=== PATIENT | male | born 1965 | race Caucasian/White ===

== ENCOUNTER 2020-05-20 14:46 | Emergency (ER) | payer OTHER, SELFPAY ==
[2020-05-20 20:44] VITALS: BP 155/70; PULSE 50; RESP 16; TEMP 35.5; O2SAT 96; BMI 29.8
--- NOTE | 2020-05-20 21:12 | ED.EXTPRO ---
HPI - Extremity Problem General Chief complaint: Extremity Injury, Upper Stated complaint: finger infection Time Seen by Provider: 05/20/20 20:59 Source: patient Mode of arrival: ambulatory Limitations: no limitations History of Present Illness HPI Narrative: pt comes to the ED c/o a R finger infection. Patient states it started this morning. Yesterday, the patient had a hangnail, pull it off, this morning, the patient noticed that his finger was erythematous and red. Patient states it hurts when he tries to flex his finger, however he is able to do so. Patient denies fever chills MD Complaint: extremity pain ( right middle finger pain) Related Data Previous Rx's Medication Instructions Recorded cephalexin [Keflex] 750 mg PO BID #19 cap 05/20/20 doxycycline hyclate 100 mg PO BID #19 cap 05/20/20 Allergies Allergy/AdvReac Type Severity Reaction Status Date / Time codeine [Codeine] Allergy Mild HIVES, Verified 05/20/20 22:50 VOMITING ibuprofen [From MOTRIN] Allergy Mild upset Verified 05/20/20 22:50 stomach acetaminophen [From TYLENOL] Allergy Unknown UPSET Verified 05/20/20 22:50 STOMACH morphine Allergy Unknown Headache Verified 05/20/20 22:50 Review of Systems Review of Systems: Constitutional : No Weight loss, No Fever, No Chills, No Night Sweats, No Fatigue, No Malaise ENT/Mouth : No Hearing loss, No Ear Pain, No Nasal Congestion, No Sinus Pain, No Hoarseness, No sore throat, No Rhinorrhea, No Swallowing Difficulty Eyes: No Eye Pain, No Swelling, No Redness, No Foreign Body, No Discharge, No Vision Changes Cardiovascular : No Chest Pain, No SOB, No Dyspnea on Exertion, No Orthopnea, No Edema, No Palpitations Respiratory : No Cough, No Sputum, No Wheezing, No Smoke Exposure, No Dyspnea Gastrointestinal : No Nausea, No Vomiting, No Diarrhea, No Constipation, No abdominal Pain, No Hematochezia, No Melena Genitourinary : no irregular bleeding, No Dysuria, No Urinary Frequency, No Hematuria, No Urinary Incontinence, No Urgency, No Flank Pain, No Urinary Flow Changes, No Hesitancy Musculoskeletal : No joint pain, No Myalgias, No Joint Swelling Skin : Erythema and swelling in right middle finger Neuro : No Weakness, No Numbness, No Paresthesias, No Loss of Consciousness, No Dizziness, No Headache Psych : No Anxiety/Panic, No Depression, No SI/HI/AH/VH, No Social Issues, Heme/Lymph: No Bruising, No Bleeding,No Lymphadenopathy Endocrine : No Polyuria, No Polydipsia, No Temperature Intolerance REPLACED BY [facility] Past Medical History Medical History (Updated 05/20/20 @ 23:51 by Carmen Shaikh MD) Anxiety Social History Social History Smoking Status: Current every day smoker Use of substances other than those prescribed or required for medical reasons: No Substance Use Type: Heroin and IV Drugs Substance Use Frequency: Daily Last Used Substance: Just Prior to Admission Any prior treatment program specific to substance use: Yes Advance Directives: No Advance Directives Information Provided: Yes Physical Exam Vital Signs: Vital Signs: Last Vital Signs Temp 98.8 F 05/20/20 23:27 Pulse 50 05/20/20 23:27 Resp 17 05/20/20 23:27 BP 144/82 H 05/20/20 23:27 Pulse Ox 99 05/20/20 23:27 Body Mass Index 29.8 Appearance: Alert. Oriented X3. No acute distress. Eyes: Pupils equal, round and reactive to light. ENT: Pharynx normal. Neck: Normal inspection. Neck supple. No lymph nodes noted. No crepitus CVS: Normal heart rate and rhythm. Pulses normal. Normal S1 and S2 Respiratory: No respiratory distress. Breath sounds normal. No Wheezing. No rales Abdomen: Soft and nontender. No rigidity. No distention. good BS x4 Skin: Skin warm and dry. See below Extremities: No lower extremity edema. Patient has erythema in the lateral aspect of the right middle finger, nail has dry bloody discharge, no pus drainage. Patient is able to flex and extend all fingers in his hand, patient has [id number] swelling in the right middle finger. Patient has multiple cuts on the left-hand that are old and healing, not infected. Neuro: Oriented X 3. No motor deficit. No sensory deficit. Moving all extermities. No slurred speech. Course Course Course Narrative: Patient received p.o. antibiotics. Patient's white blood cell count is not available. Patient had blood drawn, the labs states that the blood vitals were not labor properly. Denies 2nd set of blood work labs were drawn, the lab states they never got it although they were sent. Patient refused a 3rd blood drawn. However, we did get a lactic acid, it is 1.5. At this time, there is no suspicion of tenosynovitis. I discussed with the patient that if the redness passes the marked line, to return to the emergency room. Also if he spikes any fever or has any worsening symptoms, he needs to return to the emergency room. Patient is currently homeless, however he states that he is able to get his medications from [facility] MDM - Extremity (Nontraumatic) Lab Data Result diagrams: 05/20/20 21:28 Labs: Lab Results 05/20/20 05/20/20 Range/Units 21:28 22:35 Sodium 139 (135-145) mmol/L Potassium 3.9 (3.3-5.1) mmol/L Chloride 101 (96-108) mmol/L Carbon Dioxide 29 (22-29) mmol/L Anion Gap 13 (12-20) BUN 16 (9-16) mg/dL Creatinine 0.87 (0.5-1.4) mg/dL Estim Creat Clear Calc 98.6 Estimated GFR > 60 Random Glucose 93 (60-115) mg/dL Lactic Acid 1.5 (0.5-2.0) mmol/L Calcium 8.7 (8.4-10.2) mg/dL Discharge Plan Discharge Clinical Impression: Cellulitis Qualifiers: Site of cellulitis: extremity Site of cellulitis of extremity: finger Laterality: right Qualified Code(s): L03.011 - Cellulitis of right finger Patient Disposition: Home, Self-Care Instructions: Cellulitis (ED) Additional Instructions: If you have fever, the redness spreads beyond the marked line, if you have any worsening symptoms, please return to the emergency room. Please follow-up with your primary care physician tomorrow. If you have any worsening or new symptoms, please return to the emergency room or call 911 Prescriptions: New cephalexin [Keflex] 750 mg capsule 750 mg PO BID Qty: 19 RF: 0 doxycycline hyclate 100 mg capsule 100 mg PO BID Qty: 19 RF: 0
[2020-05-20 21:58] LABS: Anion Gap 13 (12-20); Blood Urea Nitrogen 16 mg/dL (9-16); Calcium 8.7 mg/dL (8.4-10.2); Carbon Dioxide 29 mmol/L (22-29); Chloride 101 mmol/L (96-108); Creatinine Clr Calc Pharmacy 98.6; Estimated Glomerular Filt Rate > 60; Glucose Random 93 mg/dL (60-115); Potassium 3.9 mmol/L (3.3-5.1); Sodium 139 mmol/L (135-145)
[2020-05-20] MEDS: cephALEXin 500 MG CAPSULE PO (22:51)
--- NOTE | 2020-05-20 22:51 | PC.NURSE ---
PT ASKING FOR CUSTARD. PT GIVEN SANDWICH, JUICE, J[place], 3 CUPS OF CUSTARD AND 6 PACKAGES OF CHAU CRACKERS.
[2020-05-20 23:09] LABS: Lactic Acid 1.5 mmol/L (0.5-2.0)
--- NOTE | 2020-05-20 23:20 | PC.NURSE ---
PT DECLINED REPEAT CBC. MD AWARE. ALL OTHER LABS REVIEWED.
--- NOTE | 2020-05-20 23:26 | PC.NURSE ---
PT REFUSED ADDITIONAL BLOOD WORK
[2020-05-20 23:27] VITALS: BP 144/82; PULSE 50; RESP 17; TEMP 37.1; O2SAT 99
== END 2020-05-21 00:16 | disposition home or self-care (01) ==
PROVIDERS: Emergency Provider Emergency Medicine
DX: L03.011 Cellulitis of right finger (principal); F17.200 Nicotine dependence, unspecified, uncomplicated
CPT/HCPCS: 36415; 80048; 83605; 87040; 99284

== ENCOUNTER 2020-06-13 15:58 | Emergency (ER) | payer OTHER, SELFPAY ==
[2020-06-13 16:00] VITALS: BP 130/75; PULSE 53; RESP 18; TEMP 36.8; O2SAT 97; BMI 62.6
--- NOTE | 2020-06-13 16:36 | ED.GENADULT ---
HPI - General Adult General Chief complaint: General Medical Stated complaint: abscess Time Seen by Provider: 06/13/20 16:36 History of Present Illness HPI narrative: Patient complains of red sores on both forearms that have been there for several days, he is an IV daily drug user, he denies fever or chills, the sores are mildly painful Related Data Previous Rx's Medication Instructions Recorded cephalexin [Keflex] 750 mg PO BID #19 cap 05/20/20 doxycycline hyclate 100 mg PO BID #19 cap 05/20/20 cephalexin 500 mg PO QID 7 Days #28 tab 06/13/20 sulfamethoxazole-trimethoprim 1 tab PO BID 7 Days #14 tab 06/13/20 [Bactrim DS] Allergies Allergy/AdvReac Type Severity Reaction Status Date / Time acetaminophen [From TYLENOL] Allergy Intermediate UPSET Verified 06/13/20 16:00 STOMACH morphine Allergy Intermediate Headache Verified 06/13/20 16:00 codeine [Codeine] Allergy Mild HIVES, Verified 06/13/20 16:00 VOMITING ibuprofen [From MOTRIN] Allergy Mild upset Verified 06/13/20 16:00 stomach Review of Systems Review of Systems: Positive for painful red areas on both forearms negatives are no fever no chills no dizziness no weakness no joint pain no chest pain or shortness of breath no numbness or weakness PMFSH Past Medical History PMFSH Narrative: Patient is daily IV drug user, has not had a tetanus shot many years Source: nursing notes reviewed Medical History (Updated 06/13/20 @ 17:03 by YAYA Babb) Anxiety Colitis Substance abuse Surgical History (Updated 06/13/20 @ 16:04 by Bisi Cool RN) H/O oral surgery Social History Social History Smoking Status: Current every day smoker Use of substances other than those prescribed or required for medical reasons: Yes Substance Use Type: Heroin Substance Use Frequency: Chronic Longstanding Any prior treatment program specific to substance use: Yes Advance Directives: No Advance Directives Information Provided: Yes Physical Exam Vital Signs: Vital Signs: Last Vital Signs Temp 99.2 F 06/13/20 17:23 Pulse 48 L 06/13/20 17:23 Resp 14 06/13/20 17:23 BP 129/72 06/13/20 17:23 Pulse Ox 98 06/13/20 17:23 Body Mass Index 62.6 General appearance is no acute distress comfortable and cooperative A&O x3 The head is normocephalic atraumatic Neck is supple Respiratory no distress Extremities full range of motion x4 in all joints The skin on the left forearm there is a 2 cm x 2 cm area of redness and induration with no fluctuance or discharge, no abscess and on the right forearm there is a very small area of redness and again mild induration no abscess, there are multiple small scabbed areas and track aden all over the arms Neuro no focal deficit Course Course Course Narrative: ER course there is no abscess or drainable fluid connection there is no lymphangitis and the patient has a small area of cellulitis on the left arm and props an early cellulitis on the right knee is treated with oral antibiotics Discharge Plan Discharge Clinical Impression: Cellulitis Qualifiers: Site of cellulitis: extremity Site of cellulitis of extremity: upper extremity Laterality: unspecified laterality Qualified Code(s): L03.119 - Cellulitis of unspecified part of limb Patient Disposition: Home, Self-Care Additional Instructions: There is no abscess now We are treating for skin infection cellulitis with antibiotics Return any time for worse pain and swelling, spreading redness, fever, any worse condition or any concerns You got a tetanus injection today Prescriptions: New sulfamethoxazole-trimethoprim [Bactrim DS] 800-160 mg tablet 1 tab PO BID 7 Days Qty: 14 RF: 0 cephalexin 500 mg tablet 500 mg PO QID 7 Days Qty: 28 RF: 0 No Action cephalexin [Keflex] 750 mg capsule 750 mg PO BID Qty: 19 RF: 0 doxycycline hyclate 100 mg capsule 100 mg PO BID Qty: 19 RF: 0 Interventions: ED Discharge Assessment Last Done: 06/13/20 17:27 Discharge Date/Time: 06/13/20 17:24
[2020-06-13] MEDS: cephALEXin 500 MG CAPSULE PO (17:16)
[2020-06-13 17:23] VITALS: BP 129/72; PULSE 48; RESP 14; TEMP 37.3; O2SAT 98
== END 2020-06-13 17:24 | disposition home or self-care (01) ==
PROVIDERS: Emergency Provider Emergency Medicine Emergency Medical Services
DX: L03.114 Cellulitis of left upper limb (principal); L03.113 Cellulitis of right upper limb; F11.10 Opioid abuse, uncomplicated; F17.200 Nicotine dependence, unspecified, uncomplicated
CPT/HCPCS: 90471; 90715; 99284

== ENCOUNTER 2020-08-29 22:16 | Emergency (ER) | payer OTHER, SELFPAY ==
[2020-08-29 22:23] VITALS: BP 145/82; PULSE 59; RESP 18; TEMP 36.6; O2SAT 97; BMI 25.8
--- NOTE | 2020-08-30 00:10 | ED.SKABFB ---
HPI - Skin/Abscess/Foreign Bdy General Chief complaint: Skin/Abscess/Foreign Body Stated complaint: hand pain Time Seen by Provider: 08/29/20 23:51 Source: patient Mode of arrival: ambulatory Limitations: no limitations History of Present Illness HPI narrative: Patient with history of IV drug use with frequent cellulitis and skin infection was seen here in May for the same comes here for multiple skin lesions clinically looks like staph infection no abscess no fever most of the lesions in the hands in the legs with surrounding cellulitis Related Data Previous Rx's Medication Instructions Recorded cephalexin [Keflex] 750 mg PO BID #19 cap 05/20/20 doxycycline hyclate 100 mg PO BID #19 cap 05/20/20 cephalexin 500 mg PO QID 7 Days #28 tab 06/13/20 sulfamethoxazole-trimethoprim 1 tab PO BID 7 Days #14 tab 06/13/20 [Bactrim DS] cephalexin 500 mg PO QID 10 Days #40 cap 08/30/20 doxycycline hyclate 100 mg PO BID #20 cap 08/30/20 Allergies Allergy/AdvReac Type Severity Reaction Status Date / Time acetaminophen [From TYLENOL] Allergy Intermediate UPSET Verified 08/29/20 22:23 STOMACH morphine Allergy Intermediate Headache Verified 08/29/20 22:23 codeine [Codeine] Allergy Mild HIVES, Verified 08/29/20 22:23 VOMITING ibuprofen [From MOTRIN] Allergy Mild upset Verified 08/29/20 22:23 stomach Review of Systems Review of Systems: Yes all other systems are reviewed and are negative PMFSH Past Medical History Medical History Anxiety Colitis Substance abuse Surgical History H/O oral surgery Social History Social History Alcohol intake: unknown Smoking Status: Unknown if ever smoked Use of substances other than those prescribed or required for medical reasons: Yes Substance Use Type: Crack/Cocaine Substance Use Frequency: Chronic Longstanding Advance Directives: No Advance Directives Information Provided: No Physical Exam Vital Signs: Vital Signs: Last Vital Signs Temp 98 F 08/29/20 22:23 Pulse 59 08/29/20 22:23 Resp 18 08/29/20 22:23 BP 145/82 H 08/29/20 22:23 Pulse Ox 97 08/29/20 22:23 Body Mass Index 25.8 Const: General: healthy appearing and comfortable HENMT: Head: Yes normocephalic and Yes atraumatic Resp: Effort & Inspection: normal respiratory effort Auscultation: clear to auscultation bilaterally Cardio: Palpation: normal PMI Rate: regular rate Rhythm: regular rhythm Heart sounds: S1 normal heart sound present and S2 normal heart sound present GI: Inspection: Yes normal to inspection Auscultation: normal bowel sounds Skin: Other: Multiple lesions on the lower extremity and upper extremity clinically staph infection with surrounding cellulitis no fluid collection or abscess MDM - Skin/Abscess/Foreign Bdy MDM Narrative Medical decision making narrative: Patient with multiple visits in the ER for similar infection in the past treated with doxy and Keflex will give save prescription discharge him patient does not want any help for detox Discharge Plan Discharge Clinical Impression: Staph skin infection Patient Disposition: Home, Self-Care Instructions: MRSA (Methicillin-Resistant Staphylococcus Aureus) (ED) Additional Instructions: Likely you have MRSA skin infection Take antibiotics as advised Prescriptions: New doxycycline hyclate 100 mg capsule 100 mg PO BID Qty: 20 RF: 0 cephalexin 500 mg capsule 500 mg PO QID 10 Days Qty: 40 RF: 0 No Action cephalexin [Keflex] 750 mg capsule 750 mg PO BID Qty: 19 RF: 0 doxycycline hyclate 100 mg capsule 100 mg PO BID Qty: 19 RF: 0 sulfamethoxazole-trimethoprim [Bactrim DS] 800-160 mg tablet 1 tab PO BID 7 Days Qty: 14 RF: 0 cephalexin 500 mg tablet 500 mg PO QID 7 Days Qty: 28 RF: 0
[2020-08-30] MEDS: cephALEXin 500 MG CAPSULE PO (00:45)
== END 2020-08-30 00:45 | disposition home or self-care (01) ==
PROVIDERS: Emergency Provider Internal Medicine
DX: L08.9 Local infection of the skin and subcutaneous tissue, unspecified (principal); F19.10 Other psychoactive substance abuse, uncomplicated
CPT/HCPCS: 99283

== ENCOUNTER 2021-06-18 12:32 | Emergency (ER) | payer OTHER, SELFPAY ==
--- NOTE | ~2021-06-18 | XR_ITS ---
EXAMINATION: RIGHT HAND AND WRIST X-RAY CLINICAL INFORMATION: Fall. Pain and swelling. COMPARISON: Previous x-ray 2018 TECHNIQUE: 4 views of the right hand and wrist FINDINGS: Bone alignment is normal. No fracture or dislocation is seen. There are small well-corticated soft tissue ossifications adjacent to the radiocarpal joint that are stable. 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 Joints spaces are otherwise normal. Soft tissues are normal. XR/XR hand wrist RT IMPRESSION: No acute fracture or dislocation. Degenerative changes at the radiocarpal joint and small adjacent soft tissue calcifications or ossifications similar to previous exam.
--- NOTE | 2021-06-18 12:58 | PC.NURSE ---
patient called to triage twice w/ no answer
[2021-06-18 13:09] VITALS: BP 189/101; PULSE 78; RESP 20; TEMP 36.6; O2SAT 97; BMI 25.0
[2021-06-18 14:52] LABS: IDNOW Serial# 55D5AD1C; Strep A Nucleic Acid Negative (Negative)
--- NOTE | 2021-06-18 16:35 | ED.GENADULT ---
HPI - General Adult General Chief complaint: Fall Stated complaint: Fall/wrist inj Time Seen by Provider: 06/18/21 14:34 History of Present Illness HPI narrative: This patient was never seen an eloped before he could be seen Related Data Previous Rx's Medication Instructions Recorded cephalexin 750 mg capsule (Keflex) 750 mg PO BID #19 cap 05/20/20 doxycycline hyclate 100 mg capsule 100 mg PO BID #19 cap 05/20/20 cephalexin 500 mg tablet 500 mg PO QID 7 Days #28 tab 06/13/20 sulfamethoxazole 800 1 tab PO BID 7 Days #14 tab 06/13/20 mg-trimethoprim 160 mg tablet (Bactrim DS) cephalexin 500 mg capsule 500 mg PO QID 10 Days #40 cap 08/30/20 doxycycline hyclate 100 mg capsule 100 mg PO BID #20 cap 08/30/20 Allergies Allergy/AdvReac Type Severity Reaction Status Date / Time acetaminophen [From TYLENOL] Allergy Intermediate UPSET Verified 06/18/21 13:09 STOMACH morphine Allergy Intermediate Headache Verified 06/18/21 13:09 codeine [Codeine] Allergy Mild HIVES, Verified 06/18/21 13:09 VOMITING ibuprofen [From MOTRIN] Allergy Mild upset Verified 06/18/21 13:09 stomach PMFSH Past Medical History Medical History Anxiety Colitis Substance abuse Surgical History H/O oral surgery Social History Social History Alcohol intake: unknown Substance Use Type: Crack/Cocaine Advance Directives: No Advance Directives Information Provided: No Physical Exam ED Vital Signs: Vital Signs - 24 hr 06/18/21 13:09 Temperature 97.8 F Pulse Rate 78 Respiratory Rate 20 Blood Pressure 189/101 H Pulse Oximetry 97 BMI result Body Mass Index 25.0 Medical Decision Making Lab Data Labs: Lab Results 06/18/21 Range/Units 14:37 S. pyogenes GrpA SANTIAGO Negative (Negative) Discharge Plan Discharge Clinical Impression: Eloped from emergency department Patient Disposition: Elopement Prescriptions: No Action cephalexin [Keflex] 750 mg capsule 750 mg PO BID Qty: 19 0RF doxycycline hyclate 100 mg capsule 100 mg PO BID Qty: 19 0RF doxycycline hyclate 100 mg capsule 100 mg PO BID Qty: 20 0RF cephalexin 500 mg capsule 500 mg PO QID 10 Days Qty: 40 0RF sulfamethoxazole-trimethoprim [Bactrim DS] 800-160 mg tablet 1 tab PO BID 7 Days Qty: 14 0RF cephalexin 500 mg tablet 500 mg PO QID 7 Days Qty: 28 0RF
== END 2021-06-18 16:41 | disposition left against medical advice (07) ==
PROVIDERS: Physician Assistant Medical; Emergency Provider Emergency Medicine; PCP Internal Medicine
DX: M25.531 Pain in right wrist (principal); R07.0 Pain in throat; Z20.822 Contact with and (suspected) exposure to COVID-19; Z79.899 Other long term (current) drug therapy
CPT/HCPCS: 73110; 73130; 87651; 99283

== ENCOUNTER 2022-02-06 06:36 | Inpatient (IN) | payer OTHER, SELFPAY ==
[2022-02-06] VITALS (12 sets, daily range): BP systolic 120–247; BP diastolic 60–152; PULSE 52–115; RESP 12–26; TEMP 36.6–39; O2SAT 95–100; BMI 27.7
--- NOTE | ~2022-02-06 | CT_ITS ---
EXAMINATION: CT cervical spine w IV con, CT thoracic spine w IV con CLINICAL INFORMATION: Reason for Exam back pain neck pain hx of IVDU COMPARISON: None. TECHNIQUE: Axial images were obtained through the cervical and thoracic spine following the intravenous administration of contrast. Coronal and sagittal reconstructed images generated. Intravenous Contrast: 100 mL of opaque [address] examination was performed using dose optimization techniques as appropriate, variously including the following: *Automated exposure control *Adjustment of mA and/or kV according to patient size (this includes techniques or standardized protocols for targeted exams where dose is matched to indication/reason for exam; i.e. extremities or head) *Use of iterative reconstruction technique DLP: 1004 mGy-cm FINDINGS: CT cervical spine: Image quality degradation due to mild motion artifact. Normal alignment. No subluxation. No acute fracture identified allowing for motion artifact. Moderate disc degenerative change at C5-C6 and C6-C7 with disc height loss, endplate sclerosis, and endplate proliferative change. At least moderate central canal narrowing at C5-C6 and moderate to severe central canal stenosis at C6-C7 suspected. No endplate erosive/destructive changes. Intervertebral disc heights otherwise maintained. No gross epidural collection or mass-limited assessment. No prevertebral soft tissue swelling. Lung apices grossly clear allowing for motion artifact. No retropharyngeal fluid collection. Visualized major salivary glands and thyroid gland are unremarkable. Internal jugular veins are patent as are common and internal carotid arteries. No cervical lymphadenopathy or soft tissue mass. CT thoracic spine: Normal alignment. No subluxation. Minimal chronic anterior wedge compression deformity of T7. Vertebral body heights otherwise maintained. Mild multilevel degenerative disc disease in the mid and lower thoracic spine with minimal disc height loss, endplate sclerosis, mild endplate proliferative change. No endplate erosive or destructive changes. Facet joints are intact. No paravertebral soft tissue swelling or fluid collection. No obvious/large collection in the spinal canal-limited assessment. Visualized thoracic and upper abdominal aorta normal caliber. No mediastinal adenopathy. Visualized lungs appear clear. Minimal biapical centrilobular emphysema. CT/CT cervical spine w IV con IMPRESSION: 1. No subluxation or fracture of the cervical or thoracic spine. No CT evidence of advanced discitis osteomyelitis complex. If there is continued high clinical concern for early discitis, consider MRI for more sensitive assessment. 2. Moderate disc degenerative change at C5-C6 and C6-C7 with suspected at least moderate central canal stenosis at C5-C6 and moderate to severe central canal stenosis at C6-C7. 3. Mild multilevel degenerative disc disease in the mid and lower thoracic spine. 4. Minimal chronic anterior wedge compression deformity of T7.
--- NOTE | ~2022-02-06 | XR_ITS ---
EXAMINATION: XR CHEST CLINICAL INFORMATION: Neck and back pain, fever COMPARISON: Chest x-ray on 04/09/2016 TECHNIQUE: Frontal view of the chest was obtained. FINDINGS: The cardiac silhouette is normal. There is mild diffuse bronchial wall thickening. There are no areas of consolidation. There are no pleural effusions or pneumothoraces. The bones and soft tissues are unremarkable for the patient's age. XR/XR chest 1V IMPRESSION: Ankle wall thickening may be infectious and/or inflammatory in etiology.
--- NOTE | ~2022-02-06 | MR_ITS ---
EXAMINATION: MRI LIMITED INCOMPLETE MRI OF THE CERVICAL SPINE WITHOUT CONTRAST CLINICAL INDICATION: Fever and neck pain. TECHNIQUE: Only motion degraded sagittal T2-weighted imaging acquired with a localizer sequence patient refused further imaging due to pain. COMPARISON: CT from 02/06/2022. FINDINGS: Retrosubluxation and moderate degenerative disc disease noted at the C5-C6 level with significant foraminal encroachment, more so on the right side. At the C6-C7 level, there is a shallow disc-osteophyte complex and posterior ligamentous thickening with facet arthropathy resulting in central canal stenosis, otherwise not well assessed on this limited sagittal sequence motion. Bilateral foraminal narrowing also evident. The remaining cervical disc spaces are relatively normal. It is difficult to discern as to whether there is T2 hyperintense signal abnormality within the imaged thoracic cord versus motion artifact. The craniovertebral junction appears normal. MR/MR cervical spine wo/w con IMPRESSION: Limited incomplete examination with moderate spondylosis at the C5-C6 and C6-C7 levels. Disc-osteophyte complexes with central canal stenosis and foraminal encroachment at both levels, though incompletely assessed. Questionable artifact versus signal abnormality in the imaged thoracic cord. If patient has myelopathic symptoms, recommend repeat follow-up imaging with medication for conscious sedation.
[2022-02-06] MEDS: ondansetron HCL 4 MG/2 ML VIAL IVPUSH (10:05)
[2022-02-06] MEDS: HYDROmorphone HCl 1 MG/ML SYRINGE IVPUSH ×2 (10:06→15:04)
[2022-02-06] MEDS: 0.9 % Sodium Chloride 1,000 ML 999 ML IVCONT (10:13)
[2022-02-06 10:18] LABS: MANUAL DIFF FLAG NO
[2022-02-06 10:20] LABS: Basophils Percent Auto 0.3 % (0-2); Eosinophils Absolute Auto 0.1 X10*3/uL (0.0-0.4); Eosinophils Percent Auto 0.9 % (0-4); Hematocrit 44.6 % (42.0-52.0); Hemoglobin 15.4 g/dl (14.0-18.0); Imm Gran Abs Auto 0.02 X10*3/uL (0.00-0.03); Imm Gran Pct Auto 0.3 % (0.0-0.4); Lymphocytes Absolute Auto 1.1 X10*3/uL (1.2-4.9); Lymphocytes Percent Auto 17.3 % (20-40); Mean Corpuscular HGB Conc 34.5 g/dl (31.0-36.0); Mean Corpuscular Hemoglobin 29.7 pg (27.0-33.0); Mean Corpuscular Volume 85.9 fL (80.0-98.0); Mean Platelet Volume 10.3 fL (9.4-12.4); Monocytes Absolute Auto 0.4 X10*3/uL (0.1-1.2); Monocytes Percent Auto 5.3 % (2-11); Neutrophils Percent Auto 75.9 % (45-73); Platelet Count 143 X10*3/uL (160-400); Red Blood Count 5.19 X10*6/uL (4.60-5.80); Red Cell Distribution Width 12.2 % (11.0-16.0); White Blood Count 6.6 X10*3/uL (4.8-10.8)
[2022-02-06 10:25] LABS: Prothrombin Time 11.7 SEC (10.0-13.1)
[2022-02-06 10:27] LABS: Partial Thromboplastin Time 33.4 SEC (26.0-36.4)
[2022-02-06 10:37] LABS: Lactic Acid 0.7 mmol/L (0.5-2.0)
[2022-02-06 10:40] LABS: Alanine Aminotransferase 59 U/L (0-40); Albumin Level 4.6 g/dL (3.5-5.0); Alkaline Phosphatase 106 U/L (39-117); Anion Gap 18 (12-20); Aspartate Amino Transferase 74 U/L (5-37); Bilirubin Total 1.2 mg/dL (0.0-1.0); Blood Urea Nitrogen 11 mg/dL (9-16); C Reactive Protein 0.09 mg/dL (< or = 0.50); Calcium 9.7 mg/dL (8.4-10.2); Carbon Dioxide 24 mmol/L (22-29); Chloride 98 mmol/L (96-108); Creatinine Clr Calc Pharmacy 88.1; Estimated Glomerular Filt Rate > 60; Glucose Random 124 mg/dL (60-115); Magnesium 1.9 mg/dL (1.6-2.6); Potassium 4.2 mmol/L (3.3-5.1); Sodium 136 mmol/L (135-145); Total Protein 8.8 g/dL (6.5-8.0)
--- NOTE | 2022-02-06 10:45 | ED.NECK ---
HPI - Neck Pain/Injury General Chief Complaint: General Medical <YAYA Garcia Last Filed: 02/06/22 19:30> Stated Complaint: WOKE UP WITH NECK PAIN <YAYA Garcia Last Filed: 02/06/22 19:30> Time Seen by Provider: 02/06/22 09:04 <YAYA Garcia Last Filed: 02/06/22 19:30> Source: patient <YAYA Garcia Last Filed: 02/06/22 19:30> Mode of arrival: ambulatory <YAYA Garcia Last Filed: 02/06/22 19:30> Limitations: no limitations <YAYA Garcia Last Filed: 02/06/22 19:30> History of Present Illness HPI Narrative: 56yoM c PMHx of HLD, Hepatitis C and IVDU of IV heroin last used Lastnight around midnight presenting to the ED c c/o neck pain that started this morning when he woke up. He reports he cannot lift up his head/neck and cannot really looked to the sides he would rather keep his head/neck in a flexion position for comfort. He denies any fevers, dizziness, headaches, rashes, recent falls or trauma a paresthesias, chest pain or shortness of breath, dyspnea on exertion, orthopnea, palpitations, paresthesias, nausea/vomiting/diarrhea constipation, black or bloody stools, lower extremity edema or calf tenderness, urinary/bowel incontinence or retention, saddle anesthesia, weakness or any other symptoms complaints or concerns at this time. <YAYA Garcia Last Filed: 02/06/22 19:30> MD complaint: neck pain <YAYA Garcia Last Filed: 02/06/22 19:30> Onset (ago): hour(s) (this morning ) <YAYA Garcia Last Filed: 02/06/22 19:30> Place: home <YAYA Garcia Last Filed: 02/06/22 19:30> Radiation: upper back <YAYA Garcia Last Filed: 02/06/22 19:30> Severity: severe and constant <YAYA Garcia Last Filed: 02/06/22 19:30> Severity scale (1-10): >10 <YAYA Garcia - Last Filed: 02/06/22 19:30> Quality: sharp and aching <YAYA Garcia - Last Filed: 02/06/22 19:30> Duration: constant <YAYA Garcia - Last Filed: 02/06/22 19:30> Relieving factors: none <YAYA Garcia - Last Filed: 02/06/22 19:30> Exacerbating factors: movement of neck <YAYA Garcia - Last Filed: 02/06/22 19:30> Context: other (History of IV drug use) <YAYA Garcia - Last Filed: 02/06/22 19:30> Associated symptoms: none <YAYA Garcia - Last Filed: 02/06/22 19:30> Treatments prior to arrival: none <YAYA Garcia Last Filed: 02/06/22 19:30> Related Data Home Medications: Previous Rx's Medication Instructions Recorded cephalexin 750 mg capsule (Keflex) 750 mg PO BID #19 caps 05/20/20 doxycycline hyclate 100 mg capsule 100 mg PO BID #19 caps 05/20/20 cephalexin 500 mg tablet 500 mg PO QID 7 days #28 tabs 06/13/20 sulfamethoxazole 800 1 tab PO BID 7 days #14 tabs 06/13/20 mg-trimethoprim 160 mg tablet (Bactrim DS) cephalexin 500 mg capsule 500 mg PO QID 10 days #40 caps 08/30/20 doxycycline hyclate 100 mg capsule 100 mg PO BID #20 caps 08/30/20 <YAYA Garcia - Last Filed: 02/06/22 19:30> Allergies/Adverse Reactions: Allergies Allergy/AdvReac Type Severity Reaction Status Date / Time acetaminophen [From TYLENOL] Allergy Intermediate UPSET Verified 06/18/21 13:09 STOMACH morphine Allergy Intermediate Headache Verified 06/18/21 13:09 codeine [Codeine] Allergy Mild HIVES, Verified 06/18/21 13:09 VOMITING ibuprofen [From MOTRIN] Allergy Mild upset Verified 06/18/21 13:09 stomach <YAYA Garcia Last Filed: 02/06/22 19:30> Review of Systems Review of Systems: Constitutional : No trauma, No Weight loss, No Fever, No Chills, ENT/Mouth : No Hearing loss, No Ear Pain, No Nasal Congestion, No Sinus Pain, No Hoarseness, No sore throat, No Rhinorrhea, No Swallowing Difficulty Cardiovascular : No Chest Pain, No SOB Respiratory : No Cough, No Dyspnea Gastrointestinal : No Nausea, No Vomiting, No Diarrhea, No abdominal Pain, No Hematochezia, No Melena Genitourinary : No Dysuria, No Urinary Frequency, No Hematuria, No Urinary or Bowel Incontinence/retention Musculoskeletal : + Neck pain, No Back pain, No joint stiffness, No joint swelling Skin : No Skin Lesions, No rash or signs of infection Neuro : + neck pain radiating to upper back, nO Tingling to b/l arms/legs, No Weakness, No Numbness, No headache, no loss of bowel or bladder incontinence, no saddle anesthesia Patient endorses a + history of IV drug usage last used IV heroin lastnight. <YAYA Garcia - Last Filed: 02/06/22 19:30> Yes all other systems are reviewed and are negative <YAYA Garcia - Last Filed: 02/06/22 19:30> PMF Past Medical History Attestation statement: The following information was validated with the patient. <YAYA Garcia - Last Filed: 02/06/22 19:30> Source: old records reviewed and nursing notes reviewed <YAYA Garcia - Last Filed: 02/06/22 19:30> Medical History: Medical History Anxiety Colitis Substance abuse <YAYA Garcia - Last Filed: 02/06/22 19:30> Surgical History: Surgical History H/O oral surgery <YAYA Garcia - Last Filed: 02/06/22 19:30> Social History Social History: Social History Alcohol intake: unknown Substance Use Type: Crack/Cocaine Advance Directives: No Advance Directives Information Provided: No <YAYA Garcia - Last Filed: 02/06/22 19:30> Physical Exam Vital Signs: Vital Signs: Last Vital Signs Temp 99.5 F 02/06/22 19:31 Pulse 54 02/06/22 19:31 Resp 12 02/06/22 19:31 BP 126/73 02/06/22 19:31 Pulse Ox 95 02/06/22 19:31 O2 Del Method 02/06/22 19:31 BMI result Body Mass Index 27.7 vital signs have been reviewed as normal and appeared to be correct. Blood pressure 218/105. Heart rate normal. Respiration rate normal. Temperature normal. Oxygen saturation normal. <YAYA Garcia - Last Filed: 02/06/22 19:30> Vital Signs: Last Vital Signs Temp 99.5 F 02/06/22 19:31 Pulse 54 02/06/22 19:31 Resp 12 02/06/22 19:31 BP 126/73 02/06/22 19:31 Pulse Ox 95 02/06/22 19:31 O2 Del Method 02/06/22 19:31 BMI result Body Mass Index 27.7 <Elliot Mg MD - Last Filed: 02/06/22 19:43> Vital Signs: Last Vital Signs Temp 99.5 F 02/06/22 19:31 Pulse 54 02/06/22 19:31 Resp 12 02/06/22 19:31 BP 126/73 02/06/22 19:31 Pulse Ox 95 02/06/22 19:31 O2 Del Method 02/06/22 19:31 BMI result Body Mass Index 27.7 <YAYA Garcia - Last Filed: 02/06/22 19:56> Appearance: Alert. Oriented X3. No acute distress. Head: Normal external exam. Normocephalic. Atraumatic. Eyes: PERRLA. EOMI. Conjunctiva and sclera normal. Eyelids normal. ENT: Pharynx normal. Uvula midline. Moist mucous membranes. No trismus noted. No drooling noted. No muffled voice noted. Neck: Normal inspection. Neck supple. Patient neck is in assess flexion position and reports comfort at this position. When he tries to extend or hyperextend or perform rotation or lateral flexion he reports significant pain. No obvious meningeal signs noted. No adenopathy noted. Thyroid normal. Trachea midline. No neck mass noted. Although patient noted to have lower mid cervical/upper thoracic mid bony tenderness. No step-offs or deformities are noted. No rashes/lesion/induration/fluctuance or signs of infection noted. Patient neuro intact bilaterally and distally on all 4 extremities. Reflexes intact bilaterally and distally in all 4 extremities. No edema noted. Normal strength in upper extremities. CVS: Normal heart rate and rhythm. Heart sound normal. No murmurs noted. Pulses normal throughout. Respiratory: No respiratory distress. Painless inspiration. Breath sounds normal. No wheezes/rales/rhonchi noted. Chest nontender. No accessory muscle usage noted or decreased air movement noted. Back: Full range of motion noted. No obvious deformities, or edema. Full ROM in back and lower extremities. No signs of trauma. Patient neuro intact bilaterally and distally on all 4 extremities. Reflexes intact bilaterally and distally in all 4 extremities. No rashes/lesion/induration/fluctuance or signs of infection noted. No CVA tenderness noted. Skin: Skin warm and dry. Normal skin color. Normal skin turgor. No rashes/lesions/lacerations noted. Extremities: Extremities exhibit normal range of motion. Extremities nontender. No lower extremity edema noted. No calf tenderness is noted. Neuro: Oriented X 3. No motor deficit. No sensory deficit. Reflexes normal. Normal steady gait without assitive devices. No focal neuro deficits noted. CN's II-XII intact bilaterally? Vascular: + radial pulses/+ 2 distal pedal pulses/+2 dorsalis pedis b/l. Normal cap refill. No cyanosis noted to upper extremity nails and lower extremity toes nails. <YAYA Garcia - Last Filed: 02/06/22 19:30> Course Course Course Narrative: 9:30am - Pt c likely muscular pain, but could be herniated disc. Neuro exam shows no deficits. Not c/w vascular etiology, airway infection, or spinal fx. Due to patient history of IV drug use unable to rule out soft tissue neck infection or epidural abscess. Therefore at this time will obtain labs, place an IV provide IV fluids, obtain a MRI with and without contrast of cervical and thoracic spine. Provide symptomatic treatment with IV Dilaudid. I did offer methadone although patient reports he does not have photo ID to follow-up in the clinic. He will not be able to start Suboxone as he used overnight. Otherwise will re-evaluate. <YAYA Garcia - Last Filed: 02/06/22 19:30> Reevaluation(s) Reevaluation #1: - labs reviewed patient platelet count 143. Random glucose 124. Total bilirubin 1.2. AST 74. ALT 59. Total protein 8.8. Otherwise all other labs are within normal limits. - patient is still endorsing pain therefore will provide 30 mg of IV Toradol and 2 mg of p.o. Valium and re-evaluate. - patient waiting MRI of cervical and thoracic spine with and without contrast. <YAYA Garcia - Last Filed: 02/06/22 19:30> Time: 11:02 <YAYA Garcia - Last Filed: 02/06/22 19:30> Reevaluation #2: - patient unable to sit still for MRI of cervical and thoracic spine with and without contrast after given multiple medications which include 30 mg of Toradol, 4 mg of Valium, 4mg of Versed, 50 mg of Benadryl, 2mg of Dilaudid and 5 mg of Haldol. - therefore at this time will have to cancel MRI and obtain CT scan of cervical and thoracic spine with IV contrast and re-evaluate. - patient's blood pressure continues to be elevated it is 223/102. Will give 10 mg of hydralazine re-evaluate <YAYA Garcia - Last Filed: 02/06/22 19:30> Time: 14:30 <YAYA Garcia - Last Filed: 02/06/22 19:30> Reevaluation #3: - they were unable to obtain the patient's CT scan due to patient would not sit still. - patient also just developed a fever of 102.2 rectally. - unable to find a source of infection as patient's labs are all within normal limits and he is negative for COVID and his urine is within normal limits. - therefore will attempt to find a source will obtain a chest x-ray. - Will provide IM ketamine to try to sedate the patient for the CT scan with IV contrast of cervical and thoracic spine. - will also provide 100 mg of Motrin, IV Zosyn and IV vanco for possible infection/bacteremia. <YAYA Garcia - Last Filed: 02/06/22 19:30> Time: 16:36 <YAYA Garcia - Last Filed: 02/06/22 19:30> Additional Reevaluation(s): 195 This MARICEL was asked to perform a lumbar puncture on this patient, I went over to patient patient is adamantly refusing lumbar puncture. Tells me know. Therefore at this time will hold on lumbar puncture if patient changes his mind I would be happy to perform a lumbar puncture on patient. <YAYA Garcia - Last Filed: 02/06/22 19:56> Consultations Consultation #1: - CT scan of cervical spine and thoracic spine revealed chronic changes no acute processes were noted. - patient is currently resting respirations even and unlabored in no acute distress. - therefore at this time will admit for neck pain, fever of unknown origin and pain control. I Discussed this Case with Dr. Sharp who will admit at this time <YAYA Garcia - Last Filed: 02/06/22 19:30> Time: 19:20 <YAYA Garcia - Last Filed: 02/06/22 19:30> MDM - Neck Pain/Injury MDM Narrative Medical decision making narrative: 19:40 patient seen and evaluated IV drug user with neck pain afebrile normal inflammatory markers CT scan showed diffuse arthritis <Elliot Mg MD - Last Filed: 02/06/22 19:43> Differential Diagnosis Differential diagnosis: Likely disc disorder of cervical region <Elliot Mg MD - Last Filed: 02/06/22 19:43> Medical Records Attestation: I reviewed the patient's medical records. <YAYA Garcia Last Filed: 02/06/22 19:30> Lab Data Attestation: I reviewed the patient's lab results. <YAYA Garcia Last Filed: 02/06/22 19:30> Result diagrams: : 02/06/22 10:12 02/06/22 10:12 <YAYA Garcia Last Filed: 02/06/22 19:30> Labs: Lab Results 02/06/22 02/06/22 02/06/22 Range/Units 10:12 10:12 10:12 WBC 6.6 (4.8-10.8) X10*3/uL RBC 5.19 (4.60-5.80) X10*6/uL Hgb 15.4 (14.0-18.0) g/dl Hct 44.6 (42.0-52.0) % MCV 85.9 (80.0-98.0) fL MCH 29.7 (27.0-33.0) pg MCHC 34.5 (31.0-36.0) g/dl RDW 12.2 (11.0-16.0) % Plt Count 143 L (160-400) X10*3/uL MPV 10.3 (9.4-12.4) fL Immature Gran % (Auto) 0.3 (0.0-0.4) % Neut % (Auto) 75.9 H (45-73) % Lymph % (Auto) 17.3 L (20-40) % [place] % (Auto) 5.3 (2-11) % Eos % (Auto) 0.9 (0-4) % Baso % (Auto) 0.3 (0-2) % Lymph # (Auto) 1.1 L (1.2-4.9) X10*3/uL [place] # (Auto) 0.4 (0.1-1.2) X10*3/uL Eos # (Auto) 0.1 (0.0-0.4) X10*3/uL Baso # (Auto) 0.0 (0.0-0.2) X10*3/uL Abs Immat Gran (auto) 0.02 (0.00-0.03) X10*3/uL Absolute Neuts (auto) 5.0 (2.0-8.3) x10*3/uL Absolute Nucleated RBC 0.000 (0.0-0.012) X10*3/uL Nucleated RBC % (auto) 0.0 (0.0-0.2) /100WBC ESR 8 (0-15) MM/HR PT 11.7 (10.0-13.1) SEC INR 1.0 (0.9-1.1) APTT (26.0-36.4) SEC Sodium (135-145) mmol/L Potassium (3.3-5.1) mmol/L Chloride (96-108) mmol/L Carbon Dioxide (22-29) mmol/L Anion Gap (12-20) BUN (9-16) mg/dL Creatinine (0.5-1.4) mg/dL Estim Creat Clear Calc Estimated GFR Random Glucose (60-115) mg/dL Lactic Acid (0.5-2.0) mmol/L Calcium (8.4-10.2) mg/dL Magnesium (1.6-2.6) mg/dL Total Bilirubin (0.0-1.0) mg/dL AST (5-37) U/L ALT (0-40) U/L Alkaline Phosphatase (39-117) U/L C-Reactive Protein (< or = 0.50) mg/dL Total Protein (6.5-8.0) g/dL Albumin (3.5-5.0) g/dL Urine Color Urine Appearance Urine pH (5.0-9.0) Ur Specific [place] (1.005-1.025) Urine Protein (Neg-Trace) mg/dL Urine Glucose (UA) (Negative) mg/dL Urine Ketones (Negative) mg/dL Urine Blood (Negative) Urine Nitrite (Negative) Ur Leukocyte Esterase (Negative) Urine Opiates Screen (Not Detect) Urine Fentanyl Screen (Not Detect) Ur Barbiturates Screen (Not Detect) Ur Phencyclidine Scrn (Not Detect) Ur Amphetamines Screen (Not Detect) U Benzodiazepines Scrn (Not Detect) Urine Cocaine Screen (Not Detect) U Marijuana (THC) Screen (Not Detect) COVID-19 ([facility]) (Negative) COVID-19 Clin Com 02/06/22 02/06/22 02/06/22 Range/Units 10:12 10:12 10:12 WBC (4.8-10.8) X10*3/uL RBC (4.60-5.80) X10*6/uL Hgb (14.0-18.0) g/dl Hct (42.0-52.0) % MCV (80.0-98.0) fL MCH (27.0-33.0) pg MCHC (31.0-36.0) g/dl RDW (11.0-16.0) % Plt Count (160-400) X10*3/uL MPV (9.4-12.4) fL Immature Gran % (Auto) (0.0-0.4) % Neut % (Auto) (45-73) % Lymph % (Auto) (20-40) % [place] % (Auto) (2-11) % Eos % (Auto) (0-4) % Baso % (Auto) (0-2) % Lymph # (Auto) (1.2-4.9) X10*3/uL [place] # (Auto) (0.1-1.2) X10*3/uL Eos # (Auto) (0.0-0.4) X10*3/uL Baso # (Auto) (0.0-0.2) X10*3/uL Abs Immat Gran (auto) (0.00-0.03) X10*3/uL Absolute Neuts (auto) (2.0-8.3) x10*3/uL Absolute Nucleated RBC (0.0-0.012) X10*3/uL Nucleated RBC % (auto) (0.0-0.2) /100WBC ESR (0-15) MM/HR PT (10.0-13.1) SEC INR (0.9-1.1) APTT 33.4 (26.0-36.4) SEC Sodium 136 (135-145) mmol/L Potassium 4.2 (3.3-5.1) mmol/L Chloride 98 (96-108) mmol/L Carbon Dioxide 24 (22-29) mmol/L Anion Gap 18 (12-20) BUN 11 (9-16) mg/dL Creatinine 0.92 (0.5-1.4) mg/dL Estim Creat Clear Calc 88.1 Estimated GFR > 60 Random Glucose 124 H (60-115) mg/dL Lactic Acid 0.7 (0.5-2.0) mmol/L Calcium 9.7 D (8.4-10.2) mg/dL Magnesium 1.9 (1.6-2.6) mg/dL Total Bilirubin 1.2 H (0.0-1.0) mg/dL AST 74 H (5-37) U/L ALT 59 H (0-40) U/L Alkaline Phosphatase 106 (39-117) U/L C-Reactive Protein 0.09 (< or = 0.50) mg/dL Total Protein 8.8 H (6.5-8.0) g/dL Albumin 4.6 (3.5-5.0) g/dL Urine Color Urine Appearance Urine pH (5.0-9.0) Ur Specific [place] (1.005-1.025) Urine Protein (Neg-Trace) mg/dL Urine Glucose (UA) (Negative) mg/dL Urine Ketones (Negative) mg/dL Urine Blood (Negative) Urine Nitrite (Negative) Ur Leukocyte Esterase (Negative) Urine Opiates Screen (Not Detect) Urine Fentanyl Screen (Not Detect) Ur Barbiturates Screen (Not Detect) Ur Phencyclidine Scrn (Not Detect) Ur Amphetamines Screen (Not Detect) U Benzodiazepines Scrn (Not Detect) Urine Cocaine Screen (Not Detect) U Marijuana (THC) Screen (Not Detect) COVID-19 ([facility]) (Negative) COVID-19 Clin Com 02/06/22 02/06/22 02/06/22 Range/Units 11:14 11:14 11:14 WBC (4.8-10.8) X10*3/uL RBC (4.60-5.80) X10*6/uL Hgb (14.0-18.0) g/dl Hct (42.0-52.0) % MCV (80.0-98.0) fL MCH (27.0-33.0) pg MCHC (31.0-36.0) g/dl RDW (11.0-16.0) % Plt Count (160-400) X10*3/uL MPV (9.4-12.4) fL Immature Gran % (Auto) (0.0-0.4) % Neut % (Auto) (45-73) % Lymph % (Auto) (20-40) % [place] % (Auto) (2-11) % Eos % (Auto) (0-4) % Baso % (Auto) (0-2) % Lymph # (Auto) (1.2-4.9) X10*3/uL [place] # (Auto) (0.1-1.2) X10*3/uL Eos # (Auto) (0.0-0.4) X10*3/uL Baso # (Auto) (0.0-0.2) X10*3/uL Abs Immat Gran (auto) (0.00-0.03) X10*3/uL Absolute Neuts (auto) (2.0-8.3) x10*3/uL Absolute Nucleated RBC (0.0-0.012) X10*3/uL Nucleated RBC % (auto) (0.0-0.2) /100WBC ESR (0-15) MM/HR PT (10.0-13.1) SEC INR (0.9-1.1) APTT (26.0-36.4) SEC Sodium (135-145) mmol/L Potassium (3.3-5.1) mmol/L Chloride (96-108) mmol/L Carbon Dioxide (22-29) mmol/L Anion Gap (12-20) BUN (9-16) mg/dL Creatinine (0.5-1.4) mg/dL Estim Creat Clear Calc Estimated GFR Random Glucose (60-115) mg/dL Lactic Acid (0.5-2.0) mmol/L Calcium (8.4-10.2) mg/dL Magnesium (1.6-2.6) mg/dL Total Bilirubin (0.0-1.0) mg/dL AST (5-37) U/L ALT (0-40) U/L Alkaline Phosphatase (39-117) U/L C-Reactive Protein (< or = 0.50) mg/dL Total Protein (6.5-8.0) g/dL Albumin (3.5-5.0) g/dL Urine Color Yellow Urine Appearance Clear Urine pH 7.5 (5.0-9.0) Ur Specific [place] 1.010 (1.005-1.025) Urine Protein Negative (Neg-Trace) mg/dL Urine Glucose (UA) Negative (Negative) mg/dL Urine Ketones Negative (Negative) mg/dL Urine Blood Negative (Negative) Urine Nitrite Negative (Negative) Ur Leukocyte Esterase Negative (Negative) Urine Opiates Screen POSITIVE H (Not Detect) Urine Fentanyl Screen POSITIVE H (Not Detect) Ur Barbiturates Screen Not Detected (Not Detect) Ur Phencyclidine Scrn Not Detected (Not Detect) Ur Amphetamines Screen Not Detected (Not Detect) U Benzodiazepines Scrn Not Detected (Not Detect) Urine Cocaine Screen POSITIVE H (Not Detect) U Marijuana (THC) Screen Not Detected (Not Detect) COVID-19 ([facility]) Negative (Negative) COVID-19 Clin Com See Note <YAYA Garcia - Last Filed: 02/06/22 19:30> Lab Results 02/06/22 02/06/22 02/06/22 Range/Units 10:12 10:12 10:12 WBC 6.6 (4.8-10.8) X10*3/uL RBC 5.19 (4.60-5.80) X10*6/uL Hgb 15.4 (14.0-18.0) g/dl Hct 44.6 (42.0-52.0) % MCV 85.9 (80.0-98.0) fL MCH 29.7 (27.0-33.0) pg MCHC 34.5 (31.0-36.0) g/dl RDW 12.2 (11.0-16.0) % Plt Count 143 L (160-400) X10*3/uL MPV 10.3 (9.4-12.4) fL Immature Gran % (Auto) 0.3 (0.0-0.4) % Neut % (Auto) 75.9 H (45-73) % Lymph % (Auto) 17.3 L (20-40) % [place] % (Auto) 5.3 (2-11) % Eos % (Auto) 0.9 (0-4) % Baso % (Auto) 0.3 (0-2) % Lymph # (Auto) 1.1 L (1.2-4.9) X10*3/uL [place] # (Auto) 0.4 (0.1-1.2) X10*3/uL Eos # (Auto) 0.1 (0.0-0.4) X10*3/uL Baso # (Auto) 0.0 (0.0-0.2) X10*3/uL Abs Immat Gran (auto) 0.02 (0.00-0.03) X10*3/uL Absolute Neuts (auto) 5.0 (2.0-8.3) x10*3/uL Absolute Nucleated RBC 0.000 (0.0-0.012) X10*3/uL Nucleated RBC % (auto) 0.0 (0.0-0.2) /100WBC ESR 8 (0-15) MM/HR PT 11.7 (10.0-13.1) SEC INR 1.0 (0.9-1.1) APTT (26.0-36.4) SEC Sodium (135-145) mmol/L Potassium (3.3-5.1) mmol/L Chloride (96-108) mmol/L Carbon Dioxide (22-29) mmol/L Anion Gap (12-20) BUN (9-16) mg/dL Creatinine (0.5-1.4) mg/dL Estim Creat Clear Calc Estimated GFR Random Glucose (60-115) mg/dL Lactic Acid (0.5-2.0) mmol/L Calcium (8.4-10.2) mg/dL Magnesium (1.6-2.6) mg/dL Total Bilirubin (0.0-1.0) mg/dL AST (5-37) U/L ALT (0-40) U/L Alkaline Phosphatase (39-117) U/L C-Reactive Protein (< or = 0.50) mg/dL Total Protein (6.5-8.0) g/dL Albumin (3.5-5.0) g/dL Urine Color Urine Appearance Urine pH (5.0-9.0) Ur Specific [place] (1.005-1.025) Urine Protein (Neg-Trace) mg/dL Urine Glucose (UA) (Negative) mg/dL Urine Ketones (Negative) mg/dL Urine Blood (Negative) Urine Nitrite (Negative) Ur Leukocyte Esterase (Negative) Urine Opiates Screen (Not Detect) Urine Fentanyl Screen (Not Detect) Ur Barbiturates Screen (Not Detect) Ur Phencyclidine Scrn (Not Detect) Ur Amphetamines Screen (Not Detect) U Benzodiazepines Scrn (Not Detect) Urine Cocaine Screen (Not Detect) U Marijuana (THC) Screen (Not Detect) COVID-19 ([facility]) (Negative) COVID-19 Clin Com 02/06/22 02/06/22 02/06/22 Range/Units 10:12 10:12 10:12 WBC (4.8-10.8) X10*3/uL RBC (4.60-5.80) X10*6/uL Hgb (14.0-18.0) g/dl Hct (42.0-52.0) % MCV (80.0-98.0) fL MCH (27.0-33.0) pg MCHC (31.0-36.0) g/dl RDW (11.0-16.0) % Plt Count (160-400) X10*3/uL MPV (9.4-12.4) fL Immature Gran % (Auto) (0.0-0.4) % Neut % (Auto) (45-73) % Lymph % (Auto) (20-40) % [place] % (Auto) (2-11) % Eos % (Auto) (0-4) % Baso % (Auto) (0-2) % Lymph # (Auto) (1.2-4.9) X10*3/uL [place] # (Auto) (0.1-1.2) X10*3/uL Eos # (Auto) (0.0-0.4) X10*3/uL Baso # (Auto) (0.0-0.2) X10*3/uL Abs Immat Gran (auto) (0.00-0.03) X10*3/uL Absolute Neuts (auto) (2.0-8.3) x10*3/uL Absolute Nucleated RBC (0.0-0.012) X10*3/uL Nucleated RBC % (auto) (0.0-0.2) /100WBC ESR (0-15) MM/HR PT (10.0-13.1) SEC INR (0.9-1.1) APTT 33.4 (26.0-36.4) SEC Sodium 136 (135-145) mmol/L Potassium 4.2 (3.3-5.1) mmol/L Chloride 98 (96-108) mmol/L Carbon Dioxide 24 (22-29) mmol/L Anion Gap 18 (12-20) BUN 11 (9-16) mg/dL Creatinine 0.92 (0.5-1.4) mg/dL Estim Creat Clear Calc 88.1 Estimated GFR > 60 Random Glucose 124 H (60-115) mg/dL Lactic Acid 0.7 (0.5-2.0) mmol/L Calcium 9.7 D (8.4-10.2) mg/dL Magnesium 1.9 (1.6-2.6) mg/dL Total Bilirubin 1.2 H (0.0-1.0) mg/dL AST 74 H (5-37) U/L ALT 59 H (0-40) U/L Alkaline Phosphatase 106 (39-117) U/L C-Reactive Protein 0.09 (< or = 0.50) mg/dL Total Protein 8.8 H (6.5-8.0) g/dL Albumin 4.6 (3.5-5.0) g/dL Urine Color Urine Appearance Urine pH (5.0-9.0) Ur Specific [place] (1.005-1.025) Urine Protein (Neg-Trace) mg/dL Urine Glucose (UA) (Negative) mg/dL Urine Ketones (Negative) mg/dL Urine Blood (Negative) Urine Nitrite (Negative) Ur Leukocyte Esterase (Negative) Urine Opiates Screen (Not Detect) Urine Fentanyl Screen (Not Detect) Ur Barbiturates Screen (Not Detect) Ur Phencyclidine Scrn (Not Detect) Ur Amphetamines Screen (Not Detect) U Benzodiazepines Scrn (Not Detect) Urine Cocaine Screen (Not Detect) U Marijuana (THC) Screen (Not Detect) COVID-19 (MARY) (Negative) COVID-19 Clin Com 02/06/22 02/06/22 02/06/22 Range/Units 11:14 11:14 11:14 WBC (4.8-10.8) X10*3/uL RBC (4.60-5.80) X10*6/uL Hgb (14.0-18.0) g/dl Hct (42.0-52.0) % MCV (80.0-98.0) fL MCH (27.0-33.0) pg MCHC (31.0-36.0) g/dl RDW (11.0-16.0) % Plt Count (160-400) X10*3/uL MPV (9.4-12.4) fL Immature Gran % (Auto) (0.0-0.4) % Neut % (Auto) (45-73) % Lymph % (Auto) (20-40) % [place] % (Auto) (2-11) % Eos % (Auto) (0-4) % Baso % (Auto) (0-2) % Lymph # (Auto) (1.2-4.9) X10*3/uL [place] # (Auto) (0.1-1.2) X10*3/uL Eos # (Auto) (0.0-0.4) X10*3/uL Baso # (Auto) (0.0-0.2) X10*3/uL Abs Immat Gran (auto) (0.00-0.03) X10*3/uL Absolute Neuts (auto) (2.0-8.3) x10*3/uL Absolute Nucleated RBC (0.0-0.012) X10*3/uL Nucleated RBC % (auto) (0.0-0.2) /100WBC ESR (0-15) MM/HR PT (10.0-13.1) SEC INR (0.9-1.1) APTT (26.0-36.4) SEC Sodium (135-145) mmol/L Potassium (3.3-5.1) mmol/L Chloride (96-108) mmol/L Carbon Dioxide (22-29) mmol/L Anion Gap (12-20) BUN (9-16) mg/dL Creatinine (0.5-1.4) mg/dL Estim Creat Clear Calc Estimated GFR Random Glucose (60-115) mg/dL Lactic Acid (0.5-2.0) mmol/L Calcium (8.4-10.2) mg/dL Magnesium (1.6-2.6) mg/dL Total Bilirubin (0.0-1.0) mg/dL AST (5-37) U/L ALT (0-40) U/L Alkaline Phosphatase (39-117) U/L C-Reactive Protein (< or = 0.50) mg/dL Total Protein (6.5-8.0) g/dL Albumin (3.5-5.0) g/dL Urine Color Yellow Urine Appearance Clear Urine pH 7.5 (5.0-9.0) Ur Specific [place] 1.010 (1.005-1.025) Urine Protein Negative (Neg-Trace) mg/dL Urine Glucose (UA) Negative (Negative) mg/dL Urine Ketones Negative (Negative) mg/dL Urine Blood Negative (Negative) Urine Nitrite Negative (Negative) Ur Leukocyte Esterase Negative (Negative) Urine Opiates Screen POSITIVE H (Not Detect) Urine Fentanyl Screen POSITIVE H (Not Detect) Ur Barbiturates Screen Not Detected (Not Detect) Ur Phencyclidine Scrn Not Detected (Not Detect) Ur Amphetamines Screen Not Detected (Not Detect) U Benzodiazepines Scrn Not Detected (Not Detect) Urine Cocaine Screen POSITIVE H (Not Detect) U Marijuana (THC) Screen Not Detected (Not Detect) COVID-19 ([facility]) Negative (Negative) COVID-19 Clin Com See Note <Elliot Mg MD - Last Filed: 02/06/22 19:43> Lab Results 02/06/22 02/06/22 02/06/22 Range/Units 10:12 10:12 10:12 WBC 6.6 (4.8-10.8) X10*3/uL RBC 5.19 (4.60-5.80) X10*6/uL Hgb 15.4 (14.0-18.0) g/dl Hct 44.6 (42.0-52.0) % MCV 85.9 (80.0-98.0) fL MCH 29.7 (27.0-33.0) pg MCHC 34.5 (31.0-36.0) g/dl RDW 12.2 (11.0-16.0) % Plt Count 143 L (160-400) X10*3/uL MPV 10.3 (9.4-12.4) fL Immature Gran % (Auto) 0.3 (0.0-0.4) % Neut % (Auto) 75.9 H (45-73) % Lymph % (Auto) 17.3 L (20-40) % [place] % (Auto) 5.3 (2-11) % Eos % (Auto) 0.9 (0-4) % Baso % (Auto) 0.3 (0-2) % Lymph # (Auto) 1.1 L (1.2-4.9) X10*3/uL [place] # (Auto) 0.4 (0.1-1.2) X10*3/uL Eos # (Auto) 0.1 (0.0-0.4) X10*3/uL Baso # (Auto) 0.0 (0.0-0.2) X10*3/uL Abs Immat Gran (auto) 0.02 (0.00-0.03) X10*3/uL Absolute Neuts (auto) 5.0 (2.0-8.3) x10*3/uL Absolute Nucleated RBC 0.000 (0.0-0.012) X10*3/uL Nucleated RBC % (auto) 0.0 (0.0-0.2) /100WBC ESR 8 (0-15) MM/HR PT 11.7 (10.0-13.1) SEC INR 1.0 (0.9-1.1) APTT (26.0-36.4) SEC Sodium (135-145) mmol/L Potassium (3.3-5.1) mmol/L Chloride (96-108) mmol/L Carbon Dioxide (22-29) mmol/L Anion Gap (12-20) BUN (9-16) mg/dL Creatinine (0.5-1.4) mg/dL Estim Creat Clear Calc Estimated GFR Random Glucose (60-115) mg/dL Lactic Acid (0.5-2.0) mmol/L Calcium (8.4-10.2) mg/dL Magnesium (1.6-2.6) mg/dL Total Bilirubin (0.0-1.0) mg/dL AST (5-37) U/L ALT (0-40) U/L Alkaline Phosphatase (39-117) U/L C-Reactive Protein (< or = 0.50) mg/dL Total Protein (6.5-8.0) g/dL Albumin (3.5-5.0) g/dL Urine Color Urine Appearance Urine pH (5.0-9.0) Ur Specific [place] (1.005-1.025) Urine Protein (Neg-Trace) mg/dL Urine Glucose (UA) (Negative) mg/dL Urine Ketones (Negative) mg/dL Urine Blood (Negative) Urine Nitrite (Negative) Ur Leukocyte Esterase (Negative) Urine Opiates Screen (Not Detect) Urine Fentanyl Screen (Not Detect) Ur Barbiturates Screen (Not Detect) Ur Phencyclidine Scrn (Not Detect) Ur Amphetamines Screen (Not Detect) U Benzodiazepines Scrn (Not Detect) Urine Cocaine Screen (Not Detect) U Marijuana (THC) Screen (Not Detect) COVID-19 ([facility]) (Negative) COVID-19 Clin Com 02/06/22 02/06/22 02/06/22 Range/Units 10:12 10:12 10:12 WBC (4.8-10.8) X10*3/uL RBC (4.60-5.80) X10*6/uL Hgb (14.0-18.0) g/dl Hct (42.0-52.0) % MCV (80.0-98.0) fL MCH (27.0-33.0) pg MCHC (31.0-36.0) g/dl RDW (11.0-16.0) % Plt Count (160-400) X10*3/uL MPV (9.4-12.4) fL Immature Gran % (Auto) (0.0-0.4) % Neut % (Auto) (45-73) % Lymph % (Auto) (20-40) % [place] % (Auto) (2-11) % Eos % (Auto) (0-4) % Baso % (Auto) (0-2) % Lymph # (Auto) (1.2-4.9) X10*3/uL [place] # (Auto) (0.1-1.2) X10*3/uL Eos # (Auto) (0.0-0.4) X10*3/uL Baso # (Auto) (0.0-0.2) X10*3/uL Abs Immat Gran (auto) (0.00-0.03) X10*3/uL Absolute Neuts (auto) (2.0-8.3) x10*3/uL Absolute Nucleated RBC (0.0-0.012) X10*3/uL Nucleated RBC % (auto) (0.0-0.2) /100WBC ESR (0-15) MM/HR PT (10.0-13.1) SEC INR (0.9-1.1) APTT 33.4 (26.0-36.4) SEC Sodium 136 (135-145) mmol/L Potassium 4.2 (3.3-5.1) mmol/L Chloride 98 (96-108) mmol/L Carbon Dioxide 24 (22-29) mmol/L Anion Gap 18 (12-20) BUN 11 (9-16) mg/dL Creatinine 0.92 (0.5-1.4) mg/dL Estim Creat Clear Calc 88.1 Estimated GFR > 60 Random Glucose 124 H (60-115) mg/dL Lactic Acid 0.7 (0.5-2.0) mmol/L Calcium 9.7 D (8.4-10.2) mg/dL Magnesium 1.9 (1.6-2.6) mg/dL Total Bilirubin 1.2 H (0.0-1.0) mg/dL AST 74 H (5-37) U/L ALT 59 H (0-40) U/L Alkaline Phosphatase 106 (39-117) U/L C-Reactive Protein 0.09 (< or = 0.50) mg/dL Total Protein 8.8 H (6.5-8.0) g/dL Albumin 4.6 (3.5-5.0) g/dL Urine Color Urine Appearance Urine pH (5.0-9.0) Ur Specific [place] (1.005-1.025) Urine Protein (Neg-Trace) mg/dL Urine Glucose (UA) (Negative) mg/dL Urine Ketones (Negative) mg/dL Urine Blood (Negative) Urine Nitrite (Negative) Ur Leukocyte Esterase (Negative) Urine Opiates Screen (Not Detect) Urine Fentanyl Screen (Not Detect) Ur Barbiturates Screen (Not Detect) Ur Phencyclidine Scrn (Not Detect) Ur Amphetamines Screen (Not Detect) U Benzodiazepines Scrn (Not Detect) Urine Cocaine Screen (Not Detect) U Marijuana (THC) Screen (Not Detect) COVID-19 ([facility]) (Negative) COVID-19 Clin Com 02/06/22 02/06/22 02/06/22 Range/Units 11:14 11:14 11:14 WBC (4.8-10.8) X10*3/uL RBC (4.60-5.80) X10*6/uL Hgb (14.0-18.0) g/dl Hct (42.0-52.0) % MCV (80.0-98.0) fL MCH (27.0-33.0) pg MCHC (31.0-36.0) g/dl RDW (11.0-16.0) % Plt Count (160-400) X10*3/uL MPV (9.4-12.4) fL Immature Gran % (Auto) (0.0-0.4) % Neut % (Auto) (45-73) % Lymph % (Auto) (20-40) % [place] % (Auto) (2-11) % Eos % (Auto) (0-4) % Baso % (Auto) (0-2) % Lymph # (Auto) (1.2-4.9) X10*3/uL [place] # (Auto) (0.1-1.2) X10*3/uL Eos # (Auto) (0.0-0.4) X10*3/uL Baso # (Auto) (0.0-0.2) X10*3/uL Abs Immat Gran (auto) (0.00-0.03) X10*3/uL Absolute Neuts (auto) (2.0-8.3) x10*3/uL Absolute Nucleated RBC (0.0-0.012) X10*3/uL Nucleated RBC % (auto) (0.0-0.2) /100WBC ESR (0-15) MM/HR PT (10.0-13.1) SEC INR (0.9-1.1) APTT (26.0-36.4) SEC Sodium (135-145) mmol/L Potassium (3.3-5.1) mmol/L Chloride (96-108) mmol/L Carbon Dioxide (22-29) mmol/L Anion Gap (12-20) BUN (9-16) mg/dL Creatinine (0.5-1.4) mg/dL Estim Creat Clear Calc Estimated GFR Random Glucose (60-115) mg/dL Lactic Acid (0.5-2.0) mmol/L Calcium (8.4-10.2) mg/dL Magnesium (1.6-2.6) mg/dL Total Bilirubin (0.0-1.0) mg/dL AST (5-37) U/L ALT (0-40) U/L Alkaline Phosphatase (39-117) U/L C-Reactive Protein (< or = 0.50) mg/dL Total Protein (6.5-8.0) g/dL Albumin (3.5-5.0) g/dL Urine Color Yellow Urine Appearance Clear Urine pH 7.5 (5.0-9.0) Ur Specific [place] 1.010 (1.005-1.025) Urine Protein Negative (Neg-Trace) mg/dL Urine Glucose (UA) Negative (Negative) mg/dL Urine Ketones Negative (Negative) mg/dL Urine Blood Negative (Negative) Urine Nitrite Negative (Negative) Ur Leukocyte Esterase Negative (Negative) Urine Opiates Screen POSITIVE H (Not Detect) Urine Fentanyl Screen POSITIVE H (Not Detect) Ur Barbiturates Screen Not Detected (Not Detect) Ur Phencyclidine Scrn Not Detected (Not Detect) Ur Amphetamines Screen Not Detected (Not Detect) U Benzodiazepines Scrn Not Detected (Not Detect) Urine Cocaine Screen POSITIVE H (Not Detect) U Marijuana (THC) Screen Not Detected (Not Detect) COVID-19 (MARY) Negative (Negative) COVID-19 Clin Com See Note <YAYA Garcia - Last Filed: 02/06/22 19:56> Imaging Data CT scan of cervical spine and thoracic spine with IV contrast: Attestation: I personally reviewed and interpreted this imaging study as follows: <YAYA Garcia - Last Filed: 02/06/22 19:30> Radiologist's impression: FINDINGS: CT cervical spine: Image quality degradation due to mild motion artifact. Normal alignment. No subluxation. No acute fracture identified allowing for motion artifact. Moderate disc degenerative change at C5-C6 and C6-C7 with disc height loss, endplate sclerosis, and endplate proliferative change. At least moderate central canal narrowing at C5-C6 and moderate to severe central canal stenosis at C6-C7 suspected. No endplate erosive/destructive changes. Intervertebral disc heights otherwise maintained. No gross epidural collection or mass-limited assessment. No prevertebral soft tissue swelling. Lung apices grossly clear allowing for motion artifact. No retropharyngeal fluid collection. Visualized major salivary glands and thyroid gland are unremarkable. Internal jugular veins are patent as are common and internal carotid arteries. No cervical lymphadenopathy or soft tissue mass. CT thoracic spine: Normal alignment. No subluxation. Minimal chronic anterior wedge compression deformity of T7. Vertebral body heights otherwise maintained. Mild multilevel degenerative disc disease in the mid and lower thoracic spine with minimal disc height loss, endplate sclerosis, mild endplate proliferative change. No endplate erosive or destructive changes. Facet joints are intact. No paravertebral soft tissue swelling or fluid collection. No obvious/large collection in the spinal canal-limited assessment. Visualized thoracic and upper abdominal aorta normal caliber. No mediastinal adenopathy. Visualized lungs appear clear. Minimal biapical centrilobular emphysema. CT/CT cervical spine w IV con IMPRESSION: 1.? No subluxation or fracture of the cervical or thoracic spine. No CT evidence of advanced discitis osteomyelitis complex. If there is continued high clinical concern for early discitis, consider MRI for more sensitive assessment. 2.? Moderate disc degenerative change at C5-C6 and C6-C7 with suspected at least moderate central canal stenosis at C5-C6 and moderate to severe central canal stenosis at C6-C7. 3.? Mild multilevel degenerative disc disease in the mid and lower thoracic spine. 4.? Minimal chronic anterior wedge compression deformity of T7. <YAYA Garcia - Last Filed: 02/06/22 19:30> Chest x-ray: Attestation: I personally reviewed and interpreted this imaging study as follows: <YAYA Garcia - Last Filed: 02/06/22 19:30> Radiologist's impression: FINDINGS: The cardiac silhouette is normal. There is mild diffuse bronchial wall thickening. There are no areas of consolidation. There are no pleural effusions or pneumothoraces. The bones and soft tissues are unremarkable for the patient's age. XR/XR chest 1V IMPRESSION: Ankle wall thickening may be infectious and/or inflammatory in etiology. <YAYA Garcia Last Filed: 02/06/22 19:30> Critical Care Time Critical Care Time Critical Care Time: Yes <YAYA Garcia Last Filed: 02/06/22 19:30> Total Critical Care Time: 60 <YAYA Garcia Last Filed: 02/06/22 19:30> Attestation: I personally attest to this time spent taking care of the patient <YAYA Garcia Last Filed: 02/06/22 19:30> Discharge Plan Discharge Clinical Impression: Neck pain, IVDU (intravenous drug user), Heroin addiction, Fever, High blood pressure <YAYA Garcia Last Filed: 02/06/22 19:30> Patient Disposition: Admitted As Inpatient <YAYA Garcia - Last Filed: 02/06/22 19:30>
[2022-02-06] MEDS: diazePAM 2 MG TABLET PO (11:01)
[2022-02-06] MEDS: Ketorolac Tromethamine 30 MG/ML VIAL IVPUSH (11:01)
[2022-02-06 11:23] LABS: Appearance Urine Clear; Color Urine Yellow; Glucose Urine UA Negative (Negative); Leukocyte Esterase Urine Negative (Negative); Nitrite Urine Negative (Negative); PH 7.5 (5.0-9.0); Urine Blood Negative (Negative); Urine Ketones Negative (Negative); Urine Protein Negative (Neg-Trace)
[2022-02-06 11:41] LABS: Amphetamine Screen Urine Not Detected (Not Detect); Barbiturates, Urine Not Detected (Not Detect); Benzodiazepines Screen Urine Not Detected (Not Detect); Cannabinoid Screen Urine Not Detected (Not Detect); Cocaine Screen Urine POSITIVE (Not Detect); Fentanyl, urine POSITIVE (Not Detect); Opiate Screen Urine POSITIVE (Not Detect); Phencyclidine Screen Urine Not Detected (Not Detect)
[2022-02-06 11:42] LABS: Erythrocyte Sedimentation Rate 8 MM/HR (0-15)
[2022-02-06 11:54] LABS: COVID-19 Test Negative (Negative); IDNOW Serial# 9DB6401D
[2022-02-06] MEDS: Midazolam HCl/PF 2 MG/2 ML VIAL 4 MG IVPUSH (15:02)
[2022-02-06] MEDS: diphenhydrAMINE HCL 50 MG/ML VIAL IVPUSH (15:02)
[2022-02-06] MEDS: Haloperidol Lactate 5 MG/ML VIAL IM (15:05)
[2022-02-06] MEDS: hydrALAZINE HCl 20 MG/ML VIAL 10 MG IVPUSH (15:14)
[2022-02-06] MEDS: Ibuprofen 800 MG TABLET PO (16:28)
[2022-02-06] MEDS: Ketamine HCl 500 MG/5 ML VIAL 200 MG IM (16:51)
[2022-02-06] MEDS: Piperacillin Sodium/Tazobactam 4.5 GM in 0.9 % Sodium Chloride 100 ML IV (16:59)
[2022-02-06] MEDS: iohexoL 350 MG/ML 100 ML INFUS..BTL IV (17:41)
[2022-02-06] MEDS: 0.9 % Sodium Chloride 1,000 ML 999 ML IV (17:45)
--- NOTE | 2022-02-06 20:14 | PM.IMHP ---
History of Present Illness Date of Service: 02/06/22 Attending physician on admission: Angel Sharp Chief Complaint: neck pain 56-year-old male with history of polysubstance abuse, IV drug abuse-last heroin use last night around midnight, hyperlipidemia, hepatitis-C (unknown if treated), and anxiety presented to the ED this morning with neck pain that began this morning. The patient is somnolent and altered upon exam so history is obtained from ER staff and note. He is reported to have presented with neck in flexion for comfort. He denied any fevers, chills, headaches, sore throat, rashes, injury, paresthesias, shortness of breath, chest pain. No nausea/vomiting. On arrival, patient was afebrile, hypertensive to 184/101. No hypoxia or tachycardia. Attempts were made to obtain MRI of the cervical and thoracic spine but patient was unable to lie still due to pain. He was given 1 mg Dilaudid, 5 mg Haldol, 800 mg ibuprofen, 4 mg Versed, 2 mg diazepam, 30 mg ketorolac, and finely 200 mg ketamine before patient was able to lie still for CT scan of the cervical and thoracic spine. CT scan of the cervical spine was without any evidence of advanced diskitis or osteomyelitis but did show moderate degenerative changes with at least moderate central canal stenosis and moderate to severe central canal stenosis. There is no paravertebral soft tissue swelling or fluid collection or obvious collection in the spinal canal though this is a limited assessment and follow-up MRI would be beneficial. Chest x-ray negative. Patient subsequently developed fever of with blood pressure of 247/152, tachycardic to 115. He was given 10 mg IV hydralazine and 800 mg ibuprofen. Blood pressure improved to 126/73, heart rate 54, temperature 99.5 degrees. Patient was not altered on arrival but is now somnolant and unable to answer many questions following medication administration. Attempts were made at LP, but patient was not cooperative in the ED. WBC 6.6. Renal function electrolytes normal. Total bilirubin 1.2, AST 74, ALT 59. CRP normal, ESR normal. UA unremarkable. U tox positive for fentanyl, opiates, and cocaine. Patient to be admitted for fever of unknown origin and neck pain in IV drug abuser. Review of Systems Review of Systems: ROS limited as patient somnolant on exam, obtained from ER staff General: No fevers, malaise, unintentional weight loss Cardiovascular: No chest pain, palpitations, or leg edema Respiratory: No shortness of breath, wheezing, cough GI: No abdominal pain, nausea, vomiting, diarrhea, constipation, melena, hematochezia MSK: +neck pain Neuro: No headaches, weakness, paresthesias Skin: No rashes or lesions Yes Unobtainable due to mental condition [facility] Medical History Anxiety Colitis Substance abuse Pertinent family history: Unable to obtain family history secondary to patient mental status Surgical History H/O oral surgery Social History Alcohol intake: unknown Substance Use Type: Crack/Cocaine Advance Directives: No Advance Directives Information Provided: No Meds Allergies Allergy/AdvReac Type Severity Reaction Status Date / Time acetaminophen [From TYLENOL] Allergy Intermediate UPSET Verified 06/18/21 13:09 STOMACH morphine Allergy Intermediate Headache Verified 06/18/21 13:09 codeine [Codeine] Allergy Mild HIVES, Verified 06/18/21 13:09 VOMITING ibuprofen [From MOTRIN] Allergy Mild upset Verified 06/18/21 13:09 stomach Physical Exam Vital Signs and Narrative: Vital Signs: Last Vital Signs Temp 99.5 F 02/06/22 19:31 Pulse 54 02/06/22 19:31 Resp 12 02/06/22 19:31 BP 126/73 02/06/22 19:31 Pulse Ox 95 02/06/22 19:31 O2 Del Method 02/06/22 19:31 BMI result Body Mass Index 27.7 Constitutional - Awake and Alert, No apparent distress Eyes - PERRLA, EOMI Cardiovascular - S1S2, RRR, No edema Neck: Neck supple, nontender appearing to palpation- pt without grimacing with full ROM Respiratory - Normal lung expansion, Normal respiratory effort, No respiratory distress, CTA bilaterally Gastrointestinal - NT / ND; +BS; No rebound or guarding Extremities - no calf tenderness bilaterally, no swelling Skin - Warm/Dry Neurological - Drowsy and disoriented. Unable to assess CN, but PERRLA. Strength and sensation in tact. Negative for kernig and Brudzinski signs Results Labs CBC and Chem 7: 02/06/22 10:12 02/06/22 10:12 Labs: Laboratory Results - last 24 hr 02/06/22 02/06/22 02/06/22 10:12 10:12 10:12 MCV 85.9 MCH 29.7 MCHC 34.5 RDW 12.2 Plt Count 143 L MPV 10.3 Immature Gran % (Auto) 0.3 Neut % (Auto) 75.9 H Lymph % (Auto) 17.3 L [place] % (Auto) 5.3 Eos % (Auto) 0.9 Baso % (Auto) 0.3 Lymph # (Auto) 1.1 L [place] # (Auto) 0.4 Eos # (Auto) 0.1 Baso # (Auto) 0.0 Abs Immat Gran (auto) 0.02 Absolute Neuts (auto) 5.0 Absolute Nucleated RBC 0.000 Nucleated RBC % (auto) 0.0 ESR 8 PT 11.7 INR 1.0 APTT Anion Gap Estim Creat Clear Calc Estimated GFR Random Glucose Lactic Acid Calcium Magnesium Total Bilirubin AST ALT Alkaline Phosphatase C-Reactive Protein Total Protein Albumin Urine Color Urine Appearance Urine pH Ur Specific [place] Urine Protein Urine Glucose (UA) Urine Ketones Urine Blood Urine Nitrite Ur Leukocyte Esterase Urine Opiates Screen Urine Fentanyl Screen Ur Barbiturates Screen Ur Phencyclidine Scrn Ur Amphetamines Screen U Benzodiazepines Scrn Urine Cocaine Screen U Marijuana (THC) Screen COVID-19 (MARY) COVID-19 Clin Com 02/06/22 02/06/22 02/06/22 10:12 10:12 10:12 MCV MCH MCHC RDW Plt Count MPV Immature Gran % (Auto) Neut % (Auto) Lymph % (Auto) [place] % (Auto) Eos % (Auto) Baso % (Auto) Lymph # (Auto) [place] # (Auto) Eos # (Auto) Baso # (Auto) Abs Immat Gran (auto) Absolute Neuts (auto) Absolute Nucleated RBC Nucleated RBC % (auto) ESR PT INR APTT 33.4 Anion Gap 18 Estim Creat Clear Calc 88.1 Estimated GFR > 60 Random Glucose 124 H Lactic Acid 0.7 Calcium 9.7 D Magnesium 1.9 Total Bilirubin 1.2 H AST 74 H ALT 59 H Alkaline Phosphatase 106 C-Reactive Protein 0.09 Total Protein 8.8 H Albumin 4.6 Urine Color Urine Appearance Urine pH Ur Specific [place] Urine Protein Urine Glucose (UA) Urine Ketones Urine Blood Urine Nitrite Ur Leukocyte Esterase Urine Opiates Screen Urine Fentanyl Screen Ur Barbiturates Screen Ur Phencyclidine Scrn Ur Amphetamines Screen U Benzodiazepines Scrn Urine Cocaine Screen U Marijuana (THC) Screen COVID-19 (MARY) COVID-19 Clin Com 02/06/22 02/06/22 02/06/22 11:14 11:14 11:14 MCV MCH MCHC RDW Plt Count MPV Immature Gran % (Auto) Neut % (Auto) Lymph % (Auto) [place] % (Auto) Eos % (Auto) Baso % (Auto) Lymph # (Auto) [place] # (Auto) Eos # (Auto) Baso # (Auto) Abs Immat Gran (auto) Absolute Neuts (auto) Absolute Nucleated RBC Nucleated RBC % (auto) ESR PT INR APTT Anion Gap Estim Creat Clear Calc Estimated GFR Random Glucose Lactic Acid Calcium Magnesium Total Bilirubin AST ALT Alkaline Phosphatase C-Reactive Protein Total Protein Albumin Urine Color Yellow Urine Appearance Clear Urine pH 7.5 Ur Specific [place] 1.010 Urine Protein Negative Urine Glucose (UA) Negative Urine Ketones Negative Urine Blood Negative Urine Nitrite Negative Ur Leukocyte Esterase Negative Urine Opiates Screen POSITIVE H Urine Fentanyl Screen POSITIVE H Ur Barbiturates Screen Not Detected Ur Phencyclidine Scrn Not Detected Ur Amphetamines Screen Not Detected U Benzodiazepines Scrn Not Detected Urine Cocaine Screen POSITIVE H U Marijuana (THC) Screen Not Detected COVID-19 (MARY) Negative COVID-19 Clin Com See Note Imaging Radiologist's Impressions: Impressions Chest X-Ray 02/06/22 16:47 IMPRESSION: Ankle wall thickening may be infectious and/or inflammatory in etiology. Cervical Spine CT 02/06/22 17:50 IMPRESSION: 1. No subluxation or fracture of the cervical or thoracic spine. No CT evidence of advanced discitis osteomyelitis complex. If there is continued high clinical concern for early discitis, consider MRI for more sensitive assessment. 2. Moderate disc degenerative change at C5-C6 and C6-C7 with suspected at least moderate central canal stenosis at C5-C6 and moderate to severe central canal stenosis at C6-C7. 3. Mild multilevel degenerative disc disease in the mid and lower thoracic spine. 4. Minimal chronic anterior wedge compression deformity of T7. Thoracic Spine CT 02/06/22 17:50 IMPRESSION: 1. No subluxation or fracture of the cervical or thoracic spine. No CT evidence of advanced discitis osteomyelitis complex. If there is continued high clinical concern for early discitis, consider MRI for more sensitive assessment. 2. Moderate disc degenerative change at C5-C6 and C6-C7 with suspected at least moderate central canal stenosis at C5-C6 and moderate to severe central canal stenosis at C6-C7. 3. Mild multilevel degenerative disc disease in the mid and lower thoracic spine. 4. Minimal chronic anterior wedge compression deformity of T7. Assessment and Plan (1) Fever: Status: Acute (2) Neck pain: Status: Acute (3) IVDU (intravenous drug user): Status: Acute Plan 56-year-old male with history of polysubstance abuse, IV drug abuse-last heroin use last night around midnight, hyperlipidemia, hepatitis-C (unknown if treated), and anxiety presented for neck pain subsequently developing fever of unknown origin in IVDA. #Fever of unknown origin -H/o IVDA -possibly drug related following multiple drug administration gluten Dilaudid, Haldol, ketorolac, Versed, diazepam, and ketamine too low for patient comfort and imaging -complaining of neck pain. CT thoracic and cervical spine negative for soft tissue swelling/abscess or evidence of osteomyelitis/diskitis -attempted LP but patient uncooperative in the ED -MRI cervical spine ordered -if cervical spine MRI unremarkable and fever persists, consider IR guided lumbar puncture -blood cultures pending. Lactic acid pending -ibuprofen p.r.n. for fever # neck pain -CT neck with moderate multilevel degenerative changes with moderate-severe spinal canal stenosis. Will require ortho consult on outpt basis -given fever and neck pain in IV drug abuser, MRI of the cervical spine ordered to better assess for abscess/diskitis/osteomyelitis -consider LP as above -Too altered at this time to order pain medication. Can reassess once more alert #Hypertensive urgency -devleoped htn with BP 247/152 r/t to multiple drug administration as above -Resolved with 10mg hydralazine -Monitor BP q2h for now #Polysubstance abuse -Addiction consult placed -Utox positive for fentanyl, opiates, and cocaine -hepatitis-B/C antibody and HIV antibody ordered given history of IV drug abuse #Transaminitits -has history of hepatitis-C, unclear if treated her not -AST 74/ALT 59 -hepatitis B/C antibody ordered DVT prophylaxis-Lovenox Full code Patient requires inpatient stay of at least 2 midnights due to fever of unknown origin in IV drug abuser with neck plain with further workup required to determine etiology and rule out potential life-threatening conditions including bacteremia, abscess, and diskitis. -follow CMP Quality Stroke Does the patient have a stroke diagnosis?: No VTE Prior VTE?: No VTE Risk Level:: Medical - moderate - high VTE Device Contraindication: Treatment Not Indicated VTE Drug Contraindication: N/A - Med Ordered
[2022-02-06 21:33] LABS: Lactic Acid 0.7 mmol/L (0.5-2.0)
[2022-02-06] MEDS: 0.9 % Sodium Chloride 1,000 ML 100 ML IVCONT ×2 (21:49→23:55)
--- NOTE | 2022-02-06 22:07 | PC.NURSE ---
Pt currently resting quietly, able to ambulate with assist of 1 to and from bathroom. pt also able to stand and use urinal without assistance. Pt was slow to respond to questions with Dr Mariee and YAYA Sanders at bedside. At this time, he is becoming more talkative, he wants to know what is wrong with my spine . requesting gingerale- vss, NS and Vanco 2gm infusing, call thompson within reach
--- NOTE | 2022-02-06 23:53 | PC.NURSE ---
Pt. moved to ED bed 2 and is on continuous director of cardiac rehabilitation at this time
[2022-02-07] VITALS (8 sets, daily range): BP systolic 145–199; BP diastolic 76–98; PULSE 48–64; RESP 12–26; TEMP 36.3–37.4; O2SAT 94–97; BMI 27.7
--- NOTE | 2022-02-07 | ECG_ITS ---
Test Reason : check QTC Blood Pressure : / mmHG Vent. Rate : 061 BPM Atrial Rate : 061 BPM P-R Int : 160 ms QRS Dur : 092 ms QT Int : 500 ms P-R-T Axes : 036 049 058 degrees QTc Int : 503 ms Normal sinus rhythm Prolonged QT Abnormal ECG When compared with ECG of 09-APR-2016 17:15, Nonspecific T wave abnormality no longer evident in Inferior leads QT has lengthened Referred By: Jennifer Long Electronically Signed By:YOSELIN OROURKE MD
--- NOTE | 2022-02-07 | PC.NURSE ---
Notified MD Edward that pt. is in 10 neck pain with only Ibuprofen ordered for pain, and pt. has a listed allergy to Ibuprofen. Requesting a different pain med. states that he is not giving pain meds.
--- NOTE | 2022-02-07 00:30 | PC.NURSE ---
Notified Jean Sharp MD re: pt.'s pain level
--- NOTE | 2022-02-07 00:53 | PC.NURSE ---
Per MD, hold off on giving pt. Dilaudid until he requests pain meds. again
[2022-02-07] MEDS: Piperacillin Sodium/Tazobactam 3.375 GM in 0.9 % Sodium Chloride 50 ML IV ×4 (01:36→20:21)
[2022-02-07] MEDS: HYDROmorphone HCl 0.5 MG/0.5 ML SYRINGE IVPUSH ×2 (01:38→06:42)
--- NOTE | 2022-02-07 02:35 | PC.NURSE ---
Jean Sharp MD notified that pt.'s BP remains elevated to 188/95. Awaiting new orders at this time.
[2022-02-07] MEDS: hydrALAZINE HCl 20 MG/ML VIAL 5 MG IVPUSH (03:21)
[2022-02-07 04:39] LABS: HBS Num1 8.41 mIU/mL (0-7.99); HBc Num1 1.91 S/CO (0.00-0.79); HBsAGNum1 0.23 S/CO (0.00-0.99); HIV AB/AG Nonreactive (Nonreactive); HIV Num 1 0.06 S/CO (0.00-0.99); Hepatitis B Surface Antigen Negative (Negative); ~HepC Num1 16.08 S/CO (0.00-0.79); ~Hepatitis C Antibody Reactive (Nonreactive)
--- NOTE | 2022-02-07 04:52 | PC.NURSE ---
Pt.'s BP still running elevated (199/93) s/p 5mg Hydralazine. Jean Sharp MD notified
[2022-02-07 05:17] LABS: HBS Num2 6.58 mIU/mL (0-7.99); HBc Num2 1.87 S/CO; HBc Num3 1.92 S/CO; Hepatitis B Core Antibody Reactive (Nonreactive); ~Hepatitis B Surface Antibody NONREACTIVE (Nonreactive)
[2022-02-07 07:07] LABS: MANUAL DIFF FLAG NO
[2022-02-07 07:26] LABS: Basophils Percent Auto 0.3 % (0-2); Hematocrit 41.1 % (42.0-52.0); Hemoglobin 14.1 g/dl (14.0-18.0); Imm Gran Abs Auto 0.04 X10*3/uL (0.00-0.03); Imm Gran Pct Auto 0.4 % (0.0-0.4); Lymphocytes Absolute Auto 1.8 X10*3/uL (1.2-4.9); Lymphocytes Percent Auto 18.7 % (20-40); Mean Corpuscular HGB Conc 34.3 g/dl (31.0-36.0); Mean Corpuscular Hemoglobin 29.4 pg (27.0-33.0); Mean Corpuscular Volume 85.8 fL (80.0-98.0); Mean Platelet Volume 11.3 fL (9.4-12.4); Monocytes Absolute Auto 0.8 X10*3/uL (0.1-1.2); Monocytes Percent Auto 8.4 % (2-11); Neutrophils Absolute Auto 6.9 x10*3/uL (2.0-8.3); Neutrophils Percent Auto 72.2 % (45-73); Platelet Count 154 X10*3/uL (160-400); Red Blood Count 4.79 X10*6/uL (4.60-5.80); Red Cell Distribution Width 12.5 % (11.0-16.0); White Blood Count 9.5 X10*3/uL (4.8-10.8)
[2022-02-07 07:27] LABS: Alanine Aminotransferase 40 U/L (0-40); Albumin Level 3.8 g/dL (3.5-5.0); Alkaline Phosphatase 79 U/L (39-117); Anion Gap 15 (12-20); Aspartate Amino Transferase 55 U/L (5-37); Bilirubin Total 1.6 mg/dL (0.0-1.0); Blood Urea Nitrogen 10 mg/dL (9-16); Carbon Dioxide 21 mmol/L (22-29); Chloride 104 mmol/L (96-108); Creatinine Clr Calc Pharmacy 101.3; Estimated Glomerular Filt Rate > 60; Glucose Random 101 mg/dL (60-115); Potassium 3.7 mmol/L (3.3-5.1); Sodium 136 mmol/L (135-145); Total Protein 7.2 g/dL (6.5-8.0)
[2022-02-07 07:46] LABS: Calcium 8.6 mg/dL (8.4-10.2)
[2022-02-07] MEDS: cloNIDine HCL 0.1 MG TABLET PO ×3 (08:15→22:32)
[2022-02-07] MEDS: Haloperidol Lactate 5 MG/ML VIAL 2 MG IM ×2 (08:17→22:32)
[2022-02-07] MEDS: HYDROmorphone HCl 0.5 MG/0.5 ML SYRINGE 1 MG IVPUSH ×3 (08:27→22:33)
[2022-02-07] MEDS: 0.9 % Sodium Chloride Flush 3 ML SYRINGE IVFLUSH (09:15)
--- NOTE | 2022-02-07 10:51 | PC.NURSE ---
pt could not tolerate MRI due to neck pain and could not lay flat. DRIVER LICENSE TECHNICIAN is aware and cancelled the MRI for now
--- NOTE | 2022-02-07 11:19 | PHA.MEDREC ---
Pharmacy Consult ? Medication Reconciliation Pharmacy has completed the medication reconciliation.
--- NOTE | 2022-02-07 11:37 | PHA.PROG ---
Admission Date/Time: February 06, 2022 20:15 Indication: Weight in k kg Serum Creatinine - Last 168 Hours 02/06/22 02/07/22 10:12 06:07 Creatinine 0.92 0.80 Estimated CrCl and GFR - Last 168 Hours 02/06/22 02/07/22 10:12 06:07 Estim Creat Clear Calc 88.1 101.3 Estimated GFR > 60 > 60 Vancomycin Loading Dose: 2000 Current Vancomycin Dosing Regimen: [id number] Vancomycin Monitoring using AUC goal of 400 - 600 range with trough as surrogate marker: 464 Date and Time for next Vancomycin Level to be Drawn: 03/11 1100 Pharmacist Comments on Vancomycin Plan: Vancomycin dosing will take advantage of [employer] as a clinical decision support tool that uses Bayesian modeling to calculate individual patient's pharmacokinetic parameters and forecast the patient's drug concentration time course with the target goal AUC 24 range of 400 - 600 mg/L/hr.
--- NOTE | 2022-02-07 11:37 | MHC.CM.PN ---
PT REPORTS HE IS HOMELESS AND STAYS ON THE STREETS. HE DENIES USING ANY DME OR BEING CONNECTED TO ANY COMMUNITY SERVICES HE SAYS HAS A PCP, DR WOLFF AT [facility] HE SAYS HE HAD THE [employer] VAX AND ONE BOOSTER HE DOES NOT HAVE A HCP AND DECLINES TO COMPLETE ONE IMM DELIVERED PT REPORTS HE IS INTERESTED IN MMTP OR SUBOXONE TREATMENT AND POSSIBLY CSS DCP TBD PENDING RECOVERY TEAM CONSULT PT WILL NEED TRANSPORTATION ARRANGED
[2022-02-07] MEDS: vancomycin HCL 1,000 MG in 0.9 % Sodium Chloride 250 ML 270 MG IV (12:37)
--- NOTE | 2022-02-07 13:07 | P.PNIM_ITS ---
Subjective Subjective Date of Service: 02/07/22 Review of Systems Follow up neck pain hx of IVDA continues to report severe pain unable to sit through MRI or LP Physical Exam Vital Signs: Vital Signs: Last Vital Signs Temp 98.7 F 02/07/22 11:43 Pulse 53 02/07/22 11:43 Resp 14 02/07/22 11:43 BP 178/98 H 02/07/22 11:43 Pulse Ox 97 02/07/22 11:43 O2 Del Method 02/07/22 11:43 BMI result Body Mass Index 27.7 Objective Data Active Medications Clonidine HCl (Clonidine Hcl 0.1 Mg Tablet) 0.1 mg PO TID [facility]; Protocol Last Admin: 02/07/22 08:15 Dose: 0.1 mg Documented By: EILEEN Docusate Sodium (Docusate Sodium 100 Mg Capsule) 100 mg PO DAILY PRN PRN Reason: Constipation Haloperidol Lactate (Haloperidol Lactate 5 Mg/Ml Vial) 2 mg IM Q4H PRN PRN Reason: Anxiety Last Admin: 02/07/22 08:17 Dose: 2 mg Documented By: EILEEN Hydromorphone HCl (Hydromorphone Hcl 0.5 Mg/0.5 Ml Syringe) 1 mg IVPUSH Q4H PRN; Protocol PRN Reason: Pain, Severe (Pain Scale 7-10) Last Admin: 02/07/22 08:27 Dose: 1 mg Documented By: EILEEN Sodium Chloride (Ns) 1,000 mls @ 100 mls/hr IVCONT .Q10H [facility] Last Infusion: 02/07/22 10:55 Dose: 100 mls/hr Documented By: RONALDO Piperacillin Sod/Tazobactam (Sod 3.375 gm/ Sodium Chloride) 50 mls @ 100 mls/hr IV Q6H [facility] Last Infusion: 02/07/22 09:27 Dose: 100 mls/hr Documented By: EILEEN Vancomycin HCl 1,000 mg/ (Sodium Chloride) 270 mls @ 270 mls/hr IV Q12H [facility] Last Admin: 02/07/22 12:37 Dose: 270 mls/hr Documented By: EILEEN Ondansetron HCl (Ondansetron Hcl 4 Mg/2 Ml Vial) 4 mg IVPUSH Q8H PRN PRN Reason: Nausea and Vomiting Pharmacy Consult (Consult Rx Vancomycin Dosing) 1 each MISCELLANE DAILY PRN PRN Reason: Consult order Sodium Chloride (0.9 % Sodium Chloride Flush 3 Ml Syringe) 3 ml IVFLUSH QSHIFT [facility] Last Admin: 02/07/22 09:15 Dose: 3 ml Documented By: EILEEN Labs CBC & Chem 7: 02/07/22 06:07 02/07/22 06:07 Labs: Laboratory Results - last 24 hr 02/06/22 02/06/22 02/07/22 20:56 20:56 06:07 MCV 85.8 MCH 29.4 MCHC 34.3 RDW 12.5 Plt Count 154 L MPV 11.3 Immature Gran % (Auto) 0.4 Neut % (Auto) 72.2 Lymph % (Auto) 18.7 L [place] % (Auto) 8.4 Eos % (Auto) 0.0 Baso % (Auto) 0.3 Lymph # (Auto) 1.8 [place] # (Auto) 0.8 Eos # (Auto) 0.0 Baso # (Auto) 0.0 Abs Immat Gran (auto) 0.04 H Absolute Neuts (auto) 6.9 Absolute Nucleated RBC 0.000 Nucleated RBC % (auto) 0.0 Anion Gap Estim Creat Clear Calc Estimated GFR Random Glucose Lactic Acid 0.7 Calcium Total Bilirubin AST ALT Alkaline Phosphatase Total Protein Albumin Hep Bs Antigen Negative Hep Bs Antibody NONREACTIVE Hep B Core Total Ab Reactive Hepatitis C Ab (EIA) Reactive H HIV 1&2 Ab/P24 Ag 4thGn Nonreactive 02/07/22 06:07 MCV MCH MCHC RDW Plt Count MPV Immature Gran % (Auto) Neut % (Auto) Lymph % (Auto) [place] % (Auto) Eos % (Auto) Baso % (Auto) Lymph # (Auto) [place] # (Auto) Eos # (Auto) Baso # (Auto) Abs Immat Gran (auto) Absolute Neuts (auto) Absolute Nucleated RBC Nucleated RBC % (auto) Anion Gap 15 Estim Creat Clear Calc 101.3 Estimated GFR > 60 Random Glucose 101 Lactic Acid Calcium 8.6 D Total Bilirubin 1.6 H AST 55 H ALT 40 Alkaline Phosphatase 79 D Total Protein 7.2 Albumin 3.8 Hep Bs Antigen Hep Bs Antibody Hep B Core Total Ab Hepatitis C Ab (EIA) HIV 1&2 Ab/P24 Ag 4thGn Microbiology Microbiology Results: Microbiology 02/06/22 10:12 Blood Culture - Preliminary Blood - Venous No growth after 24 hours. 02/06/22 10:12 Blood Culture - Preliminary Blood - Venous No growth after 24 hours. Assessment and Plan (1) IVDU (intravenous drug user): Status: Acute Plan 56-year-old male with history of polysubstance abuse, IV drug abuse-last heroin use last night around midnight, hyperlipidemia, hepatitis-C (unknown if treated), and anxiety presented for neck pain subsequently developing fever of unknown origin in IVDA. Fever of unknown origin H/o IVDA complaining of neck pain.? CT thoracic and cervical spine negative for soft tissue swelling/abscess or evidence of osteomyelitis/diskitis attempted LP but patient uncooperative in the ED MRI cervical spine ordered but unable despite Dilaudid, Haldol, ketorolac, Versed, diazepam, and ketamine neg blood cx after 24hrs Neck pain CT neck with moderate multilevel degenerative changes with moderate-severe spinal canal stenosis. Unable to lay through MRI/LP due to pain to neck in spite of numerous pain medication doses previously, needed to better assess for abscess/diskitis/osteomyelitis For now will start Prednisone 40mg daily for canal stenosis, this may be causing the pain, no nowel or bladder dysfunction will attempt MRI again if he is able to Hypertensive urgency, likely re pain BP 247/152 Resolved with 10mg hydralazine Polysubstance abuse Addiction consult placed Utox positive for fentanyl, opiates, and cocaine Transaminitits untreated hep c HIV neg DVT prophylaxis-Lovenox Full code Attending Dr. Krishnamurthy Continue hospitalization for treatment severe neck pain and needing further diagnostic imaging Quality Stroke Does the patient have a stroke diagnosis?: No VTE Prior VTE?: No VTE Risk Level:: Medical - moderate - high VTE Device Contraindication: Treatment Not Indicated VTE Drug Contraindication: N/A - Med Ordered
[2022-02-07] MEDS: predniSONE 20 MG TABLET 40 MG PO (14:11)
--- NOTE | 2022-02-07 16:05 | MHC.RECOVRN ---
This sports book writer met w/ pt, pt unable to maintain conversation, unable to perform Substance Use assessment at this time.
[2022-02-07] MEDS: 0.9 % Sodium Chloride 1,000 ML 100 ML IVCONT (20:21)
--- NOTE | 2022-02-07 21:32 | PC.NURSE ---
Pt. sleeping in bed, pt. sleeping, but easily arousable. Pt. aware that he was being admitted for further evaluation and workup of neck pain. Called and gave report to bonny Wong RN, med surge.
[2022-02-08] MEDS: vancomycin HCL 1,000 MG in 0.9 % Sodium Chloride 250 ML 270 MG IV (00:29)
[2022-02-08] MEDS: Piperacillin Sodium/Tazobactam 3.375 GM in 0.9 % Sodium Chloride 50 ML IV ×3 (01:30→12:41)
[2022-02-08 03:24] VITALS: BP 144/79; PULSE 52; RESP 16; TEMP 37; O2SAT 97
[2022-02-08] MEDS: HYDROmorphone HCl 0.5 MG/0.5 ML SYRINGE 1 MG IVPUSH ×2 (04:50→09:26)
[2022-02-08] MEDS: Haloperidol Lactate 5 MG/ML VIAL 2 MG IM ×2 (05:27→10:40)
[2022-02-08 05:31] LABS: MANUAL DIFF FLAG NO
[2022-02-08 05:39] LABS: Basophils Percent Auto 0.2 % (0-2); Hematocrit 42.7 % (42.0-52.0); Hemoglobin 14.6 g/dl (14.0-18.0); Imm Gran Abs Auto 0.04 X10*3/uL (0.00-0.03); Imm Gran Pct Auto 0.4 % (0.0-0.4); Lymphocytes Absolute Auto 2.1 X10*3/uL (1.2-4.9); Lymphocytes Percent Auto 21.8 % (20-40); Mean Corpuscular HGB Conc 34.2 g/dl (31.0-36.0); Mean Corpuscular Volume 87.7 fL (80.0-98.0); Mean Platelet Volume 11.5 fL (9.4-12.4); Monocytes Absolute Auto 0.7 X10*3/uL (0.1-1.2); Monocytes Percent Auto 7.5 % (2-11); Neutrophils Absolute Auto 6.9 x10*3/uL (2.0-8.3); Neutrophils Percent Auto 70.1 % (45-73); PLT CLUMP 1; Red Blood Count 4.87 X10*6/uL (4.60-5.80); Red Cell Distribution Width 12.5 % (11.0-16.0); SCAN SMEAR FLAG 1
[2022-02-08 05:49] LABS: Platelet Count 139 X10*3/uL (160-400); White Blood Count 9.8 X10*3/uL (4.8-10.8)
[2022-02-08 06:00] LABS: Alanine Aminotransferase 35 U/L (0-40); Albumin Level 3.5 g/dL (3.5-5.0); Alkaline Phosphatase 70 U/L (39-117); Anion Gap 14 (12-20); Aspartate Amino Transferase 45 U/L (5-37); Bilirubin Total 1.1 mg/dL (0.0-1.0); Blood Urea Nitrogen 16 mg/dL (9-16); Carbon Dioxide 24 mmol/L (22-29); Chloride 105 mmol/L (96-108); Creatinine Clr Calc Pharmacy 94.2; Estimated Glomerular Filt Rate > 60; Glucose Random 114 mg/dL (60-115); Potassium 4.4 mmol/L (3.3-5.1); Sodium 139 mmol/L (135-145); Total Protein 6.8 g/dL (6.5-8.0)
[2022-02-08] MEDS: 0.9 % Sodium Chloride 1,000 ML 100 ML IVCONT (06:33)
[2022-02-08 07:38] VITALS: BP 140/69; PULSE 52; TEMP 36.9; O2SAT 94
[2022-02-08] MEDS: predniSONE 20 MG TABLET 40 MG PO (08:55)
[2022-02-08] MEDS: cloNIDine HCL 0.1 MG TABLET PO ×2 (08:55→15:41)
[2022-02-08 11:16] VITALS: BP 155/70; PULSE 49; RESP 18; TEMP 36.4; O2SAT 98
--- NOTE | 2022-02-08 11:54 | HO.PM.IMPN ---
Subjective Subjective Date of Service: 02/08/22 Review of Systems Follow up neck pain hx of IVDA Pain is getting better Physical Exam Vital Signs: Vital Signs: Last Vital Signs Temp 97.6 F 02/08/22 11:16 Pulse 49 L 02/08/22 11:16 Resp 18 02/08/22 11:16 BP 155/70 H 02/08/22 11:16 Pulse Ox 98 02/08/22 11:16 O2 Del Method 02/08/22 11:16 BMI result Body Mass Index 27.7 Appearing in no acute distress lung sounds are clear to auscultation heart regular rate rhythm, clear S1, S2 positive bowel sounds, abdomen is soft, nontender neuro patient is alert x3, no focal deficits Objective Data Active Medications Clonidine HCl (Clonidine Hcl 0.1 Mg Tablet) 0.1 mg PO TID [facility]; Protocol Last Admin: 02/08/22 08:55 Dose: 0.1 mg Documented By: ISAURO Docusate Sodium (Docusate Sodium 100 Mg Capsule) 100 mg PO DAILY PRN PRN Reason: Constipation Haloperidol Lactate (Haloperidol Lactate 5 Mg/Ml Vial) 2 mg IM Q4H PRN PRN Reason: Anxiety Last Admin: 02/08/22 10:40 Dose: 2 mg Documented By: JOHNNA Hydromorphone HCl (Hydromorphone Hcl 0.5 Mg/0.5 Ml Syringe) 1 mg IVPUSH Q4H PRN; Protocol PRN Reason: Pain, Severe (Pain Scale 7-10) Last Admin: 02/08/22 09:26 Dose: 1 mg Documented By: ISAURO Sodium Chloride (Ns) 1,000 mls @ 100 mls/hr IVCONT .Q10H [facility] Last Admin: 02/08/22 06:33 Dose: 100 mls/hr Documented By: QUENTIN Piperacillin Sod/Tazobactam (Sod 3.375 gm/ Sodium Chloride) 50 mls @ 100 mls/hr IV Q6H [facility] Last Infusion: 02/08/22 08:57 Dose: 0 mls/hr Documented By: ISAURO Vancomycin HCl 1,000 mg/ (Sodium Chloride) 270 mls @ 270 mls/hr IV Q12H [facility] Last Infusion: 02/08/22 01:29 Dose: 0 mls/hr Documented By: QUENTIN Ondansetron HCl (Ondansetron Hcl 4 Mg/2 Ml Vial) 4 mg IVPUSH Q8H PRN PRN Reason: Nausea and Vomiting Pharmacy Consult (Consult Rx Vancomycin Dosing) 1 each MISCELLANE DAILY PRN PRN Reason: Consult order Prednisone (Prednisone 20 Mg Tablet) 40 mg PO DAILY [facility] Last Admin: 02/08/22 08:55 Dose: 40 mg Documented By: ISAURO Sodium Chloride (0.9 % Sodium Chloride Flush 3 Ml Syringe) 3 ml IVFLUSH QSHIFT [facility] Last Admin: 02/08/22 07:07 Dose: Not Given Documented By: ISAURO Non-Admin Reason: IV Running Labs CBC & Chem 7: 02/08/22 05:09 02/08/22 05:09 Labs: Laboratory Results - last 24 hr 02/08/22 02/08/22 05:09 05:09 MCV 87.7 MCH 30.0 MCHC 34.2 RDW 12.5 Plt Count 139 L MPV 11.5 Immature Gran % (Auto) 0.4 Neut % (Auto) 70.1 Lymph % (Auto) 21.8 [place] % (Auto) 7.5 Eos % (Auto) 0.0 Baso % (Auto) 0.2 Lymph # (Auto) 2.1 [place] # (Auto) 0.7 Eos # (Auto) 0.0 Baso # (Auto) 0.0 Abs Immat Gran (auto) 0.04 H Absolute Neuts (auto) 6.9 Absolute Nucleated RBC 0.000 Nucleated RBC % (auto) 0.0 Anion Gap 14 Estim Creat Clear Calc 94.2 Estimated GFR > 60 Random Glucose 114 Calcium 9.0 Total Bilirubin 1.1 H AST 45 H ALT 35 Alkaline Phosphatase 70 Total Protein 6.8 Albumin 3.5 Microbiology Microbiology Results: Microbiology 02/06/22 10:12 Blood Culture - Preliminary Blood - Venous No growth after 24 hours. 02/06/22 10:12 Blood Culture - Preliminary Blood - Venous No growth after 24 hours. Assessment and Plan (1) IVDU (intravenous drug user): Status: Acute Plan 56-year-old male with history of polysubstance abuse, IV drug abuse-last heroin use last night around midnight, hyperlipidemia, hepatitis-C (unknown if treated), and anxiety presented for neck pain subsequently developing fever of unknown origin in IVDA. Fever of unknown origin H/o IVDA complaining of neck pain.? CT thoracic and cervical spine negative for soft tissue swelling/abscess or evidence of osteomyelitis/diskitis attempted LP but patient uncooperative in the ED MRI cervical spine ordered but unable despite Dilaudid, Haldol, ketorolac, Versed, diazepam, and ketamine neg blood cx after 24hrs check echo, stop abx if no vegetation Neck pain CT neck with moderate multilevel degenerative changes with moderate-severe spinal canal stenosis. Unable to lay through MRI/LP due to pain to neck in spite of numerous pain medication doses previously, needed to better assess for abscess/diskitis/osteomyelitis continue Prednisone 40mg daily for canal stenosis,no bowel or bladder dysfunction pain management Limited cervical spine MRI showed> Limited incomplete examination with moderate spondylosis at the C5-C6 and C6-C7 levels. Disc-osteophyte complexes with central canal stenosis and foraminal encroachment at both levels, though incompletely assessed. Questionable artifact versus signal abnormality in the imaged thoracic cord. If patient has myelopathic symptoms, recommend repeat follow-up imaging with medication for conscious sedation. Hypertensive urgency, likely re pain. Improving BP 247/152 Resolved with 10mg hydralazine Polysubstance abuse Addiction consult placed Utox positive for fentanyl, opiates, and cocaine Transaminitits untreated hep c HIV neg DVT prophylaxis-Lovenox Full code Attending Dr. Krishnamurthy Continue hospitalization for treatment severe neck pain Quality Stroke Does the patient have a stroke diagnosis?: No VTE Prior VTE?: No VTE Risk Level:: Medical - moderate - high VTE Device Contraindication: Treatment Not Indicated VTE Drug Contraindication: N/A - Med Ordered
[2022-02-08 13:28] LABS: Vancomycin Random 7.5 mcg/mL (15-20)
--- NOTE | 2022-02-08 15:35 | HO.ADDICT_ITS ---
History of Present Illness Date of Service: 02/08/2022 Chief Complaint: Fever unknown origin, neck pain IVDA Reason for Consult: substance use HPI Narrative: Patient is a 56 year old male currently medically admitted with neck pain and fever. Reporting IVDU so consult requested to eval and recommend treatment. Patient seen in room 352. Awake, alert and engaged in interview. Irritable, somewhat avoiding answering questions, I use enough, okay Eventually providing information--states he uses btwn 1/2 pack to one pack daily Reports he has been on methadone and subxone several times over the years At this time states he wishes to start methadone when he leaves the hospital Making prevocative statements, if you don't find me a place to stay when I leave here I am just going to go shoot up At time of interview patient did not appear to be experiencing any withdrawal sx and was not reporting any. This bond writer went to see patient a second time with [facility], patient awake, alert bright affect and quite talkative Reporting that he wishes to start methadone, but not right now, I'll let you know when This bond writer questioned if patient had been using substances during admission (as he has not presented with any withdrawal sx or complaints of withdrawal) patient emphatically denies. Review of Systems Constitutional: Reports as per HPI and Reports no additional constitutional complaints Diagnostics Vital Signs (24Hr): Vital Signs - 24 hr 02/07/22 19:20 02/07/22 23:35 02/08/22 03:24 Temperature 99.4 F 97.4 F 98.6 F Pulse Rate 48 L 64 52 Respiratory Rate 16 19 16 Blood Pressure 145/79 H 154/76 H 144/79 H Pulse Oximetry 95 94 97 Oxygen Delivery Method Room Air Room Air Room Air 02/08/22 07:38 02/08/22 11:16 Temperature 98.4 F 97.6 F Pulse Rate 52 49 L Respiratory Rate 18 Blood Pressure 140/69 H 155/70 H Pulse Oximetry 94 98 Oxygen Delivery Method Room Air Room Air BMI result Body Mass Index 27.7 Labs Results: 02/08/22 05:09 02/08/22 05:09 Labs: Laboratory Results - last 48 hr 02/06/22 02/06/22 02/07/22 20:56 20:56 06:07 WBC 9.5 RBC 4.79 Hgb 14.1 Hct 41.1 L MCV 85.8 MCH 29.4 MCHC 34.3 RDW 12.5 Plt Count 154 L MPV 11.3 Immature Gran % (Auto) 0.4 Neut % (Auto) 72.2 Lymph % (Auto) 18.7 L [place] % (Auto) 8.4 Eos % (Auto) 0.0 Baso % (Auto) 0.3 Lymph # (Auto) 1.8 [place] # (Auto) 0.8 Eos # (Auto) 0.0 Baso # (Auto) 0.0 Abs Immat Gran (auto) 0.04 H Absolute Neuts (auto) 6.9 Absolute Nucleated RBC 0.000 Nucleated RBC % (auto) 0.0 Sodium Potassium Chloride Carbon Dioxide Anion Gap BUN Creatinine Estim Creat Clear Calc Estimated GFR Random Glucose Lactic Acid 0.7 Calcium Total Bilirubin AST ALT Alkaline Phosphatase Total Protein Albumin Random Vancomycin Hep Bs Antigen Negative Hep Bs Antibody NONREACTIVE Hep B Core Total Ab Reactive Hepatitis C Ab (EIA) Reactive H HIV 1&2 Ab/P24 Ag 4thGn Nonreactive 02/07/22 02/08/22 02/08/22 06:07 05:09 05:09 WBC 9.8 RBC 4.87 Hgb 14.6 Hct 42.7 MCV 87.7 MCH 30.0 MCHC 34.2 RDW 12.5 Plt Count 139 L MPV 11.5 Immature Gran % (Auto) 0.4 Neut % (Auto) 70.1 Lymph % (Auto) 21.8 [place] % (Auto) 7.5 Eos % (Auto) 0.0 Baso % (Auto) 0.2 Lymph # (Auto) 2.1 [place] # (Auto) 0.7 Eos # (Auto) 0.0 Baso # (Auto) 0.0 Abs Immat Gran (auto) 0.04 H Absolute Neuts (auto) 6.9 Absolute Nucleated RBC 0.000 Nucleated RBC % (auto) 0.0 Sodium 136 139 Potassium 3.7 4.4 Chloride 104 105 Carbon Dioxide 21 L 24 Anion Gap 15 14 BUN 10 16 D Creatinine 0.80 0.86 Estim Creat Clear Calc 101.3 94.2 Estimated GFR > 60 > 60 Random Glucose 101 114 Lactic Acid Calcium 8.6 D 9.0 Total Bilirubin 1.6 H 1.1 H AST 55 H 45 H ALT 40 35 Alkaline Phosphatase 79 D 70 Total Protein 7.2 6.8 Albumin 3.8 3.5 Random Vancomycin Hep Bs Antigen Hep Bs Antibody Hep B Core Total Ab Hepatitis C Ab (EIA) HIV 1&2 Ab/P24 Ag 4thGn 02/08/22 10:51 WBC RBC Hgb Hct MCV MCH MCHC RDW Plt Count MPV Immature Gran % (Auto) Neut % (Auto) Lymph % (Auto) [place] % (Auto) Eos % (Auto) Baso % (Auto) Lymph # (Auto) [place] # (Auto) Eos # (Auto) Baso # (Auto) Abs Immat Gran (auto) Absolute Neuts (auto) Absolute Nucleated RBC Nucleated RBC % (auto) Sodium Potassium Chloride Carbon Dioxide Anion Gap BUN Creatinine Estim Creat Clear Calc Estimated GFR Random Glucose Lactic Acid Calcium Total Bilirubin AST ALT Alkaline Phosphatase Total Protein Albumin Random Vancomycin 7.5 L Hep Bs Antigen Hep Bs Antibody Hep B Core Total Ab Hepatitis C Ab (EIA) HIV 1&2 Ab/P24 Ag 4thGn Imaging Radiology Impressions: ITS Impressions Chest X-Ray 02/06/22 16:47 IMPRESSION: Ankle wall thickening may be infectious and/or inflammatory in etiology. Cervical Spine CT 02/06/22 17:50 IMPRESSION: 1. No subluxation or fracture of the cervical or thoracic spine. No CT evidence of advanced discitis osteomyelitis complex. If there is continued high clinical concern for early discitis, consider MRI for more sensitive assessment. 2. Moderate disc degenerative change at C5-C6 and C6-C7 with suspected at least moderate central canal stenosis at C5-C6 and moderate to severe central canal stenosis at C6-C7. 3. Mild multilevel degenerative disc disease in the mid and lower thoracic spine. 4. Minimal chronic anterior wedge compression deformity of T7. Thoracic Spine CT 02/06/22 17:50 IMPRESSION: 1. No subluxation or fracture of the cervical or thoracic spine. No CT evidence of advanced discitis osteomyelitis complex. If there is continued high clinical concern for early discitis, consider MRI for more sensitive assessment. 2. Moderate disc degenerative change at C5-C6 and C6-C7 with suspected at least moderate central canal stenosis at C5-C6 and moderate to severe central canal stenosis at C6-C7. 3. Mild multilevel degenerative disc disease in the mid and lower thoracic spine. 4. Minimal chronic anterior wedge compression deformity of T7. Cervical Spine MRI 02/07/22 10:00 IMPRESSION: Limited incomplete examination with moderate spondylosis at the C5-C6 and C6-C7 levels. Disc-osteophyte complexes with central canal stenosis and foraminal encroachment at both levels, though incompletely assessed. Questionable artifact versus signal abnormality in the imaged thoracic cord. If patient has myelopathic symptoms, recommend repeat follow-up imaging with medication for conscious sedation. Mental Status Exam Mental Status Exam Narrative: pin point pupils, clear speech, circumstantial, no evidence of restlessness, no evidence of diaphoresis, limited insight and judgement Medications Medications Current Medications Clonidine HCl (Clonidine Hcl 0.1 Mg Tablet) 0.1 mg PO TID ALBERTO; Protocol Last Admin: 02/08/22 08:55 Dose: 0.1 mg Docusate Sodium (Docusate Sodium 100 Mg Capsule) 100 mg PO DAILY PRN PRN Reason: Constipation Haloperidol Lactate (Haloperidol Lactate 5 Mg/Ml Vial) 2 mg IM Q4H PRN PRN Reason: Anxiety Last Admin: 02/08/22 10:40 Dose: 2 mg Hydromorphone HCl (Hydromorphone Hcl 0.5 Mg/0.5 Ml Syringe) 1 mg IVPUSH Q4H PRN; Protocol PRN Reason: Pain, Severe (Pain Scale 7-10) Last Admin: 02/08/22 09:26 Dose: 1 mg Sodium Chloride (Ns) 1,000 mls @ 100 mls/hr IVCONT .Q10H [facility] Last Admin: 02/08/22 11:54 Dose: Not Given Piperacillin Sod/Tazobactam (Sod 3.375 gm/ Sodium Chloride) 50 mls @ 100 mls/hr IV Q6H [facility] Last Infusion: 02/08/22 13:41 Dose: Infused Vancomycin HCl 1,500 mg/ (Sodium Chloride) 500 mls @ 333.333 mls/hr IV Q12H [facility] Ondansetron HCl (Ondansetron Hcl 4 Mg/2 Ml Vial) 4 mg IVPUSH Q8H PRN PRN Reason: Nausea and Vomiting Pharmacy Consult (Consult Rx Vancomycin Dosing) 1 each MISCELLANE DAILY PRN PRN Reason: Consult order Prednisone (Prednisone 20 Mg Tablet) 40 mg PO DAILY [facility] Last Admin: 02/08/22 08:55 Dose: 40 mg Sodium Chloride (0.9 % Sodium Chloride Flush 3 Ml Syringe) 3 ml IVFLUSH QSHIFT [facility] Last Admin: 02/08/22 07:07 Dose: Not Given Allergies Allergies Allergy/AdvReac Type Severity Reaction Status Date / Time acetaminophen [From TYLENOL] Allergy Intermediate UPSET Verified 06/18/21 13:09 STOMACH morphine Allergy Intermediate Headache Verified 06/18/21 13:09 codeine [Codeine] Allergy Mild HIVES, Verified 06/18/21 13:09 VOMITING ibuprofen [From MOTRIN] Allergy Mild upset Verified 06/18/21 13:09 stomach Assessment & Plan Assessment & Plan (1) Opioid use disorder: Status: Acute Code(s): F11.90 - Opioid use, unspecified, uncomplicated Assessment and Plan: * concern for use of substances during admission * shortly after being seen by this bond writer patient self initiated discharge I spent ___60___ minutes with the patient and/or on the patient floor today, greater than?50% of which was spent counseling/coordinating care. PMFSH Past Medical History Medical History Anxiety Colitis Substance abuse Surgical History Surgical History H/O oral surgery Social History Social History Household Members: None Household Members Other:: homeless Alcohol intake: unknown Patient Tobacco Use Status: Current someday Tobacco user Tobacco use type: Cigarette e-Cigarette/Vaping Use: Never Used Second Hand Smoke Exposure: Yes Substance Use Type: Crack/Cocaine, Heroin and IV Drugs service: No Current occupational status: unemployed
[2022-02-08] MEDS: vancomycin HCL 1,500 MG in 0.9 % Sodium Chloride 500 ML 333.33 MG IV (15:41)
--- NOTE | 2022-02-08 16:14 | PC.NURSE ---
Security called to pts room due to strong smell of cigarette smoke while visitors in room with door closed. Nursing Provisioning Analyst and Thread Singer made aware. Security called back to pts room after increased smell of cigarette smoke in bathroom and clothing stuffed under door between bathroom and pt room after visitors were gone. Thread Singer made aware. Jennifer Long BAND DIRECTOR made aware. Security searched room. Pt admitted to security that he did smoke in the bathroom and security found 1 gabapentin pill in pts belongings. Pt became upset and is now stating that he would like to leave AMA. Jennifer Long made aware.
--- NOTE | 2022-02-08 16:33 | PM.DS ---
DS: Providers Provider Date of Service: 02/08/22 Date of admission: 02/06/22 20:15 Primary care physician: René Fields MD Consults: 02/06/22 20:42 Addiction Medicine Routine Consulting Provider: Addiction Covering Reason for consultation: polysubstance abuse Attending physician on discharge: Nishant Krishnamurthy Discharging clinician: Jennifer Long DS: Diagnosis Discharge Diagnosis (1) IVDU (intravenous drug user): Status: Acute DS: Summary Hospital Course Hospital Course: History physical as per admitting provider 56-year-old male with history of polysubstance abuse, IV drug abuse-last heroin use last night around midnight, hyperlipidemia, hepatitis-C (unknown if treated), and anxiety presented to the ED this morning with neck pain that began this morning.? The patient is somnolent and altered upon exam so history is obtained from ER staff and note.? He is reported to have presented with neck in flexion for comfort.? He denied any fevers, chills, headaches, sore throat, rashes, injury, paresthesias, shortness of breath, chest pain.? No nausea/vomiting.? On arrival, patient was afebrile, hypertensive to 184/101.? No hypoxia or tachycardia.? Attempts were made to obtain MRI of the cervical and thoracic spine but patient was unable to lie still due to pain.? He was given 1 mg Dilaudid, 5 mg Haldol, 800 mg ibuprofen, 4 mg Versed, 2 mg diazepam, 30 mg ketorolac, and finely 200 mg ketamine before patient was able to lie still for CT scan of the cervical and thoracic spine.? CT scan of the cervical spine was without any evidence of advanced diskitis or osteomyelitis but did show moderate degenerative changes with at least moderate central canal stenosis and moderate to severe central canal stenosis.? There is no paravertebral soft tissue swelling or fluid collection or obvious collection in the spinal canal though this is a limited assessment and follow-up MRI would be beneficial.? Chest x-ray negative.? Patient subsequently developed fever of with blood pressure of 247/152, tachycardic to 115.? He was given 10 mg IV hydralazine and 800 mg ibuprofen.? Blood pressure improved to 126/73, heart rate 54, temperature 99.5 degrees.? Patient was not altered on arrival but is now somnolant and unable to answer many questions following medication administration. Attempts were made at LP, but patient was not cooperative in the ED. WBC 6.6.? Renal function electrolytes normal.? Total bilirubin 1.2, AST 74, ALT 59.? CRP normal, ESR normal.? UA unremarkable.? U tox positive for fentanyl, opiates, and cocaine.? Patient to be admitted for fever of unknown origin and neck pain in IV drug abuser . Left against medical advice, workup incomplete. She was told that if he leaves his symptoms could worsen, he could get an infection and he could even . He stated awareness to this, he was alert and oriented x3. He decided he wanted to leave against medical advice. Fever of unknown origin H/o IVDA complaining of neck pain.? CT thoracic and cervical spine negative for soft tissue swelling/abscess or evidence of osteomyelitis/diskitis attempted LP but patient uncooperative in the ED MRI cervical spine ordered but unable despite Dilaudid, Haldol, ketorolac, Versed, diazepam, and ketamine neg blood cx after 24hrs check echo, stop abx if no vegetation Neck pain CT neck with moderate multilevel degenerative changes with moderate-severe spinal canal stenosis. Unable to lay through MRI/LP due to pain to neck in spite of numerous pain medication doses previously, needed to better assess for abscess/diskitis/osteomyelitis continue Prednisone 40mg daily for canal stenosis,no bowel or bladder dysfunction pain management Limited cervical spine MRI showed>?Limited incomplete examination with moderate spondylosis at the C5-C6 and C6-C7 levels. Disc-osteophyte complexes with central canal stenosis and foraminal encroachment at both levels, though incompletely assessed. Questionable artifact versus signal abnormality in the imaged thoracic cord. If patient has myelopathic symptoms, recommend repeat follow-up imaging with medication for conscious sedation. Hypertensive urgency, likely re pain. Improving? BP 247/152 Resolved with 10mg hydralazine Polysubstance abuse Addiction consult placed Utox positive for fentanyl, opiates, and cocaine Transaminitits untreated hep c HIV neg Time Spent with Patient Time attestation: Total time spent providing and/or coordinating discharge services: Discharge coordination time: Greater than 30 minutes Quality: Safe Use of Opioids Does Pt have an Active Cancer Diagnosis on the Problem List?: No Quality: Stroke Does the patient have a stroke diagnosis?: No Physical Exam Vital Signs: Vital Signs: Last Vital Signs Temp 97.6 F 02/08/22 11:16 Pulse 49 L 02/08/22 11:16 Resp 18 02/08/22 11:16 BP 155/70 H 02/08/22 11:16 Pulse Ox 98 02/08/22 11:16 O2 Del Method 02/08/22 11:16 BMI result Body Mass Index 27.7 Declined examination DS: Data Data Completed and Pending Labs on day of discharge: Laboratory Results - last 24 hr 02/08/22 02/08/22 02/08/22 05:09 05:09 10:51 WBC 9.8 RBC 4.87 Hgb 14.6 Hct 42.7 MCV 87.7 MCH 30.0 MCHC 34.2 RDW 12.5 Plt Count 139 L MPV 11.5 Immature Gran % (Auto) 0.4 Neut % (Auto) 70.1 Lymph % (Auto) 21.8 [place] % (Auto) 7.5 Eos % (Auto) 0.0 Baso % (Auto) 0.2 Lymph # (Auto) 2.1 [place] # (Auto) 0.7 Eos # (Auto) 0.0 Baso # (Auto) 0.0 Abs Immat Gran (auto) 0.04 H Absolute Neuts (auto) 6.9 Absolute Nucleated RBC 0.000 Nucleated RBC % (auto) 0.0 Sodium 139 Potassium 4.4 Chloride 105 Carbon Dioxide 24 Anion Gap 14 BUN 16 D Creatinine 0.86 Estim Creat Clear Calc 94.2 Estimated GFR > 60 Random Glucose 114 Calcium 9.0 Total Bilirubin 1.1 H AST 45 H ALT 35 Alkaline Phosphatase 70 Total Protein 6.8 Albumin 3.5 Random Vancomycin 7.5 L Preliminary micro results at discharge 02/06/22 10:12 Blood Culture - Preliminary Blood - Venous No growth after 48 hours. 02/06/22 10:12 Blood Culture - Preliminary Blood - Venous No growth after 48 hours. Discharge Plan Discharge Anticipated Discharge Date/Time: 02/08/22 16:30 Patient Disposition: Left Against Medical Advice Discharge Diagnosis: Neck pain likely secondary to canal stenosis Hypertensive urgency Polysubstance abuse Transaminitis Referrals: René Fields MD [Primary Care Provider] - 1 Week Discharge Medications: No Action No Known Home Meds Discharge Orders: Discharge Order (Routine); Ordered 02/08/22 Ordered By: Jennifer Long Diet: Advance to usual diet Activity on Discharge: As tolerated Care Plan Goals: Left against medical advice Health Concerns: Neck pain likely secondary to canal stenosis Hypertensive urgency Polysubstance abuse Transaminitis Plan of Treatment: Unfortunately patient decided to leave against medical advice prior to completing his treatment for canal stenosis. He was advised that his symptoms can worsen, he can develop an infection and even . He stated that that was okay and he understands and wanted to sign out against medical advice He should follow-up with a neurosurgeon and a primary care provider Assessment: See discharge summary
[2022-02-08 17:36] LABS: Hepatitis B Core Antibody IgM NON-REACTIVE (NON-REACTIVE)
== END 2022-02-08 16:38 | disposition left against medical advice (07) | DRG 305 ==
LOC: HO.ED 23:26 → HO.EDOVER 02-07 00:40 → HO.S3 02-07 19:18
PROVIDERS: Physician Assistant Medical; Admitting Provider Physician Assistant; Emergency Provider Internal Medicine; PCP Internal Medicine; Visit Provider Nurse Practitioner Acute Care
DX: I16.0 Hypertensive urgency (principal); F11.20 Opioid dependence, uncomplicated; F41.9 Anxiety disorder, unspecified; F17.210 Nicotine dependence, cigarettes, uncomplicated; E78.5 Hyperlipidemia, unspecified; B19.20 Unspecified viral hepatitis C without hepatic coma; M48.02 Spinal stenosis, cervical region; M51.34 Other intervertebral disc degeneration, thoracic region; M50.323 Other cervical disc degeneration at C6-C7 level; Z88.5 Allergy status to narcotic agent; Z88.6 Allergy status to analgesic agent
CPT/HCPCS: 36415; 71045; 72126; 72129; 72156; 80053; 80202; 80307; 81003; 83605; 83735; 85025; 85610; 85652; 85730; 86140; 86704; 86705; 86706; 86803; 87040; 87340; 87389; 87635; 93005; 99285; J1170; J1200; J1885; J2250; J2405; J2543; J3370; Q9967

== ENCOUNTER 2022-02-09 06:05 | Observation (INO) | payer OTHER, SELFPAY ==
[2022-02-09] VITALS (10 sets, daily range): BP systolic 132–206; BP diastolic 76–99; PULSE 47–66; RESP 12–20; TEMP 36.6–37.1; O2SAT 95–100; BMI 23.3
--- NOTE | ~2022-02-09 | CT_ITS ---
EXAMINATION: CT HEAD WITHOUT CONTRAST CLINICAL INFORMATION: Seizure. COMPARISON: None TECHNIQUE: Contiguous axial imaging was performed from the skull base to vertex without intravenous administration of contrast. Coronal and sagittal reformatted images were obtained. This CT examination was performed using dose optimization techniques as appropriate, variously including the following: *Automated exposure control *Adjustment of mA and/or kV according to patient size (this includes techniques or standardized protocols for targeted exams where dose is matched to indication/reason for exam; i.e. extremities or head) *Use of iterative reconstruction technique DLP: 715 mGy-cm FINDINGS: The cortical sulci are normal. The lateral ventricles are symmetrical. The third and fourth ventricles are in their normal midline position. The basilar and prepontine cisterns are unremarkable. There is no acute intra or extracerebral abnormality. There is no mass effect or midline shift. Sections through the bony calvarium are unremarkable. The paranasal sinuses are clear. The bony orbits and orbital contents are unremarkable. Mild sigmoid nasal septal deviation. Right dixie bullosa. CT/CT head/brain wo IV con IMPRESSION: No acute intracranial pathology.
--- NOTE | ~2022-02-09 | MR_ITS ---
CANCELED INCOMPLETE MRI OF THE CERVICAL SPINE CLINICAL INFORMATION: Neck pain. Discitis suspected. COMPARISON: Cervical spine MRI 02/07/2022. Cervical spine CT 02/06/2022. TECHNIQUE: The patient could not tolerate this study. Very limited nondiagnostic sagittal T1 and sagittal STIR series are obtained. A sagittal T2 series is also obtained. No axial imaging obtained. MR/MR cervical spine wo con FINDINGS/IMPRESSION: This is a nondiagnostic incomplete MRI of the cervical spine. No axial imaging was performed and the obtained sagittal T1 and sagittal STIR series are nondiagnostic due to significant motion artifact. Disc osteophyte protrusions and ligamentum flavum thickening at C5-C6 and C6-C7 result in suspected severe central canal stenosis at C6-C7 and moderate to severe central canal stenosis at C5-C6 with significant mass effect on the cervical cord at both of these levels, greater at C6-C7. Nondiagnostic assessment for osteomyelitis discitis on this incomplete nondiagnostic exam. Possible marrow changes at C5-C6 and C6-C7 which are not well assessed on these incomplete series. There may be epidural thickening anteriorly at the C5-C7 levels that would be better assessed with a repeat study with and without IV contrast to exclude epidural phlegmon/infection given the clinical history. Consider a repeat study with sedation or general anesthesia as clinically indicated.
--- NOTE | 2022-02-09 09:09 | ED.GENADULT ---
HPI - General Adult General Chief complaint: Back Pain/Injury Stated complaint: Back and neck pain Time Seen by Provider: 02/09/22 08:53 Source: patient and old records reviewed History of Present Illness HPI narrative: Patient recently hospitalized with upper back and neck pain and signed out AMA before he can complete a workup for concern for diskitis or epidural abscess. Patient is at high risk is he is an active IV drug user. He denies fevers or chills. He returns today because the pain is still persistent. He states this time he will stay for the full workup. No weakness numbness or paresthesias No leg complaints No bowel or bladder symptoms No prior history of neck issues until this week. No causative factors that he knows of. No recent traumas. Of note he did have an incomplete MRI which was nondiagnostic but showed several abnormalities including canal stenosis of unclear etiology but still with diskitis and/or abscess as part of the differential. The plan before he left AMA was to repeat the MRI with procedural sedation as he was unable to tolerate laying flat for an extended period of time Related Data Home Medications Medication Instructions Recorded Confirmed No Known Home Meds 02/07/22 02/07/22 Allergies Allergy/AdvReac Type Severity Reaction Status Date / Time acetaminophen [From TYLENOL] Allergy Intermediate UPSET Verified 06/18/21 13:09 STOMACH morphine Allergy Intermediate Headache Verified 06/18/21 13:09 codeine [Codeine] Allergy Mild HIVES, Verified 06/18/21 13:09 VOMITING ibuprofen [From MOTRIN] Allergy Mild upset Verified 06/18/21 13:09 stomach Review of Systems Constitutional: Comments: No fevers or chills Eyes: Comments: No vision changes Cardiovascular: Comments: No chest pain Respiratory: Comments: No cough or shortness of breath Gastrointestinal: Comments: No nausea vomiting or diarrhea Genitourinary: Comments: No urinary symptoms such as incontinence or retention Musculoskeletal: Comments: Neck and upper back pain without extremity complaints Integumentary/Breasts: Comments: No new rash. Neurologic: Comments: No focal weakness PMFSH Past Medical History Medical History Anxiety Colitis Substance abuse Surgical History H/O oral surgery Social History Social History Household Members: None Household Members Other:: homeless Alcohol intake: unknown Patient Tobacco Use Status: Current someday Tobacco user Tobacco use type: Cigarette e-Cigarette/Vaping Use: Never Used Second Hand Smoke Exposure: Yes Substance Use Type: Crack/Cocaine, Heroin and IV Drugs Advance Directives: No service: No Current occupational status: unemployed Physical Exam ED Vital Signs: Vital Signs - 24 hr 02/09/22 06:35 02/09/22 09:05 02/09/22 10:19 Temperature 97.8 F 97.9 F 98.5 F Pulse Rate 54 52 55 Respiratory Rate 16 14 16 Blood Pressure 175/87 H 194/88 H 206/99 H Pulse Oximetry 95 98 100 Oxygen Delivery Method Room Air Room Air Room Air 02/09/22 13:07 02/09/22 13:38 Temperature Pulse Rate 50 61 Respiratory Rate 17 19 Blood Pressure 205/95 H 185/96 H Pulse Oximetry 98 95 Oxygen Delivery Method BMI result Body Mass Index 23.3 Const Other: Patient is awake alert and in no acute distress Neck Other: Patient holding neck in flexion which he states his position of most comfort. He is tender along the lower C-spine and Graham Herm[place] move bilateral paraspinous cervical muscles. Upper thoracic spine tenderness as well. Decreased range of motion Resp Other: Clear and equal bilaterally Cardio Other: Regular rate and rhythm without murmurs GI Other: Soft nontender nondistended Skin Other: Warm pink and dry. Positive active track aden on his right arm without evidence of infection or abscess Neuro Other: Ambulatory without difficulty. No focal neuro findings Course Course Course Narrative: Patient with neck pain with recently diagnosed canal stenosis but still of unclear etiology. High risk for abscess or diskitis. Will restart on vancomycin and Zosyn. IV Solu-Medrol. IV Dilaudid for pain control. IV Toradol for pain and inflammation. Will repeat lab work and anticipate hospitalization for MRI under sedation. 10:09. Lab work is unremarkable Continue with current plan Amlodipine for hypertension Midazolam for muscle relaxation 14:47. Attempted MRI with ketamine sedation. Unfortunately patient had seizure-like activity during the MRI and was unable to complete the IV contrast portion. Seizure-like activity was colonic with upper extremity flexion. Symptoms lasted approximately 30-45 seconds. Oxygen saturation remained stable. No other complications. Suspect ketamine reaction. Will CT scan to rule out intracranial issues. Medical Decision Making Lab Data Result diagrams: 02/09/22 09:36 02/09/22 09:36 Labs: Lab Results 02/09/22 02/09/22 02/09/22 Range/Units 09:23 09:35 09:36 WBC 7.5 (4.8-10.8) X10*3/uL RBC 4.92 (4.60-5.80) X10*6/uL Hgb 14.4 (14.0-18.0) g/dl Hct 42.1 (42.0-52.0) % MCV 85.6 (80.0-98.0) fL MCH 29.3 (27.0-33.0) pg MCHC 34.2 (31.0-36.0) g/dl RDW 12.4 (11.0-16.0) % Plt Count 169 (160-400) X10*3/uL MPV 10.1 (9.4-12.4) fL Immature Gran % (Auto) 0.4 (0.0-0.4) % Neut % (Auto) 72.0 (45-73) % Lymph % (Auto) 20.5 (20-40) % [place] % (Auto) 6.7 (2-11) % Eos % (Auto) 0.3 (0-4) % Baso % (Auto) 0.1 (0-2) % Lymph # (Auto) 1.5 (1.2-4.9) X10*3/uL [place] # (Auto) 0.5 (0.1-1.2) X10*3/uL Eos # (Auto) 0.0 (0.0-0.4) X10*3/uL Baso # (Auto) 0.0 (0.0-0.2) X10*3/uL Abs Immat Gran (auto) 0.03 (0.00-0.03) X10*3/uL Absolute Neuts (auto) 5.4 (2.0-8.3) x10*3/uL Absolute Nucleated RBC 0.000 (0.0-0.012) X10*3/uL Nucleated RBC % (auto) 0.0 (0.0-0.2) /100WBC ESR (0-15) MM/HR Sodium (135-145) mmol/L Potassium (3.3-5.1) mmol/L Chloride (96-108) mmol/L Carbon Dioxide (22-29) mmol/L Anion Gap (12-20) BUN (9-16) mg/dL Creatinine (0.5-1.4) mg/dL Estim Creat Clear Calc Estimated GFR Random Glucose (60-115) mg/dL Lactic Acid 0.6 (0.5-2.0) mmol/L Calcium (8.4-10.2) mg/dL Total Bilirubin (0.0-1.0) mg/dL AST (5-37) U/L ALT (0-40) U/L Alkaline Phosphatase (39-117) U/L C-Reactive Protein (< or = 0.50) mg/dL Total Protein (6.5-8.0) g/dL Albumin (3.5-5.0) g/dL Urine Color Urine Appearance Urine pH (5.0-9.0) Ur Specific [place] (1.005-1.025) Urine Protein (Neg-Trace) mg/dL Urine Glucose (UA) (Negative) mg/dL Urine Ketones (Negative) mg/dL Urine Blood (Negative) Urine Nitrite (Negative) Ur Leukocyte Esterase (Negative) COVID-19 ([facility]) Negative (Negative) COVID-19 Clin Com See Note 02/09/22 02/09/22 02/09/22 Range/Units 09:36 09:36 11:32 WBC (4.8-10.8) X10*3/uL RBC (4.60-5.80) X10*6/uL Hgb (14.0-18.0) g/dl Hct (42.0-52.0) % MCV (80.0-98.0) fL MCH (27.0-33.0) pg MCHC (31.0-36.0) g/dl RDW (11.0-16.0) % Plt Count (160-400) X10*3/uL MPV (9.4-12.4) fL Immature Gran % (Auto) (0.0-0.4) % Neut % (Auto) (45-73) % Lymph % (Auto) (20-40) % [place] % (Auto) (2-11) % Eos % (Auto) (0-4) % Baso % (Auto) (0-2) % Lymph # (Auto) (1.2-4.9) X10*3/uL [place] # (Auto) (0.1-1.2) X10*3/uL Eos # (Auto) (0.0-0.4) X10*3/uL Baso # (Auto) (0.0-0.2) X10*3/uL Abs Immat Gran (auto) (0.00-0.03) X10*3/uL Absolute Neuts (auto) (2.0-8.3) x10*3/uL Absolute Nucleated RBC (0.0-0.012) X10*3/uL Nucleated RBC % (auto) (0.0-0.2) /100WBC ESR 16 H (0-15) MM/HR Sodium 140 (135-145) mmol/L Potassium 3.5 D (3.3-5.1) mmol/L Chloride 104 (96-108) mmol/L Carbon Dioxide 24 (22-29) mmol/L Anion Gap 16 (12-20) BUN 15 (9-16) mg/dL Creatinine 0.84 (0.5-1.4) mg/dL Estim Creat Clear Calc 88.6 Estimated GFR > 60 Random Glucose 110 (60-115) mg/dL Lactic Acid (0.5-2.0) mmol/L Calcium 8.9 (8.4-10.2) mg/dL Total Bilirubin 0.7 (0.0-1.0) mg/dL AST 79 H (5-37) U/L ALT 52 H (0-40) U/L Alkaline Phosphatase 71 (39-117) U/L C-Reactive Protein 0.27 (< or = 0.50) mg/dL Total Protein 7.5 (6.5-8.0) g/dL Albumin 4.0 (3.5-5.0) g/dL Urine Color Yellow Urine Appearance Clear Urine pH 5.5 (5.0-9.0) Ur Specific [place] 1.010 (1.005-1.025) Urine Protein Negative (Neg-Trace) mg/dL Urine Glucose (UA) Negative (Negative) mg/dL Urine Ketones Negative (Negative) mg/dL Urine Blood Negative (Negative) Urine Nitrite Negative (Negative) Ur Leukocyte Esterase Negative (Negative) COVID-19 ([facility]) (Negative) COVID-19 Clin Com Discharge Plan Discharge Clinical Impression: IVDU (intravenous drug user), Back pain Patient Disposition: Admitted As Inpatient
[2022-02-09 09:41] LABS: MANUAL DIFF FLAG NO
[2022-02-09 09:43] LABS: COVID-19 Test Negative (Negative)
[2022-02-09] MEDS: methylPREDNISolone Sod Succ 125 MG/2 ML VIAL IVPUSH (09:43)
[2022-02-09] MEDS: 0.9 % Sodium Chloride 1,000 ML 999 ML IV (09:43)
[2022-02-09 09:44] LABS: Basophils Percent Auto 0.1 % (0-2); Eosinophils Percent Auto 0.3 % (0-4); Hematocrit 42.1 % (42.0-52.0); Hemoglobin 14.4 g/dl (14.0-18.0); Imm Gran Abs Auto 0.03 X10*3/uL (0.00-0.03); Imm Gran Pct Auto 0.4 % (0.0-0.4); Lymphocytes Absolute Auto 1.5 X10*3/uL (1.2-4.9); Lymphocytes Percent Auto 20.5 % (20-40); Mean Corpuscular HGB Conc 34.2 g/dl (31.0-36.0); Mean Corpuscular Hemoglobin 29.3 pg (27.0-33.0); Mean Corpuscular Volume 85.6 fL (80.0-98.0); Mean Platelet Volume 10.1 fL (9.4-12.4); Monocytes Absolute Auto 0.5 X10*3/uL (0.1-1.2); Monocytes Percent Auto 6.7 % (2-11); Neutrophils Absolute Auto 5.4 x10*3/uL (2.0-8.3); Platelet Count 169 X10*3/uL (160-400); Red Blood Count 4.92 X10*6/uL (4.60-5.80); Red Cell Distribution Width 12.4 % (11.0-16.0); White Blood Count 7.5 X10*3/uL (4.8-10.8)
[2022-02-09] MEDS: Ketorolac Tromethamine 15 MG/ML VIAL 30 MG IVPUSH (09:44)
[2022-02-09] MEDS: HYDROmorphone HCl 1 MG/ML SYRINGE IVPUSH (09:45)
[2022-02-09] MEDS: Piperacillin Sodium/Tazobactam 3.375 GM in 0.9 % Sodium Chloride 50 ML IV (09:46)
[2022-02-09 09:53] LABS: Lactic Acid 0.6 mmol/L (0.5-2.0)
[2022-02-09 09:59] LABS: Alanine Aminotransferase 52 U/L (0-40); Alkaline Phosphatase 71 U/L (39-117); Anion Gap 16 (12-20); Aspartate Amino Transferase 79 U/L (5-37); Bilirubin Total 0.7 mg/dL (0.0-1.0); Blood Urea Nitrogen 15 mg/dL (9-16); C Reactive Protein 0.27 mg/dL (< or = 0.50); Calcium 8.9 mg/dL (8.4-10.2); Carbon Dioxide 24 mmol/L (22-29); Chloride 104 mmol/L (96-108); Creatinine Clr Calc Pharmacy 88.6; Estimated Glomerular Filt Rate > 60; Glucose Random 110 mg/dL (60-115); Potassium 3.5 mmol/L (3.3-5.1); Sodium 140 mmol/L (135-145); Total Protein 7.5 g/dL (6.5-8.0)
[2022-02-09 10:23] LABS: Erythrocyte Sedimentation Rate 16 MM/HR (0-15)
[2022-02-09 11:44] LABS: Appearance Urine Clear; Color Urine Yellow; Glucose Urine UA Negative (Negative); Leukocyte Esterase Urine Negative (Negative); Nitrite Urine Negative (Negative); PH 5.5 (5.0-9.0); Urine Blood Negative (Negative); Urine Ketones Negative (Negative); Urine Protein Negative (Neg-Trace)
[2022-02-09] MEDS: vancomycin HCL 1,500 MG in 0.9 % Sodium Chloride 500 ML 333.33 MG IV (11:44)
[2022-02-09] MEDS: Midazolam HCl/PF 2 MG/2 ML VIAL 4 MG IVPUSH (13:02)
[2022-02-09] MEDS: amLODIPine Besylate 10 MG TABLET PO (13:04)
[2022-02-09] MEDS: Midazolam HCl/PF 2 MG/2 ML VIAL IVPUSH (14:15)
[2022-02-09] MEDS: Ketamine HCl 500 MG/5 ML VIAL IVPUSH (14:45)
--- NOTE | 2022-02-09 14:47 | PC.NURSE ---
pt to mri. arrived about 1335, 1st 100mg dose of ketmine at 1346, pt was moving some and 2nd 100mg dose given at 1356, 3rd 100mg dose at 1400, 4th dose of 70 mg given at 1406 as pt was still moving, pt then started to become rigid, ? md solo and rt w pt throughout , pt suctioned a small amt of saliva, rigidity lasted approx 45 seconds, 2 mg versed given after vs 180/90, hr100,96% 18rr, pt straight to head ct then to room 22, now becoming more alert, sr on monitor, alert and oriented x 3 but slurred speech and slow to respond
--- NOTE | 2022-02-09 17:29 | P.HPHOSP_ITS ---
History of Present Illness Date of Service: 02/09/22 Chief Complaint: neck pain 56-year-old male with history of polysubstance abuse, IV drug abuse-last heroin use last night around midnight, hyperlipidemia, hepatitis-C (unknown if treated), and anxiety presented to the ED this morning with neck pain that began this morning.? The patient is somnolent and altered upon exam so history is obtained from ER staff and note.? He is reported to have presented with neck in flexion for comfort.? He denied any fevers, chills, headaches, sore throat, rashes, injury, paresthesias, shortness of breath, chest pain.? No ju[place] sea/vomiting.? On arrival, patient was afebrile, hypertensive to 184/101.? No hypoxia or tachycardia.? Attempts were made to obtain MRI of the cervical and thoracic spine but patient was unable to lie still due to pain.? He was given 1 mg Dilaudid, 5 mg Haldol, 800 mg ibuprofen, 4 mg Versed, 2 mg diazepam, 30 mg ketorolac, and finely 200 mg ketamine before patient was able to lie still for CT scan of the cervical and thoracic spine.? CT scan of the cervical spine was without any evidence of advanced diskitis or osteomyelitis but did show moderate degenerative changes with at least moderate central canal stenosis and moderate to severe central canal stenosis.? There is no paravertebral soft tissue swelling or fluid collection or obvious collection in the spinal canal though this is a limited assessment and follow-up MRI would be beneficial.? Chest x-ray negative.? Patient subsequently developed fever of with blood pressure of 247/152, tachycardic to 115.? He was given 10 mg IV hydralazine and 800 mg ibuprofen.? Blood pressure improved to 126/73, heart rate 54, temperature 99.5 degrees.? Patient was not altered on arrival but is now somnolant and unable to answer many questions following medication administration. Attempts were made at LP, but patient was not cooperative in the ED. WBC 6.6.? Renal function electrolytes normal.? Total bilirubin 1.2, AST 74, ALT 59.? CRP normal, ESR normal.? UA unremarkable.? U tox positive for fentanyl, opiates, and cocaine.? Patient to be admitted for fever of unknown origin and neck pain in IV drug abuser. Admit02/06/22.02/08/22 .Left against medical advice, workup incomplete.? She was told that if he leaves his symptoms could worsen, he could get an infection and he could even .? He stated awareness to this, he was alert and oriented x3.? He decided he wanted to leave against medical advice. 02/09/2022 Patient returns to ER 02/09/2022 stating he is willing to complete the workup and will stay. He was given a similar dose regimen save higher dose of ketamine to attempt MRI. He still was unable to complete MRI and subsequently had a witnessed seizure. CT of the brain after the seizure was negative and he will be admitted for observation. His workup was essentially unremarkable; will ask ID to see in the morning. Review of Systems Review of Systems: Denies chest pain Denies shortness of breath Denies nausea vomiting diarrhea Denies fever chills PMFSH Medical History Anxiety Colitis Substance abuse Surgical History H/O oral surgery Social History Household Members: None Household Members Other:: homeless Alcohol intake: unknown Patient Tobacco Use Status: Current someday Tobacco user Tobacco use type: Cigarette e-Cigarette/Vaping Use: Never Used Second Hand Smoke Exposure: Yes Substance Use Type: Crack/Cocaine, Heroin and IV Drugs Advance Directives: No service: No Current occupational status: unemployed Meds Allergies Allergy/AdvReac Type Severity Reaction Status Date / Time acetaminophen [From TYLENOL] Allergy Intermediate UPSET Verified 06/18/21 13:09 STOMACH morphine Allergy Intermediate Headache Verified 06/18/21 13:09 codeine [Codeine] Allergy Mild HIVES, Verified 06/18/21 13:09 VOMITING ibuprofen [From MOTRIN] Allergy Mild upset Verified 06/18/21 13:09 stomach Active Medications: Current Medications Acetaminophen (Acetaminophen 325 Mg Tablet) 650 mg PO Q6H PRN PRN Reason: Pain, Mild (Pain Scale 1-3) Enoxaparin Sodium (Enoxaparin Sodium 40 Mg/0.4 Ml Syringe) 40 mg SUBCUT Q24H ALBERTO Ondansetron HCl (Ondansetron Hcl 4 Mg/2 Ml Vial) 4 mg IVPUSH Q8H PRN PRN Reason: Nausea and Vomiting Oxycodone HCl (Oxycodone Hcl Immed Release 5 Mg Tablet) 5 mg PO Q6H PRN PRN Reason: Pain, Severe (Pain Scale 7-10) Sodium Chloride (0.9 % Sodium Chloride Flush 3 Ml Syringe) 3 ml IVFLUSH QSHIFT [facility] Home Medications Medication Instructions Recorded Confirmed Last Taken Type No Known Home Meds 02/07/22 02/07/22 Unknown History Physical Exam Vital Signs and Narrative: Vital Signs: Last Vital Signs Temp 98.5 F 02/09/22 16:38 Pulse 47 L 02/09/22 16:38 Resp 12 02/09/22 16:38 BP 132/76 02/09/22 16:38 Pulse Ox 96 02/09/22 16:38 O2 Del Method 02/09/22 16:38 Oxygen Flow Rate 2 02/09/22 13:38 BMI result Body Mass Index 23.3 Const: Other: Somnolent but arousable secondary to pre med for MRI Resp: Other: Clear to auscultation bilaterally no rales rhonchi wheezes Cardio: Other: No S4; positive S1-S2; no S3 murmurs rubs or gallops Neuro: Other: Cranial nerves 2-12 grossly intact as tested motor is 5/5 all extremities sensation is intact Extrem: Other: No edema Results Labs CBC and Chem 7: 02/09/22 09:36 02/09/22 09:36 Labs: Laboratory Results - last 24 hr 02/09/22 02/09/22 02/09/22 09:23 09:35 09:36 MCV 85.6 MCH 29.3 MCHC 34.2 RDW 12.4 Plt Count 169 MPV 10.1 Immature Gran % (Auto) 0.4 Neut % (Auto) 72.0 Lymph % (Auto) 20.5 [place] % (Auto) 6.7 Eos % (Auto) 0.3 Baso % (Auto) 0.1 Lymph # (Auto) 1.5 [place] # (Auto) 0.5 Eos # (Auto) 0.0 Baso # (Auto) 0.0 Abs Immat Gran (auto) 0.03 Absolute Neuts (auto) 5.4 Absolute Nucleated RBC 0.000 Nucleated RBC % (auto) 0.0 ESR Anion Gap Estim Creat Clear Calc Estimated GFR Random Glucose Lactic Acid 0.6 Calcium Total Bilirubin AST ALT Alkaline Phosphatase C-Reactive Protein Total Protein Albumin Urine Color Urine Appearance Urine pH Ur Specific [place] Urine Protein Urine Glucose (UA) Urine Ketones Urine Blood Urine Nitrite Ur Leukocyte Esterase COVID-19 ([facility]) Negative COVID-19 Clin Com See Note 02/09/22 02/09/22 02/09/22 09:36 09:36 11:32 MCV MCH MCHC RDW Plt Count MPV Immature Gran % (Auto) Neut % (Auto) Lymph % (Auto) [place] % (Auto) Eos % (Auto) Baso % (Auto) Lymph # (Auto) [place] # (Auto) Eos # (Auto) Baso # (Auto) Abs Immat Gran (auto) Absolute Neuts (auto) Absolute Nucleated RBC Nucleated RBC % (auto) ESR 16 H Anion Gap 16 Estim Creat Clear Calc 88.6 Estimated GFR > 60 Random Glucose 110 Lactic Acid Calcium 8.9 Total Bilirubin 0.7 AST 79 H ALT 52 H Alkaline Phosphatase 71 C-Reactive Protein 0.27 Total Protein 7.5 Albumin 4.0 Urine Color Yellow Urine Appearance Clear Urine pH 5.5 Ur Specific [place] 1.010 Urine Protein Negative Urine Glucose (UA) Negative Urine Ketones Negative Urine Blood Negative Urine Nitrite Negative Ur Leukocyte Esterase Negative COVID-19 ([facility]) COVID-19 Clin Com Imaging Radiologist's Impressions: Impressions Cervical Spine MRI 02/09/22 14:10 FINDINGS/IMPRESSION: This is a nondiagnostic incomplete MRI of the cervical spine. No axial imaging was performed and the obtained sagittal T1 and sagittal STIR series are nondiagnostic due to significant motion artifact. Disc osteophyte protrusions and ligamentum flavum thickening at C5-C6 and C6-C7 result in suspected severe central canal stenosis at C6-C7 and moderate to severe central canal stenosis at C5-C6 with significant mass effect on the cervical cord at both of these levels, greater at C6-C7. Nondiagnostic assessment for osteomyelitis discitis on this incomplete nondiagnostic exam. Possible marrow changes at C5-C6 and C6-C7 which are not well assessed on these incomplete series. There may be epidural thickening anteriorly at the C5-C7 levels that would be better assessed with a repeat study with and without IV contrast to exclude epidural phlegmon/infection given the clinical history. Consider a repeat study with sedation or general anesthesia as clinically indicated. Head CT 02/09/22 14:37 IMPRESSION: No acute intracranial pathology. Assessment and Plan (1) Back pain: Status: Acute (2) Opioid use disorder: Status: Acute Plan 56-year-old male presents with neck pain and fever of unknown origin. Several attempts to obtain MRI of cervical spine with meds failed ultimately resulting in a seizure. Patient will be admitted overnight with ID consult in a.m. 1. Cervical pain/fever in backdrop of IV drug abuse -CRP/sed rate negative. No white count. MRI inconclusive to rule out osteo or abscess formation -consult ID in a.m.. If warranted likely ask Anesthesia support to obtain MRI -pain control with oxycodone p.r.n. Patient will require 1 night hospital stay for ID consultation and possible MRI with anesthesia support Quality Stroke Does the patient have a stroke diagnosis?: No VTE Prior VTE?: No VTE Risk Level:: Medical - moderate - high VTE Device Contraindication: Treatment Not Indicated VTE Drug Contraindication: N/A - Med Ordered
--- NOTE | 2022-02-09 20:05 | PC.NURSE ---
Pt wants to leave AMA. Hospitalist was called and informed of the pt's request. Pt is A&Ox4 and aware of the risks of leaving. Hospitalist is coming to talk with pt after he reviews the chart.
--- NOTE | 2022-02-09 23:07 | PC.NURSE ---
Report called to overflow RN now.
[2022-02-09] MEDS: 0.9 % Sodium Chloride Flush 3 ML SYRINGE IVFLUSH (23:18)
[2022-02-10] MEDS: oxyCODONE HCl Immed Release 5 MG TABLET PO ×2 (00:22→02:47)
--- NOTE | 2022-02-10 05:49 | PC.NURSE ---
patient is alert and oriented x4. able to make needs known. ambulating to and from the bathroom with strong steady gait. call thompson within reach. will continue to round frequently
[2022-02-10 05:50] VITALS: BP 206/95; PULSE 52; RESP 15; TEMP 36.9; O2SAT 95
--- NOTE | 2022-02-10 06:42 | PC.NURSE ---
Patient requests to leave AMA at this time, Dr. Fuller at bedside explained risks vs. benefits of admission, patient verbally acknowledges. Patient signed AMA form and retrieved all personal belongings from security. Patient a/ox4, ambulates independently with steady gait.
--- NOTE | 2022-02-10 07:16 | PHA.MEDREC ---
Pharmacy Consult ? Medication Reconciliation Pharmacy has completed the medication reconciliation. Med rec completed 02/07 by Kristen.
--- NOTE | 2022-02-10 07:17 | PM.EVENT ---
Event Note Date of Service: 02/10/22 Event Note: Patient stated that he wanted to leave to smoke cigarettes. He understands the risks. Deemed to have capacity. Signed AMA paperwork
--- NOTE | 2022-02-10 08:39 | MHC.CM.PN ---
Patient left AMA before being seen by case management.
--- NOTE | 2022-05-11 16:58 | PM.DS ---
DS: Providers Provider Date of Service: 02/10/21 Date of admission: 02/09/22 17:23 Date of discharge: 02/10/22 Primary care physician: René Fields MD Consults: 02/09/22 17:27 Consult to Infectious Diseases Routine Consulting Provider: Nadira Amor Reason for consultation: query osteomyelitis Has provider been notified: Yes DS: Diagnosis Discharge Diagnosis (1) Back pain: Status: Acute (2) Opioid use disorder: Status: Acute DS: Summary Hospital Course Hospital Course: 6-year-old male with history of polysubstance abuse, IV drug abuse-last heroin use last night around midnight, hyperlipidemia, hepatitis-C (unknown if treated), and anxiety presented to the ED this morning with neck pain that began this morning.? The patient is somnolent and altered upon exam so history is obtained from ER staff and note.? He is reported to have presented with neck in flexion for comfort.? He denied any fevers, chills, headaches, sore throat, rashes, injury, paresthesias, shortness of breath, chest pain.? No nausea/vomiting.? On arrival, patient was afebrile, hypertensive to 184/101.? No hypoxia or tachycardia.? Attempts were made to obtain MRI of the cervical and thoracic spine but patient was unable to lie still due to pain.? He was given 1 mg Dilaudid, 5 mg Haldol, 800 mg ibuprofen, 4 mg Versed, 2 mg diazepam, 30 mg ketorolac, and finely 200 mg ketamine before patient was able to lie still for CT scan of the cervical and thoracic spine.? CT scan of the cervical spine was without any evidence of advanced diskitis or osteomyelitis but did show moderate degenerative changes with at least moderate central canal stenosis and moderate to severe central canal stenosis.? There is no paravertebral soft tissue swelling or fluid collection or obvious collection in the spinal canal though this is a limited assessment and follow-up MRI would be beneficial.? Chest x-ray negative.? Patient subsequently developed fever of with blood pressure of 247/152, tachycardic to 115.? He was given 10 mg IV hydralazine and 800 mg ibuprofen.? Blood pressure improved to 126/73, heart rate 54, temperature 99.5 degrees.? Patient was not altered on arrival but is now somnolant and unable to answer many questions following medication administration. Attempts were made at LP, but patient was not cooperative in the ED. WBC 6.6.? Renal function electrolytes normal.? Total bilirubin 1.2, AST 74, ALT 59.? CRP normal, ESR normal.? UA unremarkable.? U tox positive for fentanyl, opiates, and cocaine.? Patient to be admitted for fever of unknown origin and neck pain in IV drug abuser. Admit02/06/22.02/08/22 .Left against medical advice, workup incomplete.? She was told that if he leaves his symptoms could worsen, he could get an infection and he could even .? He stated awareness to this, he was alert and oriented x3.? He decided he wanted to leave against medical advice. 02/09/2022 Patient returns to ER 02/09/2022 stating he is willing to complete the workup and will stay.? He was given a similar dose regimen save higher dose of ketamine to attempt MRI.? He still was unable to complete MRI and subsequently had a witnessed seizure.? CT of the brain after the seizure was negative and he will be admitted for observation.? His workup was essentially unremarkable; will ask ID to see in the morning. Early a.m. 02/10/2022 patient left AMA Time Spent with Patient Time attestation: Total time managing care of this patient today ____ minutes. Discharge coordination time: Greater than 30 minutes Quality: Safe Use of Opioids Does Pt have an Active Cancer Diagnosis on the Problem List?: No Quality: Stroke Does the patient have a stroke diagnosis?: No Physical Exam Vital Signs: Vital Signs: Last Vital Signs Temp 98.4 F 02/10/22 05:50 Pulse 52 02/10/22 05:50 Resp 15 02/10/22 05:50 BP 206/95 H 02/10/22 05:50 Pulse Ox 95 02/10/22 05:50 O2 Del Method 02/10/22 05:50 Oxygen Flow Rate 2 02/09/22 13:38 BMI result Body Mass Index 23.3 Discharge Plan Discharge Patient Disposition: Left Against Medical Advice Discharge Diagnosis: neck pain Referrals: René Fields MD [Primary Care Provider] - 1 Week Discharge Medications: No Action No Known Home Meds Discharge Orders: Discharge Order (Routine); Ordered 02/10/22 Ordered By: Jacobo Fuller Care Plan Goals: AMA Health Concerns: AMA Plan of Treatment: AMA Assessment: AMA Discharge Date/Time: 02/10/22 09:00
== END 2022-02-10 09:00 | disposition left against medical advice (07) ==
LOC: HO.ED 10:10 → HO.EDOVER 17:37
PROVIDERS: Admitting Provider Hospitalist; Emergency Provider Emergency Medicine; PCP Internal Medicine; Visit Provider Hospitalist
DX: M54.2 Cervicalgia (principal); R50.9 Fever, unspecified; F19.10 Other psychoactive substance abuse, uncomplicated; F41.9 Anxiety disorder, unspecified; F17.210 Nicotine dependence, cigarettes, uncomplicated; Z20.822 Contact with and (suspected) exposure to COVID-19; E78.5 Hyperlipidemia, unspecified; B19.20 Unspecified viral hepatitis C without hepatic coma
CPT/HCPCS: 36415; 70450; 72141; 80053; 81003; 83605; 85025; 85652; 86140; 87040; 87635; 96361; 96365; 96366; 96376; 99218; 99285; J1170; J1885; J2250; J2543; J2930; J3370

== ENCOUNTER 2022-10-13 22:28 | Emergency (ER) | payer OTHER, SELFPAY ==
[2022-10-13 22:42] VITALS: BP 188/90; PULSE 86; RESP 16; TEMP 37; O2SAT 98; BMI 26.6
--- NOTE | 2022-10-13 23:25 | PC.NURSE ---
Pt is responsive to verbal stimuli and is oriented X4, presents for evaluation of left hand secondary to possible bug/insect bite to proximal end of middle finger. Area is red, swollen and tender to palpation. CSMs are intact, but pt has minimal ROM in that hand. Symptoms started last night some time and progressed into today, over the course of the day, pain became worse, and pt developed a headache. Denies fever, GI symptoms, CP, shortness of breath, and any abd pain. Pain is reported as a 10/10 and described as throbbing. No reported trauma. Reports trying ibuprofen earlier today with minimal relief or reduction in symptoms. Denies alcohol use, but confirm IV drug use today, cocaine and heroine. No other complaints.
[2022-10-13 23:35] LABS: Anion Gap 12 (12-20); Blood Urea Nitrogen 13 mg/dL (9-16); Calcium 9.3 mg/dL (8.4-10.2); Carbon Dioxide 26 mmol/L (22-29); Chloride 100 mmol/L (96-108); Creatinine Clr Calc Pharmacy 89.6; Estimated Glomerular Filt Rate > 60; Glucose Random 95 mg/dL (60-115); Potassium 4.3 mmol/L (3.3-5.1); Sodium 134 mmol/L (135-145)
[2022-10-13 23:44] LABS: Hematocrit 38.5 % (42.0-52.0); Hemoglobin 13.5 g/dl (14.0-18.0); Mean Corpuscular HGB Conc 35.1 g/dl (31.0-36.0); Mean Corpuscular Hemoglobin 30.1 pg (27.0-33.0); Mean Corpuscular Volume 85.9 fL (80.0-98.0); Mean Platelet Volume 10.9 fL (9.4-12.4); Platelet Count 129 X10*3/uL (160-400); Red Blood Count 4.48 X10*6/uL (4.60-5.80); Red Cell Distribution Width 12.3 % (11.0-16.0); White Blood Count 6.4 X10*3/uL (4.8-10.8)
--- NOTE | 2022-10-14 00:35 | ED.GENADULT ---
HPI - General Adult General Chief complaint: General Medical Stated complaint: ? bug bite left hand swollen Time Seen by Provider: 10/13/22 23:42 Source: patient Mode of arrival: ambulatory History of Present Illness HPI narrative: 57-year-old male with history of IVDA comes in with complaints of bug bite to the left hand. Related Data Previous Rx's Medication Instructions Recorded amoxicillin 875 mg-potassium 1 tab PO BID 7 days #14 tabs 10/14/22 clavulanate 125 mg tablet Allergies Allergy/AdvReac Type Severity Reaction Status Date / Time acetaminophen [From TYLENOL] Allergy Intermediate UPSET Verified 10/13/22 22:50 STOMACH morphine Allergy Intermediate Headache Verified 10/13/22 22:50 codeine [Codeine] Allergy Mild HIVES, Verified 10/13/22 22:50 VOMITING Review of Systems Review of Systems: Pertinent positives and negatives as stated in HPI [facility] Past Medical History Source: nursing notes reviewed Medical History Anxiety Colitis Substance abuse Surgical History H/O oral surgery Social History Social History Household Members: None Household Members Other:: homeless Alcohol intake: unknown Patient Tobacco Use Status: Current someday Tobacco user Tobacco use type: Cigarette e-Cigarette/Vaping Use: Never Used Second Hand Smoke Exposure: Yes Use of substances other than those prescribed or required for medical reasons: Yes Substance Use Type: Crack/Cocaine and Heroin Advance Directives: No Advance Directives Information Provided: No service: No Current occupational status: unemployed Physical Exam ED Vital Signs: Vital Signs - 24 hr 10/13/22 22:42 Temperature 98.6 F Pulse Rate 86 Respiratory Rate 16 Blood Pressure 188/90 H Pulse Oximetry 98 Oxygen Delivery Method Room Air BMI result Body Mass Index 26.6 VITAL SIGNS: Reviewed. GENERAL: Appears older than stated age, poor hygiene, in moderate distress. HEAD: Normocephalic/atraumatic EYES: PERRLA, EOMI EARS: Ext canals without abnormality LUNGS: Normal breath sounds. No adventitious sounds or accessory muscle use. SpO2<98> CARDIOVASCULAR: Regular rate and rhythm without noted murmurs ABDOMEN: Soft, non-tender, non-distended with bowel sounds. MUSCULOSKELETAL: No tenderness, deformities, or effusions noted on gross inspection. EXTREMITIES: No cyanosis, clubbing or edema; but extensive areas of eschars with various stages of what appears to be very small abscesses likely corresponding to patient's injections sites. LEFT HAND: There is mild swelling to the hand with most prominence on the middle phalanx but patient able to form a fist. SKIN: Inspection of the skin reveals no rashes NEUROLOGIC: Alert and oriented x 4. Strength and sensation to light touch were grossly intact x 4. Medical Decision Making Medical Decision Making [facility] Narrative: 57-year-old male with history and clinical presentation, DDX: Cellulitis, localized reaction to insect. I reviewed all investigations and my interpretation is this patient has mild hand cellulitis likely secondary to injection drug use practices. Hematologic findings without leukocytosis or left shift, thrombocytopenia is chronically stable and hemoglobin is within tone. Chemistries are grossly within normal limits. Patient received ibuprofen and initial antibiotics here in the emergency room and then was discharged with remaining course. Differential Diagnosis Please see the discussion above Lab Data Please see the discussion above 10/13/22 23:14 10/13/22 23:14 Labs: Lab Results 10/13/22 10/13/22 Range/Units 23:14 23:14 WBC 6.4 (4.8-10.8) X10*3/uL RBC 4.48 L (4.60-5.80) X10*6/uL Hgb 13.5 L (14.0-18.0) g/dl Hct 38.5 L (42.0-52.0) % MCV 85.9 (80.0-98.0) fL MCH 30.1 (27.0-33.0) pg MCHC 35.1 (31.0-36.0) g/dl RDW 12.3 (11.0-16.0) % Plt Count 129 L (160-400) X10*3/uL MPV 10.9 (9.4-12.4) fL Absolute Nucleated RBC 0.000 (0.0-0.012) X10*3/uL Nucleated RBC % (auto) 0.0 (0.0-0.2) /100WBC Sodium 134 L (135-145) mmol/L Potassium 4.3 D (3.3-5.1) mmol/L Chloride 100 (96-108) mmol/L Carbon Dioxide 26 (22-29) mmol/L Anion Gap 12 (12-20) BUN 13 (9-16) mg/dL Creatinine 0.82 (0.5-1.4) mg/dL Estim Creat Clear Calc 89.6 Estimated GFR > 60 Random Glucose 95 (60-115) mg/dL Calcium 9.3 (8.4-10.2) mg/dL External Record Review External record reviewed: Outpatient record and Prior outpatient labs Discharge Plan Discharge Clinical Impression: Cellulitis of hand Patient Disposition: Home, Self-Care Instructions: Cellulitis (ED) Additional Instructions: 1. Complete the entire course of antibiotics as prescribed. 2. Follow-up with primary care provider in the next 1-2 days. Return to the ER for any worsening symptoms. Prescriptions: New amoxicillin-pot clavulanate 875-125 mg tablet 1 tab PO BID 7 Days Qty: 14 0RF
[2022-10-14] MEDS: Amoxicillin/Potassium Clav 875 MG TABLET PO (00:44)
[2022-10-14] MEDS: Ibuprofen 400 MG TABLET PO (00:44)
== END 2022-10-14 00:55 | disposition home or self-care (01) ==
PROVIDERS: Emergency Provider Student in an Organized Health Care Education/Training Program
DX: L03.114 Cellulitis of left upper limb (principal)
CPT/HCPCS: 36415; 80048; 85027; 99283; 99284

== ENCOUNTER 2022-10-16 12:05 | Emergency (ER) | payer OTHER, SELFPAY ==
[2022-10-16 12:24] VITALS: BP 171/90; PULSE 54; RESP 18; TEMP 36.7; O2SAT 99; BMI 22.6
--- NOTE | 2022-10-16 12:27 | ED.GENADULT ---
HPI - General Adult General Chief complaint: Extremity Injury, Upper Stated complaint: L hand swelling Time Seen by Provider: 10/16/22 12:59 Source: patient Mode of arrival: ambulatory Limitations: no limitations History of Present Illness HPI narrative: 57-year-old male who presents emergency department for evaluation of swelling of his left hand. The patient has a history of injection drug use. Patient was seen in the emergency department on 10/14/2022 (2 days prior) for cellulitis of the hand he was started on Augmentin. He states he has been compliant with the medication. He states that he has fallen twice and hit the hand and his hand is now more swollen. He states the hand is also more warm to the touch and there is increased redness. He denied systemic symptoms such as fever, chills, nausea, vomiting, diarrhea or fatigue. Patient states that he is continuing to inject 5 bags of heroin per day and inject cocaine 2-3 times per day as well. Related Data Previous Rx's Medication Instructions Recorded amoxicillin 875 mg-potassium 1 tab PO BID 7 days #14 tabs 10/14/22 clavulanate 125 mg tablet cephalexin 500 mg capsule 500 mg PO QID 7 days #28 caps 10/16/22 doxycycline hyclate 100 mg tablet 100 mg PO Q12H 7 days #14 tabs 10/16/22 Allergies Allergy/AdvReac Type Severity Reaction Status Date / Time acetaminophen [From TYLENOL] Allergy Intermediate UPSET Verified 10/16/22 12:24 STOMACH morphine Allergy Intermediate Headache Verified 10/16/22 12:24 codeine [Codeine] Allergy Mild HIVES, Verified 10/16/22 12:24 VOMITING Review of Systems Review of Systems: Yes all other systems are reviewed and are negative [facility] Past Medical History [facility] Narrative: Social history: He does smoke cigarettes. Denies alcohol use. He continues to use injection heroin and injection cocaine as discussed in HPI. Medical History Anxiety Colitis Substance abuse Surgical History H/O oral surgery Social History Social History Household Members: None Household Members Other:: homeless Alcohol intake: unknown Patient Tobacco Use Status: Current someday Tobacco user Tobacco use type: Cigarette e-Cigarette/Vaping Use: Never Used Second Hand Smoke Exposure: Yes Substance Use Type: Crack/Cocaine and Heroin Advance Directives: No Advance Directives Information Provided: No service: No Current occupational status: unemployed Physical Exam ED Vital Signs: Vital Signs - 24 hr 10/16/22 12:24 Temperature 98.0 F Pulse Rate 54 Respiratory Rate 18 Blood Pressure 171/90 H Pulse Oximetry 99 Oxygen Delivery Method Room Air BMI result Body Mass Index 22.6 Vital signs revealed elevated blood pressure of 171/90 General: Awake, alert, male patient, does not appear to be in distress Extremity exam: Patient's left hand is swollen with significant erythema increased warmth, patient's hand is tender to palpation, erythema spreads from the hand to the wrist, there is no lymphangitis. Patient is able to flex and extend his fingers with only limited pain. Send is neurovascular intact. Course Course Course Narrative: RmE: 57 yold male presents to the ED for worsening left hand swelling from insect bite. patient states increased redness. labs, xrays ordered. patient is on antibiotics Medications Administered Discontinued Medications Generic Name Dose Route Start Last Admin Trade Name Freq PRN Reason Stop Dose Admin Cephalexin HCl 500 mg 10/16/22 14:01 10/16/22 14:22 Cephalexin 500 Mg Capsule PO 10/16/22 14:02 500 mg ONCE ONE Administration Doxycycline Monohydrate 100 mg 10/16/22 14:01 10/16/22 14:22 Doxycycline Monohydrate 100 Mg Capsule PO 10/16/22 14:02 100 mg ONCE ONE Administration Medical Decision Making Medical Decision Making MDM Narrative: 57-year-old male who has a history of injection heroin and cocaine use who continues to use who presents emergency department for evaluation of pain and swelling of his right hand. Patient was seen here on 10/14/2022 (2 days prior) and was started on Augmentin for cellulitis. Patient states that he has fallen several times in his hurt the hand it is not more swollen. I did order laboratory evaluation to include CBC, ESR, CMP, CRP. 175: The patient left before laboratory evaluations available but the laboratory evaluation was unremarkable. My clinical impression is that the patient failed outpatient therapy and required admission for IV antibiotics and evaluation by Hand surgery The patient however refused admission. I did tell him that his hand could become compromised and require amputation or his infection can get worse and he could . The patient understood this discussion and despite these dire consequences, he insisted on leaving against medical advice. Patient was told to stop taking Augmentin. He was started on doxycycline 100 mg twice a day for 7 days and Keflex 500 mg 4 times a day for 7 days. He was advised return emergency department if he changed his mind and wanted to be admitted for further management. 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 My independent interpretation patient's laboratory evaluation as follows: WBC normal 5900. ESR was normal. CMP was normal. CRP was normal. 10/16/22 13:18 10/16/22 13:18 Labs: Lab Results 10/16/22 10/16/22 10/16/22 Range/Units 13:18 13:18 13:18 WBC 5.9 (4.8-10.8) X10*3/uL RBC 4.54 L (4.60-5.80) X10*6/uL Hgb 13.5 L (14.0-18.0) g/dl Hct 38.7 L (42.0-52.0) % MCV 85.2 (80.0-98.0) fL MCH 29.7 (27.0-33.0) pg MCHC 34.9 (31.0-36.0) g/dl RDW 12.5 (11.0-16.0) % Plt Count 121 L (160-400) X10*3/uL MPV Not Reportable Immature Gran % (Auto) 0.3 (0.0-0.4) % Neut % (Auto) 62.8 (45-73) % Lymph % (Auto) 27.3 (20-40) % [place] % (Auto) 6.8 (2-11) % Eos % (Auto) 2.5 (0-4) % Baso % (Auto) 0.3 (0-2) % Lymph # (Auto) 1.6 (1.2-4.9) X10*3/uL [place] # (Auto) 0.4 (0.1-1.2) X10*3/uL Eos # (Auto) 0.2 (0.0-0.4) X10*3/uL Baso # (Auto) 0.0 (0.0-0.2) X10*3/uL Abs Immat Gran (auto) 0.02 (0.00-0.03) X10*3/uL Absolute Neuts (auto) 3.7 (2.0-8.3) x10*3/uL Absolute Nucleated RBC 0.000 (0.0-0.012) X10*3/uL Nucleated RBC % (auto) 0.0 (0.0-0.2) /100WBC Smear Tech's Comments VERIFIED ESR 13 (0-15) MM/HR Sodium 138 (135-145) mmol/L Potassium 4.3 (3.3-5.1) mmol/L Chloride 105 (96-108) mmol/L Carbon Dioxide 22 (22-29) mmol/L Anion Gap 15 (12-20) BUN 13 (9-16) mg/dL Creatinine 0.77 (0.5-1.4) mg/dL Estim Creat Clear Calc 95.0 Estimated GFR > 60 Random Glucose 88 (60-115) mg/dL Lactic Acid (0.5-2.0) mmol/L Calcium 9.5 (8.4-10.2) mg/dL Total Bilirubin 0.6 (0.0-1.0) mg/dL AST 44 H (5-37) U/L ALT 37 (0-40) U/L Alkaline Phosphatase 83 (39-117) U/L C-Reactive Protein 0.40 (< or = 0.50) mg/dL Total Protein 7.8 (6.5-8.0) g/dL Albumin 3.9 (3.5-5.0) g/dL 10/16/22 Range/Units 13:18 WBC (4.8-10.8) X10*3/uL RBC (4.60-5.80) X10*6/uL Hgb (14.0-18.0) g/dl Hct (42.0-52.0) % MCV (80.0-98.0) fL MCH (27.0-33.0) pg MCHC (31.0-36.0) g/dl RDW (11.0-16.0) % Plt Count (160-400) X10*3/uL MPV Immature Gran % (Auto) (0.0-0.4) % Neut % (Auto) (45-73) % Lymph % (Auto) (20-40) % [place] % (Auto) (2-11) % Eos % (Auto) (0-4) % Baso % (Auto) (0-2) % Lymph # (Auto) (1.2-4.9) X10*3/uL [place] # (Auto) (0.1-1.2) X10*3/uL Eos # (Auto) (0.0-0.4) X10*3/uL Baso # (Auto) (0.0-0.2) X10*3/uL Abs Immat Gran (auto) (0.00-0.03) X10*3/uL Absolute Neuts (auto) (2.0-8.3) x10*3/uL Absolute Nucleated RBC (0.0-0.012) X10*3/uL Nucleated RBC % (auto) (0.0-0.2) /100WBC Smear Tech's Comments ESR (0-15) MM/HR Sodium (135-145) mmol/L Potassium (3.3-5.1) mmol/L Chloride (96-108) mmol/L Carbon Dioxide (22-29) mmol/L Anion Gap (12-20) BUN (9-16) mg/dL Creatinine (0.5-1.4) mg/dL Estim Creat Clear Calc Estimated GFR Random Glucose (60-115) mg/dL Lactic Acid 0.8 (0.5-2.0) mmol/L Calcium (8.4-10.2) mg/dL Total Bilirubin (0.0-1.0) mg/dL AST (5-37) U/L ALT (0-40) U/L Alkaline Phosphatase (39-117) U/L C-Reactive Protein (< or = 0.50) mg/dL Total Protein (6.5-8.0) g/dL Albumin (3.5-5.0) g/dL Discharge Plan Discharge Clinical Impression: Cellulitis of left hand, Opiate use Patient Disposition: Left Against Medical Advice Additional Instructions: Cellulitis Discharge Instructions You have an infection of your skin. This is called cellulitis. This is usually caused by bacteria on your skin that gets under your skin and then causes the infection Take Keflex 500 mg pills, 1 pill 4 times a day for 1 week. Take doxycycline 100 mg pills, 1 pill twice a day for 1 week These antibiotic should help your body fight off the infection. Keep the area of cellulitis elevated to help reduce swelling in the infected area and this helps with the healing process Also apply a heating pad on low or a warm compress for 15 minutes, 4-6 times a day. This will increase the blood flow to the area and will bring white blood cells to the area which will help your body fight off the infection. Take Motrin(ibuprofen) 200mg pills, 3 pills every 6 hours as needed for pain. Also take Tylenol( acetaminophen) 325 mg pills, 2 pills every 4 hours as needed for pain. If we jose guadalupe a line around the area of cellulitis, the redness should withdraw from the line in the next 1-3 days. If the redness crosses the line this is a sign that the infection is getting worse and you should see your doctor or return to the Emergency Department for a recheck. Other signs of worsening infection include fever, chills, weakness, increased pain, increased redness, increased swelling or red streaks going away from the area of infection. If you develop any of these symptoms or any other symptoms that are concerning to you, see your doctor immediately or return to the Emergency Department. Follow up with your doctor in 3 days for a recheck STOP TAKING THE AMOXICILLIN AND CLAVULANIC ACID Prescriptions: New cephalexin 500 mg capsule 500 mg PO QID 7 Days Qty: 28 0RF doxycycline hyclate 100 mg tablet 100 mg PO Q12H 7 Days Qty: 14 0RF No Action amoxicillin-pot clavulanate 875-125 mg tablet 1 tab PO BID 7 Days Qty: 14 0RF Stand Alone Forms: Against Medical Advice Interventions: ED Discharge Assessment Last Done: 10/16/22 14:27 Discharge Date/Time: 10/16/22 14:27
--- NOTE | 2022-10-16 14:00 | PC.NURSE ---
While attempting to place IV, obtain blood, pt agitated, demanding time abx will run for. No orders for abx at that time, Dr Moreno aware and to bedside to speak to pt. Pt now requesting to leave AMA.
== END 2022-10-16 14:27 | disposition left against medical advice (07) ==
PROVIDERS: Emergency Provider Emergency Medicine Emergency Medical Services
DX: M79.89 Other specified soft tissue disorders (principal); L03.114 Cellulitis of left upper limb; F11.90 Opioid use, unspecified, uncomplicated
CPT/HCPCS: 36415; 73110; 73130; 80053; 83605; 85025; 85652; 86140; 87040; 99282; 99283

== ENCOUNTER 2022-10-17 13:22 | Emergency (ER) | payer OTHER, SELFPAY ==
--- NOTE | 2022-10-17 15:06 | PC.NURSE ---
multiple attempts since 1344 to triage pt. pt in and out of bathroom, outside. security aware.
== END 2022-10-17 16:48 | disposition left against medical advice (07) ==
PROVIDERS: Emergency Provider Emergency Medicine
DX: L03.114 Cellulitis of left upper limb (principal)

== ENCOUNTER 2022-10-17 16:40 | Inpatient (IN) | payer OTHER, SELFPAY ==
[2022-10-17 16:48] VITALS: BP 201/106; PULSE 62; RESP 18; TEMP 36.4; O2SAT 99; BMI 26.6
--- NOTE | 2022-10-17 16:51 | ED.GENADULT ---
HPI - General Adult General Chief complaint: Extremity Problem Stated complaint: left hand infected Source: patient Mode of arrival: ambulatory Limitations: no limitations History of Present Illness HPI narrative: Patient comes in the emergency room complaining of severe hand pain on the left. Patient was seen here on October 14, prescribe Augmentin. Patient returned on October 16 with worsening symptoms, patient's antibiotics were switched to doxycycline and Keflex. One day later return patient complained with worsening symptoms. Related Data Previous Rx's Medication Instructions Recorded cephalexin 500 mg capsule 500 mg PO QID 7 days #28 caps 10/16/22 amlodipine 5 mg tablet 5 mg PO DAILY #30 tabs 10/19/22 lisinopril 10 mg tablet 10 mg PO DAILY #30 tabs 10/19/22 doxycycline hyclate 100 mg tablet 100 mg PO BID 10 days #20 tabs 10/20/22 Allergies Allergy/AdvReac Type Severity Reaction Status Date / Time acetaminophen [From TYLENOL] Allergy Intermediate UPSET Verified 10/20/22 09:29 STOMACH morphine Allergy Intermediate Headache Verified 10/20/22 09:29 codeine [Codeine] Allergy Mild HIVES, Verified 10/20/22 09:29 VOMITING PMFSH Past Medical History Medical History Anxiety Colitis Substance abuse Surgical History H/O oral surgery Social History Social History Household Members: None Household Members Other:: homeless Housing: Homeless Do you presently have visiting nurse or other home services: No Alcohol intake: never Patient Tobacco Use Status: Current everyday Tobacco user Tobacco use type: Cigarette e-Cigarette/Vaping Use: Currently Using Second Hand Smoke Exposure: Yes Substance Use Type: Crack/Cocaine, Heroin and Opiates service: No Current occupational status: unemployed Physical Exam ED Vital Signs: Vital Signs - 24 hr 10/17/22 16:48 10/17/22 22:57 10/18/22 00:00 Temperature 97.6 F 97.8 F Pulse Rate 62 58 57 Respiratory Rate 18 18 18 Blood Pressure 201/106 H 186/102 H 180/93 H Pulse Oximetry 99 98 97 Oxygen Delivery Method Room Air BMI result Body Mass Index 26.6 Course Course Course Narrative: RME: 57 yold male returns to the ED after signout AMA yesterday for admission for left hand cellulitis. labs ordered Medications Administered Discontinued Medications Generic Name Dose Route Start Last Admin Trade Name Kulwant PRN Reason Stop Dose Admin Amlodipine Besylate 5 mg 10/18/22 09:55 10/19/22 08:25 Amlodipine Besylate 5 Mg Tablet PO 5 mg DAILY ALBERTO Administration Protocol Fentanyl 100 mcg 10/18/22 09:47 10/18/22 10:40 Fentanyl Citrate/Pf 100 Mcg/2 Ml Vial IVPUSH 100 mcg Q3M PRN Administration Pain, Mild (Pain Scale 1-3) Protocol Hydralazine HCl 20 mg 10/18/22 05:38 10/18/22 05:52 Hydralazine Hcl 20 Mg/Ml Vial IVPUSH 10/18/22 05:39 20 mg ONCE ONE Administration Protocol Hydralazine HCl 10 mg 10/18/22 06:49 10/19/22 00:43 Hydralazine Hcl 20 Mg/Ml Vial IVPUSH 10 mg Q4H PRN Administration Elevated BP Protocol Hydralazine HCl 20 mg 10/19/22 03:10 10/19/22 03:29 Hydralazine Hcl 20 Mg/Ml Vial IVPUSH 10/19/22 03:11 20 mg ONCE ONE Administration Protocol Hydromorphone HCl 1 mg 10/18/22 09:49 10/19/22 03:32 Hydromorphone Hcl 0.5 Mg/0.5 Ml Syringe IVPUSH 1 mg Q5M PRN Administration Pain, Severe (Pain Scale 7-10) Protocol Vancomycin HCl 2,000 mg in 500 mls @ 250 mls/hr 10/17/22 23:23 10/18/22 02:53 Vancomycin/Ns IV 10/18/22 01:22 Infused ONCE ONE Infusion Piperacillin Sod/Tazobactam 50 mls @ 100 mls/hr 10/17/22 23:23 10/18/22 00:47 Sod 3.375 gm/ Sodium Chloride IV 10/17/22 23:52 Infused ONCE ONE Infusion Ceftriaxone Sodium 1 gm/ 50 mls @ 100 mls/hr 10/18/22 06:00 10/19/22 06:47 Sodium Chloride IV Infused Q24H ALBERTO Infusion Vancomycin HCl 1,000 mg/ 270 mls @ 270 mls/hr 10/18/22 13:00 10/19/22 01:15 Sodium Chloride IV Infused Q12H ALBERTO Infusion Iohexol 85 ml 10/17/22 23:58 10/17/22 23:59 Iohexol 350 Mg/Ml 100 Ml Infus..Btl IV 10/17/22 23:59 85 ml ONCE ONE Administration Lisinopril 10 mg 10/19/22 09:00 10/19/22 08:25 Lisinopril 10 Mg Tablet PO 10 mg DAILY [facility] Administration Protocol Melatonin 6 mg 10/18/22 05:38 10/19/22 03:43 Melatonin 3 Mg Tablet PO 6 mg BEDTIME PRN Administration Insomnia Sodium Chloride 3 ml 10/18/22 08:00 10/19/22 08:26 0.9 % Sodium Chloride Flush 3 Ml Syringe IVFLUSH 3 ml QSHIFT [facility] Administration Medical Decision Making Lab Data 10/17/22 18:45 10/17/22 18:45 Labs: Lab Results 10/17/22 10/17/22 10/18/22 Range/Units 18:45 18:45 00:11 WBC 4.7 L (4.8-10.8) X10*3/uL RBC 4.31 L (4.60-5.80) X10*6/uL Hgb 12.6 L (14.0-18.0) g/dl Hct 36.7 L (42.0-52.0) % MCV 85.2 (80.0-98.0) fL MCH 29.2 (27.0-33.0) pg MCHC 34.3 (31.0-36.0) g/dl RDW 12.0 (11.0-16.0) % Plt Count 142 L (160-400) X10*3/uL MPV 10.4 (9.4-12.4) fL Immature Gran % (Auto) 0.2 (0.0-0.4) % Neut % (Auto) 54.8 (45-73) % Lymph % (Auto) 32.1 (20-40) % Garza % (Auto) 10.6 (2-11) % Eos % (Auto) 1.9 (0-4) % Baso % (Auto) 0.4 (0-2) % Lymph # (Auto) 1.5 (1.2-4.9) X10*3/uL Garza # (Auto) 0.5 (0.1-1.2) X10*3/uL Eos # (Auto) 0.1 (0.0-0.4) X10*3/uL Baso # (Auto) 0.0 (0.0-0.2) X10*3/uL Abs Immat Gran (auto) 0.01 (0.00-0.03) X10*3/uL Absolute Neuts (auto) 2.6 (2.0-8.3) x10*3/uL Absolute Nucleated RBC 0.000 (0.0-0.012) X10*3/uL Nucleated RBC % (auto) 0.0 (0.0-0.2) /100WBC Sodium 138 (135-145) mmol/L Potassium 3.7 (3.3-5.1) mmol/L Chloride 102 (96-108) mmol/L Carbon Dioxide 24 (22-29) mmol/L Anion Gap 16 (12-20) BUN 12 (9-16) mg/dL Creatinine 0.74 (0.5-1.4) mg/dL Estim Creat Clear Calc 99.3 Estimated GFR > 60 Random Glucose 88 (60-115) mg/dL Lactic Acid 0.9 (0.5-2.0) mmol/L Calcium 8.9 D (8.4-10.2) mg/dL Total Bilirubin 0.8 (0.0-1.0) mg/dL AST 38 H (5-37) U/L ALT 33 (0-40) U/L Alkaline Phosphatase 75 (39-117) U/L Total Protein 7.3 (6.5-8.0) g/dL Albumin 3.6 (3.5-5.0) g/dL Urine Color Urine Appearance Urine pH (5.0-9.0) Ur Specific Spray (1.005-1.025) Urine Protein (Neg-Trace) mg/dL Urine Glucose (UA) (Negative) mg/dL Urine Ketones (Negative) mg/dL Urine Blood (Negative) Urine Nitrite (Negative) Ur Leukocyte Esterase (Negative) Urine RBC (0-2) /HPF Urine WBC (0-5) /HPF Ur Squamous Epith Cells (0-2) /HPF Urine Bacteria (None Seen) Hyaline Casts (0-2) /LPF Urine Opiates Screen (Not Detect) Urine Fentanyl Screen (Not Detect) Ur Barbiturates Screen (Not Detect) Ur Phencyclidine Scrn (Not Detect) Ur Amphetamines Screen (Not Detect) U Benzodiazepines Scrn (Not Detect) Urine Cocaine Screen (Not Detect) U Marijuana (THC) Screen (Not Detect) 10/18/22 10/18/22 Range/Units 01:47 01:47 WBC (4.8-10.8) X10*3/uL RBC (4.60-5.80) X10*6/uL Hgb (14.0-18.0) g/dl Hct (42.0-52.0) % MCV (80.0-98.0) fL MCH (27.0-33.0) pg MCHC (31.0-36.0) g/dl RDW (11.0-16.0) % Plt Count (160-400) X10*3/uL MPV (9.4-12.4) fL Immature Gran % (Auto) (0.0-0.4) % Neut % (Auto) (45-73) % Lymph % (Auto) (20-40) % Garza % (Auto) (2-11) % Eos % (Auto) (0-4) % Baso % (Auto) (0-2) % Lymph # (Auto) (1.2-4.9) X10*3/uL Garza # (Auto) (0.1-1.2) X10*3/uL Eos # (Auto) (0.0-0.4) X10*3/uL Baso # (Auto) (0.0-0.2) X10*3/uL Abs Immat Gran (auto) (0.00-0.03) X10*3/uL Absolute Neuts (auto) (2.0-8.3) x10*3/uL Absolute Nucleated RBC (0.0-0.012) X10*3/uL Nucleated RBC % (auto) (0.0-0.2) /100WBC Sodium (135-145) mmol/L Potassium (3.3-5.1) mmol/L Chloride (96-108) mmol/L Carbon Dioxide (22-29) mmol/L Anion Gap (12-20) BUN (9-16) mg/dL Creatinine (0.5-1.4) mg/dL Estim Creat Clear Calc Estimated GFR Random Glucose (60-115) mg/dL Lactic Acid (0.5-2.0) mmol/L Calcium (8.4-10.2) mg/dL Total Bilirubin (0.0-1.0) mg/dL AST (5-37) U/L ALT (0-40) U/L Alkaline Phosphatase (39-117) U/L Total Protein (6.5-8.0) g/dL Albumin (3.5-5.0) g/dL Urine Color Yellow Urine Appearance Clear Urine pH 6.0 (5.0-9.0) Ur Specific Spray 1.010 (1.005-1.025) Urine Protein Negative (Neg-Trace) mg/dL Urine Glucose (UA) Negative (Negative) mg/dL Urine Ketones Negative (Negative) mg/dL Urine Blood Negative (Negative) Urine Nitrite Negative (Negative) Ur Leukocyte Esterase Negative (Negative) Urine RBC 0-2 (0-2) /HPF Urine WBC 0-5 (0-5) /HPF Ur Squamous Epith Cells 0-2 (0-2) /HPF Urine Bacteria None Seen (None Seen) Hyaline Casts 0-2 (0-2) /LPF Urine Opiates Screen POSITIVE H (Not Detect) Urine Fentanyl Screen POSITIVE H (Not Detect) Ur Barbiturates Screen Not Detected (Not Detect) Ur Phencyclidine Scrn Not Detected (Not Detect) Ur Amphetamines Screen Not Detected (Not Detect) U Benzodiazepines Scrn Not Detected (Not Detect) Urine Cocaine Screen POSITIVE H (Not Detect) U Marijuana (THC) Screen Not Detected (Not Detect) Discharge Plan Discharge Clinical Impression: Tenosynovitis, Cellulitis of hand Patient Disposition: Admitted As Inpatient Interventions: ED Discharge Assessment Last Done: 10/17/22 22:15 Admission Worksheet (ED) Last Done: 10/18/22 06:25 Discharge Date/Time: 10/18/22 06:35
--- NOTE | 2022-10-17 17:28 | PC.NURSE ---
pt keeps leaving the ed. security made aware. pt educated he cannot leave the emergency department and continually come back in. pt remains outside at this time.
--- NOTE | 2022-10-17 17:43 | MHC.EDTECH ---
patient called twice no response RN AWARE
--- NOTE | 2022-10-17 22:07 | PC.NURSE ---
pt not in waiting room, refused lab draw and stated he will not give blood till he has a iv. pt called and not in waiting room
--- NOTE | 2022-10-17 22:49 | PC.NURSE ---
pt has been outside of the ed while his name has been called multiple times.
[2022-10-17 22:57] VITALS: BP 186/102; PULSE 58; RESP 18; O2SAT 98
--- NOTE | 2022-10-17 23:27 | ED.EXTPRO ---
HPI - Extremity Problem General Chief complaint: Extremity Problem Stated complaint: left hand infected Source: patient Mode of arrival: ambulatory Limitations: no limitations History of Present Illness HPI Narrative: Patient comes to the emergency room complaining of left hand redness swelling for 5 days. Initially, patient eloped from the waiting room but patient decided to return. Patient was initially seen here, given Augmentin on October 14. Patient returned yesterday to the emergency room, his antibiotics were switched to doxycycline and Keflex. Patient states that the erythema keep spreading and the swelling keeps getting worse and with that along the pain. Patient denies fever chills weight patient states that he has a difficult time opening and closing his hand due to the swelling of the pain. Patient denies IV drug use. Patient states that this infection is secondary to a ?spider bite?. However, when patient was seen here yesterday, he stated that he uses 5 bags of heroin t.i.d. IV Related Data Previous Rx's Medication Instructions Recorded amoxicillin 875 mg-potassium 1 tab PO BID 7 days #14 tabs 10/14/22 clavulanate 125 mg tablet cephalexin 500 mg capsule 500 mg PO QID 7 days #28 caps 10/16/22 Allergies Allergy/AdvReac Type Severity Reaction Status Date / Time acetaminophen [From TYLENOL] Allergy Intermediate UPSET Verified 10/18/22 00:48 STOMACH morphine Allergy Intermediate Headache Verified 10/18/22 00:48 codeine [Codeine] Allergy Mild HIVES, Verified 10/18/22 00:48 VOMITING Review of Systems Review of Systems: Constitutional : No Weight loss, No Fever, No Chills, No Night Sweats, No Fatigue, No Malaise ENT/Mouth : No Hearing loss, No Ear Pain, No Nasal Congestion, No Sinus Pain, No Hoarseness, No sore throat, No Rhinorrhea, No Swallowing Difficulty Eyes: No Eye Pain, No Swelling, No Redness, No Foreign Body, No Discharge, No Vision Changes Cardiovascular : No Chest Pain, No SOB, No Dyspnea on Exertion, No Orthopnea, No Edema, No Palpitations Respiratory : No Cough, No Sputum, No Wheezing, No Smoke Exposure, No Dyspnea Gastrointestinal : No Nausea, No Vomiting, No Diarrhea, No Constipation, No abdominal Pain, No Hematochezia, No Melena Genitourinary : no irregular bleeding, No Dysuria, No Urinary Frequency, No Hematuria, No Urinary Incontinence, No Urgency, No Flank Pain, No Urinary Flow Changes, No Hesitancy Musculoskeletal : Complaining of left hand pain swelling and erythema, No Myalgias, No Joint Swelling Skin : No Skin Lesions, No rash Neuro : No Weakness, No Numbness, No Paresthesias, No Loss of Consciousness, No Dizziness, No Headache Psych : No Anxiety/Panic, No Depression, No SI/HI/AH/VH, No Social Issues, Heme/Lymph: No Bruising, No Bleeding,No Lymphadenopathy Endocrine : No Polyuria, No Polydipsia, No Temperature Intolerance [facility] Past Medical History Medical History Anxiety Colitis Substance abuse Surgical History H/O oral surgery Social History Social History Household Members: None Household Members Other:: homeless Alcohol intake: never Patient Tobacco Use Status: Current someday Tobacco user Tobacco use type: Cigarette Smoked in Last 30 Days: Yes e-Cigarette/Vaping Use: Never Used Second Hand Smoke Exposure: Yes Use of substances other than those prescribed or required for medical reasons: No Substance Use Type: Crack/Cocaine and Heroin Advance Directives: No Advance Directives Information Provided: Yes service: No Current occupational status: unemployed Physical Exam Vital Signs: Vital Signs: Last Vital Signs Temp 97.8 F 10/18/22 00:00 Pulse 57 10/18/22 00:00 Resp 18 10/18/22 00:00 BP 180/93 H 10/18/22 00:00 Pulse Ox 97 10/18/22 00:00 O2 Del Method Room Air 10/17/22 16:48 BMI result Body Mass Index 26.6 Const: Other: Appearance: Alert. Oriented X3. No acute distress. Somnolent, easily arousable, I need to keep waking him up in the middle of conversation Eyes: Pupils equal, round and reactive to light. ENT: Pharynx normal. Neck: Normal inspection. Neck supple. No lymph nodes noted. No crepitus CVS: Normal heart rate and rhythm. Pulses normal. Normal S1 and S2 Respiratory: No respiratory distress. Breath sounds normal. No Wheezing. No rales Abdomen: Soft and nontender. No rigidity. No distention. Skin: Skin warm and dry. Normal skin color. Normal skin turgor. Extremities: No lower extremity edema. The left hand is erythematous, swollen, warm to touch, very tender to palpation, patient unable to flex and extend his fingers due to the pain. However, patient is not seem to be really trying. Neuro: Oriented X 3. No motor deficit. No sensory deficit. Moving all extremities. No slurred speech. CN 2 through 12 grossly intact Psych: calm, cooperative Course Course Course Narrative: -will obtain a CT scan with contrast of the left upper extremity to rule out tenosynovitis -patient is somnolent, easily arousable, patient seems to be under the influence of drugs Medications Administered Discontinued Medications Generic Name Dose Route Start Last Admin Trade Name Emmanuelq PRN Reason Stop Dose Admin Vancomycin HCl 2,000 mg in 500 mls @ 250 mls/hr 10/17/22 23:23 10/18/22 00:45 Vancomycin/Ns IV 10/18/22 01:22 250 mls/hr ONCE ONE Administration Piperacillin Sod/Tazobactam 50 mls @ 100 mls/hr 10/17/22 23:23 10/18/22 00:47 Sod 3.375 gm/ Sodium Chloride IV 10/17/22 23:52 Infused ONCE ONE Infusion Iohexol 85 ml 10/17/22 23:58 10/17/22 23:59 Iohexol 350 Mg/Ml 100 Ml Infus..Btl IV 10/17/22 23:59 85 ml ONCE ONE Administration Medical Decision Making Medical Decision Making [facility] Narrative: -my interpretation of labs, patient has a basically normal white blood cell count. However, on physical exam, the hand is significantly swollen and erythematous. -patient was started on IV antibiotics, vancomycin and Zosyn -CT scan of the head to rule out tenosynovitis pending -patient failed outpatient antibiotics twice, 1 round with Augmentin, and since yesterday patient started doxycycline and Keflex with no significant results, I actually getting worse. Patient will be admitted -patient's CT scan is positive for tenosynovitis on the 3rd digit. Attempting to contact Orthopedic surgery, call Back pending. -I discussed the patient with Dr. Fuller, patient being admitted Differential Diagnosis Differential Diagnoses: The differential diagnosis associated with the presentation includes (Cellulitis, tenosynovitis) Admission/Observation Consideration of admission/observation: Escalation of care including admission/observation considered Consult Healthcare Provider Management of the patient was discussed with: Hospitalist Lab Data MDM Lab Attestation statement: I reviewed the patient's lab results. 10/17/22 18:45 10/17/22 18:45 Labs: Lab Results 10/17/22 10/17/22 10/18/22 Range/Units 18:45 18:45 00:11 WBC 4.7 L (4.8-10.8) X10*3/uL RBC 4.31 L (4.60-5.80) X10*6/uL Hgb 12.6 L (14.0-18.0) g/dl Hct 36.7 L (42.0-52.0) % MCV 85.2 (80.0-98.0) fL MCH 29.2 (27.0-33.0) pg MCHC 34.3 (31.0-36.0) g/dl RDW 12.0 (11.0-16.0) % Plt Count 142 L (160-400) X10*3/uL MPV 10.4 (9.4-12.4) fL Immature Gran % (Auto) 0.2 (0.0-0.4) % Neut % (Auto) 54.8 (45-73) % Lymph % (Auto) 32.1 (20-40) % Stokes % (Auto) 10.6 (2-11) % Eos % (Auto) 1.9 (0-4) % Baso % (Auto) 0.4 (0-2) % Lymph # (Auto) 1.5 (1.2-4.9) X10*3/uL Stokes # (Auto) 0.5 (0.1-1.2) X10*3/uL Eos # (Auto) 0.1 (0.0-0.4) X10*3/uL Baso # (Auto) 0.0 (0.0-0.2) X10*3/uL Abs Immat Gran (auto) 0.01 (0.00-0.03) X10*3/uL Absolute Neuts (auto) 2.6 (2.0-8.3) x10*3/uL Absolute Nucleated RBC 0.000 (0.0-0.012) X10*3/uL Nucleated RBC % (auto) 0.0 (0.0-0.2) /100WBC Sodium 138 (135-145) mmol/L Potassium 3.7 (3.3-5.1) mmol/L Chloride 102 (96-108) mmol/L Carbon Dioxide 24 (22-29) mmol/L Anion Gap 16 (12-20) BUN 12 (9-16) mg/dL Creatinine 0.74 (0.5-1.4) mg/dL Estim Creat Clear Calc 99.3 Estimated GFR > 60 Random Glucose 88 (60-115) mg/dL Lactic Acid 0.9 (0.5-2.0) mmol/L Calcium 8.9 D (8.4-10.2) mg/dL Total Bilirubin 0.8 (0.0-1.0) mg/dL AST 38 H (5-37) U/L ALT 33 (0-40) U/L Alkaline Phosphatase 75 (39-117) U/L Total Protein 7.3 (6.5-8.0) g/dL Albumin 3.6 (3.5-5.0) g/dL Radiology Impression Discussion of test interpretation with radiology: I have reviewed the radiologist's reading. Radiologist Impression: FINDINGS: There is fluid surrounding the third flexor digitorum tendon, extending from the level of the proximal interphalangeal joint to the mid third metacarpal compatible with tenosynovitis. There is no definite communication with the ulnar bursa. Remainder of the flexor tendons and extensor tendons are unremarkable. Diffuse subcutaneous edema throughout the hand. No periosteal reaction or cortical destruction to suggest osteomyelitis. CT/CT hand LT w IV con IMPRESSION: *? There is fluid surrounding the third flexor digitorum tendon extending from the level of the proximal interphalangeal joint to the mid third metacarpal compatible with tenosynovitis. No definite extension to the ulnar bursa. See reina images. *? No evidence of osteomyelitis. *? Diffuse subcutaneous edema throughout the hand. ? Critical Care Time Critical Care Time Critical Care Time: Yes Total Critical Care Time: 60 Attestation: I have personally provided critical care time. Time includes review of lab data, radiology results, discussion with consultants, and monitoring for potential decompensation. Intervention performed as documented. Discharge Plan Discharge Clinical Impression: Tenosynovitis, Cellulitis of hand Patient Disposition: Admitted As Inpatient Prescriptions: No Action amoxicillin-pot clavulanate 875-125 mg tablet 1 tab PO BID 7 Days Qty: 14 0RF cephalexin 500 mg capsule 500 mg PO QID 7 Days Qty: 28 0RF Interventions: ED Discharge Assessment Last Done: 10/17/22 22:15
[2022-10-18] VITALS (22 sets, daily range): BP systolic 121–197; BP diastolic 60–109; PULSE 52–80; RESP 16–22; TEMP 36.3–37.7; O2SAT 93–98; BMI 25.2
--- NOTE | 2022-10-18 00:36 | MHC.EDTECH ---
THIS PCT ASSUMED CARE OF PATIENT AT 2300 ,UPON ENTERING PATIENT ROOM TO CHECK VITALS ,THIS PCT NOTICE PATIENT HAS USED NEEDLES IN A BAG ,THIS PCT CALLED SECURITY, PATIENT WAS THEN CHANGE INTO HOSPITAL GOWN ,PATIENT BELONGINGS ARE LOCKED UP IN [place] ,I ASKED PATIENT I NEEDED TO CHECK HIS VITALS ,PATIENT REFUSED AND STARED TO USE FOUL LANGUAGES AND CALL ME A FAT PIG ,I HAD ANOTHER PCT MIGUELITO ATTEMPT TO TAKE VITALS AND PATIENT RIPPED OUT BLOOD PRESSURE CUFF , STATED HE DOES NOT WANT IT CHECKED .
--- NOTE | 2022-10-18 01:19 | PC.NURSE ---
At 2300, the tech entered the room and noted drug pariphernalia present in pt belongings. security notified for search. pt continued to deny using any recreational drugs. pt belongings secured.
--- NOTE | 2022-10-18 02:14 | MHC.EDTECH ---
0200 ROUNDING DONE DONE ,VITALS SIGN TAKEN ,RN AZUCENA IS AWARE OF PATIENT HIGH BLOOD PRESSURE ,PT SLEEPING URINE SAMPLE COLLECTED AND SENT TO LAB .
--- NOTE | 2022-10-18 03:34 | PC.NURSE ---
Pt incontinent of urine, then stood to use urinal. pt called for RN to change bedding. Pt rude with staff, but cooperative. BRIAN
--- NOTE | 2022-10-18 05:13 | MHC.EDTECH ---
this radio script writer checked in with patient while obtaining vital signs. Patient stated that he was cold and would like a warm blanket. patient received a warm blanket and began resting comfortably. Patient showing no signs of distress at this time.
--- NOTE | 2022-10-18 05:40 | PM.IMHP ---
History of Present Illness Date of Service: 10/18/22 Chief Complaint: left hand pain This is a 57-year-old male with pertinent history of IV drug use disorder, mood disorder, mixed hyperlipidemia, hepatitis-C ( unknown treatment status) who presents to the emergency department for evaluation of left hand pain and swelling. Patient states that he has been having left hand redness, pain and swelling for the last 5 days. Patient was seen in the ER about 5 days ago and was given Augmentin. He returned to the ER again 1-2 days prior to presentation when his antibiotics were switched to doxycycline and Keflex. Patient states that the redness worsened despite him taking p.o. antibiotics. It is associated with worsening swelling and pain. Patient is unable to make a fist. He also complains of purulent drainage from middle finger. Patient denies IV drug use and states that this is a spider bite. No systemic complaints. He denies fever, chills, chest discomfort, palpitations, shortness of breath, abdominal pain, changes in urinary or bowel habits. In the emergency department, imaging with tenosynovitis Review of Systems Constitutional: Constitutional: Reports no additional constitutional complaints Cardiovascular: Cardiovascular: Reports no additional cardiovascular complaints Respiratory: Respiratory: Reports no additional respiratory complaints Gastrointestinal: Gastrointestinal: Reports no additional gastrointestinal complaints Musculoskeletal: Musculoskeletal: Reports arthralgias, Reports joint swelling and Reports limited range of motion [facility] Medical History Anxiety Colitis Substance abuse Pertinent family history: No family history of early CAD Surgical History H/O oral surgery Social History Household Members: None Household Members Other:: homeless Alcohol intake: never Patient Tobacco Use Status: Current someday Tobacco user Tobacco use type: Cigarette Smoked in Last 30 Days: Yes e-Cigarette/Vaping Use: Never Used Second Hand Smoke Exposure: Yes Use of substances other than those prescribed or required for medical reasons: No Substance Use Type: Crack/Cocaine and Heroin Advance Directives: No Advance Directives Information Provided: Yes service: No Current occupational status: unemployed Meds Allergies Allergy/AdvReac Type Severity Reaction Status Date / Time acetaminophen [From TYLENOL] Allergy Intermediate UPSET Verified 10/18/22 00:48 STOMACH morphine Allergy Intermediate Headache Verified 10/18/22 00:48 codeine [Codeine] Allergy Mild HIVES, Verified 10/18/22 00:48 VOMITING Active Medications: Current Medications Pharmacy Consult (Consult Rx Vancomycin Dosing) 1 each MISCELLANE DAILY PRN PRN Reason: Consult order Pharmacy Consult (Consult Rx Perform Med Rec) 1 each MISCELLANE ONCE PRN PRN Reason: Consult order Pharmacy Consult (Consult Rx Perform Med Rec) 1 each MISCELLANE ONCE PRN PRN Reason: Consult order Physical Exam Vital Signs and Narrative: Vital Signs: Last Vital Signs Temp 99.9 F 10/18/22 05:13 Pulse 52 10/18/22 05:13 Resp 18 10/18/22 05:13 BP 197/95 H 10/18/22 05:13 Pulse Ox 98 10/18/22 05:13 O2 Del Method Room Air 10/18/22 05:13 BMI result Body Mass Index 26.6 Middle-aged male lying in bed in no distress Neck supple, no JVD Regular rate and rhythm, S1-S2 heard Regular breath sounds bilaterally, no wheezing or crackles appreciated Abdomen soft nontender, no guarding, no rigidity Patient is awake, alert and oriented to self, place, time and person ; no focal motor deficit Msk: left hand erythema, swelling noted. Left 3rd digit with wound and purulent drainage. Multiple IV aden in both upper extremity Psych: Normal mood No pedal edema Results Labs 10/17/22 18:45 10/17/22 18:45 Labs: Laboratory Results - last 24 hr 10/17/22 10/17/22 10/18/22 18:45 18:45 00:11 MCV 85.2 MCH 29.2 MCHC 34.3 RDW 12.0 Plt Count 142 L MPV 10.4 Immature Gran % (Auto) 0.2 Neut % (Auto) 54.8 Lymph % (Auto) 32.1 [place] % (Auto) 10.6 Eos % (Auto) 1.9 Baso % (Auto) 0.4 Lymph # (Auto) 1.5 [place] # (Auto) 0.5 Eos # (Auto) 0.1 Baso # (Auto) 0.0 Abs Immat Gran (auto) 0.01 Absolute Neuts (auto) 2.6 Absolute Nucleated RBC 0.000 Nucleated RBC % (auto) 0.0 Anion Gap 16 Estim Creat Clear Calc 99.3 Estimated GFR > 60 Random Glucose 88 Lactic Acid 0.9 Calcium 8.9 D Total Bilirubin 0.8 AST 38 H ALT 33 Alkaline Phosphatase 75 Total Protein 7.3 Albumin 3.6 Urine Color Urine Appearance Urine pH Ur Specific [place] Urine Protein Urine Glucose (UA) Urine Ketones Urine Blood Urine Nitrite Ur Leukocyte Esterase Urine RBC Urine WBC Ur Squamous Epith Cells Urine Bacteria Hyaline Casts Urine Opiates Screen Urine Fentanyl Screen Ur Barbiturates Screen Ur Phencyclidine Scrn Ur Amphetamines Screen U Benzodiazepines Scrn Urine Cocaine Screen U Marijuana (THC) Screen 10/18/22 10/18/22 01:47 01:47 MCV MCH MCHC RDW Plt Count MPV Immature Gran % (Auto) Neut % (Auto) Lymph % (Auto) [place] % (Auto) Eos % (Auto) Baso % (Auto) Lymph # (Auto) [place] # (Auto) Eos # (Auto) Baso # (Auto) Abs Immat Gran (auto) Absolute Neuts (auto) Absolute Nucleated RBC Nucleated RBC % (auto) Anion Gap Estim Creat Clear Calc Estimated GFR Random Glucose Lactic Acid Calcium Total Bilirubin AST ALT Alkaline Phosphatase Total Protein Albumin Urine Color Yellow Urine Appearance Clear Urine pH 6.0 Ur Specific [place] 1.010 Urine Protein Negative Urine Glucose (UA) Negative Urine Ketones Negative Urine Blood Negative Urine Nitrite Negative Ur Leukocyte Esterase Negative Urine RBC 0-2 Urine WBC 0-5 Ur Squamous Epith Cells 0-2 Urine Bacteria None Seen Hyaline Casts 0-2 Urine Opiates Screen POSITIVE H Urine Fentanyl Screen POSITIVE H Ur Barbiturates Screen Not Detected Ur Phencyclidine Scrn Not Detected Ur Amphetamines Screen Not Detected U Benzodiazepines Scrn Not Detected Urine Cocaine Screen POSITIVE H U Marijuana (THC) Screen Not Detected Imaging Radiologist's Impressions: Impressions Hand CT 10/18/22 00:13 IMPRESSION: * There is fluid surrounding the third flexor digitorum tendon extending from the level of the proximal interphalangeal joint to the mid third metacarpal compatible with tenosynovitis. No definite extension to the ulnar bursa. See reina images. * No evidence of osteomyelitis. * Diffuse subcutaneous edema throughout the hand. Assessment and Plan (1) Tenosynovitis: Status: Acute (2) Cellulitis of hand: Status: Acute Plan This is a 57-year-old male with pertinent history of IV drug use disorder, mood disorder, mixed hyperlipidemia, hepatitis-C ( unknown treatment status) who presents to the emergency department for evaluation of left hand pain and swelling. #. Left hand purulent cellulitis with 3rd digit tenosynovitis. Will admit patient and initiate empiric IV antibiotics. Orthopedic surgery consulted from the ER, appreciate assistance. Will keep NPO until surgical evaluation #. Hypertensive urgency: Prn hydralazine . Initiate p.o. antihypertensives once no longer NPO #. IV drug use disorder. Patient denies IV drug use but UDS positive for opiates, fentanyl and cocaine. Consulting addition team. Monitor for withdrawal. #. Mixed HLD: Not on statin #. Hepatitis C: Defer to outpatient Defer lovenox until orthopedic sx evaluation Npo until orthopedic surgery evaluation Admit as inpatient and will require two night minimum hospital stay for IV antibiotics Time Spent With Patient Time: Total time managing care of this patient today ____ minutes. Quality Stroke Does the patient have a stroke diagnosis?: No VTE Prior VTE?: No VTE Risk Level:: Medical - moderate - high VTE Device Contraindication: Treatment Not Indicated VTE Drug Contraindication: Treatment Not Indicated
--- NOTE | 2022-10-18 05:56 | PC.NURSE ---
medication pt per orders for HTN and infection, IV remains patent, pt remains sleeping, easily rousable. Calm and cooperative at this time.
--- NOTE | 2022-10-18 06:32 | MHC.EDTECH ---
Patient belongings sheet was completed. Patient will be transported upstairs in a wheelchair.
--- NOTE | 2022-10-18 07:34 | PHA.MEDREC ---
Pharmacy Consult ? Medication Reconciliation Pharmacy has completed the medication reconciliation. Med rec complete using discharge from 10/16.
--- NOTE | 2022-10-18 08:48 | PM.CNOR ---
History of Present Illness HPI Consult date: 10/18/22 <Ronak Mccollum MD - Last Filed: 10/18/22 08:58> Chief complaint: Left middle finger pain and swelling <Ronak Mccollum MD - Last Filed: 10/18/22 08:58> Narrative: Mr. Matamoros is a 57-year-old [id number] white male who presents with complaints of left middle finger pain and swelling. The patient states that he thinks he was bitten by something approximately 4 days ago. He does not clearly recall what bit him. He denies any other injuries. <Ronak Mccollum MD - Last Filed: 10/18/22 08:58> [facility] Past Medical History Medical History: Medical History Anxiety Colitis Substance abuse <Ronak Mccollum MD - Last Filed: 10/18/22 08:58> Surgical History Surgical History: Surgical History H/O oral surgery <Ronak Mccollum MD - Last Filed: 10/18/22 08:58> Social History Social History: Social History Household Members: None Household Members Other:: homeless Housing: Homeless Do you presently have visiting nurse or other home services: No Alcohol intake: never Patient Tobacco Use Status: Current everyday Tobacco user Tobacco use type: Cigarette e-Cigarette/Vaping Use: Currently Using Second Hand Smoke Exposure: Yes Substance Use Type: Crack/Cocaine, Heroin and Opiates service: No Current occupational status: unemployed <Ronak Mccollum MD - Last Filed: 10/18/22 08:58> Meds Allergies/Adverse reactions: Allergies Allergy/AdvReac Type Severity Reaction Status Date / Time acetaminophen [From TYLENOL] Allergy Intermediate UPSET Verified 10/18/22 00:48 STOMACH morphine Allergy Intermediate Headache Verified 10/18/22 00:48 codeine [Codeine] Allergy Mild HIVES, Verified 10/18/22 00:48 VOMITING <Ronak Mccollum MD - Last Filed: 10/18/22 08:58> Active Medications: Current Medications Acetaminophen (Acetaminophen 325 Mg Tablet) 650 mg PO Q6H PRN PRN Reason: Pain, Mild (Pain Scale 1-3) Hydralazine HCl (Hydralazine Hcl 20 Mg/Ml Vial) 10 mg IVPUSH Q4H PRN; Protocol PRN Reason: Elevated BP Ceftriaxone Sodium 1 gm/ (Sodium Chloride) 50 mls @ 100 mls/hr IV Q24H [facility] Last Infusion: 10/18/22 06:25 Dose: Infused Vancomycin HCl 1,000 mg/ (Sodium Chloride) 270 mls @ 270 mls/hr IV Q12H [facility] Melatonin (Melatonin 3 Mg Tablet) 6 mg PO BEDTIME PRN PRN Reason: Insomnia Ondansetron HCl (Ondansetron Hcl 4 Mg/2 Ml Vial) 4 mg IVPUSH Q8H PRN PRN Reason: Nausea and Vomiting Pharmacy Consult (Consult Rx Vancomycin Dosing) 1 each MISCELLANE DAILY PRN PRN Reason: Consult order Pharmacy Consult (Consult Rx Perform Med Rec) 1 each MISCELLANE ONCE PRN PRN Reason: Consult order Pharmacy Consult (Consult Rx Vancomycin Dosing) 1 each MISCELLANE DAILY PRN PRN Reason: Consult order Sodium Chloride (0.9 % Sodium Chloride Flush 3 Ml Syringe) 3 ml IVFLUSH QSHIFT [facility] <Ronak Mccollum MD - Last Filed: 10/18/22 08:58> Home medications: Home Medications Medication Instructions Recorded Confirmed Last Taken Type doxycycline hyclate 100 mg tablet 100 mg PO BID 10/18/22 10/18/22 Unknown History <Ronak Mccollum MD - Last Filed: 10/18/22 08:58> Physical Exam Vital Signs: Vital Signs: Last Vital Signs Temp 98.1 F 10/18/22 07:57 Pulse 58 10/18/22 07:57 Resp 19 10/18/22 07:57 BP 184/82 H 10/18/22 07:57 Pulse Ox 98 10/18/22 07:57 O2 Del Method Room Air 10/18/22 07:57 BMI result Body Mass Index 25.2 <Ronak Mccollum MD - Last Filed: 10/18/22 08:58> Const: Other: Drowsy white male resting comfortably in bed in no acute distress <Ronak Mccollum MD - Last Filed: 10/18/22 08:58> Extrem: Other: left hand examination shows diffuse swelling of his middle finger with erythema extending from his metacarpophalangeal crease to his distal phalanx, no open skin lesions <Ronak Mccollum MD - Last Filed: 10/18/22 08:58> Results Labs Result Diagrams: 10/17/22 18:45 10/17/22 18:45 <Ronak Mccollum MD - Last Filed: 10/18/22 08:58> Labs: Abnormal lab results 10/17/22 10/17/22 10/18/22 Range/Units 18:45 18:45 01:47 WBC 4.7 L (4.8-10.8) X10*3/uL RBC 4.31 L (4.60-5.80) X10*6/uL Hgb 12.6 L (14.0-18.0) g/dl Hct 36.7 L (42.0-52.0) % Plt Count 142 L (160-400) X10*3/uL AST 38 H (5-37) U/L Urine Opiates Screen POSITIVE H (Not Detect) Urine Fentanyl Screen POSITIVE H (Not Detect) Urine Cocaine Screen POSITIVE H (Not Detect) H & H 10/17/22 Range/Units 18:45 Hgb 12.6 L (14.0-18.0) g/dl Hct 36.7 L (42.0-52.0) % All other labs normal. <Ronak Mccollum MD - Last Filed: 10/18/22 08:58> Assessment and Plan (1) Tenosynovitis of finger: Status: Acute <Ronak Mccollum MD - Last Filed: 10/18/22 08:58> Mr. Matamoros is a 57-year-old [id number] white male who presents with left middle finger infectious tenosynovitis. I had a lengthy discussion with the patient regarding the treatment options. Nonoperative and surgical treatments were discussed. I did recommend surgical incision and drainage in order to help him fight the infection. The patient wishes to proceed with surgery. Surgery is scheduled for later this morning. Consents were signed. Thank you very much for asking me to see this very friendly gentleman. <Ronak Mccollum MD - Last Filed: 10/18/22 08:58> Time Spent With Patient Time: Total time managing care of this patient today 33 minutes. <Ronak Mccollum MD - Last Filed: 10/18/22 08:58> Procedures Date of Service Date of Service: 10/18/22 <Ronak Mccollum MD - Last Filed: 10/18/22 08:58> 10/18/22 <Tonia Peterson PA-C - Last Filed: 10/18/22 22:49>
--- NOTE | 2022-10-18 09:03 | HO.ANESPROP2 ---
HPI - Anesthesia Eval Consult details Narrative: for I&D left hand PMFSH Active Problems Active Problems: All Active Problems (Updated 10/18/22 @ 08:55 by Ronak Mccollum MD) Tenosynovitis of finger (Acute) Tenosynovitis (Acute) Cellulitis of hand (Acute) Back pain (Acute) Opioid use disorder (Acute) Neck pain (Acute) IVDU (intravenous drug user) (Acute) Heroin addiction (Acute) Fever (Acute) High blood pressure (Acute) Hepatitis C (Acute) Hyperlipidemia (Acute) Substance abuse (Acute) Colitis (Acute) Anxiety (Acute) Past Medical History Medical History Anxiety Colitis Substance abuse Family History Family history of problems with anesthesia: No Surgical History Surgical History H/O oral surgery History of Problems with Anesthesia: Yes (Told me he almost in surgery once, but can't give me further details.) Social History Social History Household Members: None Household Members Other:: homeless Housing: Homeless Do you presently have visiting nurse or other home services: No Alcohol intake: never Patient Tobacco Use Status: Current everyday Tobacco user Tobacco use type: Cigarette e-Cigarette/Vaping Use: Currently Using Second Hand Smoke Exposure: Yes Substance Use Type: Crack/Cocaine, Heroin and Opiates service: No Current occupational status: unemployed Meds Allergies Allergy/AdvReac Type Severity Reaction Status Date / Time acetaminophen [From TYLENOL] Allergy Intermediate UPSET Verified 10/18/22 00:48 STOMACH morphine Allergy Intermediate Headache Verified 10/18/22 00:48 codeine [Codeine] Allergy Mild HIVES, Verified 10/18/22 00:48 VOMITING Active Medications: Current Medications Acetaminophen (Acetaminophen 325 Mg Tablet) 650 mg PO Q6H PRN PRN Reason: Pain, Mild (Pain Scale 1-3) Hydralazine HCl (Hydralazine Hcl 20 Mg/Ml Vial) 10 mg IVPUSH Q4H PRN; Protocol PRN Reason: Elevated BP Ceftriaxone Sodium 1 gm/ (Sodium Chloride) 50 mls @ 100 mls/hr IV Q24H [facility] Last Infusion: 10/18/22 06:25 Dose: Infused Vancomycin HCl 1,000 mg/ (Sodium Chloride) 270 mls @ 270 mls/hr IV Q12H [facility] Melatonin (Melatonin 3 Mg Tablet) 6 mg PO BEDTIME PRN PRN Reason: Insomnia Ondansetron HCl (Ondansetron Hcl 4 Mg/2 Ml Vial) 4 mg IVPUSH Q8H PRN PRN Reason: Nausea and Vomiting Pharmacy Consult (Consult Rx Vancomycin Dosing) 1 each MISCELLANE DAILY PRN PRN Reason: Consult order Pharmacy Consult (Consult Rx Perform Med Rec) 1 each MISCELLANE ONCE PRN PRN Reason: Consult order Pharmacy Consult (Consult Rx Vancomycin Dosing) 1 each MISCELLANE DAILY PRN PRN Reason: Consult order Sodium Chloride (0.9 % Sodium Chloride Flush 3 Ml Syringe) 3 ml IVFLUSH QSHIFT [facility] Home Medications Medication Instructions Recorded Confirmed Last Taken Type doxycycline hyclate 100 mg tablet 100 mg PO BID 10/18/22 10/18/22 Unknown History Exam Exam Date and Time: October 18, 2022 0903 Height,Weight and Vital Signs: Height 5 ft 6 in Weight 70.7 kg Last Vital Signs Temp 98.1 F 10/18/22 07:57 Pulse 58 10/18/22 07:57 Resp 19 10/18/22 07:57 BP 184/82 H 10/18/22 07:57 Pulse Ox 98 10/18/22 07:57 O2 Del Method Room Air 10/18/22 07:57 Pertinent Lab Results Pertinent Lab Results: Laboratory Tests 10/17/22 10/17/22 10/18/22 18:45 18:45 00:11 WBC 4.7 L RBC 4.31 L Hgb 12.6 L Hct 36.7 L MCV 85.2 MCH 29.2 MCHC 34.3 RDW 12.0 Plt Count 142 L MPV 10.4 Immature Gran % (Auto) 0.2 Neut % (Auto) 54.8 Lymph % (Auto) 32.1 [place] % (Auto) 10.6 Eos % (Auto) 1.9 Baso % (Auto) 0.4 Lymph # (Auto) 1.5 [place] # (Auto) 0.5 Eos # (Auto) 0.1 Baso # (Auto) 0.0 Abs Immat Gran (auto) 0.01 Absolute Neuts (auto) 2.6 Absolute Nucleated RBC 0.000 Nucleated RBC % (auto) 0.0 Sodium 138 Potassium 3.7 Chloride 102 Carbon Dioxide 24 Anion Gap 16 BUN 12 Creatinine 0.74 Estim Creat Clear Calc 99.3 Estimated GFR > 60 Random Glucose 88 Lactic Acid 0.9 Calcium 8.9 D Total Bilirubin 0.8 AST 38 H ALT 33 Alkaline Phosphatase 75 Total Protein 7.3 Albumin 3.6 Urine Color Urine Appearance Urine pH Ur Specific [place] Urine Protein Urine Glucose (UA) Urine Ketones Urine Blood Urine Nitrite Ur Leukocyte Esterase Urine RBC Urine WBC Ur Squamous Epith Cells Urine Bacteria Hyaline Casts Urine Opiates Screen Urine Fentanyl Screen Ur Barbiturates Screen Ur Phencyclidine Scrn Ur Amphetamines Screen U Benzodiazepines Scrn Urine Cocaine Screen U Marijuana (THC) Screen 10/18/22 10/18/22 01:47 01:47 WBC RBC Hgb Hct MCV MCH MCHC RDW Plt Count MPV Immature Gran % (Auto) Neut % (Auto) Lymph % (Auto) [place] % (Auto) Eos % (Auto) Baso % (Auto) Lymph # (Auto) [place] # (Auto) Eos # (Auto) Baso # (Auto) Abs Immat Gran (auto) Absolute Neuts (auto) Absolute Nucleated RBC Nucleated RBC % (auto) Sodium Potassium Chloride Carbon Dioxide Anion Gap BUN Creatinine Estim Creat Clear Calc Estimated GFR Random Glucose Lactic Acid Calcium Total Bilirubin AST ALT Alkaline Phosphatase Total Protein Albumin Urine Color Yellow Urine Appearance Clear Urine pH 6.0 Ur Specific [place] 1.010 Urine Protein Negative Urine Glucose (UA) Negative Urine Ketones Negative Urine Blood Negative Urine Nitrite Negative Ur Leukocyte Esterase Negative Urine RBC 0-2 Urine WBC 0-5 Ur Squamous Epith Cells 0-2 Urine Bacteria None Seen Hyaline Casts 0-2 Urine Opiates Screen POSITIVE H Urine Fentanyl Screen POSITIVE H Ur Barbiturates Screen Not Detected Ur Phencyclidine Scrn Not Detected Ur Amphetamines Screen Not Detected U Benzodiazepines Scrn Not Detected Urine Cocaine Screen POSITIVE H U Marijuana (THC) Screen Not Detected Airway Mallampati Class: II TM Dist: >3cm Neck ROM: Full Denture: Upper and Lower Heart: ok Lungs: ok Assessment and Plan Assessment Anesthesia Assessment: Anesthesia Plan Discussed and Chart Reviewed Final Anesthetic Review Family History of Problems with Anesthesia: No History of Problems with Anesthesia: Yes (Told me he almost in surgery once, but can't give me further details.) NPO: Yes ASA Class: III and Emergency Final Preanesthetic Review: No Changes in Pt Med Stat, Meds/Allgs Chart Reviewed, Consent Obtained/Reviewed and Anes Risks/Benef Reviewed Patient Risk: Intermediate Procedure Risk: Low Anesthetic Plan Anesthetic Plan: GA and Agree w/ Assess. and Plan Disposition: Standard PACU
--- NOTE | 2022-10-18 09:46 | PM.EVENT ---
Event Note Date of Service: 10/18/22 Event Note: History and physical reviewed, Patient resting comfortably, no events overnight Vital stable afebrile, elevated blood pressures. 57-year-old male with pertinent history of IV drug use disorder, mood disorder,? mixed hyperlipidemia, hepatitis-C ( unknown treatment status) who presents to the emergency department for evaluation of left hand pain and swelling. #.? Left hand purulent cellulitis with 3rd digit tenosynovitis.? cont iv ceftriaxone and iv vanco day 1 , NPO going to OR by Orthopedic surgery, resume diet after procedure. #.? Hypertensive urgency: Elevated blood pressures, not on antihypertensives at home will place patient on norvasc 5mg , elevated blood pressure question related to drug withdrawal pain anxiety Follow BP closely, cont. Prn hydralazine .? #.? IV drug use disorder.? Patient denies IV drug use but UDS positive for opiates, fentanyl and cocaine.?addiction team consulted.? Monitor for withdrawal. #.? Mixed HLD: Not on statin #.? Hepatitis C: outpatient follow-up with GI DVT prophylaxis with compression boots Will require continued inpatient hospitalization for IV antibiotics and further management of left hand cellulitis/tenosynovitis . Time Spent With Patient Time: Total time managing care of this patient today ____ minutes.
--- NOTE | 2022-10-18 10:03 | PM.OP ---
Brief Operative Note Date of Service: 10/18/22 Pre-op diagnosis: Left middle finger infectious tenosynovitis Procedure: Incision, irrigation and drainage of left middle finger tenosynovitis Implants: none Surgeon: Ronak Mccollum MD Anesthesia: GLMA Was an Diesel Engine Pipe Fitter used for this Procedure?: No Estimated blood loss (mL): 2 Tourniquet time (min): 19 Pathology: other (wound cultures X 2) Condition: stable Disposition: PACU
--- NOTE | 2022-10-18 10:07 | W.PM.OPN ---
Operative Note Operative Note Date of Service: 10/18/22 Narrative: After the patient was identified as Isai Matamoros and his left middle finger was initialed by myself he was brought to the operating room where general anesthesia via LMA was induced by Dr. Raymon Pearce. A tourniquet was placed on the patient's left upper arm. A formal time-out was completed. The patient's left upper extremity was not exsanguinated in order to prevent spread of his infection. His left upper extremity was elevated and the tourniquet was inflated to 250 mmHg. A 15. Scalpel blade was then used to make an oblique incision over the patient's proximal phalanx. Subcutaneous tissues were dissected using Littler scissors. Cloudy fluid was present. Wound cultures were taken. There was no analilia purulence. A 2nd 15. Scalpel blade was then used to make an oblique incision along his metacarpophalangeal crease. Subcutaneous tissues were dissected using Littler scissors down to the A1 rosy. There was cloudy fluid but no analilia purulence. A 2nd set of wound cultures was taken. The flexor tendon sheath was split in line with the tendon using a 15. Scalpel blade just proximal to the A1 rosy. A 3rd oblique incision was then made over his middle phalanx. The subcutaneous tissues were dissected down to the flexor tendon sheath just proximal to the A4 rosy. The flexor tendon sheath was split in line with the tendon using 15. Scalpel blade. An 18 gauge Angiocath was then placed into the proximal incision and into the flexor tendon sheath. Normal saline solution was then irrigated several times from proximal to distal. Cloudy fluid was expressed. Once the fluid was completely clear the irrigation was good discontinued. All 3 incisions were irrigated with copious amounts of normal saline solution. The skin edges of all 3 incisions were then loosely approximated using 2-0 nylon interrupted suture. Dry sterile dressing was placed over all incisions. The tourniquet was dropped at a total of 19 minutes. The patient was woken and extubated in the operating room. He was transferred to the recovery room in stable condition.
--- NOTE | 2022-10-18 13:16 | MHC.RECOVRN ---
Addendum entered by Julieta Mcbride RN 10/18/22 14:11: This typewriter assembly and parts inspector attempted to meet with patient, patient falling asleep during this writers questions, pt difficult to engage. Addiction/Recovery team to return when pt more alert. Reviewed with Agustina Walsh NP. Original Note: This typewriter assembly and parts inspector went to meet with patient earlier, after addiction consult was placed. Pt had been transported to the OR. Addiction/Recovery team to follow up when pt returns.
--- NOTE | 2022-10-18 16:06 | MHC.CM.PN ---
CM ATTEMPTED TO MEET WITH PT PT VERY LETHARGIC, FALLING ASLEEP MULTIPLE TIMES PT CONFIRMS HE IS HOMELESS AND LIVING ON THE STREETS HE DENIES BEING CONNECTED TO ANY COMMUNITY SERVICES HE ANSWERS FEW OF THE THRIVE ASSESSMENT QUESTIONS, BUT DOES REQUIRE ASSISTANCE WITH HOUSING 413CARES BOOK PROVIDED PT DENIES HAVING A PCP AND REFUSES TO COMPLETE A HCP IMM DELIVERED DCP: TBD PT DOES NOT ANSWER IF HE IS INTERESTED IN A [facility] REFERRAL OR RECOVERY SERVICES DCP: [facility] VS [facility] TREATMENT VS RETURN TO STREETS
--- NOTE | 2022-10-18 19:06 | PC.NURSE ---
late entry: 1130 pt postop left finger I+D. Ja intact. Hand elevated on pillows. Denies pain. Slept intermittently throughout shift
[2022-10-19] VITALS (7 sets, daily range): BP systolic 180–210; BP diastolic 60–102; PULSE 64–84; RESP 18–20; TEMP 36.6–36.7; O2SAT 97
--- NOTE | 2022-10-19 05:34 | PC.NURSE ---
PLANNING TECHNICIAN reported that pt BP was 213/111 taken automated, and BP was taken again manually 210/102. Dr. Fuller was notified of BP and reported to doctor that going to give pt Hydralazine 10 mg IV. Pt was refusing to take BP reassessment, Dr. Fuller was notified of refusal. Later on pt agreed to take BP keshawnunally, BP was 200/92. One hour later BP was reassessed 202/96. Dr. Fuller was notified of all BP readings. Dr. Fuller ordered a one time dose off Hydralazine 20 mg IV. Pt was reassessed again and BP was 186/84. Dr. Fuller notified of BP. Dr. Fuller was also notified that pt might be going through withdrawal symptoms. supervisor concrete pipe plant was also notify of pt B/P readings. Pt resting in bed, calm, and look more comfortable, no visible symptoms at this time.
--- NOTE | 2022-10-19 09:26 | MHC.RECOVRN ---
Attempted to meet with pt to discuss MICHAEL/assess for withdrawal and discuss tx options. Pt laying in bed, awake, alert, restless. As soon as t/w entered room, pt states I want to go and points to the door. Introduced self and educated pt on possible withdrawal management, pt states Nope, I'm good. I just want to go. Pt declines to engage further with t/w. Discussed with Agustina Walsh APRN.
--- NOTE | 2022-10-19 09:30 | PM.DS ---
DS: Providers Provider Date of Service: 10/19/22 Date of admission: 10/18/22 05:38 Primary care physician: Unknown Physician Consults: 10/18/22 00:57 Addiction Medicine Routine Consulting Provider: Addiction Covering Reason for consultation: IV drug/heroin use disorder 10/18/22 05:40 Consult to Orthopedics Routine Consulting Provider: [facility] Reason for consultation: tenosynovitis DS: Diagnosis Discharge Diagnosis (1) Tenosynovitis of finger: Status: Acute DS: Summary Hospital Course Hospital Course: from initial hpi: 57-year-old male with pertinent history of IV drug use disorder, mood disorder,? mixed hyperlipidemia, hepatitis-C ( unknown treatment status) who presents to the emergency department for evaluation of left hand pain and swelling.? Patient states that he has been having left hand redness, pain and swelling for the last 5 days.? Patient was seen in the ER about 5 days ago and was given Augmentin.? He returned to the ER again 1-2 days prior to presentation when his antibiotics were switched to doxycycline and Keflex.? Patient states that the redness worsened despite him taking p.o. antibiotics.? It is associated with worsening swelling and pain.? Patient is unable to make a fist.? He also complains of purulent drainage from middle finger.? Patient denies IV drug use and states that this is a spider bite.? No systemic complaints.? He denies fever, chills, chest discomfort, palpitations, shortness of breath, abdominal pain, changes in urinary or bowel habits. In the emergency department, imaging with tenosynovitis hospital course: Patient was admitted for acute left hand purulent cellulitis with 3rd digit tenosynovitis secondary to IV drug use. He was given vancomycin ceftriaxone and underwent Incision, irrigation and drainage of left middle finger tenosynovitis. Patient also noted to have hypertensive urgency, likely related to underlying untreated hypertension exacerbated by opiate withdrawal. He was started on amlodipine and lisinopril. For hepatitis-C outpatient follow-up was recommended. For polysubstance dependence patient was not interested in treatment. Patient will be discharged home on cephalexin and doxycycline, he will follow-up with orthopedics. Time Spent with Patient Time attestation: Total time managing care of this patient today ____ minutes. Discharge coordination time: Greater than 30 minutes Quality: Safe Use of Opioids Does Pt have an Active Cancer Diagnosis on the Problem List?: No Quality: Stroke Does the patient have a stroke diagnosis?: No Physical Exam Vital Signs: Vital Signs: Last Vital Signs Temp 98.1 F 10/19/22 07:55 Pulse 74 10/19/22 07:55 Resp 18 10/19/22 07:55 BP 180/60 H 10/19/22 07:55 Pulse Ox 97 10/19/22 07:55 O2 Del Method Room Air 10/19/22 07:55 O2 Flow Rate 2 10/18/22 10:05 BMI result Body Mass Index 25.2 agitated, oriented times 3, left hand in dressing unable to examine DS: Data Data Completed and Pending Labs on day of discharge: Laboratory Results - last 24 hr 10/19/22 10/19/22 05:41 05:41 WBC 6.9 RBC 5.46 D Hgb 15.8 D Hct 46.0 D MCV 84.2 MCH 28.9 MCHC 34.3 RDW 12.3 Plt Count 188 D MPV 10.5 Immature Gran % (Auto) 0.4 Neut % (Auto) 72.0 Lymph % (Auto) 19.6 L Person % (Auto) 7.4 Eos % (Auto) 0.3 Baso % (Auto) 0.3 Lymph # (Auto) 1.4 Person # (Auto) 0.5 Eos # (Auto) 0.0 Baso # (Auto) 0.0 Abs Immat Gran (auto) 0.03 Absolute Neuts (auto) 5.0 Absolute Nucleated RBC 0.000 Nucleated RBC % (auto) 0.0 Sodium 140 Potassium 3.3 Chloride 105 Carbon Dioxide 23 Anion Gap 15 BUN 10 Creatinine 0.78 Estim Creat Clear Calc 94.2 Estimated GFR > 60 Random Glucose 121 H Calcium 9.7 D Preliminary micro results at discharge 10/18/22 Unknown Routine Culture - Preliminary Finger Left Middle No growth to date. 10/18/22 Unknown Routine Culture - Preliminary Finger Left Middle No growth to date. 10/18/22 00:11 Blood Culture - Preliminary Blood - Venous No growth after 24 hours. 10/17/22 18:45 Blood Culture - Preliminary Blood - Venous No growth after 24 hours. Discharge Plan Discharge Anticipated Discharge Date/Time: 10/19/22 09:28 Patient Disposition: Home, Self-Care Discharge Diagnosis: tenosynovitis, cellulitis Referrals: Maura Torres MD [Physician] - 1 Week Physician,Unknown J [Primary Care Provider] - 1 Week Discharge Medications: New amlodipine 5 mg Tablet 5 mg PO DAILY Qty: 30 0RF Protocol: Hold for SBP< HOLD for SBP < : 90 lisinopril 10 mg Tablet 10 mg PO DAILY Qty: 30 0RF Protocol: Hold for SBP< HOLD for SBP < : 90 Continued cephalexin 500 mg capsule 500 mg PO QID 7 Days Qty: 28 0RF doxycycline hyclate 100 mg tablet 100 mg PO BID Discharge Orders: Discharge Order (Routine); Ordered 10/19/22 Ordered By: Boaz Atkinson Diet: Advance to usual diet Activity on Discharge: As tolerated Stand Alone Forms: Patient Portal Discharge page Care Plan Goals: recovery Health Concerns: polysubtance dependence, infection Plan of Treatment: antibiotics as prescribed, follow up with ortho tomorrow, no drug use Assessment: see above
--- NOTE | 2022-10-19 09:48 | PC.NURSE ---
BP 180/60. Dr. Atkinson added new BP meds ordered. Patient refusing BP reassessment. Yelling that the doctor told him he can leave. Security called for escalating behavior. Discharge orders entered. Instructions explained to patient. Patient escorted out by security.
--- NOTE | 2022-10-19 09:50 | MHC.CM.PN ---
Patient has been medically cleared for dc to home/community today, self care.Last IMM addressed yesterday.
== END 2022-10-19 09:46 | disposition home or self-care (01) | DRG 558 ==
LOC: HO.ED 10-18 02:04 → HO.EDOVER 10-18 05:42 → HO.S3 10-18 06:09
PROVIDERS: Orthopaedic Surgery; Admitting Provider Student in an Organized Health Care Education/Training Program; Emergency Provider Emergency Medicine; Visit Provider Internal Medicine
PROC: 0L9 Tendons, Drainage (ICD-10-PCS; principal; 2022-10-18 09:00)
DX: M65.9 Synovitis and tenosynovitis, unspecified (principal); L03.114 Cellulitis of left upper limb; F11.13 Opioid abuse with withdrawal; F39 Unspecified mood [affective] disorder; I16.0 Hypertensive urgency; E78.2 Mixed hyperlipidemia; B19.20 Unspecified viral hepatitis C without hepatic coma; I10 Essential (primary) hypertension; F41.9 Anxiety disorder, unspecified; F17.210 Nicotine dependence, cigarettes, uncomplicated; Z71.6 Tobacco abuse counseling; Z59.02 Unsheltered homelessness; Z79.899 Other long term (current) drug therapy
CPT/HCPCS: 36415; 73201; 80048; 80053; 80307; 81001; 83605; 85025; 87040; 87070; 87205; 99285; J0696; J1170; J1885; J2405; J2543; J3010; J3370; Q9967

== ENCOUNTER → 2022-10-20 09:16 | Outpatient (BNVA) | payer OTHER, SELFPAY | PROVIDERS: Visit Provider Physician Assistant ==

== ENCOUNTER 2023-09-13 14:21 | Emergency (ER) | payer OTHER, SELFPAY ==
[2023-09-13 14:25] VITALS: BP 176/98; PULSE 71; RESP 9; TEMP 36.9; O2SAT 98; BMI 27.4
--- NOTE | 2023-09-13 14:31 | ED_ITS ---
HPI - General Adult General Chief complaint: General Medical Stated complaint: Infection (?) both legs Time Seen by Provider: 09/13/23 15:56 Source: patient Mode of arrival: ambulatory Limitations: no limitations History of Present Illness ED Provider: Dr. Familia Moreno HPI narrative: 58-year-old male with a history of daily injection opiate use, colitis, anxiety and frequent cellulitis who presents emergency department for evaluation of pain, swelling and redness to his lower extremities. Patient states that he injects 3-4 bundles (30-40 bags) of opiates per day. He states that since last night he has had a burning sensation in his lower extremities. He states that both legs are swollen with the left being more swollen than the right. He has also noted small skin lesions appearing on both his lower extremities. He is concerned that he might have a skin infection since he has had multiple skin infections in the past secondary to injecting drugs. He denied fever, chills, chest pain, shortness of breath. He states that his legs feel weak but this is secondary to pain, but he has no difficulty walking. He denies back pain or loss of bowel or bladder control. Related Data Previous Rx's ?Medication ?Instructions ?Recorded cephalexin 500 mg capsule 500 mg PO QID 7 days #28 caps 10/16/22 amlodipine 5 mg tablet 5 mg PO DAILY #30 tabs 10/19/22 lisinopril 10 mg tablet 10 mg PO DAILY #30 tabs 10/19/22 doxycycline hyclate 100 mg tablet 100 mg PO BID 10 days #20 tabs 10/20/22 cephalexin 500 mg capsule 500 mg PO QID 7 days #28 caps 09/13/23 doxycycline hyclate 100 mg tablet 100 mg PO Q12H 7 days #14 tabs 09/13/23 ibuprofen 400 mg tablet 400 mg PO TID PRN fever or pain 09/13/23 #30 tabs Allergies Allergy/AdvReac Type Severity Reaction Status Date / Time acetaminophen [From TYLENOL] Allergy Intermediate UPSET Verified 09/13/23 14:27 STOMACH morphine Allergy Intermediate Headache Verified 09/13/23 14:27 codeine [Codeine] Allergy Mild HIVES, Verified 09/13/23 14:27 VOMITING Review of Systems 2 Review of Systems: Yes all other systems are reviewed and are negative [facility] Past Medical History [facility] Narrative: Social history: He does smoke cigarettes. He denies alcohol use. He does use injection drugs daily. Medical History Anxiety Colitis Substance abuse Surgical History H/O oral surgery Social History Social History Household Members: None Household Members Other:: homeless Housing: Homeless Do you presently have visiting nurse or other home services: No Alcohol intake: never Patient Tobacco Use Status: Current everyday Tobacco user Tobacco use type: Cigarette Smoked in Last 30 Days: Yes e-Cigarette/Vaping Use: Currently Using Second Hand Smoke Exposure: Yes Use of substances other than those prescribed or required for medical reasons: Yes Substance Use Type: Other Substance Use Type Other:: xylozine Substance Use Frequency: Daily Advance Directives: No Advance Directives Information Provided: No service: No Current occupational status: unemployed Physical Exam ED Vital Signs: Vital Signs - 24 hr 09/13/23 14:25 09/13/23 15:35 Temperature 98.4 F 98.3 F Pulse Rate 71 55 Respiratory Rate 9 L 18 Blood Pressure 176/98 H 149/84 H Pulse Oximetry 98 96 Oxygen Delivery Method Room Air Room Air BMI result Body Mass Index 27.4 Vital signs did reveal an elevated blood pressure of 176/98 otherwise unremarkable Exam: General: Awake, alert in no distress Head: Normocephalic, atraumatic EENT: PERRL, Lids normal, sclera normal, conjunctiva normal, nose normal , ears normal, throat without erythema or exudates Neck: Supple, no adenopathy Lung: breath sounds symmetric, no wheezing, rales or rhonchi Chest: symmetric movement, nontender Heart: regular rate and rhythm, normal S1, S2 no murmurs or rubs Abdomen: soft, non-tender, nondistended, normal bowel sounds Back: no vertebral tenderness, no CVAT Extremities: Patient has multiple, circular, lesions to his lower extremities which consistent with staph/strep infection, the left leg does appear to be slightly swollen compared to the right with some increased erythema around the lesions, no pitting edema, extremities neurovascularly intact Neuro: Awake, alert, oriented, normal speech, cranial nerves intact, moves all extremities symmetrically Psych: Pleasant, cooperative Course Course Course Narrative: This is an RME done by YAYA Felix: Additional HPI, ROS, PE not included below will be deferred to primary provider. 58-year-old male presents with bilateral leg pain, and swelling he states pain started yesterday suddenly. Poor historian. Current IVDA PE - states hes unable to walk due to leg pain. Normal strength to LE. Medical Decision Making Medical Decision Making [facility] Narrative: 58-year-old male with a history of daily injection opiate use, colitis, anxiety and frequent cellulitis who presents emergency department for evaluation of pain, swelling and redness to his lower extremities that started last night. The patient continues to use injection opiates multiple times a day. He denied systemic symptoms such as fever, chills, fatigue. He denied back pain or loss of bowel or bladder control. Vital signs were unremarkable except for an elevated blood pressure. Lower extremity exam is consistent with staff or strep lesions/cellulitis. Differential diagnosis: ?Includes but is not limited to Staphylococcus cellulitis, streptococcal cellulitis, DVT Following evaluation was ordered: CBC, CMP, ESR, CRP Patient was initially treated with the following: Doxycycline 100 mg orally, Keflex 500 mg orally, ibuprofen 400 mg orally Course: 16:21 This time I believe the patient's lower extremity symptoms and findings are consistent with cellulitis with skin lesions most likely related to his injection drug use. I did discuss this with him. Patient is not interested in getting into a drug treatment program. Patient will be treated with doxycycline 100 mg q.12 hours times 7 days and Keflex 500 mg 4 times a day for 7 days. Patient was also given ibuprofen 400 mg every 6 hours as needed for pain. He was given printed and verbal instructions and discharged home. ESR is pending. My independent interpretation patient's laboratory evaluation is as follows: CBC was normal. CMP was normal. CRP was normal at 0.29. ESR pending Admission/Observation Consideration of admission/observation: Escalation of care including admission/observation considered Lab Data [facility] Lab Attestation statement: I reviewed the patient's lab results. 09/13/23 14:50 09/13/23 14:50 Labs: Lab Results 09/13/23 Range/Units 14:50 WBC 7.0 (4.8-10.8) X10*3/uL RBC 4.60 (4.60-5.80) X10*6/uL Hgb 13.8 L (14.0-18.0) g/dl Hct 39.4 L (42.0-52.0) % MCV 85.7 (80.0-98.0) fL MCH 30.0 (27.0-33.0) pg MCHC 35.0 (31.0-36.0) g/dl RDW 12.3 (11.0-16.0) % Plt Count 142 L (160-400) X10*3/uL MPV 10.4 (9.4-12.4) fL Immature Gran % (Auto) 0.3 (0.0-0.4) % Neut % (Auto) 62.4 (45-73) % Lymph % (Auto) 29.0 (20-40) % [place] % (Auto) 7.8 (2-11) % Eos % (Auto) 0.1 (0-4) % Baso % (Auto) 0.4 (0-2) % Lymph # (Auto) 2.0 (1.2-4.9) X10*3/uL [place] # (Auto) 0.5 (0.1-1.2) X10*3/uL Eos # (Auto) 0.0 (0.0-0.4) X10*3/uL Baso # (Auto) 0.0 (0.0-0.2) X10*3/uL Abs Immat Gran (auto) 0.02 (0.00-0.03) X10*3/uL Absolute Neuts (auto) 4.3 (2.0-8.3) x10*3/uL Absolute Nucleated RBC 0.000 (0.0-0.012) X10*3/uL Nucleated RBC % (auto) 0.0 (0.0-0.2) /100WBC Sodium 138 (135-145) mmol/L Potassium 3.8 (3.3-5.1) mmol/L Chloride 101 (96-108) mmol/L Carbon Dioxide 28 (22-29) mmol/L Anion Gap 13 (12-20) BUN 11 (9-16) mg/dL Creatinine 0.83 (0.5-1.4) mg/dL Estim Creat Clear Calc 94.8 Estimated GFR > 60 Random Glucose 110 (60-115) mg/dL Calcium 9.5 (8.4-10.2) mg/dL Total Bilirubin 0.9 (0.0-1.0) mg/dL AST 29 (5-37) U/L ALT 27 (0-40) U/L Alkaline Phosphatase 88 (39-117) U/L C-Reactive Protein 0.29 (< or = 0.50) mg/dL Total Protein 7.7 (6.5-8.0) g/dL Albumin 4.2 (3.5-5.0) g/dL Prescription Management I considered prescription management with: Pain Medication and Antibiotic Chronic Conditions Patient?s care impacted by: Other (Hypertension, injection drug use) Discharge Plan Discharge Clinical Impression: Bilateral cellulitis of lower leg, Opiate use Patient Disposition: Home, Self-Care Instructions: Cellulitis (ED) Additional Instructions: At this time I believe that you have an early cellulitis/skin infection to your lower extremities and this is causing your pain and swelling. Take doxycycline 100 mg, 1 pill every 12 hours for 7 days Take Keflex (cephalexin) 500 mg pills, 1 pill 4 times a day for 7 days. Take ibuprofen 200 mg pills, 2 pills every 6 hours as needed for pain or fever. Follow-up with your doctor in 2 days. Please return to the emergency department if your symptoms get worse or if you develop any symptoms that are concerning to you. Prescriptions: New cephalexin 500 mg capsule 500 mg PO QID 7 Days Qty: 28 0RF ibuprofen 400 mg tablet 400 mg PO TID PRN (Reason: fever or pain) Qty: 30 0RF doxycycline hyclate 100 mg tablet 100 mg PO Q12H 7 Days Qty: 14 0RF No Action cephalexin 500 mg capsule 500 mg PO QID 7 Days Qty: 28 0RF amlodipine 5 mg Tablet 5 mg PO DAILY Qty: 30 0RF Protocol: Hold for SBP< HOLD for SBP < : 90 lisinopril 10 mg Tablet 10 mg PO DAILY Qty: 30 0RF Protocol: Hold for SBP< HOLD for SBP < : 90 doxycycline hyclate 100 mg tablet 100 mg PO BID 10 Days Qty: 20 0RF Print Language: Belarusian
[2023-09-13 14:59] LABS: MANUAL DIFF FLAG NO
[2023-09-13 15:01] LABS: Basophils Percent Auto 0.4 % (0-2); Eosinophils Percent Auto 0.1 % (0-4); Hematocrit 39.4 % (42.0-52.0); Hemoglobin 13.8 g/dl (14.0-18.0); Imm Gran Abs Auto 0.02 X10*3/uL (0.00-0.03); Imm Gran Pct Auto 0.3 % (0.0-0.4); Mean Corpuscular Volume 85.7 fL (80.0-98.0); Mean Platelet Volume 10.4 fL (9.4-12.4); Monocytes Absolute Auto 0.5 X10*3/uL (0.1-1.2); Monocytes Percent Auto 7.8 % (2-11); Neutrophils Absolute Auto 4.3 x10*3/uL (2.0-8.3); Neutrophils Percent Auto 62.4 % (45-73); Platelet Count 142 X10*3/uL (160-400); Red Cell Distribution Width 12.3 % (11.0-16.0)
[2023-09-13 15:30] LABS: Alanine Aminotransferase 27 U/L (0-40); Albumin Level 4.2 g/dL (3.5-5.0); Alkaline Phosphatase 88 U/L (39-117); Anion Gap 13 (12-20); Aspartate Amino Transferase 29 U/L (5-37); Bilirubin Total 0.9 mg/dL (0.0-1.0); Blood Urea Nitrogen 11 mg/dL (9-16); C Reactive Protein 0.29 mg/dL (< or = 0.50); Calcium 9.5 mg/dL (8.4-10.2); Carbon Dioxide 28 mmol/L (22-29); Chloride 101 mmol/L (96-108); Creatinine Clr Calc Pharmacy 94.8; Estimated Glomerular Filt Rate > 60; Glucose Random 110 mg/dL (60-115); Potassium 3.8 mmol/L (3.3-5.1); Sodium 138 mmol/L (135-145); Total Protein 7.7 g/dL (6.5-8.0)
[2023-09-13 15:35] VITALS: BP 149/84; PULSE 55; RESP 18; TEMP 36.8; O2SAT 96
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
--- NOTE | 2023-09-13 15:41 | PC.NURSE ---
Patient reports bilateral knee and ankle pain in the joints. At rest reports pain is tolerable but he is having trouble walking. States he does not want an IV placed he just wants po abt so he can leave. Reports using xylazine daily
[2023-09-13] MEDS: Doxycycline Monohydrate 100 MG CAPSULE PO (16:15)
[2023-09-13] MEDS: Ibuprofen 400 MG TABLET PO (16:15)
[2023-09-13] MEDS: cephALEXin 500 MG CAPSULE PO (16:16)
[2023-09-13 16:18] VITALS: BP 149/84; PULSE 55; RESP 18; TEMP 36.8; O2SAT 96
[2023-09-13 17:11] LABS: Erythrocyte Sedimentation Rate 9 MM/HR (0-15)
== END 2023-09-13 16:18 | disposition home or self-care (01) ==
PROVIDERS: Physician Assistant; Emergency Provider Emergency Medicine Emergency Medical Services; PCP Internal Medicine
DX: L03.116 Cellulitis of left lower limb (principal); L03.115 Cellulitis of right lower limb; M79.605 Pain in left leg; M79.604 Pain in right leg; F19.10 Other psychoactive substance abuse, uncomplicated; I10 Essential (primary) hypertension; F17.210 Nicotine dependence, cigarettes, uncomplicated
CPT/HCPCS: 36415; 80053; 85025; 85652; 86140; 99283; 99284

== ENCOUNTER 2023-09-16 20:35 | Emergency (ER) | payer OTHER, SELFPAY ==
[2023-09-16 21:02] VITALS: BP 158/102; PULSE 77; RESP 18; TEMP 36; O2SAT 100; BMI 27.4
[2023-09-16 21:48] LABS: MANUAL DIFF FLAG NO
[2023-09-16 21:49] LABS: Basophils Percent Auto 0.2 % (0-2); Eosinophils Absolute Auto 0.1 X10*3/uL (0.0-0.4); Eosinophils Percent Auto 1.6 % (0-4); Hematocrit 34.9 % (42.0-52.0); Hemoglobin 12.5 g/dl (14.0-18.0); Imm Gran Abs Auto 0.02 X10*3/uL (0.00-0.03); Imm Gran Pct Auto 0.3 % (0.0-0.4); Lymphocytes Absolute Auto 1.9 X10*3/uL (1.2-4.9); Lymphocytes Percent Auto 30.4 % (20-40); Mean Corpuscular HGB Conc 35.8 g/dl (31.0-36.0); Mean Corpuscular Volume 83.9 fL (80.0-98.0); Monocytes Absolute Auto 0.6 X10*3/uL (0.1-1.2); Monocytes Percent Auto 9.9 % (2-11); Neutrophils Absolute Auto 3.6 x10*3/uL (2.0-8.3); Neutrophils Percent Auto 57.6 % (45-73); Platelet Count 162 X10*3/uL (160-400); Red Blood Count 4.16 X10*6/uL (4.60-5.80); Red Cell Distribution Width 12.1 % (11.0-16.0); White Blood Count 6.2 X10*3/uL (4.8-10.8)
[2023-09-16 22:05] LABS: Alanine Aminotransferase 21 U/L (0-40); Albumin Level 3.8 g/dL (3.5-5.0); Alkaline Phosphatase 82 U/L (39-117); Anion Gap 16 (12-20); Aspartate Amino Transferase 28 U/L (5-37); Bilirubin Total 0.5 mg/dL (0.0-1.0); Blood Urea Nitrogen 17 mg/dL (9-16); Calcium 9.1 mg/dL (8.4-10.2); Carbon Dioxide 22 mmol/L (22-29); Chloride 105 mmol/L (96-108); Creatinine Clr Calc Pharmacy 112.4; Estimated Glomerular Filt Rate > 60; Glucose Random 103 mg/dL (60-115); Potassium 3.8 mmol/L (3.3-5.1); Sodium 139 mmol/L (135-145); Total Protein 7.1 g/dL (6.5-8.0)
== END 2023-09-16 23:03 | disposition left against medical advice (07) ==
PROVIDERS: Emergency Provider Emergency Medicine
DX: F19.10 Other psychoactive substance abuse, uncomplicated (principal); L03.119 Cellulitis of unspecified part of limb; F11.90 Opioid use, unspecified, uncomplicated
CPT/HCPCS: 36415; 80053; 85025; 86140; 99281; 99283

== ENCOUNTER 2023-12-17 04:34 | Inpatient (IN) | payer OTHER, SELFPAY ==
[2023-12-17] VITALS (12 sets, daily range): BP systolic 171–232; BP diastolic 98–110; PULSE 59–66; RESP 12–20; TEMP 36.8–37; O2SAT 96–97; BMI 24.4
--- NOTE | ~2023-12-17 | XR_ITS ---
EXAMINATION: XR HAND/WRIST, LEFT CLINICAL INFORMATION: Pain and swelling COMPARISON: Hand CT on 10/17/2022 TECHNIQUE: PA, lateral, and oblique views of the left hand and wrist. FINDINGS: The bones and soft tissues are normal. No fracture. Alignment is anatomic. Joint spaces are maintained. No erosions or soft tissue calcifications. XR/XR hand wrist LT IMPRESSION: Normal radiographs of the hand and wrist. Electronically signed by: Lexi Blackwood MD 12/17/2023 08:02 AM EDT
--- NOTE | ~2023-12-17 | CT_ITS ---
EXAMINATION: CT HAND WITH CONTRAST, LEFT CLINICAL INFORMATION: Cellulitis and swelling, IVDA COMPARISON: Radiographs 12/17/2023 TECHNIQUE: CT of the left hand is performed following intravenous administration of 85 mL Omnipaque [address] examination was performed using dose optimization techniques as appropriate, variously including the following: *Automated exposure control *Adjustment of mA and/or kV according to patient size (this includes techniques or standardized protocols for targeted exams where dose is matched to indication/reason for exam; i.e. extremities or head) *Use of iterative reconstruction technique Dose Length Product: 125 mGycm. FINDINGS: Extensive subcutaneous edema throughout the dorsum of the hand and wrist without a peripherally enhancing or focal fluid collection to suggest an abscess. No abnormal enhancing tenosynovitis. No radiopaque foreign body. No acute osseous abnormality. There are effusions of the radiocarpal and midcarpal joint. Small corticated loose body in the dorsal aspect of the midcarpal joint. 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 CT/CT hand LT w IV con IMPRESSION: Extensive subcutaneous edema throughout the dorsum of the hand and wrist without a focal fluid collection to suggest an abscess. Radiocarpal and midcarpal joint effusions. No cortical erosion or other acute osseous abnormality. Electronically signed by: Charles Anne MD 12/17/2023 04:47 PM EDT
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
[2023-12-17] MEDS: Ibuprofen 600 MG TABLET PO (05:13)
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
[2023-12-17 07:06] LABS: MANUAL DIFF FLAG NO
[2023-12-17 07:12] LABS: Basophils Percent Auto 0.2 % (0-2); Eosinophils Percent Auto 0.2 % (0-4); Hematocrit 37.5 % (42.0-52.0); Hemoglobin 13.4 g/dl (14.0-18.0); Imm Gran Abs Auto 0.05 X10*3/uL (0.00-0.03); Imm Gran Pct Auto 0.6 % (0.0-0.4); Lymphocytes Absolute Auto 1.3 X10*3/uL (1.2-4.9); Lymphocytes Percent Auto 14.7 % (20-40); Mean Corpuscular HGB Conc 35.7 g/dl (31.0-36.0); Mean Corpuscular Hemoglobin 29.5 pg (27.0-33.0); Mean Corpuscular Volume 82.6 fL (80.0-98.0); Mean Platelet Volume 10.3 fL (9.4-12.4); Monocytes Absolute Auto 0.8 X10*3/uL (0.1-1.2); Monocytes Percent Auto 9.2 % (2-11); Neutrophils Absolute Auto 6.5 x10*3/uL (2.0-8.3); Neutrophils Percent Auto 75.1 % (45-73); Platelet Count 149 X10*3/uL (160-400); Red Blood Count 4.54 X10*6/uL (4.60-5.80); Red Cell Distribution Width 12.6 % (11.0-16.0); White Blood Count 8.7 X10*3/uL (4.8-10.8)
[2023-12-17 07:13] LABS: Lactic Acid 0.7 mmol/L (0.5-2.0)
[2023-12-17 07:17] LABS: Alanine Aminotransferase 28 U/L (0-40); Albumin Level 3.9 g/dL (3.5-5.0); Alkaline Phosphatase 79 U/L (39-117); Anion Gap 12 (12-20); Aspartate Amino Transferase 29 U/L (5-37); Bilirubin Total 0.7 mg/dL (0.0-1.0); Blood Urea Nitrogen 14 mg/dL (9-16); C Reactive Protein 4.38 mg/dL (< or = 0.50); Calcium 9.4 mg/dL (8.4-10.2); Carbon Dioxide 24 mmol/L (22-29); Chloride 104 mmol/L (96-108); Creatinine Clr Calc Pharmacy 105.3; Estimated Glomerular Filt Rate > 60; Glucose Random 109 mg/dL (60-115); Potassium 3.3 mmol/L (3.3-5.1); Sodium 137 mmol/L (135-145); Total Protein 7.4 g/dL (6.5-8.0)
[2023-12-17] MEDS: lisinopriL 10 MG TABLET PO (07:17)
[2023-12-17] MEDS: methADONE HCl 20 MG/2 ML ORAL.CONC 40 MG PO (07:18)
--- NOTE | 2023-12-17 07:20 | PC.NURSE ---
patient a&ox3, pt noted to be hypertensive- medicated per order with methadone and meds for htn, pt lt hand swollen/red, rr equal/non labored, call thompson within reach, will continue to monitor.
--- NOTE | 2023-12-17 07:34 | PC.NURSE ---
urine obtained by tech
[2023-12-17 07:52] LABS: Amphetamine Screen Urine Not Detected (Not Detect); Barbiturates, Urine Not Detected (Not Detect); Benzodiazepines Screen Urine Not Detected (Not Detect); Buprenorphine Scr Not Detected (Not Detect); Cannabinoid Screen Urine Not Detected (Not Detect); Cocaine Screen Urine POSITIVE (Not Detect); Fentanyl, urine POSITIVE (Not Detect); Methadone Screen, Urine Not Detected (Not Detect); Opiate Screen Urine POSITIVE (Not Detect); Oxycodone Screen Urine Not Detected (Not Detect); Phencyclidine Screen Urine Not Detected (Not Detect)
[2023-12-17 07:52] LABS: Erythrocyte Sedimentation Rate 21 MM/HR (0-15)
--- NOTE | 2023-12-17 09:39 | ECG_ITS ---
Test Reason : HTN,COCAINE Blood Pressure : / mmHG Vent. Rate : 073 BPM Atrial Rate : 073 BPM P-R Int : 156 ms QRS Dur : 096 ms QT Int : 412 ms P-R-T Axes : 264 020 -05 degrees QTc Int : 453 ms Unusual P axis, possible ectopic atrial rhythm Septal infarct , age undetermined Abnormal ECG When compared with ECG of 07-FEB-2022 09:00, Ectopic atrial rhythm has replaced Sinus rhythm T wave inversion now evident in Inferior leads Nonspecific T wave abnormality now evident in Anterior leads QT has shortened Referred By: Lina Wang Electronically Signed By:PREM PASCUAL
[2023-12-17] MEDS: amLODIPine Besylate 5 MG TABLET PO ×2 (09:43→11:56)
[2023-12-17] MEDS: ceFAZolin Sodium/Dextrose,Iso 2 GM/50 ML PIGGYBACK IV (09:44)
--- NOTE | 2023-12-17 09:47 | PC.NURSE ---
pt medicated for htn, 1st iv abx started per order
--- NOTE | 2023-12-17 10:02 | PC.NURSE ---
pt refusing labs, ekg, monitoring coordinator because he states he is in pain, the provider has been notified
--- NOTE | 2023-12-17 10:04 | MHC.EDTECH ---
Addendum entered by Litzy Lemus 12/17/23 10:06: refuse cardiac leads Original Note: Patient refuse EKG and lab . patient states in a lot of pain RN aware And provider.
[2023-12-17] MEDS: Ketorolac Tromethamine 15 MG/ML VIAL IVPUSH (10:11)
[2023-12-17] MEDS: vancomycin HCL 1,000 MG, vancomycin HCL 750 MG in 0.9 % Sodium Chloride 500 ML 267.5 MG IV (10:24)
--- NOTE | 2023-12-17 10:28 | PC.NURSE ---
second lab drawn, pt medicated with additional meds for pain
[2023-12-17 10:50] LABS: Troponin-I High Sensitivity 9.4 ng/L (<3.5-35.0)
--- NOTE | 2023-12-17 11:57 | PC.NURSE ---
pt medicated for htn, pt states his pain went down to 8/10
--- NOTE | 2023-12-17 11:58 | PC.NURSE ---
pt continues to refuse cardiac cath rn and ekg
--- NOTE | 2023-12-17 13:30 | PHA.MEDREC ---
Addendum entered by Eva Espinal RPh 12/17/23 13:56: Med rec was reviewed by [facility]. Original Note: Pharmacy Consult ? Medication Reconciliation Pharmacy has completed the medication reconciliation. Spoke with patient.
[2023-12-17] MEDS: traMADoL HCL 50 MG TABLET PO (13:33)
--- NOTE | 2023-12-17 13:52 | PC.NURSE ---
ekg performed, lab drawn
[2023-12-17 14:05] LABS: Troponin-I High Sensitivity 8.2 ng/L (<3.5-35.0)
--- NOTE | 2023-12-17 14:35 | P.HPHOSP_ITS ---
History of Present Illness Date of Service: 12/17/23 Attending physician on admission: [facility] Chief Complaint: hand pain and swelling 58 year old male with history of polystance/IVDA, hld, hepatitis C, anxiety presents to the ED for evaluation of pain and swelling of the L hand ongoing for several days. Reports injecting drugs into the left hand (last IV heroin use last night) with significant pain and swelling worsening over the last few days. Hand and forearm are hot to touch. No fevers, chills, abd pain, n/v/d, sob, lightheadedness, chest pain, purulent draiange from hand. On arrival pt hypertensive to 232/100 improved to 170/93 on admission after 10mg amlodipine and 10mg lisinopril. Also given 40mg methadone and is acutely withdrawing with hypertension, agitation, anxiety. Vitals otherwise stable. No leukocytosis. No sepsis. Stable normocytic anemia. Renal function, lytes wnl. CRP 4.38, ESR 21. Tox screen + for opiates, fentanyl, cocaine. XR hand/wrist unremarkable. CT hand pending. In the ED, given ancef, vanco, ibuprofen, ketorolac, tramadol, and methadone. Review of Systems 2 Review of Systems: Yes all other systems are reviewed and are negative [facility] Medical History Substance abuse Colitis Anxiety Surgical History H/O oral surgery Social History Household Members: None Household Members Other:: homeless Housing: Homeless Do you presently have visiting nurse or other home services: No Alcohol intake: current Alcohol intake frequency: 3 or more drinks per day Patient Tobacco Use Status: Never used Tobacco Tobacco use type: Cigarette Smoked in Last 30 Days: Yes e-Cigarette/Vaping Use: Currently Using Second Hand Smoke Exposure: Yes Use of substances other than those prescribed or required for medical reasons: Yes Substance Use Type: Crack/Cocaine and Heroin Substance Use Frequency: Daily Last Used Substance: Hours (ago) Advance Directives: No Advance Directives Information Provided: No Do you have a plan to hurt others: No Plan Nutrition Risks: No Nutritional Risk service: No Current occupational status: unemployed Meds Allergies Allergy/AdvReac Type Severity Reaction Status Date / Time acetaminophen [From TYLENOL] Allergy Intermediate UPSET Verified 12/17/23 04:41 STOMACH morphine Allergy Intermediate Headache Verified 12/17/23 04:41 codeine [Codeine] Allergy Mild HIVES, Verified 12/17/23 04:41 VOMITING Home Medications ?Medication ?Instructions ?Recorded ?Confirmed ?Last Taken ?Type No Known Home Meds 12/17/23 12/17/23 Unknown History Physical Exam 2 Vital Signs and Narrative: Vital Signs: Last Vital Signs Temp 98.2 F 12/17/23 09:39 Pulse 66 12/17/23 13:07 Resp 16 12/17/23 13:07 BP 175/100 H 12/17/23 13:07 Pulse Ox 96 12/17/23 11:55 O2 Del Method Room Air 12/17/23 11:55 BMI result Body Mass Index 24.4 Constitutional - Awake and Alert, No apparent distress Eyes - PERRLA, EOMI Cardiovascular - S1S2, RRR, No edema Respiratory - Normal lung expansion, Normal respiratory effort, No respiratory distress, CTA bilaterally Gastrointestinal - NT / ND; +BS; No rebound or guarding Extremities - no calf tenderness bilaterally, no swelling Skin - Warm/Dry. Significant swelling, erythema, warmth extending from the L hand to the forearm with several abrasions to the dorsum of the L hand. Unable to make L sided fist Neurological - Alert & oriented x3, agitated, excessive movements in bed Results Labs 12/17/23 06:52 12/17/23 06:52 Labs: Laboratory Results - last 24 hr 12/17/23 12/17/23 12/17/23 06:51 06:52 07:32 MCV 82.6 MCH 29.5 MCHC 35.7 RDW 12.6 Plt Count 149 L MPV 10.3 Immature Gran % (Auto) 0.6 H Neut % (Auto) 75.1 H Lymph % (Auto) 14.7 L [place] % (Auto) 9.2 Eos % (Auto) 0.2 Baso % (Auto) 0.2 Lymph # (Auto) 1.3 [place] # (Auto) 0.8 Eos # (Auto) 0.0 Baso # (Auto) 0.0 Abs Immat Gran (auto) 0.05 H Absolute Neuts (auto) 6.5 Absolute Nucleated RBC 0.000 Nucleated RBC % (auto) 0.0 ESR 21 H Anion Gap 12 Estim Creat Clear Calc 105.3 Estimated GFR > 60 Random Glucose 109 Lactic Acid 0.7 Calcium 9.4 Total Bilirubin 0.7 AST 29 ALT 28 Alkaline Phosphatase 79 Troponin I High Sens C-Reactive Protein 4.38 H Total Protein 7.4 Albumin 3.9 Urine Opiates Screen POSITIVE H Ur Buprenorphine Scrn Not Detected Ur Oxycodone Screen Not Detected Urine Methadone Screen Not Detected Urine Fentanyl Screen POSITIVE H Ur Barbiturates Screen Not Detected Ur Phencyclidine Scrn Not Detected Ur Amphetamines Screen Not Detected U Benzodiazepines Scrn Not Detected Urine Cocaine Screen POSITIVE H U Marijuana (THC) Screen Not Detected 12/17/23 12/17/23 10:22 13:37 MCV MCH MCHC RDW Plt Count MPV Immature Gran % (Auto) Neut % (Auto) Lymph % (Auto) [place] % (Auto) Eos % (Auto) Baso % (Auto) Lymph # (Auto) [place] # (Auto) Eos # (Auto) Baso # (Auto) Abs Immat Gran (auto) Absolute Neuts (auto) Absolute Nucleated RBC Nucleated RBC % (auto) ESR Anion Gap Estim Creat Clear Calc Estimated GFR Random Glucose Lactic Acid Calcium Total Bilirubin AST ALT Alkaline Phosphatase Troponin I High Sens 9.4 8.2 C-Reactive Protein Total Protein Albumin Urine Opiates Screen Ur Buprenorphine Scrn Ur Oxycodone Screen Urine Methadone Screen Urine Fentanyl Screen Ur Barbiturates Screen Ur Phencyclidine Scrn Ur Amphetamines Screen U Benzodiazepines Scrn Urine Cocaine Screen U Marijuana (THC) Screen Imaging Radiologist's Impressions: Impressions Hand/Wrist X-Ray 12/17/23 07:00 IMPRESSION: Normal radiographs of the hand and wrist. Electronically signed by: Lexi Blackwood MD 12/17/2023 08:02 AM EDT Assessment and Plan (1) Cellulitis of hand, left: Status: Acute Plan 58 year old male with history of polystance/IVDA, hld, hepatitis C, anxiety admitted for extensive cellulitis LUE in IVDA #Extensive cellulitis LUE in IVDA -XR negative for acute abn. CT hand pending to eval for abscess. No leukocytosis/sepsis -IV vanco (initiated 12/16) -Consider ortho consult pending CT results -Follow cultures #OUD/IVDA with acute withdrawal -monitor on COWS -given 40mg methadone in ED, continue daily -monitor on cows, clonidine prn -Addiction med consult #Hypertension -likely has baseline essential htn, complicated by acute withdrawal -add amlodipine 10mg daily, clonidine prn as above dvt prohylaxis- lovenox full code pt requires inpt stay at least 2 midnight for management of extensive cellulitis lue in ivda requiring iv abx and further imaging to evaluate for abscess Quality Stroke Does the patient have a stroke diagnosis?: No VTE Prior VTE?: No VTE Risk Level:: Medical - moderate - high VTE Device Contraindication: Treatment Not Indicated VTE Drug Contraindication: N/A - Med Ordered
[2023-12-17] MEDS: iohexoL 350 MG/ML 100 ML INFUS..BTL IV (15:48)
[2023-12-17] MEDS: cloNIDine HCL 0.1 MG TABLET PO (15:50)
[2023-12-17] MEDS: HYDROmorphone HCl 0.5 MG/0.5 ML SYRINGE IVPUSH ×2 (15:50→20:04)
[2023-12-17] MEDS: Enoxaparin Sodium 40 MG/0.4 ML SYRINGE SUBCUT (15:53)
--- NOTE | 2023-12-17 15:53 | PHA.PROG ---
Admission Date/Time: December 17, 2023 15:31 Indication: SKIN Weight in k.7 kg Serum Creatinine - Last 168 Hours 12/17/23 06:52 Creatinine 0.69 Estimated CrCl and GFR - Last 168 Hours 12/17/23 06:52 Estim Creat Clear Calc 105.3 Estimated GFR > 60 Vancomycin Loading Dose: 2000 Current Vancomycin Dosing Regimen: 750 Q 8H Vancomycin Monitoring using AUC goal of 400 - 600 range with trough as surrogate marker: 521 Date and Time for next Vancomycin Level to be drawn: 12/17 @ 0900 Pharmacist Comments on Vancomycin Plan: Vancomycin dosing will take advantage of Flynn as a clinical decision support tool that uses Bayesian modeling to calculate individual patient's pharmacokinetic parameters and forecast the patient's drug concentration time course with the target goal AUC 24 range of 400 - 600 mg/L/hr.
[2023-12-17] MEDS: 0.9 % Sodium Chloride Flush 3 ML SYRINGE IVFLUSH (15:54)
--- NOTE | 2023-12-17 15:55 | PC.NURSE ---
per request of hospitalist the pt was medicated with catapres as well as dilaudid per orders.
--- NOTE | 2023-12-17 16:24 | PC.NURSE ---
report called to yeni on overflow
[2023-12-17] MEDS: Acetaminophen 325 MG TABLET 650 MG PO (17:00)
[2023-12-17] MEDS: oxyCODONE HCl Immed Release 5 MG TABLET PO (18:23)
[2023-12-17] MEDS: vancomycin HCL 750 MG in 0.9 % Sodium Chloride 250 ML 265 MG IV (20:02)
--- NOTE | 2023-12-17 20:22 | PC.NURSE ---
Patient medicated per JUN, he requests pain medication for 10/10 pain in left hand, PRN Dilaudid 0.5 mg IV push given. Skin to left hand noted to be red, swollen, tender and warm to touch. Respirations equal/non labored, call thompson within patient's reach, plan of care ongoing.
[2023-12-18] MEDS: oxyCODONE HCl Immed Release 5 MG TABLET PO ×4 (00:17→19:23)
[2023-12-18] MEDS: 0.9 % Sodium Chloride Flush 3 ML SYRINGE IVFLUSH ×2 (00:19→16:02)
[2023-12-18 03:13] VITALS: RESP 18
[2023-12-18] MEDS: HYDROmorphone HCl 0.5 MG/0.5 ML SYRINGE IVPUSH ×3 (03:13→14:41)
[2023-12-18] MEDS: vancomycin HCL 750 MG in 0.9 % Sodium Chloride 250 ML 265 MG IV (03:15)
[2023-12-18 05:53] LABS: MANUAL DIFF FLAG NO
[2023-12-18 05:57] LABS: Basophils Percent Auto 0.2 % (0-2); Eosinophils Percent Auto 0.1 % (0-4); Hemoglobin 14.2 g/dl (14.0-18.0); Imm Gran Abs Auto 0.05 X10*3/uL (0.00-0.03); Imm Gran Pct Auto 0.5 % (0.0-0.4); Lymphocytes Percent Auto 18.1 % (20-40); Mean Corpuscular HGB Conc 35.5 g/dl (31.0-36.0); Mean Corpuscular Hemoglobin 29.3 pg (27.0-33.0); Mean Corpuscular Volume 82.5 fL (80.0-98.0); Mean Platelet Volume 9.4 fL (9.4-12.4); Monocytes Absolute Auto 0.9 X10*3/uL (0.1-1.2); Monocytes Percent Auto 8.4 % (2-11); Neutrophils Percent Auto 72.7 % (45-73); Platelet Count 177 X10*3/uL (160-400); Red Blood Count 4.85 X10*6/uL (4.60-5.80); Red Cell Distribution Width 12.4 % (11.0-16.0)
[2023-12-18 06:06] LABS: Anion Gap 14 (12-20); Blood Urea Nitrogen 10 mg/dL (9-16); Carbon Dioxide 23 mmol/L (22-29); Chloride 100 mmol/L (96-108); Creatinine Clr Calc Pharmacy 106.8; Estimated Glomerular Filt Rate > 60; Glucose Random 114 mg/dL (60-115); Potassium 3.3 mmol/L (3.3-5.1); Sodium 134 mmol/L (135-145)
[2023-12-18 09:02] VITALS: BP 208/96
[2023-12-18] MEDS: amLODIPine Besylate 10 MG TABLET PO (09:02)
[2023-12-18] MEDS: methADONE HCl 20 MG/2 ML ORAL.CONC 40 MG PO (09:06)
[2023-12-18 09:49] LABS: Vancomycin Random 9.1 mcg/mL (15-20)
--- NOTE | 2023-12-18 09:58 | HE.PHANOTE ---
VANCO DOSE ADJUSTMENT BASED ON SCR AND TROUGH OF 9.1 DOSE INCREASED TO 1000 Q 8H. NEXT LEVEL 12/18 @ 0900
--- NOTE | 2023-12-18 11:04 | HO.PM.IMPN ---
Subjective Subjective Date of Service: 12/18/23 Interval History: No acute issues overnight. Pain control adequate Review of Systems Denies chest pain Denies shortness of breath Denies nausea vomiting diarrhea Denies fever chills Physical Exam Vital Signs: Vital Signs: Last Vital Signs Temp 98.2 F 12/17/23 09:39 Pulse 66 12/17/23 13:07 Resp 18 12/18/23 03:13 BP 208/96 H 12/18/23 09:02 Pulse Ox 96 12/17/23 11:55 O2 Del Method Room Air 12/17/23 11:55 BMI result Body Mass Index 24.4 Const: Other: No acute distress Resp: Other: Clear to auscultation bilaterally no rales rhonchi or wheezes Cardio: Other: No S4; positive S1-S2; no S3 murmurs rubs or gallops GI: Other: Soft nontender nondistended normoactive bowel sounds Extrem: Other: No edema bilaterally. Left hand essentially unchanged from admission Objective Data Active Medications Acetaminophen (Acetaminophen 325 Mg Tablet) 650 mg PO Q6H PRN PRN Reason: Pain, Mild (Pain Scale 1-3), fever or headache Last Admin: 12/17/23 17:00 Dose: 650 mg Documented By: PARI Amlodipine Besylate (Amlodipine Besylate 10 Mg Tablet) 10 mg PO DAILY [facility]; Protocol Last Admin: 12/18/23 09:02 Dose: 10 mg Documented By: ALVAREZ Calcium Carbonate (Calcium Carbonate 750 Mg Tab.Chew) 750 mg PO Q4H PRN PRN Reason: Heartburn Clonidine HCl (Clonidine Hcl 0.1 Mg Tablet) 0.1 mg PO TID PRN; Protocol PRN Reason: opiate withdrawal Last Admin: 12/17/23 15:50 Dose: 0.1 mg Documented By: TONI Enoxaparin Sodium (Enoxaparin Sodium 40 Mg/0.4 Ml Syringe) 40 mg SUBCUT Q24H [facility] Last Admin: 12/17/23 15:53 Dose: 40 mg Documented By: TONI Hydromorphone HCl (Hydromorphone Hcl 0.5 Mg/0.5 Ml Syringe) 0.5 mg IVPUSH Q4H PRN; Protocol PRN Reason: Pain, Severe (Pain Scale 7-10) Last Admin: 12/18/23 09:13 Dose: 0.5 mg Documented By: ALVAREZ Vancomycin HCl 1,000 mg/ (Sodium Chloride) 270 mls @ 270 mls/hr IV Q8H [facility] Magnesium Hydroxide (Milk Of Magnesia 30 Ml Oral.Susp) 30 ml PO DAILY PRN PRN Reason: Constipation Melatonin (Melatonin 3 Mg Tablet) 6 mg PO BEDTIME PRN PRN Reason: Insomnia Methadone HCl (Methadone Hcl 20 Mg/2 Ml Oral.Conc) 40 mg PO DAILY [facility] Last Admin: 12/18/23 09:06 Dose: 40 mg Documented By: ALVAREZ Co-signed By: AILEEN Oxycodone HCl (Oxycodone Hcl Immed Release 5 Mg Tablet) 5 mg PO Q6H PRN PRN Reason: Pain, Moderate(Pain Scale 4-6) Last Admin: 12/18/23 06:09 Dose: 5 mg Documented By: ISMA Pharmacy Consult (Consult Rx Vancomycin Dosing) 1 each MISCELLANE DAILY PRN PRN Reason: Consult order Sodium Chloride (0.9 % Sodium Chloride Flush 3 Ml Syringe) 3 ml IVFLUSH QSHIFT [facility] Last Admin: 12/18/23 07:41 Dose: Not Given Documented By: ALVAREZ Non-Admin Reason: Patient Asleep Labs 12/18/23 05:48 12/18/23 05:48 Labs: Laboratory Results - last 24 hr 12/17/23 12/18/23 12/18/23 13:37 05:48 09:10 MCV 82.5 MCH 29.3 MCHC 35.5 RDW 12.4 Plt Count 177 MPV 9.4 Immature Gran % (Auto) 0.5 H Neut % (Auto) 72.7 Lymph % (Auto) 18.1 L Nelson % (Auto) 8.4 Eos % (Auto) 0.1 Baso % (Auto) 0.2 Lymph # (Auto) 2.0 Nelson # (Auto) 0.9 Eos # (Auto) 0.0 Baso # (Auto) 0.0 Abs Immat Gran (auto) 0.05 H Absolute Neuts (auto) 8.0 Absolute Nucleated RBC 0.000 Nucleated RBC % (auto) 0.0 Anion Gap 14 Estim Creat Clear Calc 106.8 Estimated GFR > 60 Random Glucose 114 Calcium 9.0 Troponin I High Sens 8.2 Random Vancomycin 9.1 L Microbiology Microbiology Results: Microbiology 12/17/23 06:51 Blood Culture - Preliminary Blood - Venous Staphylococcus species 12/17/23 06:51 Blood Culture - Preliminary Blood - Venous Staphylococcus species Assessment and Plan (1) Cellulitis of hand: Status: Acute (2) Gram-positive bacteremia: Status: Acute Plan 58 year old male with history of polystance/IVDA, hld, hepatitis C, anxiety admitted for extensive cellulitis LUE in IVDA 1.Extensive cellulitis LUE in IVDA -CT negative for abscess -vanco (2) -cultures preliminary 2/2 Staphylococcus species 2.OUD/IVDA with acute withdrawal -monitor on COWS -40mg methadone daily -monitor on cows, clonidine prn -Addiction med consult 3.Hypertension -poor control presently -add lisinopril 10 mg daily to regimen. Adjust as indicated Full code Nestorx Requires ongoing hospitalization for IV vancomycin pending identification of positive blood cultures Quality Stroke Does the patient have a stroke diagnosis?: No VTE Prior VTE?: No VTE Risk Level:: Medical - moderate - high VTE Device Contraindication: Treatment Not Indicated VTE Drug Contraindication: N/A - Med Ordered
[2023-12-18] MEDS: vancomycin HCL 1,000 MG in 0.9 % Sodium Chloride 250 ML 270 MG IV ×2 (11:24→19:15)
[2023-12-18] MEDS: cloNIDine HCL 0.1 MG TABLET PO (12:09)
[2023-12-18] MEDS: TiZANidine HCL 4 MG TABLET PO ×2 (14:40→20:36)
[2023-12-18 15:00] VITALS: BP 144/89; PULSE 66; RESP 18; TEMP 37.8; O2SAT 94
[2023-12-18 16:51] VITALS: BP 154/95; PULSE 72; RESP 18; TEMP 36.3; O2SAT 98
[2023-12-18 18:19] LABS: Glucose, Whole Blood 159 mg/dL (60-115)
--- NOTE | 2023-12-18 19:28 | P.PNADD_ITS ---
Subjective Subjective Date of Service: 12/18/23 Reason For Visit: Cellulitis in ivda, opiate w/d Interim History: Patient medically admitted with cellulitis if the hand. History of OUD --known to this continuity writer and ACS via previous admissions Seen in overflow. Laying in bed, eyes closed, but answering questions appropriately. He reports he is using approx half pack of heroin/fentany IV daily. Received methadone 40mg this morning and yesterday at time of admission. Denies any withdrawal sx at time of assessment, however does want to continue titrating dose. He did not appear diaphoretic, and was eating ice cream (no nausea), he was quite restless though as his legs were moving during the entire discussion. Is not currently engaged in treatment for OUD. Review of Systems Constitutional: Reports as per HPI Mental Status Exam Mental Status Exam Patient Appearance: Appropriate Level of Consciousness: Appropriate and Drowsy Patient Behavior: Appropriate Diagnostics Vital Signs (24Hr): Vital Signs - 24 hr 12/17/23 20:04 12/18/23 03:13 12/18/23 09:02 Temperature Pulse Rate Respiratory Rate 16 18 Blood Pressure 208/96 H Pulse Oximetry Oxygen Delivery Method 12/18/23 15:00 12/18/23 16:51 Temperature 100.1 F 97.3 F Pulse Rate 66 72 Respiratory Rate 18 18 Blood Pressure 144/89 H 154/95 H Pulse Oximetry 94 98 Oxygen Delivery Method Room Air Room Air BMI result Body Mass Index 24.4 Labs 12/18/23 05:48 12/18/23 05:48 Labs: Laboratory Results - last 48 hr 12/17/23 12/17/23 12/17/23 06:51 06:52 07:32 WBC 8.7 RBC 4.54 L Hgb 13.4 L Hct 37.5 L MCV 82.6 MCH 29.5 MCHC 35.7 RDW 12.6 Plt Count 149 L MPV 10.3 Immature Gran % (Auto) 0.6 H Neut % (Auto) 75.1 H Lymph % (Auto) 14.7 L [place] % (Auto) 9.2 Eos % (Auto) 0.2 Baso % (Auto) 0.2 Lymph # (Auto) 1.3 [place] # (Auto) 0.8 Eos # (Auto) 0.0 Baso # (Auto) 0.0 Abs Immat Gran (auto) 0.05 H Absolute Neuts (auto) 6.5 Absolute Nucleated RBC 0.000 Nucleated RBC % (auto) 0.0 ESR 21 H Sodium 137 Potassium 3.3 Chloride 104 Carbon Dioxide 24 Anion Gap 12 BUN 14 Creatinine 0.69 Estim Creat Clear Calc 105.3 Estimated GFR > 60 POC Glucose Random Glucose 109 Lactic Acid 0.7 Calcium 9.4 Total Bilirubin 0.7 AST 29 ALT 28 Alkaline Phosphatase 79 Troponin I High Sens C-Reactive Protein 4.38 H Total Protein 7.4 Albumin 3.9 Random Vancomycin Urine Opiates Screen POSITIVE H Ur Buprenorphine Scrn Not Detected Ur Oxycodone Screen Not Detected Urine Methadone Screen Not Detected Urine Fentanyl Screen POSITIVE H Ur Barbiturates Screen Not Detected Ur Phencyclidine Scrn Not Detected Ur Amphetamines Screen Not Detected U Benzodiazepines Scrn Not Detected Urine Cocaine Screen POSITIVE H U Marijuana (THC) Screen Not Detected 12/17/23 12/17/23 12/18/23 10:22 13:37 05:48 WBC 11.0 H RBC 4.85 Hgb 14.2 Hct 40.0 L MCV 82.5 MCH 29.3 MCHC 35.5 RDW 12.4 Plt Count 177 MPV 9.4 Immature Gran % (Auto) 0.5 H Neut % (Auto) 72.7 Lymph % (Auto) 18.1 L [place] % (Auto) 8.4 Eos % (Auto) 0.1 Baso % (Auto) 0.2 Lymph # (Auto) 2.0 [place] # (Auto) 0.9 Eos # (Auto) 0.0 Baso # (Auto) 0.0 Abs Immat Gran (auto) 0.05 H Absolute Neuts (auto) 8.0 Absolute Nucleated RBC 0.000 Nucleated RBC % (auto) 0.0 ESR Sodium 134 L Potassium 3.3 Chloride 100 Carbon Dioxide 23 Anion Gap 14 BUN 10 Creatinine 0.68 Estim Creat Clear Calc 106.8 Estimated GFR > 60 POC Glucose Random Glucose 114 Lactic Acid Calcium 9.0 Total Bilirubin AST ALT Alkaline Phosphatase Troponin I High Sens 9.4 8.2 C-Reactive Protein Total Protein Albumin Random Vancomycin Urine Opiates Screen Ur Buprenorphine Scrn Ur Oxycodone Screen Urine Methadone Screen Urine Fentanyl Screen Ur Barbiturates Screen Ur Phencyclidine Scrn Ur Amphetamines Screen U Benzodiazepines Scrn Urine Cocaine Screen U Marijuana (THC) Screen 12/18/23 12/18/23 09:10 18:13 WBC RBC Hgb Hct MCV MCH MCHC RDW Plt Count MPV Immature Gran % (Auto) Neut % (Auto) Lymph % (Auto) [place] % (Auto) Eos % (Auto) Baso % (Auto) Lymph # (Auto) [place] # (Auto) Eos # (Auto) Baso # (Auto) Abs Immat Gran (auto) Absolute Neuts (auto) Absolute Nucleated RBC Nucleated RBC % (auto) ESR Sodium Potassium Chloride Carbon Dioxide Anion Gap BUN Creatinine Estim Creat Clear Calc Estimated GFR POC Glucose 159 H Random Glucose Lactic Acid Calcium Total Bilirubin AST ALT Alkaline Phosphatase Troponin I High Sens C-Reactive Protein Total Protein Albumin Random Vancomycin 9.1 L Urine Opiates Screen Ur Buprenorphine Scrn Ur Oxycodone Screen Urine Methadone Screen Urine Fentanyl Screen Ur Barbiturates Screen Ur Phencyclidine Scrn Ur Amphetamines Screen U Benzodiazepines Scrn Urine Cocaine Screen U Marijuana (THC) Screen Imaging Radiology Impressions: ITS Impressions Hand/Wrist X-Ray 12/17/23 07:00 IMPRESSION: Normal radiographs of the hand and wrist. Electronically signed by: Lexi Blackwood MD 12/17/2023 08:02 AM EDT RP Hand CT 12/17/23 15:35 IMPRESSION: Extensive subcutaneous edema throughout the dorsum of the hand and wrist without a focal fluid collection to suggest an abscess. Radiocarpal and midcarpal joint effusions. No cortical erosion or other acute osseous abnormality. Electronically signed by: Charles Anne MD 12/17/2023 04:47 PM EDT RP Medications Medications Current Medications Acetaminophen (Acetaminophen 325 Mg Tablet) 650 mg PO Q6H PRN PRN Reason: Pain, Mild (Pain Scale 1-3), fever or headache Last Admin: 12/17/23 17:00 Dose: 650 mg Amlodipine Besylate (Amlodipine Besylate 10 Mg Tablet) 10 mg PO DAILY [facility]; Protocol Last Admin: 12/18/23 09:02 Dose: 10 mg Calcium Carbonate (Calcium Carbonate 750 Mg Tab.Chew) 750 mg PO Q4H PRN PRN Reason: Heartburn Clonidine HCl (Clonidine Hcl 0.1 Mg Tablet) 0.1 mg PO TID PRN; Protocol PRN Reason: opiate withdrawal Last Admin: 12/18/23 12:09 Dose: 0.1 mg Enoxaparin Sodium (Enoxaparin Sodium 40 Mg/0.4 Ml Syringe) 40 mg SUBCUT Q24H [facility] Last Admin: 12/18/23 16:03 Dose: Not Given Hydromorphone HCl (Hydromorphone Hcl 0.5 Mg/0.5 Ml Syringe) 0.5 mg IVPUSH Q4H PRN; Protocol PRN Reason: Pain, Severe (Pain Scale 7-10) Last Admin: 12/18/23 14:41 Dose: 0.5 mg Vancomycin HCl 1,000 mg/ (Sodium Chloride) 270 mls @ 270 mls/hr IV Q8H [facility] Last Admin: 12/18/23 19:15 Dose: 270 mls/hr Magnesium Hydroxide (Milk Of Magnesia 30 Ml Oral.Susp) 30 ml PO DAILY PRN PRN Reason: Constipation Melatonin (Melatonin 3 Mg Tablet) 6 mg PO BEDTIME PRN PRN Reason: Insomnia Methadone HCl (Methadone Hcl 20 Mg/2 Ml Oral.Conc) 40 mg PO DAILY [facility] Last Admin: 12/18/23 09:06 Dose: 40 mg Methadone HCl (Methadone Hcl 20 Mg/2 Ml Oral.Conc) 10 mg PO DAILY PRN PRN Reason: Opiate Withdrawal Oxycodone HCl (Oxycodone Hcl Immed Release 5 Mg Tablet) 5 mg PO Q6H PRN PRN Reason: Pain, Moderate(Pain Scale 4-6) Last Admin: 12/18/23 19:23 Dose: 5 mg Pharmacy Consult (Consult Rx Vancomycin Dosing) 1 each MISCELLANE DAILY PRN PRN Reason: Consult order Sodium Chloride (0.9 % Sodium Chloride Flush 3 Ml Syringe) 3 ml IVFLUSH QSHIFT [facility] Last Admin: 12/18/23 16:02 Dose: 3 ml Tizanidine HCl (Tizanidine Hcl 4 Mg Tablet) 4 mg PO TID [facility] Last Admin: 12/18/23 14:40 Dose: 4 mg Allergies Allergies Allergy/AdvReac Type Severity Reaction Status Date / Time acetaminophen [From TYLENOL] Allergy Intermediate UPSET Verified 12/17/23 04:41 STOMACH morphine Allergy Intermediate Headache Verified 12/17/23 04:41 codeine [Codeine] Allergy Mild HIVES, Verified 12/17/23 04:41 VOMITING Assessment & Plan Assessment & Plan (1) Opioid use disorder: Status: Acute Code(s): F11.90 - Opioid use, unspecified, uncomplicated Assessment and Plan: * continue methadone 40mg daily * additional 10mg PRN daily * will continue to titrate dose as appropriate * tizanidine TID for restless legs Total time managing care of this patient today _20___ minutes.
--- NOTE | 2023-12-18 21:01 | PM.EVENT ---
Event Note Date of Service: 12/18/23 Event Note: 50-year-old male admitted with cellulitis of the left hand with Staph bacteremia. Patient reports he desired to leave against medical advice. He does not give reason for wanting to leave and states he will go to another hospital. Discussed the risks of not remaining for IV antibiotics including worsening infection leading to sepsis/severe sepsis, extension of infection into the bone, loss of limb, or . He is given a prescription for doxycycline 100 mg twice daily times 14 days but does again expressed understanding that this is highly unlikely to eradicate his infection. He is oriented x3 and expresses understanding of risk. At time of discharge, patient is deemed to have capacity. Time Spent With Patient Time: Total time managing care of this patient today ____ minutes.
--- NOTE | 2023-12-18 21:44 | PC.NURSE ---
Patient stating he wanted to leave. Provider called to room and it was explained to patient the risks of leaving and not being treated for his hand infection. Patient stated he is aware and will seek care at another hospital . IV removed and security called for patient's belongings. Patient escorted by nursing staff to security.
--- NOTE | 2023-12-19 13:20 | P.DS_ITS ---
DS: Providers Provider Date of Service: 12/19/23 Date of admission: 12/17/23 15:31 Date of discharge: 12/18/23 Primary care physician: Unknown Physician Consults: 12/17/23 15:49 Addiction Medicine Routine Consulting Provider: Addiction Covering Reason for consultation: polysubstance/ivda DS: Diagnosis Discharge Diagnosis (1) Opioid use disorder: Status: Acute DS: Summary Hospital Course Hospital Course: 58 year old male with history of polystance/IVDA, hld, hepatitis C, anxiety presents to the ED for evaluation of pain and swelling of the L hand ongoing for several days. Reports injecting drugs into the left hand (last IV heroin use last night) with significant pain and swelling worsening over the last few days. Hand and forearm are hot to touch. No fevers, chills, abd pain, n/v/d, sob, lightheadedness, chest pain, purulent draiange from hand. On arrival pt hypertensive to 232/100 improved to 170/93 on admission after 10mg amlodipine and 10mg lisinopril. Also given 40mg methadone and is acutely withdrawing with hypertension, agitation, anxiety. Vitals otherwise stable. No leukocytosis. No sepsis. Stable normocytic anemia. Renal function, lytes wnl. CRP 4.38, ESR 21. Tox screen + for opiates, fentanyl, cocaine. XR hand/wrist unremarkable. CT hand pending. In the ED, given ancef, vanco, ibuprofen, ketorolac, tramadol, and methadone. Hospital course Late p.m. 9 to patient requested leaving AMA. Notes document capacity and understanding of risk. Time Attestation Discharge Coordination Time (in mins): 35 Quality: Safe Use of Opioids Does Pt have an Active Cancer Diagnosis on the Problem List?: No Quality: Stroke Does the patient have a stroke diagnosis?: No Physical Exam Vital Signs: Vital Signs: Last Vital Signs Temp 97.3 F 12/18/23 16:51 Pulse 72 12/18/23 16:51 Resp 18 12/18/23 16:51 BP 154/95 H 12/18/23 16:51 Pulse Ox 98 12/18/23 16:51 O2 Del Method Room Air 12/18/23 16:51 BMI result Body Mass Index 24.4 DS: Data Data Completed and Pending Completed studies during hospitalization [Text1]: Procedures Drainage of Left Hand Tendon, Percutaneous Approach (10/18/22) Labs on day of discharge: Laboratory Results - last 24 hr 12/18/23 18:13 POC Glucose 159 H Discharge Plan Discharge Anticipated Discharge Date/Time: 12/18/23 20:56 Patient Disposition: Left Against Medical Advice Discharge Diagnosis: Cellulitis L hand, Bacteremia Referrals: Physician,Unknown J [Primary Care Provider] - 1 Week Discharge Medications: New doxycycline monohydrate 100 mg capsule 100 mg PO BID Qty: 28 0RF Discharge Orders: Discharge Order (Routine); Ordered 12/18/23 Ordered By: Christina Arriola Diet: Advance to usual diet Activity on Discharge: As tolerated Stand Alone Forms: Patient Portal Discharge page Print Language: Greek Care Plan Goals: You are leaving against medical advice. It is very unlikely that the oiral antibiotic prescribed will eradicate the infection of your hand and in the blood You expressed understanding of the risks including worsening of infection to include sepsis/severe sepsis, infection of the bone, loss of limb, or . The infection in your blood could spread to your heart again possibly leading to . I highly recommend remaining in the hospital for IV antibiotics Health Concerns: Cellulitis L Hand related to IV drug abuse Bacteremia- blood infection Plan of Treatment: Doxycyline 100mg twice daily prescribed x 14 days, but again unlikely to be curative Recommend returning to the hospital for IV antibiotics Assessment: See above. See discharge summary Discharge Date/Time: 12/18/23 21:00
== END 2023-12-18 21:00 | disposition left against medical advice (07) | DRG 603 ==
LOC: HO.ED 13:11 → HO.EDOVER 15:41 → HO.S3 12-18 15:44
PROVIDERS: Registered Nurse Emergency; Admitting Provider Physician Assistant; Emergency Provider Emergency Medicine; Visit Provider Hospitalist
DX: L03.114 Cellulitis of left upper limb (principal); F11.93 Opioid use, unspecified with withdrawal; R78.81 Bacteremia; I10 Essential (primary) hypertension; B95.61 Methicillin susceptible Staphylococcus aureus infection as the cause of diseases classified elsewhere; Z59.02 Unsheltered homelessness
CPT/HCPCS: 36415; 73110; 73130; 73201; 80048; 80053; 80202; 80307; 82947; 83605; 84484; 85025; 85652; 86140; 87040; 87077; 87147; 87186; 87205; 93005; 99285; J0690; J1170; J1650; J1885; J3370; Q9967

== ENCOUNTER → 2023-12-17 15:31 | Outpatient (BNV) | payer OTHER, SELFPAY | PROVIDERS: Admitting Provider Physician Assistant; Emergency Provider Emergency Medicine; Visit Provider Hospitalist | DX: L03.114 Cellulitis of left upper limb (principal); F11.90 Opioid use, unspecified, uncomplicated; Z53.29 Procedure and treatment not carried out because of patient's decision for other reasons | CPT/HCPCS: 99223; 99239; 99499 ==

== ENCOUNTER → 2023-12-17 15:31 | Outpatient (BNV) | payer OTHER, SELFPAY | PROVIDERS: Admitting Provider Physician Assistant; Emergency Provider Emergency Medicine; Visit Provider Nurse Practitioner Psychiatric/Mental Health | DX: F11.90 Opioid use, unspecified, uncomplicated (principal) | CPT/HCPCS: 99232 ==

== ENCOUNTER 2024-03-08 11:33 | Emergency (ER) | payer OTHER, SELFPAY ==
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
[2024-03-08 11:41] VITALS: BP 140/80; PULSE 96; O2SAT 96
[2024-03-08 11:47] VITALS: BP 152/79; PULSE 46; RESP 16; O2SAT 97; BMI 24.2
[2024-03-08 11:56] VITALS: TEMP 36.5
--- NOTE | 2024-03-08 12:05 | PC.NURSE ---
ATTEMPTED TO CALL [facility], 2 PHONE NUMBERS DISCONNECTED, 3RD PHONE NUMBER [phone] [place] [facility] NO ANSWER
--- NOTE | 2024-03-08 12:09 | PC.NURSE ---
Patient refusing to get changed into hospital attire, security at bedside. Informed patient that telephone exchange operator is part of hospital policy. Continues to refused to telephone exchange operator and now refusing all medical treatment. Gualberto provider to bedside to speak to patient, patient continued to refuse. Ambulance scheduled for transport back to [facility]. Called [facility], spoke to Lavern BANKS, informed him patient is refusing medical treatment and is being sent back to [facility]. [facility] at [facility] time.
--- NOTE | 2024-03-08 13:44 | MHC.EDTECH ---
pt refused labs and ekg
[2024-03-08 16:25] VITALS: BP 210/108; PULSE 50; RESP 16; TEMP 36.6; O2SAT 100
--- NOTE | 2024-03-08 16:40 | PC.NURSE ---
patient awake and alert. skin pwd, resp even and non labored, speaking in full, clear sentences. c/o 09/24 headache. hypertensive, patient states that its because he missed his 1400 methadone dose. PA aware.
[2024-03-08] MEDS: methADONE HCl 20 MG/2 ML ORAL.CONC 40 MG PO (17:06)
[2024-03-08 17:19] VITALS: BP 168/85; PULSE 46; RESP 16; O2SAT 98
--- NOTE | 2024-03-08 18:01 | PC.NURSE ---
patient awake and alert. skin pwd, resp even and non labored. speaking in full, clear sentences. states headache is resolved at this time. continue to wait for ambulance for transfer back to [facility]. Report has been called to Patiduglas BANKS at [facility]
[2024-03-08 18:16] VITALS: BP 168/85; PULSE 46; RESP 16; TEMP 36.6; O2SAT 98
== END 2024-03-08 18:18 | disposition left against medical advice (07) ==
PROVIDERS: Emergency Provider Emergency Medicine
DX: S09.90XA Unspecified injury of head, initial encounter (principal); Y04.2XXA Assault by strike against or bumped into by another person, initial encounter; M25.531 Pain in right wrist; F19.10 Other psychoactive substance abuse, uncomplicated; Y93.9 Activity, unspecified; Y92.199 Unspecified place in other specified residential institution as the place of occurrence of the external cause; Y99.9 Unspecified external cause status
CPT/HCPCS: 73110; 99284

== ENCOUNTER 2024-06-09 17:12 | Emergency (ER) | payer OTHER, SELFPAY ==
[2024-06-09 17:44] VITALS: BP 156/94; PULSE 82; RESP 16; TEMP 37.1; O2SAT 98; BMI 26.5
--- NOTE | 2024-06-09 17:59 | ED.GENADULT ---
HPI - General Adult General Chief complaint: General Medical Stated complaint: methadone dose Time Seen by Provider: 06/09/24 17:58 Source: patient Mode of arrival: ambulatory Limitations: no limitations History of Present Illness ED Provider: chele jean np HPI narrative: Patient is a 50-year-old male with opioid use disorder presents emergency department requesting assistance with methadone dosing. Reports that he follows with [facility]. he missed his dosing today as he was in another town and did not have a ride to get there. He denies recreational drug or alcohol usage. He reports he was last dose yesterday with 100 mg. Denies any physical complaints Related Data Previous Rx's ?Medication ?Instructions ?Recorded doxycycline monohydrate 100 mg 100 mg PO BID #28 caps 12/18/23 capsule Allergies Allergy/AdvReac Type Severity Reaction Status Date / Time acetaminophen [From TYLENOL] Allergy Intermediate UPSET Verified 06/09/24 17:46 STOMACH morphine Allergy Intermediate Headache Verified 06/09/24 17:46 codeine [Codeine] Allergy Mild HIVES, Verified 06/09/24 17:46 VOMITING Review of Systems Review of Systems: Yes all other systems are reviewed and are negative PMFSH Past Medical History Attestation statement: The following information was validated with the patient. Source: old records reviewed Medical History Substance abuse Colitis Anxiety Surgical History H/O oral surgery Social History Social History Household Members: None Household Members Other:: homeless Housing: Apartment Do you presently have visiting nurse or other home services: No Alcohol intake: current Alcohol intake frequency: 3 or more drinks per day Patient Tobacco Use Status: Never used Tobacco Tobacco use type: Cigarette e-Cigarette/Vaping Use: Currently Using Second Hand Smoke Exposure: Yes Substance Use Type: Crack/Cocaine and Heroin Do you have a plan to hurt others: No Plan service: No Current occupational status: unemployed Physical Exam ED Vital Signs: Vital Signs - 24 hr 06/09/24 17:44 Temperature 98.8 F Pulse Rate 82 Respiratory Rate 16 Blood Pressure 156/94 H Pulse Oximetry 98 BMI result Body Mass Index 26.5 Appearance: Alert.?Oriented to person, place and time. No acute distress.?Normal affect. Eyes: Pupils equal, round and reactive to light.? CVS: Heart sounds normal. Normal heart rate and rhythm.? Pulses normal.?? Respiratory: No respiratory distress.? Lung sounds clear to auscultation bilaterally?? Skin: Skin warm and dry.? Normal skin color.?? Neuro: Moves all extremities spontaneously. Sensation intact bilaterally. Ambulates with normal steady gait. Medications Administered Discontinued Medications Generic Name Dose Route Start Last Admin Trade Name Kulwant PRN Reason Stop Dose Admin Methadone HCl 100 mg 06/09/24 17:58 06/09/24 18:15 Methadone Hcl 20 Mg/2 Ml Oral.Conc PO 06/09/24 17:59 100 mg ONCE ONE Administration Medical Decision Making Medical Decision Making [facility] Narrative: Patient is a 58-year-old male with past medical history of opioid use disorder presenting for assistance with methadone dosing, last dose verified from his methadone clinic[facility] [employer], to be 100 mg last dose yesterday. He received a single dose of methadone 100 mg in the emergency department today. He denies recreational drug or alcohol usage. He at this time does not appear under the influence of substances. Alert and oriented x3. A steady gait. Offers no physical complaints in his physical examination is benign. Stable for discharge Differential Diagnosis Differential Diagnoses: The differential diagnosis associated with the presentation includes (Opioid use disorder, methadone dependence, recreational drug usage) External Record Review External record reviewed: Outpatient record (See narrative above) Chronic Conditions Patient?s care impacted by: Other (See narrative above) Discharge Plan Discharge Clinical Impression: Opioid use disorder Patient Disposition: Home, Self-Care Instructions: Opioid Use Disorder (ED) Additional Instructions: Opiate use disorder You were seen in our Emergency Department today for treatment of opiate use disorder. You may have been dosed with medication for opiate use disorder (MOUD) in the form of methadone in accordance with your dosage through your clinic. You received a single dose of methadone 100 mg orally. Please continue to follow-up with your clinic. Return with any new or worsening symptoms or concerns Prescriptions: No Action doxycycline monohydrate 100 mg capsule 100 mg PO BID Qty: 28 0RF Referrals: Physician,None [Physician] - Print Language: Italian
--- NOTE | 2024-06-09 18:09 | HE.PHANOTE ---
RE METHADONE Patient confirmed to be taking methadone with SHAI kinney, last dose confirmed to be given 06/08/24 @0847 am for 100 mg
[2024-06-09] MEDS: methADONE HCl 20 MG/2 ML ORAL.CONC 100 MG PO (18:15)
[2024-06-09 18:27] VITALS: BP 156/94; PULSE 82; RESP 16; TEMP 37.1; O2SAT 98
== END 2024-06-09 18:28 | disposition home or self-care (01) ==
LOC: HO.ED 18:23
PROVIDERS: Emergency Provider Emergency Medicine Emergency Medical Services; PCP Internal Medicine
DX: F11.10 Opioid abuse, uncomplicated (principal); Z71.51 Drug abuse counseling and surveillance of drug abuser; Z79.899 Other long term (current) drug therapy
CPT/HCPCS: 99282; 99283

== ENCOUNTER 2024-11-19 16:17 | Emergency (ER) | payer OTHER, SELFPAY ==
[2024-11-19] VITALS (13 sets, daily range): BP systolic 160–210; BP diastolic 70–95; PULSE 47–80; RESP 15–23; TEMP 36.9–37.2; O2SAT 94–99; BMI 23.3
--- NOTE | ~2024-11-19 | MR_ITS ---
CLINICAL HISTORY: low back pain , IVDU, r o epidural abscess --- Additional Notes or Special Instructions: needs spinal screen for epidural abscess, BEST OBTAINABLE MOTION ON IMAGES MR of the lumbar spine with and without contrast Comparison: None Findings: 1-2 mm retrolisthesis of L1 on L2, L2 on L3 and L4 on L5, degenerative. Multilevel endplate edema and enhancement is present L1/L2, L2/L3, L3/L4and L5/S1. Question edema within the discs L3/L4, L4/L5 and L5/S1. There are Schmorl's nodes at multiple levels with associated edema. There is multilevel Modic type 2 change. There is edema and enhancement within the L4/L5 facet joints, more pronounced on the left with extension into the L5 pedicle on the left. To a lesser extent there is also edema and enhancement within the facet joints L5/S1 with extension into the left sacral ala. No cord expansion or abnormal signal intensity. The conus medullaris terminates at T12, which is normal. The cauda equina is unremarkable. There is an epidural rim enhancing fluid collection of the L4/L5 level of the dorsal aspect measuring 4 x 5 x 12 mm (measured on series 36, image 27 and series 32, image 7). There is a rim enhancing fluid collection of the ventral aspect beginning at the L4 level and extending to L5/S1 which measures up to 4 mm in thickness (see series 24 and 32, image 8 and series 36 images 25 through 32). No abscess within the paraspinous musculature. L1/L2: 2 mm disc bulge. Mild facet joint and ligamentum flavum hypertrophy. Mild central canal stenosis. Mild bilateral lateral recess. No foraminal stenosis. L2/L3: 3 mm disc bulge. Mild facet joint and ligamentum flavum hypertrophy. Mild central canal stenosis. Mild bilateral lateral recess stenosis. No foraminal stenosis. L3/L4: 4 mm broad-based disc bulge. Mild facet joint and ligamentum flavum hypertrophy. Mild central canal stenosis. Moderate bilateral lateral recess stenosis. No foraminal stenosis. L4/L5: 4 mm broad-based disc bones. Moderate facet joint and ligamentum flavum hypertrophy. Mild central canal stenosis. Severe bilateral lateral recess stenosis. Mild bilateral foraminal stenosis. L5/S1: 2 mm disc bones. Mild to moderate facet joint and ligamentum flavum hypertrophy. Mild central canal stenosis. Mild right moderate left foraminal stenosis. Impression: Small epidural abscesses at L4/L5 at the dorsal aspect and extending from L4-L5/S1 at the ventral aspect; no severe central spinal canal stenosis. Edema and enhancement within the facet joints at L4/L5 and L5/S1, greater on the left and with extension into L5 pedicle on the left in the left sacral ala which is favored to indicate facet joint septic arthritis/osteomyelitis. There is multilevel endplate edema and enhancement which could be Modic type 1 change and/or secondary to acute Schmorl's nodes. Discitis/osteomyelitis may also be considered, particularly at L3/L4, L4/L5 and L5/S1. This document has been electronically signed by: Elmira Ortiz MD on 11/19/2024 19:48:19
--- NOTE | ~2024-11-19 | MR_ITS ---
CLINICAL HISTORY: low back pain , IVDU, r o epidural abscess --- Additional Notes or Special Instructions: needs spinal screen for epidural abscess, BEST OBTAINABLE MOTION ON IMAGES MR thoracic spine with and without contrast Comparison: MR - MR LUMBAR SPINE WO/W CON - 11/19/24 18:17 EDT MR - MR CERVICAL SPINE WO/W CON - 11/19/24 18:[address]/SR - CT THORACIC SPINE WITH IV CONTRAST - 02/06/22 17:13 EDT Findings: Normal alignment. There is moderate height loss of T9 which is new since the prior study. There is edema throughout the T9 vertebra with a fracture line near the superior endplate. No retropulsion of fracture fragments. There is a trace amount of edema within the posterior elements. There is edema and enhancement along the inferior endplate of T8 with a trace amount of edema and enhancement along the superior endplate T10 at the right aspect. There is a mild amount edema and enhancement at T10/T11 endplates of the anterior aspect. There is edema and enhancement at T10/T11 facet joints, greater on the left. Edema extends into T11 pedicle on the left. No severe central canal stenosis; there is at most mild central spinal canal stenosis secondary to small disc protrusions at multiple levels such as T8/T9, T9/T10, T10/T11 and T11/T12. No epidural abscess. No paravertebral abscess; abnormal enhancement of the left aspect of the level T9 within paravertebral soft tissues without a definitive abscess. No abscess within the paraspinous musculature. The spinal cord is normal in size and signal. Impression: Moderate height loss of T9 with edema throughout the vertebra and a fracture line near the superior endplate, new since the prior study. A pathologic fracture due to osteomyelitis is favored. A posttraumatic etiology is considered less likely; suspect extension of infection into the adjacent T8 and T10 vertebra. Edema and enhancement at the T10/T11 facet joints which is greater on the left which extends into the T11 pedicle on the left is favored to indicate facet joint septic arthritis/osteomyelitis. No epidural abscess. This document has been electronically signed by: Elmira Ortiz MD on 11/19/2024 20:05:12
--- NOTE | ~2024-11-19 | MR_ITS ---
CLINICAL HISTORY: low back pain , IVDU, r o epidural abscess --- Additional Notes or Special Instructions: needs spinal screen for epidural absces, BEST OBTAINABLE MOTION ON IMAGES MR cervical spine with and without contrast Comparison: MR/SR - MR CERVICAL SPINE WITHOUT IV CONTRAST - 02/09/22 13:52 EDT MR/SR - MR CERVICAL SPINE WITHOUT THEN WITH IV CONTRAST - 02/07/22 09:[address]/KS/SR - CT CERVICAL SPINE WITH IV CONTRAST - 02/06/22 17:[address]/KS - CT CERVICAL SPINE WITH IV CONTRAST - 02/06/22 17:13 EDT Findings: 1 mm retrolisthesis of C3 on C4. 2 mm anterolisthesis of C7 on T1. There is edema at C5/C6 and C6/C7, also present on the prior studies. Enhancement is associated with edema at C5/C6 and C6/C7. Minimal prevertebral edema. No edema within the paraspinous musculature. The cervical cord is normal in size and signal. No rim enhancing epidural fluid collection. C2/C3: No disc herniation. No facet joint or ligamentum flavum hypertrophy. No central canal stenosis. No foraminal stenosis. C3/C4: 2 mm disc protrusion. Mild facet joint and ligamentum flavum hypertrophy. Mild central canal stenosis. No foraminal stenosis. C4/C5: 2-3 mm disc protrusion. Mild facet joint and ligamentum flavum hypertrophy. Mild central canal stenosis. No foraminal stenosis. C5/C6: 3 mm disc protrusion. Moderate facet joint and ligamentum flavum hypertrophy. [id number] central canal stenosis. Moderate bilateral foraminal stenosis. C6/C7: 2 mm disc protrusion. Mild facet joint and ligamentum flavum hypertrophy. Mild central canal stenosis. Moderate bilateral foraminal stenosis. Impression: Edema at C5/C6 and C6/C7 was also present on the prior studies and is favored to be modic type 1 change/ degenerative. There is associated enhancement of edema at C5/C6 and C6/C7 which can be seen with degenerative change, however there is also minimal prevertebral edema and therefore infection can not be entirely excluded. No epidural abscess. Multilevel degenerative change, detailed above. This document has been electronically signed by: Elmira Ortiz MD on 11/19/2024 19:52:21
--- NOTE | 2024-11-19 16:37 | ED_ITS ---
HPI - General Adult General Chief complaint: General Medical Stated complaint: back pain x2 days Time Seen by Provider: 11/19/24 16:37 Source: patient and EMS Mode of arrival: EMS Limitations: no limitations History of Present Illness ED Provider: LORE JENKINS PA-C HPI narrative: 59 year old male with pmhx significant for IVDU, opioid use disorder, hepatitis C, HLD, HTN, anxiety presents to the ED today via EMS for evaluation of low back pain x2 days, worsening. Reports pain to entire low back. No radiation. Reports tingling down both lower extremities with difficulty ambulating. Additionally reports difficulty with urination and passing BM. States his last BM was in the ED today prior to my interview. He was also able to urinate upon arrival to ED. 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 He is dosed with 140 mg methadone daily. Denies fever, chills, saddle anesthesia. Denies recent injury or trauma to the back. Denies hx of spinal surgery. Related Data Previous Rx's ?Medication ?Instructions ?Recorded doxycycline monohydrate 100 mg 100 mg PO BID #28 caps 12/18/23 capsule Allergies Allergy/AdvReac Type Severity Reaction Status Date / Time acetaminophen (From TYLENOL) Allergy Intermediate UPSET Verified 11/19/24 16:36 STOMACH morphine Allergy Intermediate Headache Verified 11/19/24 16:36 codeine (Codeine) Allergy Mild HIVES, Verified 11/19/24 16:36 VOMITING Review of Systems 2 Review of Systems: Yes all other systems are reviewed and are negative [facility] Past Medical History Attestation statement: The following information was validated with the patient. Source: old records reviewed and nursing notes reviewed Medical History Substance abuse Colitis Anxiety Surgical History H/O oral surgery Social History Social History Household Members: None Household Members Other:: homeless Housing: Apartment Do you presently have visiting nurse or other home services: No Alcohol intake: current Alcohol intake frequency: 3 or more drinks per day Patient Tobacco Use Status: Never used Tobacco Tobacco use type: Cigarette e-Cigarette/Vaping Use: Currently Using Second Hand Smoke Exposure: Yes Substance Use Type: Crack/Cocaine service: No Current occupational status: unemployed Physical Exam ED Vital Signs: Vital Signs - 24 hr 11/19/24 16:25 11/19/24 16:32 11/19/24 17:17 Temperature 98.9 F 98.9 F Pulse Rate 64 66 58 Respiratory Rate 18 18 16 Blood Pressure 160/88 H 160/88 H 165/88 H Pulse Oximetry 94 94 96 Oxygen Delivery Method Room Air Room Air Room Air 11/19/24 17:25 11/19/24 17:40 11/19/24 17:51 Temperature Pulse Rate 58 55 Respiratory Rate 15 Blood Pressure 162/86 H 171/81 H Pulse Oximetry Oxygen Delivery Method 11/19/24 17:56 11/19/24 20:49 11/19/24 22:00 Temperature 98.8 F Pulse Rate 53 47 L Respiratory Rate 16 23 H Blood Pressure 160/75 H 180/85 H Pulse Oximetry 99 Oxygen Delivery Method Room Air 11/19/24 22:30 11/19/24 22:35 11/19/24 23:00 Temperature 98.4 F 98.4 F Pulse Rate 57 57 Respiratory Rate 16 20 20 Blood Pressure 210/95 H 210/95 H Pulse Oximetry 94 94 Oxygen Delivery Method Room Air Room Air BMI result Body Mass Index 23.3 hypertensive, afebrile General: uncomfortable appearing Skin: multiple scabs to face, UE/LE consistent with skin picking. no obvious areas of infection. Head: Normocephalic, atraumatic. EENT: Hearing is intact b/l. Conjunctiva clear. PERRLA. EOM intact. Moist mucous membranes.?Edentulous Cardiac: Chest wall symmetric. RRR Lungs: Normal respiratory effort without accessory muscle use. CTA bilaterally Abdomen: Soft, non-tender, non-distended. No rebound tenderness or guarding. Positive BS x4. Back: + there is midline lumbar spinous tenderness to palpation, no palpable fluctuance, deformity, step-off. No overlying erythema. No warmth. Ext: Upper and lower extremities atraumatic, without tenderness, deformity, swelling or erythema Neuro: AOx3. Normal speech. Strength 5/5 intact throughout. No saddle anesthesia. Sensation intact to light touch. NV intact distally Course Course Course Narrative: 1809 -- CBC showing leukocytosis to 11.3. Normocytic anemia, H and H appears to be around patient's baseline when compared to priors. Chemistry without acute electrolyte abnormality requiring intervention. No ROMEO. Total bili elevated to 1.1 of unknown significance. Liver function is otherwise WNL. Troponin WNL at 6.6. EKG showing normal sinus rhythm with a rate of 64 beats per minute, there is T inversion in V1 through V3, evident on prior EKGs, no ST elevations. CRP elevated to 5.37. lactic wnl. blood cultures sent. > given patient's history of IV drug use, exquisite tenderness on palpation of lumbar spine, white count and elevated inflammatory markers, concern for epidural abscess. MRI ordered for epidural screen - spoke with signal operator technicalelaine gutierrez who is aware and will be grabbing patient for scan shortly. MRI screening form completed. medicated w/ toradol and dilaudid. IVF running. ceftriaxone + vancomycin ordered for coverage. > he does not meet criteria for sepsis at this time. 1917 -- patient is stable at the end of my shift. He is currently in MRI. patient signed out to my attending, dr. hernandez, pending imaging and disposition. Familia Hernandez, attending physician note on 11/19/24 21:19 hours I assumed care of this patient from my colleague, physician apartment assistant manager Lore Jenkins at 19:18 hours pending the patient's MRI results. HPI: 59 year old male with pmhx significant for IVDU, opioid use disorder, hepatitis C, HLD, HTN, anxiety presents who came to the emergency department by [facility] for evaluation of low back pain x2 days with pain radiating down both legs, difficulty ambulating. Patient states he has been using injection drugs. Patient does take methadone 140 mg daily and was dose with a his methadone today. He denied any trauma to his back. Exam: General: Awake, alert, disheveled in moderate distress secondary to his pain Head: Normocephalic, atraumatic EENT: PERRL, Lids normal, sclera normal, conjunctiva normal, nose normal , ears normal, throat without erythema or exudates Neck: Supple, no adenopathy Lung: breath sounds symmetric, no wheezing, rales or rhonchi Chest: symmetric movement, nontender Heart: regular rate and rhythm, normal S1, S2 no murmurs or rubs Abdomen: soft, non-tender, nondistended, normal bowel sounds Back: Tenderness palpation of his thoracic and lumbar vertebrae, no lesions or skin changes noted Extremities: no deformities, moves all extremities symmetrically Neuro: Awake, alert, oriented, normal speech, cranial nerves intact difficulty moving lower extremity secondary to pain Psych: Pleasant, cooperative Course: MRI spinal screen identified abnormalities at the thoracic region, thoracic MRI revealed multiple levels of osteomyelitis of the thoracic spine and T10/T11 facet joint septic arthritis. Please see the full report in the medical decision making radiology impression section. We do not have neurosurgical capabilities here at this facility therefore the patient will need to be transferred to a tertiary care hospital. Patient was treated with normal saline IV x1 L, ceftriaxone 2 g IV and vancomycin 1500 mg IV. He also received hydromorphone 1 mg IV x3 doses and ketorolac 30 mg IV x1. The patient has had elevated blood pressures since he has been here in the emergency department, and a reviewing his past history, the patient has had uncontrolled/untreated essential hypertension since 2021. I did discuss transfer with both [facility] and [facility] and they were closed to transferred due to capacity issues. I did discuss the patient's presentation with the [facility] transfer line and the patient was accepted as an ED to ED transfer to [facility]. Accepting attending is Dr. Manzano. The patient will be transferred by BLS ambulance. The patient is aware of this transfer and agrees to the transfer at this time. I, Dr. Familia Hernandez, personally evaluated the patient. I reviewed the physician apartment assistant manager Lore Jenkins documentation and I was available to supervise the management of the patient. I agree with her treatment and plan. Further, I agree with the controlled substance medications ordered by here to manage this patient's pain. My note reflects my personal findings on my history and exam. 11/20/2024 1407 Marianna Parra PA-C ---> Patient's 2/2 blood cultures positive for gram-positive cocci in clusters, MRSA negative, SA positive. I called the [place] ED and spoke to JOCELYN Noyola, taking care of Isai, and relayed these results. Medications Administered Discontinued Medications Generic Name Dose Route Start Last Admin Trade Name Freq PRN Reason Stop Dose Admin Ceftriaxone Sodium 2 gm 11/19/24 17:39 11/19/24 17:51 Ceftriaxone Sodium 2 Gm Vial IVPUSH 11/19/24 17:40 2 gm ONCE ONE Administration Gadobutrol 7.5 ml 11/19/24 19:09 11/19/24 19:10 Gadobutrol 7.5 Ml Vial IVPUSH 11/19/24 19:10 7 ml ONCE ONE Administration Hydromorphone HCl 1 mg 11/19/24 17:44 11/19/24 17:51 Hydromorphone Hcl 1 Mg/Ml Syringe IVPUSH 11/19/24 17:45 1 mg ONCE ONE Administration Protocol Hydromorphone HCl 1 mg 11/19/24 21:47 11/19/24 22:00 Hydromorphone Hcl 1 Mg/Ml Syringe IVPUSH 11/19/24 21:48 1 mg ONCE STA Administration Protocol Sodium Chloride 1,000 mls @ 999 mls/hr 11/19/24 16:45 11/19/24 18:22 Ns IV 11/19/24 17:45 Infused .Q1H1M ALBERTO Infusion Vancomycin HCl 1,500 mg/ 500 mls @ 333.333 mls/hr 11/19/24 17:39 11/19/24 21:15 Sodium Chloride IV 11/19/24 19:08 Infused ONCE ONE Infusion Ketorolac Tromethamine 30 mg 11/19/24 16:47 11/19/24 17:12 Ketorolac Tromethamine 30 Mg/Ml Vial IVPUSH 11/19/24 16:48 30 mg ONCE ONE Administration Medical Decision Making Medical Decision Making MDM Narrative: 59 year old male with pmhx significant for IVDU, opioid use disorder, hepatitis C, HLD, HTN, anxiety presents to the ED today via EMS for evaluation of low back pain x2 days. Patient is hypertensive, afebrile. He is uncomfortable appearing, moaning in pain when having to transition from his side to his back. Sensation intact to light touch to lower extremities. There is midline lumbar spinous tenderness to palpation, no palpable fluctuance, deformity, step off or warmth. No overlying erythema. multiple scabbed lesions noted to face, bilateral upper and lower extremities consistent with skin picking. Differential diagnosis includes MSK sprain/strain, sciatica, lumbar radiculopathy, arthritis, disc herniation, epidural abscess, cord compression Plan for labs, inflammatory markers, imaging, EKG, re-evaluation Differential Diagnosis Differential Diagnoses: The differential diagnosis associated with the presentation includes as above. Admission/Observation Consideration of admission/observation: Escalation of care including admission/observation considered Lab Data MDM Lab Attestation statement: I reviewed the patient's lab results. as above. 11/19/24 16:59 11/19/24 17:36 Labs: Lab Results 11/19/24 11/19/24 11/19/24 Range/Units 16:59 17:01 17:36 WBC 11.3 H (4.8-10.8) X10*3/uL RBC 4.51 L (4.60-5.80) X10*6/uL Hgb 13.1 L (14.0-18.0) g/dl Hct 38.0 L (42.0-52.0) % MCV 84.3 (80.0-98.0) fL MCH 29.0 (27.0-33.0) pg MCHC 34.5 (31.0-36.0) g/dl RDW 13.7 (11.0-16.0) % Plt Count 144 L (160-400) X10*3/uL MPV 10.0 (9.4-12.4) fL Immature Gran % (Auto) 0.4 (0.0-0.4) % Neut % (Auto) 74.5 H (45-73) % Lymph % (Auto) 16.2 L (20-40) % [place] % (Auto) 8.7 (2-11) % Eos % (Auto) 0.0 (0-4) % Baso % (Auto) 0.2 (0-2) % Lymph # (Auto) 1.8 (1.2-4.9) X10*3/uL [place] # (Auto) 1.0 (0.1-1.2) X10*3/uL Eos # (Auto) 0.0 (0.0-0.4) X10*3/uL Baso # (Auto) 0.0 (0.0-0.2) X10*3/uL Abs Immat Gran (auto) 0.04 H (0.00-0.03) X10*3/uL Absolute Neuts (auto) 8.4 H (2.0-8.3) x10*3/uL Absolute Nucleated RBC 0.000 (0.0-0.012) X10*3/uL Nucleated RBC % (auto) 0.0 (0.0-0.2) /100WBC ESR 19 H (0-15) MM/HR Sodium 135 (135-145) mmol/L Potassium 3.8 (3.3-5.1) mmol/L Chloride 104 (96-108) mmol/L Carbon Dioxide 24 (22-29) mmol/L Anion Gap 11 L (12-20) BUN 15 (9-16) mg/dL Creatinine 0.74 (0.5-1.4) mg/dL Estim Creat Clear Calc 93.4 Estimated GFR > 60 Random Glucose 96 (60-115) mg/dL Lactic Acid 1.0 (0.5-2.0) mmol/L Calcium 8.4 D (8.4-10.2) mg/dL Magnesium 1.9 (1.6-2.6) mg/dL Total Bilirubin 1.1 H (0.0-1.0) mg/dL AST 25 (5-37) U/L ALT 17 (0-40) U/L Alkaline Phosphatase 96 (39-117) U/L Troponin I High Sens 6.6 (<3.5-35.0) ng/L C-Reactive Protein 5.37 H (< or = 0.50) mg/dL Total Protein 6.9 (6.5-8.0) g/dL Albumin 3.7 (3.5-5.0) g/dL Urine Color Urine Appearance Urine pH (5.0-9.0) Ur Specific [place] (1.005-1.025) Urine Protein (Neg-Trace) mg/dL Urine Glucose (UA) (Negative) mg/dL Urine Ketones (Negative) mg/dL Urine Blood (Negative) Urine Nitrite (Negative) Ur Leukocyte Esterase (Negative) 11/19/24 Range/Units 19:54 WBC (4.8-10.8) X10*3/uL RBC (4.60-5.80) X10*6/uL Hgb (14.0-18.0) g/dl Hct (42.0-52.0) % MCV (80.0-98.0) fL MCH (27.0-33.0) pg MCHC (31.0-36.0) g/dl RDW (11.0-16.0) % Plt Count (160-400) X10*3/uL MPV (9.4-12.4) fL Immature Gran % (Auto) (0.0-0.4) % Neut % (Auto) (45-73) % Lymph % (Auto) (20-40) % [place] % (Auto) (2-11) % Eos % (Auto) (0-4) % Baso % (Auto) (0-2) % Lymph # (Auto) (1.2-4.9) X10*3/uL [place] # (Auto) (0.1-1.2) X10*3/uL Eos # (Auto) (0.0-0.4) X10*3/uL Baso # (Auto) (0.0-0.2) X10*3/uL Abs Immat Gran (auto) (0.00-0.03) X10*3/uL Absolute Neuts (auto) (2.0-8.3) x10*3/uL Absolute Nucleated RBC (0.0-0.012) X10*3/uL Nucleated RBC % (auto) (0.0-0.2) /100WBC ESR (0-15) MM/HR Sodium (135-145) mmol/L Potassium (3.3-5.1) mmol/L Chloride (96-108) mmol/L Carbon Dioxide (22-29) mmol/L Anion Gap (12-20) BUN (9-16) mg/dL Creatinine (0.5-1.4) mg/dL Estim Creat Clear Calc Estimated GFR Random Glucose (60-115) mg/dL Lactic Acid (0.5-2.0) mmol/L Calcium (8.4-10.2) mg/dL Magnesium (1.6-2.6) mg/dL Total Bilirubin (0.0-1.0) mg/dL AST (5-37) U/L ALT (0-40) U/L Alkaline Phosphatase (39-117) U/L Troponin I High Sens (<3.5-35.0) ng/L C-Reactive Protein (< or = 0.50) mg/dL Total Protein (6.5-8.0) g/dL Albumin (3.5-5.0) g/dL Urine Color Yellow Urine Appearance Clear Urine pH 7.0 (5.0-9.0) Ur Specific [place] 1.010 (1.005-1.025) Urine Protein Negative (Neg-Trace) mg/dL Urine Glucose (UA) Negative (Negative) mg/dL Urine Ketones Negative (Negative) mg/dL Urine Blood Negative (Negative) Urine Nitrite Negative (Negative) Ur Leukocyte Esterase Negative (Negative) Independent Interpretation I performed an independent interpretation of an: EKG and MRI (lumbar spine) Interpretation: EKG showing normal sinus rhythm, rate of 64 beats per minute, T-wave inversion in V1 through V3, no ST-elevations Radiology Impression Discussion of test interpretation with radiology: I have reviewed the radiologist's reading. Radiologist Impression: MR thoracic spine with and without contrast Comparison: MR - MR LUMBAR SPINE WO/W CON - 11/19/24 18:17 EDT MR - MR CERVICAL SPINE WO/W CON - 11/19/24 18:[address]/SR - CT THORACIC SPINE WITH IV CONTRAST - 02/06/22 17:13 EDT Findings: Normal alignment. There is moderate height loss of T9 which is new since the prior study. There is edema throughout the T9 vertebra with a fracture line near the superior endplate. No retropulsion of fracture fragments. There is a trace amount of edema within the posterior elements. There is edema and enhancement along the inferior endplate of T8 with a trace amount of edema and enhancement along the superior endplate T10 at the right aspect. There is a mild amount edema and enhancement at T10/T11 endplates of the anterior aspect. There is edema and enhancement at T10/T11 facet joints, greater on the left. Edema extends into T11 pedicle on the left. No severe central canal stenosis; there is at most mild central spinal canal stenosis secondary to small disc protrusions at multiple levels such as T8/T9, T9/T10, T10/T11 and T11/T12. No epidural abscess. No paravertebral abscess; abnormal enhancement of the left aspect of the level T9 within paravertebral soft tissues without a definitive abscess. No abscess within the paraspinous musculature. The spinal cord is normal in size and signal. Impression: Moderate height loss of T9 with edema throughout the vertebra and a fracture line near the superior endplate, new since the prior study. A pathologic fracture due to osteomyelitis is favored. A posttraumatic etiology is considered less likely; suspect extension of infection into the adjacent T8 and T10 vertebra. Edema and enhancement at the T10/T11 facet joints which is greater on the left which extends into the T11 pedicle on the left is favored to indicate facet joint septic arthritis/osteomyelitis. No epidural abscess. This document has been electronically signed by: Elmira Ortiz MD on 11/19/2024 20:05:12 Independent Historian Clinical information obtained from an independent historian. History obtained from or confirmed by: EMS External Record Review External record reviewed: Inpatient record Prescription Management I considered prescription management with: Pain Medication and Antibiotic Chronic Conditions Patient?s care impacted by: Other (IVDU) Social Determinants Patient?s care significantly limited by Social Determinants of Health including: Other Social Determinant of Health Critical Care Time Critical Care Time Critical Care Time: Yes Total Critical Care Time: 45 Attestation: Critical Care: The patient was critically ill with a high probability of imminent or life threatening deterioration. I spent greater than 30 minutes of discontinuous time evaluating the patient,delivering critical care at the bedside, discussing and evaluating pertinent data with consultants. Critical care time does not include time spent performing separately billable procedures or teaching. Total time spent performing critical care was 45 minutes. Discharge Plan Discharge Clinical Impression: Acute osteomyelitis of thoracic spine, Septic arthritis of thoracic spine, IVDU (intravenous drug user), Abscess in epidural space of lumbar spine Patient Disposition: [facility] Transfer Details: [facility] ED to ED transfer, accepting attending Dr. Manzano Prescriptions: No Action doxycycline monohydrate 100 mg capsule 100 mg PO BID Qty: 28 0RF Interventions: Acute Care Transfer Worksheet (ED) Last Done: 11/19/24 23:00 Discharge Date/Time: 11/19/24 23:01 Print Language: Turkish
--- NOTE | 2024-11-19 16:38 | ECG_ITS ---
Test Reason : M/C Blood Pressure : */* mmHG Vent. Rate : 64 BPM Atrial Rate : 64 BPM P-R Int : 136 ms QRS Dur : 94 ms QT Int : 444 ms P-R-T Axes : 53 39 36 degrees QTcB Int : 458 ms Normal sinus rhythm Possible Left atrial enlargement Minimal voltage criteria for LVH, may be normal variant ( Sokolow-Villalpando ) Borderline ECG When compared with ECG of 17-Dec-2023 13:38, Sinus rhythm has replaced Ectopic atrial rhythm Nonspecific T wave abnormality has replaced inverted T waves in Inferior leads Referred By: Lore Jenkins Electronically Signed By: SOLANGE RIZZO
--- OUTSIDE RECORDS SUMMARY | 2024-11-19 16:49 | XMS_ITS | Clinical Summary ---
Author Organization [employer] Address [address] [place] [address] Care Team Providers Care Potato Picker Name Role Phone Kim Solomon DO Primary Care Provider Allergies No known active allergies Medications amLODIPine (Norvasc) 5 MG tablet Take 1 tablet (5 mg) by mouth Once per day. 30 tablet 1 5 11/01/19 26 Active doxycycline (Vibramycin) 100 MG capsule Take 1 capsule (100 mg) by mouth 2 times daily for 14 days. Take with at least 8 ounces (large glass) of water, do not lie down for 30 minutes after 28 capsule 5 11/15/19 25 hydrocortisone 2.5 % cream Apply topically 2 times daily for 14 days. 28 g 1 5 11/15/19 25 Active Problems Problem Noted Date Diagnosed Date Opioid dependence with current use 10/31/2024 IVDU (intravenous drug user) 10/31/2024 HTN (hypertension) 10/31/2024 Encounters Date Type Department Care Team Description 11/05/2024 Telephone [facility] [address] [place] [address] [phone] Kim Solomon DO 10/31/2024 11:20 AM EDT Office Visit [facility] [address] [place], [place] [phone] Kim Solomon DO Dermatitis (Primary Dx); Essential hypertension 10/31/2024 Travel from Last 3 Months Immunizations Immunization Administration Dates Next Due Pfizer Covid-19 Vaccine 12+ Bivalent 04/12/2022 Social History Tobacco Use Types Packs/Day Years Used Date Smoking Tobacco: Never Assessed Sex and Gender Information Value Date Recorded Sex Assigned at Male 02/14/2022 10:23 AM EDT Legal Sex Male 10:23 AM EDT Gender Identity Choose not to disclose 10:23 AM EDT Sexual Orientation Choose not to disclose 2021 10:23 AM EDT Last Filed Vital Signs Vital Sign Reading Time Taken Comments Blood Pressure 180/110 10/31/2024 11:19 AM EDT Pulse 70 10/31/2024 10:26 AM EDT Temperature 36.4 C (97.6 F) 10/31/2024 10:26 AM EDT Respiratory Rate 18 10/31/2024 10:26 AM EDT Oxygen Saturation 96% 10/31/2024 10:26 AM EDT Inhaled Oxygen Concentration - - Weight - - Height - - Body Mass Index - - Plan of Treatment Health Maintenance Due Date Last Done Comments CT Colonography 1965 Colonoscopy 1965 Colorectal Cancer Screening 1965 Depression Screening 1965 FIT DNA/Cologuard 1965 FIT 1965 FOBT 1965 HIV Screening 1965 Lipid Panel 1965 SDOH Screening 1965 Sigmoidoscopy 1965 Disability Screening 1965 Alcohol/Substance Use Screening 1977 Tobacco Screening 1977 Hepatitis C Screening 07/11/1983 Zoster Vaccines (1 of 2) 07/11/2015 COVID-19 Vaccine (3 - 2023-2 5 season) 2023 04/12/2022, 09/10/2020 Hepatitis B Vaccines (2 of 3 - 19+ 3-dose series) 05/13/2024 04/15/2024 Influenza Vaccine (#1) 2024 04/22/2016 DTaP/Tdap/Td Vaccines (3 - T d or Tdap) 06/13/2030 06/13/2020, 03/11/2016 RSV Patients and Patients Aged 60 years or older (1 - 1-dose 75+ series) 2040 Pneumococcal Vaccine: 50+ Years Completed 06/07/2024, 04/22/2016 HIB Vaccines Aged Out No longer eligi ble based on patient's age to complete this topic HPV Vaccines Aged Out No longer eligi ble based on patient's age to complete this topic Hepatitis A Vaccines Aged Out No long er eligible based on patient's age to complete this topic IPV Vaccines Aged Out No longer eligi ble based on patient's age to complete this topic Meningococcal B Vaccine Aged Out No l onger eligible based on patient's age to complete this topic Meningococcal Vaccine Aged Out No kristopher staci eligible based on patient's age to complete this topic RSV under 20 months Aged Out No longe r eligible based on patient's age to complete this topic Rotavirus Vaccines Aged Out No longer eligible based on patient's age to complete this topic Insurance [facility] < 65 [place] [id number] Care Teams Potato Picker Relationship Specialty Start Date End Date Kim Solomon DO [address] [place] [address] PCP - General Family Medicine 10/31/24
[2024-11-19 17:09] LABS: MANUAL DIFF FLAG NO
[2024-11-19 17:10] LABS: Hematocrit 38.0 % (42.0-52.0); Hemoglobin 13.1 g/dl (14.0-18.0); Imm Gran Abs Auto 0.04 X10*3/uL (0.00-0.03); Imm Gran Pct Auto 0.4 % (0.0-0.4); Lymphocytes Absolute Auto 1.8 X10*3/uL (1.2-4.9); Mean Corpuscular HGB Conc 34.5 g/dl (31.0-36.0); Mean Corpuscular Hemoglobin 29.0 pg (27.0-33.0); Mean Corpuscular Volume 84.3 fL (80.0-98.0); NRBC Abs Auto 0.000 X10*3/uL (0.0-0.012); NRBC Pct Auto 0.0 /100WBC (0.0-0.2); Platelet Count 144 X10*3/uL (160-400); Red Blood Count 4.51 X10*6/uL (4.60-5.80); White Blood Count 11.3 X10*3/uL (4.8-10.8)
[2024-11-19 17:30] LABS: Troponin-I High Sensitivity 6.6 ng/L (<3.5-35.0)
--- NOTE | 2024-11-19 17:59 | PC.NURSE ---
Pt arrives to dept via EMS w/ cc: 01/24 lower back pain x 2 days. 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
[2024-11-19 18:00] LABS: Alanine Aminotransferase 17 U/L (0-40); Albumin Level 3.7 g/dL (3.5-5.0); Alkaline Phosphatase 96 U/L (39-117); Anion Gap 11 (12-20); Aspartate Amino Transferase 25 U/L (5-37); Blood Urea Nitrogen 15 mg/dL (9-16); Calcium 8.4 mg/dL (8.4-10.2); Carbon Dioxide 24 mmol/L (22-29); Chloride 104 mmol/L (96-108); Creatinine Clr Calc Pharmacy 93.4; Estimated Glomerular Filt Rate > 60; Magnesium 1.9 mg/dL (1.6-2.6); Potassium 3.8 mmol/L (3.3-5.1); Sodium 135 mmol/L (135-145); Total Protein 6.9 g/dL (6.5-8.0)
--- NOTE | 2024-11-19 18:07 | PC.NURSE ---
MRI screening for faxed at [phone]- confirmation rec- pt medicated for pain
--- NOTE | 2024-11-19 18:12 | PC.NURSE ---
Pt off unit at MRI.
--- NOTE | 2024-11-19 19:09 | PC.NURSE ---
re: late admin of Vanco 1500- Pt in MRI, to be given upon pt return
--- NOTE | 2024-11-19 19:42 | PC.NURSE ---
this RN assumed care of pt @1900, pt was in MRI until this time. Shantanuo started per JUN, pt reports 9/10 pain, pt is sleepy but responds to verbal stimuli, no apparent distress noted at this time
[2024-11-19 20:00] LABS: Appearance Urine Clear; Glucose Urine UA Negative (Negative); PH 7.0 (5.0-9.0); Specific Gravity - Urine 1.010 (1.005-1.025)
--- NOTE | 2024-11-19 22:45 | PC.NURSE ---
Nurse to Nurse given to Ayesha at [facility]- pt to be transferred via sar[facility]
--- NOTE | 2024-11-19 22:50 | PC.NURSE ---
pt belongigns returned from [facility] 3
== END 2024-11-19 23:01 | disposition short-term general hospital (02) ==
PROVIDERS: Emergency Medicine Emergency Medical Services; Physician Assistant Medical; Emergency Provider Emergency Medicine; PCP Internal Medicine
DX: M46.24 Osteomyelitis of vertebra, thoracic region (principal); M47.814 Spondylosis without myelopathy or radiculopathy, thoracic region; M54.9 Dorsalgia, unspecified; I10 Essential (primary) hypertension; E78.5 Hyperlipidemia, unspecified; F11.90 Opioid use, unspecified, uncomplicated; B19.20 Unspecified viral hepatitis C without hepatic coma; M54.50 Low back pain, unspecified; F19.10 Other psychoactive substance abuse, uncomplicated; G06.1 Intraspinal abscess and granuloma
CPT/HCPCS: 36415; 72156; 72157; 72158; 80053; 81003; 83605; 83735; 84484; 85025; 85652; 86140; 87040; 87077; 87147; 87186; 87205; 93005; 96361; 96365; 96366; 96375; 96376; 99285; 99291; A9585; J0696; J1171; J1885; J3374

== ENCOUNTER → 2024-11-19 16:38 | Outpatient (BNV) | payer OTHER, SELFPAY | PROVIDERS: Emergency Provider Emergency Medicine; PCP Internal Medicine; Visit Provider Internal Medicine | DX: Z13.6 Encounter for screening for cardiovascular disorders (principal) | CPT/HCPCS: 93010 ==

== ENCOUNTER → 2024-11-19 17:31 | Outpatient (BNV) | payer OTHER, SELFPAY | PROVIDERS: Emergency Provider Emergency Medicine Emergency Medical Services; PCP Internal Medicine; Visit Provider Radiology Diagnostic Radiology | DX: M50.322 Other cervical disc degeneration at C5-C6 level (principal); G06.1 Intraspinal abscess and granuloma; S22.070A Wedge compression fracture of T9-T10 vertebra, initial encounter for closed fracture | CPT/HCPCS: 72156; 72157; 72158 ==

== ENCOUNTER 2024-12-01 13:53 | Inpatient (IN) | payer OTHER, SELFPAY ==
--- NOTE | ~2024-12-01 | XR_ITS ---
CLINICAL HISTORY: fever 2 view chest x-ray Comparison: CR/SR - XR CHEST 2 VIEWS - 02/06/22 16:35 EDT Findings: The lungs are clear. Heart size is normal. No acute fracture. IMPRESSION: 1. No acute findings. This document has been electronically signed by: Delphine Preston MD on 12/01/2024 16:21:53
[2024-12-01 13:58] VITALS: BP 121/77; BP 122/62; PULSE 57; PULSE 65; RESP 16; TEMP 36.7; O2SAT 94; BMI 22.5
--- NOTE | 2024-12-01 14:07 | ECG_ITS ---
Test Reason : FEVER Blood Pressure : */* mmHG Vent. Rate : 46 BPM Atrial Rate : 46 BPM P-R Int : 146 ms QRS Dur : 98 ms QT Int : 494 ms P-R-T Axes : 44 18 2 degrees QTcB Int : 432 ms Sinus bradycardia Minimal voltage criteria for LVH, may be normal variant ( Thom product ) Nonspecific T wave abnormality Abnormal ECG When compared with ECG of 19-Nov-2024 16:51, No significant change was found Referred By: Generic ED Physician Electronically Signed By: NANCY RUSH MD
[2024-12-01 14:23] LABS: MANUAL DIFF FLAG NO
[2024-12-01 14:24] LABS: Hematocrit 33.1 % (42.0-52.0); Hemoglobin 11.3 g/dl (14.0-18.0); Imm Gran Abs Auto 0.05 X10*3/uL (0.00-0.03); Imm Gran Pct Auto 0.4 % (0.0-0.4); Lymphocytes Absolute Auto 2.5 X10*3/uL (1.2-4.9); Mean Corpuscular HGB Conc 34.1 g/dl (31.0-36.0); Mean Corpuscular Hemoglobin 28.0 pg (27.0-33.0); Mean Corpuscular Volume 82.1 fL (80.0-98.0); NRBC Abs Auto 0.000 X10*3/uL (0.0-0.012); NRBC Pct Auto 0.0 /100WBC (0.0-0.2); Platelet Count 275 X10*3/uL (160-400); Red Blood Count 4.03 X10*6/uL (4.60-5.80); White Blood Count 12.6 X10*3/uL (4.8-10.8)
[2024-12-01 14:39] LABS: Alanine Aminotransferase 14 U/L (0-40); Albumin Level 3.7 g/dL (3.5-5.0); Alkaline Phosphatase 107 U/L (39-117); Anion Gap 12 (12-20); Aspartate Amino Transferase 30 U/L (5-37); Blood Urea Nitrogen 24 mg/dL (9-16); Calcium 9.1 mg/dL (8.4-10.2); Carbon Dioxide 25 mmol/L (22-29); Chloride 103 mmol/L (96-108); Creatinine Clr Calc Pharmacy 89.0; Estimated Glomerular Filt Rate > 60; Potassium 4.3 mmol/L (3.3-5.1); Sodium 136 mmol/L (135-145); Total Protein 7.3 g/dL (6.5-8.0)
--- NOTE | 2024-12-01 14:42 | ED.FEVER ---
HPI - Fever General Chief Complaint: Fever Stated Complaint: FEELING UNWELL Time Seen by Provider: 12/01/24 14:05 Source: patient Mode of arrival: ambulatory Limitations: no limitations History of Present Illness ED Provider: Lauren Todd APRN HPI Narrative: 59 yo male with PMH for IVDU, opioid use disorder, hepatitis C, HLD, HTN, anxiety, diagnosis of MSSA bacteremia/T8-T11 osteomyelitis with small epidural abscess on 11/19/24 transferred to [facility] for further management subsequently left against medical advice on November 27 presents to the ER with complaints of back pain, fevers, chills. Per patient he is supposed to get 5 weeks of IV antibiotics but left against medical advice because they could not find him a rehab facility close enough to [facility] for his liking. He denies weakness, numbness, tingling of the extremities. Denies any numbness in the groin, bowel or bladder incontinence. Fevers or chills. Patient reports since leaving the hospital he has been homeless. Today he used 1 bag of IV heroin. His last dose of methadone was yesterday 140 mg at [facility]. He denies SI/HI Related Data Home Medications ?Medication ?Instructions ?Recorded ?Confirmed methadone 10 mg/mL oral 140 mg PO DAILY 12/01/24 12/01/24 concentrate (Methadone Intensol) Previous Rx's ?Medication ?Instructions ?Recorded doxycycline monohydrate 100 mg 100 mg PO BID #28 caps 12/18/23 capsule Allergies Allergy/AdvReac Type Severity Reaction Status Date / Time morphine Allergy Intermediate Headache Verified 12/01/24 14:01 codeine (Codeine) Allergy Mild HIVES, Verified 12/01/24 14:01 VOMITING Review of Systems Review of Systems: Yes all other systems are reviewed and are negative Constitutional: Constitutional: Reports no additional constitutional complaints, Denies body ache(s), Reports chills, Reports fever(s), Denies headache(s) and Denies weakness Eyes: Eyes: Reports no additional eye complaints and Denies change in vision ENT: Reports system reviewed and no additional complaints, except as documented, Denies dizziness, Denies headache(s), Denies nasal congestion, Denies nasal discharge and Denies neck pain Cardiovascular: Cardiovascular: Reports no additional cardiovascular complaints, Denies chest pain, Denies leg edema and Denies dyspnea Respiratory: Respiratory: Reports no additional respiratory complaints, Denies cough and Denies dyspnea Gastrointestinal: Gastrointestinal: Reports no additional gastrointestinal complaints, Denies abdominal pain, Denies diarrhea, Denies nausea and Denies vomiting Genitourinary: Genitourinary: Denies urinary incontinence Musculoskeletal: Musculoskeletal: Reports no additional musculoskeletal complaints, Reports back pain, Denies arthralgias, Denies joint swelling, Denies neck pain, Denies numbness and Denies tingling Integumentary/Breasts: Skin/Breast: Reports system reviewed and no additional complaints, except as docu and Denies rash Neurologic: Reports system reviewed and no additional complaints, except as documented, Denies Abnormal speech present, Denies dizziness, Denies headache(s), Denies numbness, Denies tingling and Denies weakness PMFSH Past Medical History Attestation statement: The following information was validated with the patient. Source: old records reviewed and nursing notes reviewed Medical History (Updated 12/01/24 @ 17:44 by CAROL ANN Mccoy) Edentulous IVDU (intravenous drug user) Tobacco dependence Homeless Tenosynovitis of finger Cellulitis of hand, left Hepatitis C Opioid use disorder High blood pressure Hyperlipidemia Heroin addiction Substance abuse Colitis Anxiety Surgical History H/O oral surgery Social History Social History Household Members: None Household Members Other:: homeless Housing: Apartment Do you presently have visiting nurse or other home services: No Alcohol intake: current Alcohol intake frequency: 3 or more drinks per day Patient Tobacco Use Status: Never used Tobacco Tobacco use type: Cigarette e-Cigarette/Vaping Use: Currently Using Second Hand Smoke Exposure: Yes Substance Use Type: Crack/Cocaine Advance Directives: No Advance Directives Information Provided: No service: No Current occupational status: unemployed Physical Exam Vital Signs: Vital Signs: Last Vital Signs Temp 98.8 F 12/01/24 16:23 Pulse 58 12/01/24 16:23 Resp 13 12/01/24 16:23 BP 133/67 12/01/24 16:23 Pulse Ox 93 12/01/24 16:23 O2 Del Method Room Air 12/01/24 16:23 BMI result Body Mass Index 22.5 Const: Other: Sleeping rouses to verbal Orientation/consciousness: patient oriented x3 Limitations: no limitations HEENT: Head: Yes normal to inspection Ears: hearing grossly normal bilaterally General nose exam: Normal external nose present Face and sinus: Yes normal facial exam Mouth: Normal oral and palatal mucosa present Throat: Yes posterior oropharynx normal Eyes: General: appearance normal, both eyes and all related structures Pupils: Equal, round and reactive pupils present Neck: Neck: Yes normal visual inspection Chest: Chest palpation & inspection: normal inspection of the chest Resp: Effort & Inspection: normal respiratory effort Auscultation: clear to auscultation bilaterally Cardio: Rate: regular rate Rhythm: regular rhythm Peripheral pulses: Peripheral pulses 2+ throughout GI: Inspection: Yes normal to inspection Palpation (GI): Soft to palpation and nontender Auscultation: normal bowel sounds Back/Spine/Pelvis: Other: TTP to lumbar mid spine with no step offs or deformities Thoracic/Lumbar Spine: thoracic and lumbar spine normal to inspection Skin: General skin exam: no rashes or lesions noted Neuro: General: patient oriented x3, no focal motor deficits and normal sensation to monofilament Cranial nerves: Yes Equal, round and reactive pupils present Cognition (Neuro): normal cognition Speech: No Abnormal speech present Motor exam (neuro): 5/5 motor strength present throughout Sensory Exam: Normal double simultaneous stimulation for sensation Extrem: General: Yes normal to inspection Course Course Course Narrative: 1800-I got the discharge summary from [facility]. No interventions done by NSY. Hospitalist provided with records. Medications Administered Generic Name Dose Route Start Last Admin Trade Name Freq PRN Reason Stop Dose Admin Sodium Chloride 1,000 mls @ 125 mls/hr 12/01/24 17:30 12/01/24 17:47 Ns IVCONT 125 mls/hr .Q8H ALBERTO Administration Discontinued Medications Generic Name Dose Route Start Last Admin Trade Name Freq PRN Reason Stop Dose Admin Sodium Chloride 1,000 mls @ 999 mls/hr 12/01/24 14:42 12/01/24 17:33 Ns IV 12/01/24 15:42 Infused .Q1H1M STA Infusion Cefazolin Sodium 2 gm/ Sodium 100 mls @ 200 mls/hr 12/01/24 15:03 12/01/24 17:34 Chloride IV 12/01/24 15:32 Infused ONCE ONE Infusion Methadone HCl 140 mg 08/17/25 17:28 12/01/24 17:43 Methadone Hcl 20 Mg/2 Ml Oral.Conc PO 12/01/24 17:29 140 mg ONCE ONE Administration Medical Decision Making Medical Decision Making [facility] Narrative: 59 yo male with PMH for IVDU, opioid use disorder, hepatitis C, HLD, HTN, anxiety, diagnosis of MSSA bacteremia/T8-T11 osteomyelitis with small epidural abscess on 11/19/24 transferred to [facility] for further management subsequently left against medical advice on November 27 presents to the ER with complaints of back pain, fevers, chills. Per patient he is supposed to get 5 weeks of IV antibiotics but left against medical advice because they could not find him a rehab facility close enough to [facility] for his liking. He denies weakness, numbness, tingling of the extremities. Denies any numbness in the groin, bowel or bladder incontinence. Fevers or chills. Patient reports since leaving the hospital he has been homeless. Today he used 1 bag of IV heroin. His last dose of methadone was yesterday 140 mg at [facility]. He denies SI/HI ON arrival patient is drowsy but rouses to verbal. Normal neuro exam with no focal deficits. Stable VS on arrival. Will obtain labs, EKG, CXR, UA, HEWITT, viral swab I called and spoke to pharmacist. Recommendations from ID were cefazolin 2g Q8 with ending dose on 12/20 followed by cephalexin 1g BID x 2 weeks. Ordered first dose now. Will get progress note to ensure NSY signed off on patient and then will need admission for PICC placement, IV antibiotics and placement. Differential Diagnosis Differential Diagnoses: The differential diagnosis associated with the presentation includes MSSA bacteremia Admission/Observation Consideration of admission/observation: Escalation of care including admission/observation considered Need for IV antibiotics, CM and admission Consult Healthcare Provider Management of the patient was discussed with: Hospitalist [place]-accepted admission Lab Data [facility] Lab Attestation statement: I reviewed the patient's lab results. 12/01/24 14:18 12/01/24 14:18 Labs: Lab Results 12/01/24 12/01/24 Range/Units 14:18 15:34 WBC 12.6 H (4.8-10.8) X10*3/uL RBC 4.03 L (4.60-5.80) X10*6/uL Hgb 11.3 L (14.0-18.0) g/dl Hct 33.1 L (42.0-52.0) % MCV 82.1 (80.0-98.0) fL MCH 28.0 (27.0-33.0) pg MCHC 34.1 (31.0-36.0) g/dl RDW 12.7 (11.0-16.0) % Plt Count 275 D (160-400) X10*3/uL MPV 8.5 L (9.4-12.4) fL Immature Gran % (Auto) 0.4 (0.0-0.4) % Neut % (Auto) 70.8 (45-73) % Lymph % (Auto) 20.1 (20-40) % [place] % (Auto) 8.1 (2-11) % Eos % (Auto) 0.4 (0-4) % Baso % (Auto) 0.2 (0-2) % Lymph # (Auto) 2.5 (1.2-4.9) X10*3/uL [place] # (Auto) 1.0 (0.1-1.2) X10*3/uL Eos # (Auto) 0.1 (0.0-0.4) X10*3/uL Baso # (Auto) 0.0 (0.0-0.2) X10*3/uL Abs Immat Gran (auto) 0.05 H (0.00-0.03) X10*3/uL Absolute Neuts (auto) 8.9 H (2.0-8.3) x10*3/uL Absolute Nucleated RBC 0.000 (0.0-0.012) X10*3/uL Nucleated RBC % (auto) 0.0 (0.0-0.2) /100WBC Sodium 136 (135-145) mmol/L Potassium 4.3 (3.3-5.1) mmol/L Chloride 103 (96-108) mmol/L Carbon Dioxide 25 (22-29) mmol/L Anion Gap 12 (12-20) BUN 24 H (9-16) mg/dL Creatinine 0.80 (0.5-1.4) mg/dL Estim Creat Clear Calc 89.0 Estimated GFR > 60 Random Glucose 88 (60-115) mg/dL Lactic Acid 0.5 (0.5-2.0) mmol/L Calcium 9.1 D (8.4-10.2) mg/dL Magnesium 1.9 (1.6-2.6) mg/dL Total Bilirubin 0.8 (0.0-1.0) mg/dL AST 30 (5-37) U/L ALT 14 (0-40) U/L Alkaline Phosphatase 107 (39-117) U/L Total Protein 7.3 (6.5-8.0) g/dL Albumin 3.7 (3.5-5.0) g/dL Influenza Type A (PCR) NEGATIVE (Negative) Influenza Type B (PCR) NEGATIVE (Negative) RSV RNA Qual (PCR) NEGATIVE (Negative) SARS-CoV-2 RNA (RT-PCR) NEGATIVE (Negative) Independent Interpretation I performed an independent interpretation of an: EKG and Plain X-Ray Interpretation: I independetely reviewed the EKG I independently viewed the x-ray and agree with the radiology report Radiology Impression Discussion of test interpretation with radiology: I have reviewed the radiologist's reading. Radiologist Impression: [place] [id number] XRay Report Signed Patient: Isai Matamoros MR#: [id number] : 1965 Acct:[id number] Age/Sex: 59 / M ADM Date: 12/01/24 Loc: .ED Attending Dr: Ordering Physician: Lauren Todd NP Date of Service: 12/01/24 Procedure(s): XR chest 2V Accession Number(s): [id number] cc: Lauren Todd NP; René Fields MD~ CLINICAL HISTORY: fever 2 view chest x-ray Comparison: CR/SR - XR CHEST 2 VIEWS - 02/06/22 16:35 EDT Findings: The lungs are clear. Heart size is normal. No acute fracture. IMPRESSION: 1. No acute findings. Independent Historian Clinical information obtained from an independent historian. History obtained from or confirmed by: EMS Critical Care Time Critical Care Time Critical Care Time: Yes Total Critical Care Time: 60 Attestation: Patient requiring IV antibiotics for MSSA bacteremia in the setting of recent osteomyelitis and small epidural abscess. Discussion with hospitalist for admission Discharge Plan Discharge Clinical Impression: Gram-positive bacteremia Patient Disposition: Admitted As Inpatient
[2024-12-01 16:02] LABS: Magnesium 1.9 mg/dL (1.6-2.6)
[2024-12-01 16:23] VITALS: BP 133/67; PULSE 58; RESP 13; TEMP 37.1; O2SAT 93
[2024-12-01 16:24] LABS: Resp Syncy Virus RNA Qual PCR NEGATIVE (Negative); SARS COV2 PCR INHOUSE NEGATIVE (Negative)
--- NOTE | 2024-12-01 17:28 | PM.IMHP ---
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 Pt seen and initially sleepy but responsive and at first agitated over questions regarding need for admission. Patient confirmed that he did have fever earlier but currently denies any chills, nausea, vomiting or chest pain. Patient is not having any shortness of breath or productive cough. Pt denies that he will leave AMA currently and understands that he will need placement to complete ABX therapy. ER provider did not have indication for repeat scan noting recent dx of epidural abscess as there are no acute neuro changes. Patient identifies that he is homeless and believes he has bedbugs in his lower legs as he recently noted bugs jumping from both legs. Patient is having intermittent back pain. Patient received his methadone yesterday but did not receive his methadone today. Nursing has already confirmed that his daily dose 140 mg daily. (Qtc 432) Patient reported he used only 1 bag of heroin since leaving AMA from [facility]. He injected medication IV into his left arm. Patient's last dose of Ancef was on 11/27/2024. Patient was supposed to be on IV antibiotics until at least 12/20/2024 and then 2 weeks of Keflex. Patient does not currently have a central line/PICC line. Blood cultures done in the ED and are pending. Patient does have a leukocytosis and temp is down to 98.8 after Tylenol. Patient does have history of hepatitis-C and was treated in the past but continues with IV drug use and is requesting hepatitis testing and HIV testing. Review of Systems Review of Systems: Patient denies any chest pain, shortness of breath at rest or with exertion, abdominal pain but is reporting mild 3/10 lower back pain. Patient denies any current chills, nausea, vomiting or fever. Patient is currently homeless and has lost weight due to lack of access to food regularly. Patient believes he has bedbugs in the lower legs. Yes all other systems are reviewed and are negative [facility] Medical History (Updated 12/01/24 @ 17:44 by CAROL ANN Mccoy) Edentulous IVDU (intravenous drug user) Tobacco dependence Homeless Tenosynovitis of finger Cellulitis of hand, left Hepatitis C Opioid use disorder High blood pressure Hyperlipidemia Heroin addiction Substance abuse Colitis Anxiety Cognitive capacity: Alert and orientated x3 Functional capacity: independent ambulation Pertinent family history: Patient did not provide Surgical History H/O oral surgery Social History Household Members: None Household Members Other:: homeless Housing: Apartment Do you presently have visiting nurse or other home services: No Alcohol intake: current Alcohol intake frequency: 3 or more drinks per day Patient Tobacco Use Status: Never used Tobacco Tobacco use type: Cigarette e-Cigarette/Vaping Use: Currently Using Second Hand Smoke Exposure: Yes Substance Use Type: Crack/Cocaine Advance Directives: No Advance Directives Information Provided: No service: No Current occupational status: unemployed Ebola Risk: Travel/Contact With Anyone From Affected Area/s: No Has Patient Experienced Ebola Symptoms: No Meds Allergies Allergy/AdvReac Type Severity Reaction Status Date / Time morphine Allergy Intermediate Headache Verified 12/01/24 14:01 codeine (Codeine) Allergy Mild HIVES, Verified 12/01/24 14:01 VOMITING Active Medications: Current Medications Acetaminophen (Acetaminophen 325 Mg Tablet) 650 mg PO Q6H PRN PRN Reason: Pain, Mild 1-3,fever,headache Albuterol/Ipratropium (Albuterol/Iprat 2.5/0.5mg 3 Ml Ampul.Neb) 3 ml INHALE Q4H PRN PRN Reason: Shortness of Breath/Wheezing Calcium Carbonate (Calcium Carbonate 750 Mg Tab.Chew) 750 mg PO Q4H PRN PRN Reason: Heartburn Diphenhydramine HCl (Diphenhydramine Hcl 25 Mg Capsule) 25 mg PO Q6H PRN PRN Reason: Itching Hydrocortisone (Hydrocortisone 1 % Cream 28.35 Gm Tube) 1 appl TOPICAL BID ALBERTO; Protocol Cefazolin Sodium/Dextrose (Ancef) 2 gm in 50 mls @ 100 mls/hr IV Q8H ALBERTO Magnesium Hydroxide (Milk Of Magnesia 30 Ml Oral.Susp) 30 ml PO DAILY PRN PRN Reason: Constipation Melatonin (Melatonin 3 Mg Tablet) 6 mg PO BEDTIME PRN PRN Reason: Insomnia Ondansetron HCl (Ondansetron Hcl 4 Mg/2 Ml Vial) 4 mg IVPUSH Q8H PRN PRN Reason: Nausea and Vomiting Polyethylene Glycol (Polyethylene Glycol 3350 17 Gm Powd.Pack) 17 gm PO DAILY PRN PRN Reason: Constipation Senna (Sennosides 8.6 Mg Tablet) 17.2 mg PO BEDTIME ALBERTO Sodium Chloride (0.9 % Sodium Chloride Flush 3 Ml Syringe) 3 ml IVFLUSH QSHIFT ALBERTO Home Medications ?Medication ?Instructions ?Recorded ?Confirmed ?Last Taken ?Type methadone 10 mg/mL oral 140 mg PO DAILY 12/01/24 12/01/24 11/30/24 08:24 History concentrate (Methadone Intensol) Physical Exam Vital Signs and Narrative: Vital Signs: Last Vital Signs Temp 98.8 F 12/01/24 16:23 Pulse 58 12/01/24 16:23 Resp 13 12/01/24 16:23 BP 133/67 12/01/24 16:23 Pulse Ox 93 12/01/24 16:23 O2 Del Method Room Air 12/01/24 16:23 BMI result Body Mass Index 22.5 Alert and orientated X3, mildly uncooperative with providing information regarding past medical history and past surgical history Neuro: CN II-X11 intact, no deficits, visual acuity intact EYES: PERRLA, EOM intact, sclerae nonicteric, conjunctiva pink ENT: hearing intact, no issues with swallowing, uvula midline, lips moist, nares patent no epistaxis, edentulous Cardiac: S1 S2 RRR, no murmur, no JVD, no edema in Lower ext Pulmonary: lungs diminished bilaterally Abdominal: BS active in all 4 quadrants, no guarding, tenderness, rebounding MSK: strength 5/5 upper and lower extremities : no CVA tenderness no bladder distension Extremities: no edema in lower extremities, PT and DP pulses palpable +2 Psych: mood stable, judgement and insight fair Skin: Multiple excoriations lower legs, mildly pink track aden between toes bilateral feet Results Labs 12/01/24 14:18 12/01/24 14:18 Labs: Laboratory Results - last 24 hr 12/01/24 12/01/24 14:18 15:34 MCV 82.1 MCH 28.0 MCHC 34.1 RDW 12.7 Plt Count 275 D MPV 8.5 L Immature Gran % (Auto) 0.4 Neut % (Auto) 70.8 Lymph % (Auto) 20.1 [place] % (Auto) 8.1 Eos % (Auto) 0.4 Baso % (Auto) 0.2 Lymph # (Auto) 2.5 [place] # (Auto) 1.0 Eos # (Auto) 0.1 Baso # (Auto) 0.0 Abs Immat Gran (auto) 0.05 H Absolute Neuts (auto) 8.9 H Absolute Nucleated RBC 0.000 Nucleated RBC % (auto) 0.0 Anion Gap 12 Estim Creat Clear Calc 89.0 Estimated GFR > 60 Random Glucose 88 Lactic Acid 0.5 Calcium 9.1 D Magnesium 1.9 Total Bilirubin 0.8 AST 30 ALT 14 Alkaline Phosphatase 107 Total Protein 7.3 Albumin 3.7 Influenza Type A (PCR) NEGATIVE Influenza Type B (PCR) NEGATIVE RSV RNA Qual (PCR) NEGATIVE SARS-CoV-2 RNA (RT-PCR) NEGATIVE ECG Attestation: I personally reviewed and interpreted this ECG as follows: (Sinus bradycardia MA interval 146 QTC 432) Prior ECG tracings: available for review Imaging Radiologist's Impressions: Chest x-ray Negative for acute findings Assessment and Plan (1) Epidural abscess: Status: Acute Plan Pt is a 59-year-old male with past medical history substance use disorder on methadone still actively using IV drugs with recent diagnosis of epidural abscess lumbar spine/ MSSA with transfer to [facility] 11/19 but left [place] 11/27, hepatitis-C, HLD, anxiety, 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 Patient was transferred from [facility] to [facility] 11/19/2024 and left [place] 11/27/2024 while receiving antibiotic therapy for MSSA infection and an epidural abscess. Apparently patient has missed 4 days of antibiotics and was supposed to be on Ancef 2 g Q 8 until 12/20/2024. Patient was then to start Keflex for 2 weeks after completion of IV antibiotics. Currently patient wishes to receive treatment does not plan on leaving AMA. Methadone dose was confirmed and patient received 140 mg today in the ED. Epidural abscess, MSSA secondary to IV drug abuse history Patient will now continue Ancef 2 g Q 8 via peripheral IV No indication for repeat sdcan of lumbar spine as pt presents neurologically stable Blood cultures x2 pending, if negative patient can be considered for a PICC line Infectious Disease consultation placed IV fluids running Patient does not meet criteria for sepsis at this time as lactic acid is normal, vital signs stable, within noted leukocytosis Substance use disorder Methadone dose confirmed, patient is on 140 mg daily last dose was 11/30/2024 Methadone dose administered in the ED Addictions consulted Patient high risk for AMA Bedbugs Hydrocortisone cream topically twice daily Benadryl 25 mg p.o. q.6 p.r.n. for itching History of hepatitis-C Patient reports receiving treatment in the remote past but has since been using drugs IV Patient requesting hepatitis and HIV testing, test ordered for the a.m. LFTs stable Tobacco dependence Patient deferred nicotine replacement therapy at this time Patient counseled on the benefits of smoking cessation DVT prophylaxis: Lovenox Med rec pending Full code status Quality Stroke Does the patient have a stroke diagnosis?: No Reason for No Anti-thrombotic by Day Two: N/A - Med Ordered VTE Prior VTE?: No VTE Risk Level:: Medical - moderate - high VTE Device Contraindication: N/A - Device Ordered VTE Drug Contraindication: N/A - Med Ordered
--- NOTE | 2024-12-01 17:36 | HE.PHANOTE ---
RE: methadone DOSING Last dose of methadone 140 mg was given on 11/30/24 @0824 at [facility] [phone] per JOCELYN Mancilla.
[2024-12-01] MEDS: methADONE HCl 20 MG/2 ML ORAL.CONC 140 MG PO (17:43)
--- NOTE | 2024-12-01 19:44 | PC.NURSE ---
assumed care of pt. Pt sleeping . respirations even and unlabored.
[2024-12-01] MEDS: Hydrocortisone 1 % Cream 28.35 GM TUBE 1 APPL TOPICAL (20:43)
--- NOTE | 2024-12-01 20:45 | PC.NURSE ---
pt medicated per JUN. pt given hydrocortisone cream to apply.
[2024-12-01 21:01] VITALS: BP 133/64; PULSE 57; RESP 16; TEMP 37.2; O2SAT 96
--- NOTE | 2024-12-01 21:38 | PC.NURSE ---
pt complains of pain in legs and lower back as well as itchy skin all over. Provider ordered medication for pain. Pt medicated per JUN for pain and itch.
[2024-12-01 21:44] LABS: Appearance Urine Clear; Glucose Urine UA Negative (Negative); PH 5.5 (5.0-9.0); Specific Gravity - Urine 1.020 (1.005-1.025)
[2024-12-01 21:58] LABS: Cannabinoid Screen Urine Not Detected (Not Detect)
--- NOTE | 2024-12-01 22:52 | PC.NURSE ---
pt medicated per JUN. pt confirmed name and and as advised of mediation administration.
[2024-12-02 03:28] VITALS: BP 156/72; PULSE 50; RESP 16; TEMP 36.5; O2SAT 99
[2024-12-02 04:38] LABS: MANUAL DIFF FLAG NO
[2024-12-02 04:39] LABS: Hematocrit 31.0 % (42.0-52.0); Hemoglobin 10.3 g/dl (14.0-18.0); Imm Gran Abs Auto 0.03 X10*3/uL (0.00-0.03); Imm Gran Pct Auto 0.4 % (0.0-0.4); Lymphocytes Absolute Auto 1.8 X10*3/uL (1.2-4.9); Mean Corpuscular HGB Conc 33.2 g/dl (31.0-36.0); Mean Corpuscular Hemoglobin 28.1 pg (27.0-33.0); Mean Corpuscular Volume 84.7 fL (80.0-98.0); NRBC Abs Auto 0.000 X10*3/uL (0.0-0.012); NRBC Pct Auto 0.0 /100WBC (0.0-0.2); Platelet Count 205 X10*3/uL (160-400); Red Blood Count 3.66 X10*6/uL (4.60-5.80); White Blood Count 7.0 X10*3/uL (4.8-10.8)
[2024-12-02 05:01] LABS: Anion Gap 12 (12-20); Blood Urea Nitrogen 20 mg/dL (9-16); Calcium 8.5 mg/dL (8.4-10.2); Carbon Dioxide 22 mmol/L (22-29); Chloride 106 mmol/L (96-108); Creatinine Clr Calc Pharmacy 80.0; Estimated Glomerular Filt Rate > 60; Potassium 4.1 mmol/L (3.3-5.1); Sodium 136 mmol/L (135-145)
[2024-12-02 06:26] VITALS: BP 158/81; PULSE 62; RESP 16; O2SAT 100
--- NOTE | 2024-12-02 07:57 | PHA.MEDREC ---
Pharmacy Consult ? Medication Reconciliation Pharmacy has completed the medication reconciliation. Spoke with pt, he not on any other medication other than his methadone.
[2024-12-02] MEDS: methADONE HCl 20 MG/2 ML ORAL.CONC 140 MG PO (08:10)
[2024-12-02] MEDS: Hydrocortisone 1 % Cream 28.35 GM TUBE 1 APPL TOPICAL (08:10)
[2024-12-02 08:33] LABS: HBS Num1 52.62 mIU/mL (0-7.99); HBc Num1 1.91 S/CO (0.00-0.79); HBsAGNum1 0.47 S/CO (0.00-0.99); HIV Num 1 0.05 S/CO (0.00-0.99); Hepatitis A Antibody IgM 0.23 Index (0-0.79); Hepatitis B Surface Antigen Negative (Negative); ~HepC Num1 14.52 S/CO (0.00-0.79); ~Hepatitis A Antibody IgM Nonreactive (Nonreactive); ~Hepatitis B Surface Antibody REACTIVE (Nonreactive); ~Hepatitis C Antibody Reactive (Nonreactive)
--- NOTE | 2024-12-02 11:32 | HO.ADDICTCON ---
History of Present Illness Date of Service: 12/02/2024 Chief Complaint: ivda Reason for Consult: OUD Sources of Information: patient interviewed and chart reviewed HPI Narrative: Patient is a 59 year old male with medical history that includes hepatitis C, OUD and HTN. He was seen at [facility] on 11/19 and transferred to [facility] for treatment of MSSA bacteremia, osteomylitis, and epidural abscess. Per documentation, treatment plan included 5 weeks of IV abx., unfortunately patient left via self directed discharge on 11/27. Presented to [facility] on 12/01 c/o back pain, fever, chills. Admitted and pending SNF placement to complete IV abx. Patient seen in room 13 of main ED. He is awake, alert, engaged in interview. He denies any issues related to OUD management as his methadone dose has been ordered--140mg QD Reporting back pain and overall discomfort He is restless and frequently changing positions while talking to t/w. Medical Evaluation Reviewed: Yes Review of Systems Constitutional: Reports as per HPI Diagnostics Vital Signs (24Hr): Vital Signs - 24 hr 12/01/24 13:58 12/01/24 16:23 12/01/24 21:01 Temperature 98.0 F 98.8 F 99 F Pulse Rate 57 58 57 Respiratory Rate 16 13 16 Blood Pressure 121/77 133/67 133/64 Pulse Oximetry 94 93 96 Oxygen Delivery Method Room Air Room Air 12/02/24 03:28 12/02/24 06:26 Temperature 97.7 F Pulse Rate 50 62 Respiratory Rate 16 16 Blood Pressure 156/72 H 158/81 H Pulse Oximetry 99 100 Oxygen Delivery Method Room Air Room Air BMI result Body Mass Index 22.5 Labs 12/02/24 04:32 12/02/24 04:32 Labs: Laboratory Results - last 48 hr 12/01/24 12/01/24 12/01/24 14:18 15:34 21:36 WBC 12.6 H RBC 4.03 L Hgb 11.3 L Hct 33.1 L MCV 82.1 MCH 28.0 MCHC 34.1 RDW 12.7 Plt Count 275 D MPV 8.5 L Immature Gran % (Auto) 0.4 Neut % (Auto) 70.8 Lymph % (Auto) 20.1 [place] % (Auto) 8.1 Eos % (Auto) 0.4 Baso % (Auto) 0.2 Lymph # (Auto) 2.5 [place] # (Auto) 1.0 Eos # (Auto) 0.1 Baso # (Auto) 0.0 Abs Immat Gran (auto) 0.05 H Absolute Neuts (auto) 8.9 H Absolute Nucleated RBC 0.000 Nucleated RBC % (auto) 0.0 Sodium 136 Potassium 4.3 Chloride 103 Carbon Dioxide 25 Anion Gap 12 BUN 24 H Creatinine 0.80 Estim Creat Clear Calc 89.0 Estimated GFR > 60 Random Glucose 88 Lactic Acid 0.5 Calcium 9.1 D Magnesium 1.9 Total Bilirubin 0.8 AST 30 ALT 14 Alkaline Phosphatase 107 Total Protein 7.3 Albumin 3.7 Urine Color Yellow Urine Appearance Clear Urine pH 5.5 Ur Specific [place] 1.020 Urine Protein Negative Urine Glucose (UA) Negative Urine Ketones Negative Urine Blood Negative Urine Nitrite Negative Ur Leukocyte Esterase Negative Urine Opiates Screen POSITIVE H Ur Buprenorphine Scrn Not Detected Ur Oxycodone Screen Not Detected Urine Methadone Screen Positive H Urine Fentanyl Screen POSITIVE H Ur Barbiturates Screen Not Detected Ur Phencyclidine Scrn Not Detected Ur Amphetamines Screen Not Detected U Benzodiazepines Scrn Not Detected Urine Cocaine Screen POSITIVE H U Marijuana (THC) Screen Not Detected Hepatitis A IgM Ab Hep Bs Antigen Hep Bs Antibody Hepatitis C Ab (EIA) HIV 1&2 Ab/P24 Ag 4thGn Influenza Type A (PCR) NEGATIVE Influenza Type B (PCR) NEGATIVE RSV RNA Qual (PCR) NEGATIVE SARS-CoV-2 RNA (RT-PCR) NEGATIVE 12/02/24 04:32 WBC 7.0 RBC 3.66 L Hgb 10.3 L Hct 31.0 L MCV 84.7 MCH 28.1 MCHC 33.2 RDW 12.8 Plt Count 205 D MPV 8.8 L Immature Gran % (Auto) 0.4 Neut % (Auto) 63.1 Lymph % (Auto) 26.0 [place] % (Auto) 9.2 Eos % (Auto) 0.9 Baso % (Auto) 0.4 Lymph # (Auto) 1.8 [place] # (Auto) 0.6 Eos # (Auto) 0.1 Baso # (Auto) 0.0 Abs Immat Gran (auto) 0.03 Absolute Neuts (auto) 4.4 Absolute Nucleated RBC 0.000 Nucleated RBC % (auto) 0.0 Sodium 136 Potassium 4.1 Chloride 106 Carbon Dioxide 22 Anion Gap 12 BUN 20 H Creatinine 0.89 Estim Creat Clear Calc 80.0 Estimated GFR > 60 Random Glucose 124 H Lactic Acid Calcium 8.5 D Magnesium Total Bilirubin AST ALT Alkaline Phosphatase Total Protein Albumin Urine Color Urine Appearance Urine pH Ur Specific [place] Urine Protein Urine Glucose (UA) Urine Ketones Urine Blood Urine Nitrite Ur Leukocyte Esterase Urine Opiates Screen Ur Buprenorphine Scrn Ur Oxycodone Screen Urine Methadone Screen Urine Fentanyl Screen Ur Barbiturates Screen Ur Phencyclidine Scrn Ur Amphetamines Screen U Benzodiazepines Scrn Urine Cocaine Screen U Marijuana (THC) Screen Hepatitis A IgM Ab Nonreactive Hep Bs Antigen Negative Hep Bs Antibody REACTIVE Hepatitis C Ab (EIA) Reactive H HIV 1&2 Ab/P24 Ag 4thGn Nonreactive Influenza Type A (PCR) Influenza Type B (PCR) RSV RNA Qual (PCR) SARS-CoV-2 RNA (RT-PCR) Mental Status Exam Mental Status Exam Level of Consciousness: Awake, Appropriate and Alert Patient Behavior: Appropriate and Talkative Affect Description: Relaxed Speech Pattern: Clear Hallucinations: None Judgement: Good Medications Medications Current Medications Acetaminophen (Acetaminophen 325 Mg Tablet) 650 mg PO Q6H PRN PRN Reason: Pain, Mild 1-3,fever,headache Albuterol/Ipratropium (Albuterol/Iprat 2.5/0.5mg 3 Ml Ampul.Neb) 3 ml INHALE Q4H PRN PRN Reason: Shortness of Breath/Wheezing Calcium Carbonate (Calcium Carbonate 750 Mg Tab.Chew) 750 mg PO Q4H PRN PRN Reason: Heartburn Diphenhydramine HCl (Diphenhydramine Hcl 25 Mg Capsule) 25 mg PO Q6H PRN PRN Reason: Itching Last Admin: 12/01/24 21:35 Dose: 25 mg Hydrocortisone (Hydrocortisone 1 % Cream 28.35 Gm Tube) 1 appl TOPICAL BID ALBERTO; Protocol Last Admin: 12/02/24 08:10 Dose: 1 appl Cefazolin Sodium/Dextrose (Ancef) 2 gm in 50 mls @ 100 mls/hr IV Q8H ALBERTO Last Infusion: 12/02/24 08:22 Dose: Infused Sodium Chloride (Ns) 1,000 mls @ 125 mls/hr IVCONT .Q8H ALBERTO Last Admin: 12/02/24 08:24 Dose: 125 mls/hr Magnesium Hydroxide (Milk Of Magnesia 30 Ml Oral.Susp) 30 ml PO DAILY PRN PRN Reason: Constipation Melatonin (Melatonin 3 Mg Tablet) 6 mg PO BEDTIME PRN PRN Reason: Insomnia Methadone HCl (Methadone Hcl 20 Mg/2 Ml Oral.Conc) 140 mg PO DAILY [facility] Last Admin: 12/02/24 08:10 Dose: 140 mg Ondansetron HCl (Ondansetron Hcl 4 Mg/2 Ml Vial) 4 mg IVPUSH Q8H PRN PRN Reason: Nausea and Vomiting Polyethylene Glycol (Polyethylene Glycol 3350 17 Gm Powd.Pack) 17 gm PO DAILY PRN PRN Reason: Constipation Senna (Sennosides 8.6 Mg Tablet) 17.2 mg PO BEDTIME [facility] Last Admin: 12/01/24 20:43 Dose: 17.2 mg Sodium Chloride (0.9 % Sodium Chloride Flush 3 Ml Syringe) 3 ml IVFLUSH QSHIFT [facility] Last Admin: 12/02/24 07:57 Dose: Not Given Allergies Allergies Allergy/AdvReac Type Severity Reaction Status Date / Time morphine Allergy Intermediate Headache Verified 12/01/24 14:01 codeine (Codeine) Allergy Mild HIVES, Verified 12/01/24 14:01 VOMITING Assessment & Plan Assessment & Plan (1) Opioid use disorder: Status: Acute Code(s): F11.90 - Opioid use, unspecified, uncomplicated Assessment and Plan: methadone 140mg already ordered and patient already connected to OTP pain medications as needed for back pain--may require higher doses/combo of medications due to opioid tolerance monitor for constipation given high doses of opiates Total time managing care of this patient today __30__ minutes. [facility] Past Medical History Medical History (Updated 12/01/24 @ 17:44 by CAROL ANN Mccoy) Edentulous IVDU (intravenous drug user) Tobacco dependence Homeless Tenosynovitis of finger Cellulitis of hand, left Hepatitis C Opioid use disorder High blood pressure Hyperlipidemia Heroin addiction Substance abuse Colitis Anxiety Surgical History Surgical History H/O oral surgery Social History Social History Household Members: None Household Members Other:: homeless Housing: Apartment Do you presently have visiting nurse or other home services: No Alcohol intake: current Alcohol intake frequency: 3 or more drinks per day Patient Tobacco Use Status: Never used Tobacco Tobacco use type: Cigarette Smoked in Last 30 Days: Yes e-Cigarette/Vaping Use: Currently Using Second Hand Smoke Exposure: Yes Use of substances other than those prescribed or required for medical reasons: Yes Substance Use Type: Crack/Cocaine Advance Directives: No Advance Directives Information Provided: No Nutrition Risks: No Nutritional Risk service: No Current occupational status: unemployed
--- NOTE | 2024-12-02 12:32 | P.PNIM_ITS ---
Subjective Subjective Date of Service: 12/02/24 Interval History: back pain Physical Exam 2 Exam: Exam: General: AO X 3, in pain Resp: CTA bilateral, no accessory muscles used CVS: S1,S2,RRR GI: soft, non tender, non distended Vital Signs: Vital Signs: Last Vital Signs Temp 97.7 F 12/02/24 03:28 Pulse 62 12/02/24 06:26 Resp 16 12/02/24 06:26 BP 158/81 H 12/02/24 06:26 Pulse Ox 100 12/02/24 06:26 O2 Del Method Room Air 12/02/24 06:26 BMI result Body Mass Index 22.5 Objective Data Active Medications Acetaminophen (Acetaminophen 325 Mg Tablet) 650 mg PO Q6H PRN PRN Reason: Pain, Mild 1-3,fever,headache Albuterol/Ipratropium (Albuterol/Iprat 2.5/0.5mg 3 Ml Ampul.Neb) 3 ml INHALE Q4H PRN PRN Reason: Shortness of Breath/Wheezing Calcium Carbonate (Calcium Carbonate 750 Mg Tab.Chew) 750 mg PO Q4H PRN PRN Reason: Heartburn Diphenhydramine HCl (Diphenhydramine Hcl 25 Mg Capsule) 25 mg PO Q6H PRN PRN Reason: Itching Last Admin: 12/01/24 21:35 Dose: 25 mg Documented By: DAYDAY Hydrocortisone (Hydrocortisone 1 % Cream 28.35 Gm Tube) 1 appl TOPICAL BID ALBERTO; Protocol Last Admin: 12/02/24 08:10 Dose: 1 appl Documented By: ORLANDO Hydromorphone HCl (Hydromorphone Hcl 1 Mg/Ml Syringe) 1 mg IVPUSH Q3H PRN; Protocol PRN Reason: Pain, Severe (Pain Scale 7-10) Cefazolin Sodium/Dextrose (Ancef) 2 gm in 50 mls @ 100 mls/hr IV Q8H [facility] Last Infusion: 12/02/24 08:22 Dose: Infused Documented By: ORLANDO Sodium Chloride (Ns) 1,000 mls @ 125 mls/hr IVCONT .Q8H ALBERTO Last Admin: 12/02/24 08:24 Dose: 125 mls/hr Documented By: ORLANDO Magnesium Hydroxide (Milk Of Magnesia 30 Ml Oral.Susp) 30 ml PO DAILY PRN PRN Reason: Constipation Melatonin (Melatonin 3 Mg Tablet) 6 mg PO BEDTIME PRN PRN Reason: Insomnia Methadone HCl (Methadone Hcl 20 Mg/2 Ml Oral.Conc) 140 mg PO DAILY [facility] Last Admin: 12/02/24 08:10 Dose: 140 mg Documented By: ORLANDO Co-signed By: SILVIA Ondansetron HCl (Ondansetron Hcl 4 Mg/2 Ml Vial) 4 mg IVPUSH Q8H PRN PRN Reason: Nausea and Vomiting Polyethylene Glycol (Polyethylene Glycol 3350 17 Gm Powd.Pack) 17 gm PO DAILY PRN PRN Reason: Constipation Senna (Sennosides 8.6 Mg Tablet) 17.2 mg PO BEDTIME [facility] Last Admin: 12/01/24 20:43 Dose: 17.2 mg Documented By: DAYDAY Sodium Chloride (0.9 % Sodium Chloride Flush 3 Ml Syringe) 3 ml IVFLUSH QSHIFT [facility] Last Admin: 12/02/24 07:57 Dose: Not Given Documented By: ORLANDO Non-Admin Reason: IV Running Labs 12/02/24 04:32 12/02/24 04:32 Labs: Laboratory Results - last 24 hr 12/01/24 12/01/24 12/01/24 14:18 15:34 21:36 MCV 82.1 MCH 28.0 MCHC 34.1 RDW 12.7 Plt Count 275 D MPV 8.5 L Immature Gran % (Auto) 0.4 Neut % (Auto) 70.8 Lymph % (Auto) 20.1 [place] % (Auto) 8.1 Eos % (Auto) 0.4 Baso % (Auto) 0.2 Lymph # (Auto) 2.5 [place] # (Auto) 1.0 Eos # (Auto) 0.1 Baso # (Auto) 0.0 Abs Immat Gran (auto) 0.05 H Absolute Neuts (auto) 8.9 H Absolute Nucleated RBC 0.000 Nucleated RBC % (auto) 0.0 Anion Gap 12 Estim Creat Clear Calc 89.0 Estimated GFR > 60 Random Glucose 88 Lactic Acid 0.5 Calcium 9.1 D Magnesium 1.9 Total Bilirubin 0.8 AST 30 ALT 14 Alkaline Phosphatase 107 Total Protein 7.3 Albumin 3.7 Urine Color Yellow Urine Appearance Clear Urine pH 5.5 Ur Specific [place] 1.020 Urine Protein Negative Urine Glucose (UA) Negative Urine Ketones Negative Urine Blood Negative Urine Nitrite Negative Ur Leukocyte Esterase Negative Urine Opiates Screen POSITIVE H Ur Buprenorphine Scrn Not Detected Ur Oxycodone Screen Not Detected Urine Methadone Screen Positive H Urine Fentanyl Screen POSITIVE H Ur Barbiturates Screen Not Detected Ur Phencyclidine Scrn Not Detected Ur Amphetamines Screen Not Detected U Benzodiazepines Scrn Not Detected Urine Cocaine Screen POSITIVE H U Marijuana (THC) Screen Not Detected Hepatitis A IgM Ab Hep Bs Antigen Hep Bs Antibody Hepatitis C Ab (EIA) HIV 1&2 Ab/P24 Ag 4thGn Influenza Type A (PCR) NEGATIVE Influenza Type B (PCR) NEGATIVE RSV RNA Qual (PCR) NEGATIVE SARS-CoV-2 RNA (RT-PCR) NEGATIVE 12/02/24 04:32 MCV 84.7 MCH 28.1 MCHC 33.2 RDW 12.8 Plt Count 205 D MPV 8.8 L Immature Gran % (Auto) 0.4 Neut % (Auto) 63.1 Lymph % (Auto) 26.0 [place] % (Auto) 9.2 Eos % (Auto) 0.9 Baso % (Auto) 0.4 Lymph # (Auto) 1.8 [place] # (Auto) 0.6 Eos # (Auto) 0.1 Baso # (Auto) 0.0 Abs Immat Gran (auto) 0.03 Absolute Neuts (auto) 4.4 Absolute Nucleated RBC 0.000 Nucleated RBC % (auto) 0.0 Anion Gap 12 Estim Creat Clear Calc 80.0 Estimated GFR > 60 Random Glucose 124 H Lactic Acid Calcium 8.5 D Magnesium Total Bilirubin AST ALT Alkaline Phosphatase Total Protein Albumin Urine Color Urine Appearance Urine pH Ur Specific [place] Urine Protein Urine Glucose (UA) Urine Ketones Urine Blood Urine Nitrite Ur Leukocyte Esterase Urine Opiates Screen Ur Buprenorphine Scrn Ur Oxycodone Screen Urine Methadone Screen Urine Fentanyl Screen Ur Barbiturates Screen Ur Phencyclidine Scrn Ur Amphetamines Screen U Benzodiazepines Scrn Urine Cocaine Screen U Marijuana (THC) Screen Hepatitis A IgM Ab Nonreactive Hep Bs Antigen Negative Hep Bs Antibody REACTIVE Hepatitis C Ab (EIA) Reactive H HIV 1&2 Ab/P24 Ag 4thGn Nonreactive Influenza Type A (PCR) Influenza Type B (PCR) RSV RNA Qual (PCR) SARS-CoV-2 RNA (RT-PCR) Assessment and Plan (1) Anxiety: Status: Acute Plan 59M PMH IVDA, hcv, mssa bacteremia with epidural abscess left ama from [place] 11/27/24 presented with fever MSSA bacteremia and epidural abscess due to IVDA ancef, cultures, ID eval previously cleared by neurosurgery at [facility] opiate dependence methadone, addiction team hcv reports treatment outpatient follow up dvt prophylaxis- lovenox full code reason for continued hospitalization:cultures Quality Stroke Does the patient have a stroke diagnosis?: No Reason for No Anti-thrombotic by Day Two: N/A - Med Ordered VTE Prior VTE?: No VTE Risk Level:: Medical - moderate - high VTE Device Contraindication: N/A - Device Ordered VTE Drug Contraindication: N/A - Med Ordered
--- NOTE | 2024-12-02 12:34 | PC.NURSE ---
Patient complaint of back pain rated 10/10 Notified MD Atkinson, received new orders for dilaudid Medication administered per JUN, effectiveness pending
[2024-12-02 12:55] VITALS: RESP 12
[2024-12-02 14:36] LABS: HBc Num2 2.01 S/CO; HBc Num3 1.96 S/CO
[2024-12-02 15:11] VITALS: BMI 56.9
[2024-12-02 15:30] VITALS: BP 166/79; PULSE 45; RESP 18; TEMP 36.1; O2SAT 95
--- NOTE | 2024-12-02 15:50 | W.PM.IDCN ---
History of Present Illness Data of Consult Service Date: 12/02/24 Requesting physician: Boaz Atkinson Primary Care Provider: René Fields MD HPI Reason for consult: MSSA bacteremia,T8-T11 OM He presents with 8/10 back and leg pain. He was transferred to [facility] and left AMA on November 27. He has chills as well. Review of Systems Review of Systems: Yes all other systems are reviewed and are negative [facility] Past Medical History Medical History Edentulous IVDU (intravenous drug user) Tobacco dependence Homeless Tenosynovitis of finger Cellulitis of hand, left Hepatitis C Opioid use disorder High blood pressure Hyperlipidemia Heroin addiction Substance abuse Colitis Anxiety Family History Family History (Updated 12/02/24 @ 15:52 by Nadira Amor MD) Other Hepatitis C Family history: reviewed and not pertinent Surgical History Surgical History H/O oral surgery Social History Social History Household Members: None Household Members Other:: homeless Housing: Homeless Do you presently have visiting nurse or other home services: No Alcohol intake: current Alcohol intake frequency: 3 or more drinks per day Patient Tobacco Use Status: Never used Tobacco Tobacco use type: Cigarette e-Cigarette/Vaping Use: Currently Using Second Hand Smoke Exposure: Yes Substance Use Type: Crack/Cocaine service: No Current occupational status: unemployed Travel History Ebola Risk: Travel/Contact With Anyone From Affected Area/s: No Has Patient Experienced Ebola Symptoms: No Meds Allergies Allergy/AdvReac Type Severity Reaction Status Date / Time morphine Allergy Intermediate Headache Verified 12/01/24 14:01 codeine (Codeine) Allergy Mild HIVES, Verified 12/01/24 14:01 VOMITING Active Medications: Current Medications Acetaminophen (Acetaminophen 325 Mg Tablet) 650 mg PO Q6H PRN PRN Reason: Pain, Mild 1-3,fever,headache Last Admin: 12/02/24 13:46 Dose: 650 mg Albuterol/Ipratropium (Albuterol/Iprat 2.5/0.5mg 3 Ml Ampul.Neb) 3 ml INHALE Q4H PRN PRN Reason: Shortness of Breath/Wheezing Calcium Carbonate (Calcium Carbonate 750 Mg Tab.Chew) 750 mg PO Q4H PRN PRN Reason: Heartburn Diphenhydramine HCl (Diphenhydramine Hcl 25 Mg Capsule) 25 mg PO Q6H PRN PRN Reason: Itching Last Admin: 12/01/24 21:35 Dose: 25 mg Enoxaparin Sodium (Enoxaparin Sodium 40 Mg/0.4 Ml Syringe) 40 mg SUBCUT Q24H [facility] Hydrocortisone (Hydrocortisone 1 % Cream 28.35 Gm Tube) 1 appl TOPICAL BID ALBERTO; Protocol Last Admin: 12/02/24 08:10 Dose: 1 appl Hydromorphone HCl (Hydromorphone Hcl 1 Mg/Ml Syringe) 1 mg IVPUSH Q3H PRN; Protocol PRN Reason: Pain, Severe (Pain Scale 7-10) Last Admin: 12/02/24 12:55 Dose: 1 mg Cefazolin Sodium/Dextrose (Ancef) 2 gm in 50 mls @ 100 mls/hr IV Q8H [facility] Last Infusion: 12/02/24 08:22 Dose: Infused Sodium Chloride (Ns) 1,000 mls @ 125 mls/hr IVCONT .Q8H [facility] Last Admin: 12/02/24 08:24 Dose: 125 mls/hr Magnesium Hydroxide (Milk Of Magnesia 30 Ml Oral.Susp) 30 ml PO DAILY PRN PRN Reason: Constipation Melatonin (Melatonin 3 Mg Tablet) 6 mg PO BEDTIME PRN PRN Reason: Insomnia Methadone HCl (Methadone Hcl 20 Mg/2 Ml Oral.Conc) 140 mg PO DAILY [facility] Last Admin: 12/02/24 08:10 Dose: 140 mg Ondansetron HCl (Ondansetron Hcl 4 Mg/2 Ml Vial) 4 mg IVPUSH Q8H PRN PRN Reason: Nausea and Vomiting Polyethylene Glycol (Polyethylene Glycol 3350 17 Gm Powd.Pack) 17 gm PO DAILY PRN PRN Reason: Constipation Senna (Sennosides 8.6 Mg Tablet) 17.2 mg PO BEDTIME [facility] Last Admin: 12/01/24 20:43 Dose: 17.2 mg Sodium Chloride (0.9 % Sodium Chloride Flush 3 Ml Syringe) 3 ml IVFLUSH QSHIFT [facility] Last Admin: 12/02/24 07:57 Dose: Not Given Home Medications ?Medication ?Instructions ?Recorded ?Confirmed ?Last Taken ?Type methadone 10 mg/mL oral 140 mg PO DAILY 12/01/24 12/01/24 11/30/24 08:24 History concentrate (Methadone Intensol) Physical Exam Vital Signs: Vital Signs: Last Vital Signs Temp 97.0 F 12/02/24 15:30 Pulse 45 L 12/02/24 15:30 Resp 18 12/02/24 15:30 BP 166/79 H 12/02/24 15:30 Pulse Ox 95 12/02/24 15:30 O2 Del Method Room Air 12/02/24 15:30 BMI result Body Mass Index 56.9 Const: General: cooperative HEENT: Head: Yes normal to inspection Face and sinus: Yes normal facial exam Mouth: Normal oral and palatal mucosa present Teeth and gingiva: dentition normal Eyes: General: appearance normal, both eyes and all related structures Pupils: Equal, round and reactive pupils present Resp: Effort & Inspection: normal respiratory effort Cardio: Rate: regular rate Rhythm: regular rhythm GI: Palpation (GI): Soft to palpation and nontender : General: Yes no CVA tenderness Back/Spine/Pelvis: Back: no CVA tenderness Skin: General skin exam: no rashes or lesions noted Neuro: General: moves all extremities Cranial nerves: Yes Equal, round and reactive pupils present Extrem: General: Yes normal to inspection Psych: Appearance: grossly normal Results Labs 12/02/24 04:32 12/02/24 04:32 Labs: Short CBC 12/02/24 Range/Units 04:32 WBC 7.0 (4.8-10.8) X10*3/uL Hgb 10.3 L (14.0-18.0) g/dl Hct 31.0 L (42.0-52.0) % Plt Count 205 D (160-400) X10*3/uL BMP 12/02/24 04:32 Sodium 136 Potassium 4.1 Chloride 106 Carbon Dioxide 22 BUN 20 H Creatinine 0.89 Calcium 8.5 D Urine 12/01/24 Range/Units 21:36 Urine Color Yellow Urine Appearance Clear Urine pH 5.5 (5.0-9.0) Ur Specific [place] 1.020 (1.005-1.025) Urine Protein Negative (Neg-Trace) mg/dL Urine Glucose (UA) Negative (Negative) mg/dL Assessment and Plan (1) Substance abuse: Status: Acute (2) Anxiety: Status: Acute (3) Opioid use disorder: Status: Acute Plan Recheck blood culture. Recheck echo. Would continue Kefzol for MSSA,tota six weeks IV antibiotics. Check Hepatitis C viral load if not done lately. He is HIV negative.
--- NOTE | 2024-12-02 15:53 | MHC.RECOVRN ---
Attempted to call [employer] at [phone] to re-connect pt. for housing, and phone kept ringing. E mailed at [email or web address]. awaiting reply.
--- NOTE | 2024-12-02 15:54 | PC.NURSE ---
Pt refusing bed alarm despite education on risk for falls, refusing camera.
[2024-12-02] MEDS: 0.9 % Sodium Chloride Flush 3 ML SYRINGE IVFLUSH ×2 (16:41→21:02)
[2024-12-02 19:24] VITALS: BP 160/89; PULSE 53; RESP 20; TEMP 36.6; O2SAT 98
[2024-12-03 03:53] VITALS: BP 188/102; PULSE 54; RESP 18; TEMP 37.2; O2SAT 95
[2024-12-03 06:28] LABS: Hematocrit 34.7 % (42.0-52.0); Hemoglobin 11.9 g/dl (14.0-18.0); Mean Corpuscular HGB Conc 34.3 g/dl (31.0-36.0); Mean Corpuscular Hemoglobin 28.5 pg (27.0-33.0); Mean Corpuscular Volume 83.2 fL (80.0-98.0); NRBC Abs Auto 0.000 X10*3/uL (0.0-0.012); NRBC Pct Auto 0.0 /100WBC (0.0-0.2); Platelet Count 284 X10*3/uL (160-400); Red Blood Count 4.17 X10*6/uL (4.60-5.80); White Blood Count 9.2 X10*3/uL (4.8-10.8)
[2024-12-03 06:58] LABS: Anion Gap 16 (12-20); Blood Urea Nitrogen 15 mg/dL (9-16); Calcium 9.3 mg/dL (8.4-10.2); Carbon Dioxide 28 mmol/L (22-29); Chloride 94 mmol/L (96-108); Creatinine Clr Calc Pharmacy 159.8; Estimated Glomerular Filt Rate > 60; Potassium 4.6 mmol/L (3.3-5.1); Sodium 133 mmol/L (135-145)
[2024-12-03 08:00] VITALS: BP 170/95; PULSE 56; RESP 19; TEMP 36.6; O2SAT 98
[2024-12-03] MEDS: methADONE HCl 20 MG/2 ML ORAL.CONC 140 MG PO (08:05)
[2024-12-03] MEDS: 0.9 % Sodium Chloride Flush 3 ML SYRINGE IVFLUSH ×2 (08:06→14:25)
--- NOTE | 2024-12-03 08:48 | MHC.CM.PN ---
pt is homeless on methadone [facility] pt will be seen by addiction medicine
--- NOTE | 2024-12-03 11:24 | P.PNIM_ITS ---
Subjective Subjective Date of Service: 12/03/24 Interval History: wants more opiates Physical Exam 2 Vital Signs: Vital Signs: Last Vital Signs Temp 97.8 F 12/03/24 08:00 Pulse 56 12/03/24 08:00 Resp 19 12/03/24 08:00 BP 170/95 H 12/03/24 08:00 Pulse Ox 98 12/03/24 08:00 O2 Del Method Room Air 12/03/24 08:00 BMI result Body Mass Index 56.9 Const: General: cooperative HEENT: Head: Yes normal to inspection Face and sinus: Yes normal facial exam Mouth: Normal oral and palatal mucosa present Teeth and gingiva: d entition normal Eyes: General: appearance normal, both eyes and all related structures P upils: Equal, round and reactive pupils present Resp: Effort & Inspection: normal respiratory effort Cardio: Rate: regular rate Rhythm: regular rhythm GI: Palpation (GI): Soft to palpation and nontender : General: Yes no CVA tenderness Back/Spine/Pelvis: Back: no CVA tenderness Skin: General skin exam: no rashes or lesions noted Neuro: General: moves all extremities Cranial nerves: Yes Equal, round and reactive pupils present Extrem: General: Yes normal to inspection Psych: Appearance: grossly normal Objective Data Active Medications Acetaminophen (Acetaminophen 325 Mg Tablet) 650 mg PO Q6H PRN PRN Reason: Pain, Mild 1-3,fever,headache Last Admin: 12/03/24 04:31 Dose: 650 mg Documented By: VERONICA Albuterol/Ipratropium (Albuterol/Iprat 2.5/0.5mg 3 Ml Ampul.Neb) 3 ml INHALE Q4H PRN PRN Reason: Shortness of Breath/Wheezing Calcium Carbonate (Calcium Carbonate 750 Mg Tab.Chew) 750 mg PO Q4H PRN PRN Reason: Heartburn Diphenhydramine HCl (Diphenhydramine Hcl 25 Mg Capsule) 25 mg PO Q6H PRN PRN Reason: Itching Last Admin: 12/01/24 21:35 Dose: 25 mg Documented By: DAYDAY Enoxaparin Sodium (Enoxaparin Sodium 40 Mg/0.4 Ml Syringe) 40 mg SUBCUT Q24H [facility]O Last Admin: 12/03/24 08:06 Dose: 40 mg Documented By: LILIANA Hydrocortisone (Hydrocortisone 1 % Cream 28.35 Gm Tube) 1 appl TOPICAL BID ALBERTO; Protocol Last Admin: 12/03/24 08:12 Dose: Not Given Documented By: LILIANA Non-Admin Reason: Med Not Available Hydromorphone HCl (Hydromorphone Hcl 1 Mg/Ml Syringe) 1 mg IVPUSH Q2H PRN; Protocol PRN Reason: Pain, Severe (Pain Scale 7-10) Last Admin: 12/03/24 08:06 Dose: 1 mg Documented By: LILIANA Cefazolin Sodium/Dextrose (Ancef) 2 gm in 50 mls @ 100 mls/hr IV Q8H [facility] Last Infusion: 12/03/24 06:57 Dose: Infused Documented By: LILIANA Magnesium Hydroxide (Milk Of Magnesia 30 Ml Oral.Susp) 30 ml PO DAILY PRN PRN Reason: Constipation Melatonin (Melatonin 3 Mg Tablet) 6 mg PO BEDTIME PRN PRN Reason: Insomnia Methadone HCl (Methadone Hcl 20 Mg/2 Ml Oral.Conc) 140 mg PO DAILY [facility] Last Admin: 12/03/24 08:05 Dose: 140 mg Documented By: LILIANA Co-signed By: FILIPE Ondansetron HCl (Ondansetron Hcl 4 Mg/2 Ml Vial) 4 mg IVPUSH Q8H PRN PRN Reason: Nausea and Vomiting Polyethylene Glycol (Polyethylene Glycol 3350 17 Gm Powd.Pack) 17 gm PO DAILY PRN PRN Reason: Constipation Senna (Sennosides 8.6 Mg Tablet) 17.2 mg PO BEDTIME [facility] Last Admin: 12/02/24 19:46 Dose: 17.2 mg Documented By: VERONICA Sodium Chloride (0.9 % Sodium Chloride Flush 3 Ml Syringe) 3 ml IVFLUSH QSHIFT [facility] Last Admin: 12/03/24 08:06 Dose: 3 ml Documented By: LILIANA Labs 12/03/24 05:34 12/03/24 05:34 Labs: Laboratory Results - last 24 hr 12/02/24 12/03/24 04:32 05:34 MCV 83.2 MCH 28.5 MCHC 34.3 RDW 12.2 Plt Count 284 D MPV 9.3 L Absolute Nucleated RBC 0.000 Nucleated RBC % (auto) 0.0 Anion Gap 16 Estim Creat Clear Calc 159.8 Estimated GFR > 60 Random Glucose 109 Calcium 9.3 D Hep B Core Total Ab Reactive Microbiology Microbiology Results: Microbiology 12/01/24 15:55 Blood Culture - Preliminary Blood - Venous No growth after 24 hours. 12/01/24 15:34 Blood Culture - Preliminary Blood - Venous No growth after 24 hours. Assessment and Plan (1) Anxiety: Status: Acute Plan 59M PMH IVDA, hcv, mssa bacteremia with epidural abscess left ama from [place] 11/27/24 presented with fever MSSA bacteremia and epidural abscess due to IVDA ancef, cultures - 24hr negative, ID appreciated - plan for 6 weeks iv ancef from negative culture previously cleared by neurosurgery at [place] opiate dependence methadone, addiction following hcv reports treatment follow up viral level dvt prophylaxis- lovenox full code reason for continued hospitalization:cultures Quality Stroke Does the patient have a stroke diagnosis?: No Reason for No Anti-thrombotic by Day Two: N/A - Med Ordered VTE Prior VTE?: No VTE Risk Level:: Medical - moderate - high VTE Device Contraindication: N/A - Device Ordered VTE Drug Contraindication: N/A - Med Ordered
--- NOTE | 2024-12-03 13:52 | MHC.CM.PN ---
Addendum entered by Lina Vazquez RN 12/03/24 15:41: Patient completed HCP naming his friend, Elliott Merrill ([phone]), as HCA. Original Note: Per MD rounds patient will need 6 wks IV abx. Patient has accepted bed at [facility]. ERNST's signed and sent to [facility] to begin guest dosing process w/ [facility]. Clinicals faxed to [facility]. Requested start date of 12/06, with goal of dc 12/05. Will need PICC and auth.
[2024-12-03 15:25] VITALS: BP 184/87; PULSE 52; RESP 16; TEMP 37.4; O2SAT 97
--- NOTE | 2024-12-03 18:21 | PC.NURSE ---
MD Atkinson made aware pts BP continues to elevated last BP 184/87, MD ordered amlodipine and clonidine. Pt refusing clonidine, made aware.
[2024-12-03 19:46] VITALS: BP 169/84; PULSE 56; RESP 18; TEMP 36.6; O2SAT 98
[2024-12-04] VITALS (7 sets, daily range): BP systolic 134–182; BP diastolic 84–98; PULSE 50–66; RESP 14–18; TEMP 36.4–36.7; O2SAT 95–99
[2024-12-04] MEDS: 0.9 % Sodium Chloride Flush 3 ML SYRINGE IVFLUSH ×2 (00:08→09:00)
[2024-12-04 06:44] LABS: Hepatitis B Core Antibody IgM NON-REACTIVE (NON-REACTIVE)
[2024-12-04] MEDS: methADONE HCl 20 MG/2 ML ORAL.CONC 140 MG PO (08:57)
--- NOTE | 2024-12-04 12:22 | P.PICC_ITS ---
PICC Line Insertion NPICC Diagnosis: Bacteremia Indication: 6wks ABT Pertinent Labs: reviewed Technique: Following informed consent including risks, benefits and alternatives and using sterile technique including cap and mask, sterile gown, glove and drape, the right arm was prepped and draped in the usual sterile fashion of full barrier technique with CHG. Following completion of Kennard Protocol the skin and soft tissues were anesthetized with 1% Lidocaine plain. Using ultrasound guidance, right basilic vein access was obtained. Over an 0.018 wire through peel-away sheath, a 4fr single lumen PASV PICC line was positioned. Catheter length is 38cm internal length, 0cm external length, for a total trimmed length of 38cm. The procedure was performed in [facility]. Tip verification was performed by Jessica Campoverde with Sherlock 3CG. Tip located in SVC. Ultrasound was used to document vein patency and for needle entry. A formal ultrasound picture and cardiac rhythm strip was recorded. [employer] has released the line for use and it is currently dressed with a StatLock, Tegaderm, and CHG disc. Verification has been performed for blood return and line patency. Arm Circumference: 29cm Equipment: Trendrating POWERPICC SOLO catheter with sherlock 3cg tip Catheter Type: 4FR single lumen PASV catheter Lot #: [id number]
--- NOTE | 2024-12-04 12:55 | MHC.CM.PN ---
Addendum entered by Cristal Gonsalez 12/04/24 14:19: PICC REPORT SENT TO SNF [facility]IA [facility] Addendum entered by Cristal Gonsalez 12/04/24 13:46: [facility] HAS CONFIRMED PTS GUEST DOSING ARRANGEMENTS CM WILL SEND PICC REPORT ONCE AVAILABLE AND SNF WILL DO PASRR PT CANNOT TAKE ANY BELONGINGS WITH HIM TO THE SNF, PT WAS INFORMED Original Note: VM MESSAGE LEFT FOR CECY AT [facility] [phone] X [phone] REQUESTING A RETURN CALL TO CONFIRM GUEST [employer]ING [employer]RANGEMENTS PLAN FOR PICC LINE TO BE PLACED TODAY AND DC TOMORROW PENDING METHADONE ARRANGEMENTS PT WILL DC TO [facility] STR VIA S
--- NOTE | 2024-12-04 13:33 | HO.PM.IMPN ---
Subjective Subjective Date of Service: 12/04/24 Interval History: No acute issues overnight. PICC line done today without issue. Add an oxycodone to pain regimen with good effect Review of Systems Denies chest pain Denies shortness of breath Denies nausea vomiting diarrhea Denies fever chills Physical Exam Vital Signs: Vital Signs: Last Vital Signs Temp 97.6 F 12/04/24 07:45 Pulse 50 12/04/24 07:45 Resp 14 12/04/24 10:55 BP 172/97 H 12/04/24 07:45 Pulse Ox 95 12/04/24 07:45 O2 Del Method Room Air 12/04/24 07:45 BMI result Body Mass Index 56.9 Const: Other: Awake alert no acute distress Resp: Other: Clear to auscultation bilaterally no rales rhonchi or wheezes Cardio: Other: No S4; positive S1-S2; no S3 murmurs rubs or gallops GI: Other: Soft nontender nondistended normoactive bowel sounds Extrem: Other: No edema bilaterally Objective Data Active Medications Acetaminophen (Acetaminophen 325 Mg Tablet) 650 mg PO Q6H PRN PRN Reason: Pain, Mild 1-3,fever,headache Last Admin: 12/03/24 04:31 Dose: 650 mg Documented By: VERONICA Albuterol/Ipratropium (Albuterol/Iprat 2.5/0.5mg 3 Ml Ampul.Neb) 3 ml INHALE Q4H PRN PRN Reason: Shortness of Breath/Wheezing Amlodipine Besylate (Amlodipine Besylate 5 Mg Tablet) 5 mg PO DAILY ALBERTO; Protocol Last Admin: 12/04/24 08:55 Dose: 5 mg Documented By: PANDA Calcium Carbonate (Calcium Carbonate 750 Mg Tab.Chew) 750 mg PO Q4H PRN PRN Reason: Heartburn Last Admin: 12/03/24 15:21 Dose: 750 mg Documented By: LILIANA Diphenhydramine HCl (Diphenhydramine Hcl 25 Mg Capsule) 25 mg PO Q6H PRN PRN Reason: Itching Last Admin: 12/01/24 21:35 Dose: 25 mg Documented By: DAYDAY Enoxaparin Sodium (Enoxaparin Sodium 40 Mg/0.4 Ml Syringe) 40 mg SUBCUT Q24H FOR[facility]LY [facility], [facility]1983 Last Admin: 12/04/24 08:59 Dose: 40 mg Documented By: PANDA Hydrocortisone (Hydrocortisone 1 % Cream 28.35 Gm Tube) 1 appl TOPICAL BID FORMERLY [facility], 1928–1983; Protocol Last Admin: 12/03/24 20:13 Dose: Not Given Documented By: VERONICA Non-Admin Reason: Med Not Available Hydromorphone HCl (Hydromorphone Hcl 1 Mg/Ml Syringe) 1 mg IVPUSH Q2H PRN; Protocol PRN Reason: Pain, Severe (Pain Scale 7-10) Last Admin: 12/04/24 12:55 Dose: 1 mg Documented By: PANDA Cefazolin Sodium/Dextrose (Ancef) 2 gm in 50 mls @ 100 mls/hr IV Q8H FOR[facility]LY [facility], [facility]1983 Last Infusion: 12/04/24 09:02 Dose: Infused Documented By: PANDA Magnesium Hydroxide (Milk Of Magnesia 30 Ml Oral.Susp) 30 ml PO DAILY PRN PRN Reason: Constipation Melatonin (Melatonin 3 Mg Tablet) 6 mg PO BEDTIME PRN PRN Reason: Insomnia Methadone HCl (Methadone Hcl 20 Mg/2 Ml Oral.Conc) 140 mg PO DAILY FORMERLY [facility], [facility]1983 Last Admin: 12/04/24 08:57 Dose: 140 mg Documented By: PANDA Co-signed By: ZHERA Omeprazole (Omeprazole 20 Mg Capsule.) 20 mg PO BID@0630,1630 FOR[facility], [facility]1983 Last Admin: 12/04/24 06:27 Dose: 20 mg Documented By: VERONICA Ondansetron HCl (Ondansetron Hcl 4 Mg/2 Ml Vial) 4 mg IVPUSH Q8H PRN PRN Reason: Nausea and Vomiting Oxycodone HCl (Oxycodone Hcl Immed Release 15 Mg Tablet) 15 mg PO Q4H PRN PRN Reason: Pain, Moderate(Pain Scale 4-6) Polyethylene Glycol (Polyethylene Glycol 3350 17 Gm Powd.Pack) 17 gm PO DAILY PRN PRN Reason: Constipation Senna (Sennosides 8.6 Mg Tablet) 17.2 mg PO BEDTIME FOR[facility]LY [facility], [facility] Last Admin: 12/03/24 20:07 Dose: 17.2 mg Documented By: VERONICA Sodium Chloride (0.9 % Sodium Chloride Flush 3 Ml Syringe) 3 ml IVFLUSH QSHIFT FOR[facility], [facility]1983 Last Admin: 12/04/24 09:00 Dose: 3 ml Documented By: PANDA Labs 12/03/24 05:34 12/03/24 05:34 Labs: Laboratory Results - last 24 hr 12/02/24 04:32 Hep B Core IgM Ab NON-REACTIVE Microbiology Microbiology Results: Microbiology 12/01/24 15:55 Blood Culture - Preliminary Blood - Venous No growth after 48 hours. 12/01/24 15:34 Blood Culture - Preliminary Blood - Venous No growth after 48 hours. Assessment and Plan (1) MSSA (methicillin susceptible Staphylococcus aureus): Status: Acute (2) Epidural abscess: Status: Acute Plan 59M PMH IVDA, hcv, mssa bacteremia with epidural abscess left ama from [facility] 11/27/24 presented with fever 1.MSSA bacteremia/epidural abscess backdrop of IVDA -Ancef(last neg culture 12/01)..Q8h ...last dose 01/13/2025 -cleared by neurosurgery at [facility] 2.Opiate dependence -methadone as ordered 3. Chronic leg pain -PRN oxycodone Lovenox Full code Requires ongoing hospitalization for continued IV antibiotics to treat MSSA bacteremia/epidural abscess Quality Stroke Does the patient have a stroke diagnosis?: No Reason for No Anti-thrombotic by Day Two: N/A - Med Ordered VTE Prior VTE?: No VTE Risk Level:: Medical - moderate - high VTE Device Contraindication: N/A - Device Ordered VTE Drug Contraindication: N/A - Med Ordered
[2024-12-04] MEDS: oxyCODONE HCl Immed Release 15 MG TABLET PO ×2 (14:29→18:33)
[2024-12-04] MEDS: 0.9 % Sodium Chloride Flush 10 ML SYRINGE IVFLUSH (15:22)
[2024-12-04] MEDS: Hydrocortisone 1 % Cream 28.35 GM TUBE 1 APPL TOPICAL (19:40)
[2024-12-05] MEDS: oxyCODONE HCl Immed Release 15 MG TABLET PO ×2 (00:10→09:01)
[2024-12-05 03:41] VITALS: BP 178/73; PULSE 51; RESP 16; TEMP 36.3; O2SAT 99
[2024-12-05 07:24] VITALS: BP 170/80; PULSE 52; RESP 18; TEMP 36.9; O2SAT 98
[2024-12-05] MEDS: methADONE HCl 20 MG/2 ML ORAL.CONC 140 MG PO (08:03)
[2024-12-05] MEDS: 0.9 % Sodium Chloride Flush 10 ML SYRINGE IVFLUSH (08:26)
--- NOTE | 2024-12-05 08:49 | MHC.CM.PN ---
PT TO DC TO [facility] TODAY VIA [facility] AT 1130 HOURS PT AWARE AND REMINDED THEY HAVE REQUESTED HE BRING NO BELONGINGS
--- NOTE | 2024-12-05 08:59 | PM.DS ---
DS: Providers Provider Date of Service: 12/05/24 Date of admission: 12/01/24 16:55 Date of discharge: 12/05/24 Primary care physician: René Fields MD Consults: 12/01/24 17:05 Addiction Medicine Provider Routine Consulting Provider: Addiction Covering Reason for consultation: IVDA with serious infection left AMA from [facility] Has provider been notified: No 12/01/24 17:08 Consult to Case Management Routine Comment: placement for emt intermediate ABX 12/01/24 17:26 Consult to Infectious Diseases Routine Consulting Provider: [facility] Reason for consultation: epidural abscess, AMA from [facility] was on ANCEF Has provider been notified: No 12/02/24 15:15 Addiction Medicine Provider Routine Consulting Provider: Addiction Covering Reason for consultation: crack cocaine use DS: Diagnosis Discharge Diagnosis (1) MSSA (methicillin susceptible Staphylococcus aureus): Status: Acute (2) Epidural abscess: Status: Acute DS: Summary Hospital Course Hospital Course: 59-year-old male with past medical history substance use disorder on methadone still actively using IV drugs with recent diagnosis of epidural abscess lumbar spine/ MSSA with transfer to [facility] 11/19 but left AMA 11/27, hepatitis-C, HLD, anxiety, 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 Pt seen and initially sleepy but responsive and at first agitated over questions regarding need for admission. Patient confirmed that he did have fever earlier but currently denies any chills, nausea, vomiting or chest pain. Patient is not having any shortness of breath or productive cough. Pt denies that he will leave AMA currently and understands that he will need placement to complete ABX therapy. ER provider did not have indication for repeat scan noting recent dx of epidural abscess as there are no acute neuro changes. Patient identifies that he is homeless and believes he has bedbugs in his lower legs as he recently noted bugs jumping from both legs. Patient is having intermittent back pain. Patient received his methadone yesterday but did not receive his methadone today. Nursing has already confirmed that his daily dose 140 mg daily. Hospital Course Patient admitted to general medical floor and seen in consultation by ID. Chart reviewed and ultimately ID recommended 6 weeks of Kefzol 2 g IV Q 8. Blood cultures repeat blood cultures initially demonstrated MSSA; repeat cultures negative times 48 hours and PICC line was placed. At this point in time he is medically acceptable for transfer Time Attestation Discharge Coordination Time (in mins): 35 Quality: Safe Use of Opioids Does Pt have an Active Cancer Diagnosis on the Problem List?: No Quality: Stroke Does the patient have a stroke diagnosis?: No Physical Exam Vital Signs: Vital Signs: Last Vital Signs Temp 98.5 F 12/05/24 07:24 Pulse 52 12/05/24 07:24 Resp 18 12/05/24 07:24 BP 170/80 H 12/05/24 07:24 Pulse Ox 98 12/05/24 07:24 O2 Del Method Room Air 12/05/24 07:24 BMI result Body Mass Index 56.9 Const: Other: Awake alert no acute distress Resp: Other: Clear to auscultation bilaterally no rales rhonchi or wheezes Cardio: Other: No S4; positive S1-S2; no S3 murmurs rubs or gallops GI: Other: Soft nontender nondistended normoactive bowel sounds Extrem: Other: No edema bilaterally DS: Data Data Completed and Pending Completed studies during hospitalization [Text1]: Procedures Drainage of Left Hand Tendon, Percutaneous Approach (10/18/22) Labs on day of discharge: Preliminary micro results at discharge 12/01/24 15:55 Blood Culture - Preliminary Blood - Venous No growth after 48 hours. 12/01/24 15:34 Blood Culture - Preliminary Blood - Venous No growth after 48 hours. Discharge Plan Discharge Anticipated Discharge Date/Time: 12/05/24 08:47 Patient Disposition: Xfer SNF Discharge Diagnosis: Epidural abscess Referrals: [facility] [Outside] René Fields MD [Primary Care Provider, Medical] - 1 Week Discharge Medications: New cefazolin in dextrose (iso-os) 2 gram/50 mL Piggyback 50 ml IV Q8H 42 Days Qty: 90 0RF sennosides [Senna Lax] 8.6 mg Tablet 17.2 mg PO BEDTIME Qty: 30 0RF ipratropium-albuterol 0.5 mg-3 mg(2.5 mg base)/3 mL Solution For Nebulization 3 ml inhalation Q4H PRN (Reason: Shortness Of Breath/Wheezing) Qty: 90 0RF amlodipine 5 mg Tablet 5 mg PO DAILY Qty: 30 0RF Protocol: Hold for SBP< HOLD for SBP < : 90 oxycodone 15 mg Tablet 15 mg PO Q4H PRN (Reason: Pain, Moderate(Pain Scale 4-6)) Qty: 30 0RF Rx Instructions: Partial Fill upon patient request. omeprazole 20 mg Capsule,Delayed Release(Dr/Ec) 20 mg PO BID@0630,1630 Qty: 60 0RF Continued methadone [Methadone Intensol] 10 mg/mL Concentrate 140 mg PO DAILY Discharge Orders: Discharge Order (Routine); Ordered 12/05/24 Ordered By: Fareed Marie Diet: Advance to usual diet Activity on Discharge: As tolerated Stand Alone Forms: Patient Portal Discharge page Print Language: Thai Care Plan Goals: Kefzol 2 g IV q.8 x6 weeks Health Concerns: Continue methadone as ordered as well as other meds listed on transfer sheet Plan of Treatment: As per receiving facility Assessment: See discharge summary
[2024-12-05 12:09] VITALS: RESP 16
[2024-12-05 12:32] VITALS: BP 170/87; PULSE 61; RESP 17; TEMP 36.7; O2SAT 98
[2024-12-06 00:28] LABS: HCV Log PCR 5.72 Log IU/mL (NOT DETECTED); HepC Viral Load 519000 IU/mL (NOT DETECTED)
== END 2024-12-05 12:40 | disposition skilled nursing facility (03) | DRG 95 ==
LOC: HO.ED 14:42 → HO.EDOVER 17:00 → HO.S3 12-02 14:17
PROVIDERS: Nurse Practitioner Family; Admitting Provider Internal Medicine; Emergency Provider Emergency Medicine; PCP Internal Medicine; Visit Provider Hospitalist
DX: G06.2 Extradural and subdural abscess, unspecified (principal); F11.20 Opioid dependence, uncomplicated; Z59.02 Unsheltered homelessness; F41.9 Anxiety disorder, unspecified; B88.2 Other arthropod infestations; F17.210 Nicotine dependence, cigarettes, uncomplicated; M54.9 Dorsalgia, unspecified; Z71.6 Tobacco abuse counseling; Z86.19 Personal history of other infectious and parasitic diseases; Z20.822 Contact with and (suspected) exposure to COVID-19; Z79.899 Other long term (current) drug therapy
CPT/HCPCS: 36415; 36573; 71046; 80048; 80053; 80307; 81003; 83605; 83735; 85025; 85027; 86704; 86705; 86706; 86709; 86803; 87040; 87340; 87389; 87522; 87637; 93005; 99285; C1751; J0690; J1171; J1650; J1885; S9485

== ENCOUNTER → 2024-12-01 14:07 | Outpatient (BNV) | payer OTHER, SELFPAY | PROVIDERS: Admitting Provider Internal Medicine; Emergency Provider Emergency Medicine; PCP Internal Medicine; Visit Provider Internal Medicine Cardiovascular Disease | DX: R00.1 Bradycardia, unspecified (principal) | CPT/HCPCS: 93010 ==

== ENCOUNTER → 2024-12-01 14:43 | Outpatient (BNV) | payer OTHER, SELFPAY | PROVIDERS: Admitting Provider Internal Medicine; Emergency Provider Emergency Medicine; PCP Internal Medicine; Visit Provider Nuclear Medicine | DX: R50.9 Fever, unspecified (principal) | CPT/HCPCS: 71046 ==

== ENCOUNTER → 2024-12-01 16:55 | Outpatient (BNV) | payer OTHER, SELFPAY | PROVIDERS: Admitting Provider Internal Medicine; Emergency Provider Emergency Medicine; PCP Internal Medicine; Visit Provider Internal Medicine | DX: R78.81 Bacteremia (principal); B95.61 Methicillin susceptible Staphylococcus aureus infection as the cause of diseases classified elsewhere; F11.10 Opioid abuse, uncomplicated | CPT/HCPCS: 99222 ==

== ENCOUNTER → 2024-12-01 16:55 | Outpatient (BNV) | payer OTHER, SELFPAY | PROVIDERS: Admitting Provider Internal Medicine; Emergency Provider Emergency Medicine; PCP Internal Medicine; Visit Provider Nurse Practitioner Psychiatric/Mental Health | DX: F11.90 Opioid use, unspecified, uncomplicated (principal) | CPT/HCPCS: 99232 ==

== ENCOUNTER → 2024-12-01 16:55 | Outpatient (BNV) | payer OTHER, SELFPAY | PROVIDERS: Admitting Provider Internal Medicine; Emergency Provider Emergency Medicine; PCP Internal Medicine; Visit Provider Nurse Practitioner Family | DX: A49.01 Methicillin susceptible Staphylococcus aureus infection, unspecified site (principal); G06.2 Extradural and subdural abscess, unspecified | CPT/HCPCS: 99223; 99232; 99239 ==

== ENCOUNTER 2025-03-21 01:01 | Emergency (ER) | payer OTHER, SELFPAY ==
[2025-03-21 01:06] VITALS: BP 160/62; PULSE 65; RESP 20; TEMP 37.1; O2SAT 97; O2SAT 98; BMI 23.3
--- NOTE | 2025-03-21 01:29 | ED_ITS ---
HPI - General Adult General Chief complaint: General Medical Stated complaint: LEG PAIN AFTER DRUG USE Time Seen by Provider: 03/21/25 01:16 History of Present Illness ED Provider: Jerzy Florez MD HPI narrative: [age] male comes from ambulance after residential addiction facility staff said that he used heroin what she acknowledges they found him in his bed rocking and complaining of leg twitching EMS felt there was perhaps some mild face swelling and gave Benadryl patient denies voice change difficulty breathing or hives or any history of anaphylaxis. I asked him what is bringing him in and he tells me I need my methadone I have not had my dose in 5 days. He is a poor historian says he was at [facility] recently and before that was at rehab in [place] for spinal infection I do see a record from here in November when he was diagnosed with vertebral osteomyelitis. He has no acute back pain or fever or infectious symptomatology at this time. Related Data Home Medications ?Medication ?Instructions ?Recorded ?Confirmed methadone 10 mg/mL oral 140 mg PO DAILY 12/01/24 concentrate (Methadone Intensol) Previous Rx's ?Medication ?Instructions ?Recorded amlodipine 5 mg tablet 5 mg PO DAILY #30 tabs 12/05 cefazolin 2 gram/50 mL in dextrose 50 ml IV Q8H 6 week s #90 ea 12/05/24 (iso-osmotic) intravenous piggyback ipratropium 0.5 mg-albuterol 3 mg 3 ml inhalation Q4H PRN Shortness 12/05/24 (2.5 mg base)/3 mL nebulization Of Breath/Wheezing #90 mL soln omeprazole 20 mg capsule,delayed 20 mg PO BID@0630,163 0 #60 caps 12/05/24 release oxycodone 15 mg tablet 15 mg PO Q4H PRN Pain, 12/05 Moderate(Pain Scale 4-6) #30 tabs sennosides 8.6 mg tablet (Senna 17.2 mg (2 x 8.6 mg) P O BEDTIME 12/05/24 Lax) #30 tabs Allergies Allergy/AdvReac Type Severity Reaction Status Date / Time morphine Allergy Intermediate Headache Verified 03/21/25 01:16 codeine (Codeine) Allergy Mild HIVES, Verified 03/21/25 01:16 VOMITING PMFSH Past Medical History Medical History Edentulous IVDU (intravenous drug user) Tobacco dependence Homeless Tenosynovitis of finger Cellulitis of hand, left Hepatitis C Opioid use disorder High blood pressure Hyperlipidemia Heroin addiction Substance abuse Colitis Anxiety Surgical History H/O oral surgery Family History Family History (Updated 12/02/24 @ 15:52 by Nadira Amor MD) Other Hepatitis C Social History Social History Household Members: None Household Members Other:: homeless Housing: Homeless Do you presently have visiting nurse or other home services: No Alcohol intake: current Alcohol intake frequency: 3 or more drinks per day Comment: pt refusing bed alarm Patient Tobacco Use Status: Never used Tobacco Tobacco use type: Cigarette e-Cigarette/Vaping Use: Currently Using Second Hand Smoke Exposure: Yes Substance Use Type: Crack/Cocaine Advance Directives: Yes Advance Directives on File: Yes Advance Directives Date on File: 12/06/24 service: No Current occupational status: unemployed Physical Exam ED Exam Exam: EXAM: Gen: Alert, awake, well appearing, slightly hyperactive pressured speech. No psychosis. Generally cooperative no obvious rash or facial swelling or voice change he is breathing comfortably looks somewhat disheveled Head: Atraumatic Eyes: Anicteric, Normal conjunctiva. ENT: Moist mucosa, no pallor. ? Neck: Supple. Skin: ?No observable rash or bruising on exposed or examined skin Respiratory: Breathing comfortably, No distress.Clear to auscultation bilaterally, symmetric chest expansion, No wheeze, rales, ronchi. Cardiovascular: Regular rate and rhythm. No murmurs or rub. Well perfused periphery, warm extremities. No edema. ? Abdominal: No focal tenderness. Soft, no objective distension. No palpable masses or obvious organomegaly. ?No guarding, no rebound tenderness or other peritoneal findings. : No flank tenderness. Neuro: Alert. Gross movement of all extremities intact. ? Psych: Calm but intermittently very mild appearing psychomotor agitation. Cooperative. Did not endorse or express suicidality does not appear psychotic MSK: No grossly visible deformity. Vital signs: See flowsheet Vital Signs: Vital Signs - 24 hr 03/21/25 01:06 03/21/25 06:14 Temperature 98.7 F Pulse Rate 65 Respiratory Rate 20 Blood Pressure 205/114 H Pulse Oximetry 97 Oxygen Delivery Method Room Air BMI result Body Mass Index 23.3 Medications Administered Discontinued Medications Generic Name Dose Route Start Last Admin Trade Name Kulwant PRN Reason Stop Dose Admin Amlodipine Besylate 10 mg 03/21/25 06:15 03/21/25 06:22 Amlodipine Besylate 10 Mg Tablet PO 03/21/25 06:16 Not Given ONCE ONE Protocol Diazepam 2 mg 03/21/25 01:24 03/21/25 01:32 Diazepam 2 Mg Tablet PO 03/21/25 01:25 2 mg ONCE ONE Administration Diazepam 4 mg 03/21/25 06:13 03/21/25 06:21 Diazepam 2 Mg Tablet PO 03/21/25 06:14 Not Given ONCE ONE Diphenhydramine HCl 50 mg 03/21/25 01:24 03/21/25 01:32 Diphenhydramine Hcl 25 Mg Capsule PO 03/21/25 01:25 Not Given ONCE ONE Methadone HCl 30 mg 03/21/25 01:24 03/21/25 01:55 Methadone Hcl 20 Mg/2 Ml Oral.Conc PO 03/21/25 01:25 30 mg ONCE ONE Administration Medical Decision Making Medical Decision Making MDM Narrative: Medical Decision Making: [age] with polysubstance use disorder acknowledges heroin today, cocaine smoking pipes found on ribs person here maybe under the influence of opioid and/or cocaine today. No acute psychosis. Has capacity. No infectious symptomatology. Generally reassuring exam We called [facility] [place] [facility] they tell us his last visit there was 03/04/2025 his dose was 150 mg at that time. For this reasonable given 30 mg methadone here. Benadryl though I do not think he has any objective signs of allergic reaction and low-dose benzo for possible cocaine intoxication. Preliminary Favored Differential Diagnosis: Cocaine intoxication, secondary gain/malingering, opioid dependence/methadone maintenance with interruption of therapy among additional considered etiologies Testing Interpreted Independently: ?See below for details Radiology or Lab testing Results Reviewed: ?See below for details Consults: ?See below for details Independent Historians/External Chart Reviews: ?See below for details Social Determinants of Health Impacting MDM/Planning: ?See below for details Just before discharge, I was informed that the patient's nurse that the patient's blood pressure is 205 systolic. Patient admits to using cocaine. A dose of diazepam p.o. was ordered. Also, per patient's record, patient is supposed to be taking amlodipine. It is unclear if patient is compliant with his medications. We tried giving the patient amlodipine 10 mg. However, patient refused to take diazepam and amlodipine. Patient is awake, alert and oriented x3, denies SI or HI. It was discussed with the patient that a blood pressure that high can be fatal. It was discussed with the patient that can cause brain bleeds, permanent disability, heart problems. Patient states that he does not care, he wants to go smoke. Patient requesting to be discharged Admission/Observation Consideration of admission/observation: Escalation of care including admission/observation considered (Given patient's high blood pressure, observation was considered) Critical Care Time Critical Care Time Critical Care Time: Yes Total Critical Care Time: 35 Attestation: I have personally provided critical care time. Time includes review of lab data, radiology results, discussion with consultants, and monitoring for potential decompensation. Intervention performed as documented. Discharge Plan Discharge Clinical Impression: Heroin abuse, Cocaine abuse, Hypertension Patient Disposition: Left Against Medical Advice Instructions: Cocaine Use Disorder (ED), Hypertension (ED), Narcotic Use Disorder (ED) Additional Instructions: You were provided 30 mg of methadone. We called [facility] methadone clinic in [place] they said that your last time there was 03/04/2025 at a dose of 150 mg but you had not picked up a dose since then you will need to reestablish methadone maintenance with them As it is very cold this evening we will discharge you from the emergency department but you are welcome to remain in the waiting room to stay warm until you can safely get are residents of facility in the morning. No acute medical emergency identified in the ER Prescriptions: No Action methadone [Methadone Intensol] 10 mg/mL Concentrate 140 mg PO DAILY cefazolin in dextrose (iso-os) 2 gram/50 mL Piggyback 50 ml IV Q8H 42 Days Qty: 90 0RF sennosides [Senna Lax] 8.6 mg Tablet 17.2 mg PO BEDTIME Qty: 30 0RF ipratropium-albuterol 0.5 mg-3 mg(2.5 mg base)/3 mL Solution For Nebulization 3 ml inhalation Q4H PRN (Reason: Shortness Of Breath/Wheezing) Qty: 90 0RF amlodipine 5 mg Tablet 5 mg PO DAILY Qty: 30 0RF Protocol: Hold for SBP< HOLD for SBP < : 90 oxycodone 15 mg Tablet 15 mg PO Q4H PRN (Reason: Pain, Moderate(Pain Scale 4-6)) Qty: 30 0RF Rx Instructions: Partial Fill upon patient request. omeprazole 20 mg Capsule,Delayed Release(Dr/Ec) 20 mg PO BID@0630,1630 Qty: 60 0RF Discharge Date/Time: 03/21/25 06:25 Print Language: Singaporean
[2025-03-21] MEDS: methADONE HCl 20 MG/2 ML ORAL.CONC 30 MG PO (01:55)
--- OUTSIDE RECORDS SUMMARY | 2025-03-21 02:02 | XMS_ITS | Clinical Summary ---
Author Organization [employer] Address [address] [place] [address] Care Team Providers Care Time Recorder Name Role Phone Kim Solomon DO Primary Care Provider [phone] Allergies No known active allergies Medications amLODIPine (Norvasc) 5 MG tablet TAKE 1 TABLET (5 MG) BY MOUTH ONCE PER DAY. 90 tablet 11/25/2024 Active Active Problems Problem Noted Date Diagnosed Date Opioid dependence with current use (CMS/[facility]) IVDU (intravenous drug user) 10/31/2024 HTN (hypertension) 10/31/2024 Encounters Date Type Department Care Team Description 02/24/2025 Patient Outreach [facility] [address], [place] [phone] Kim Solomon DO 01/03/2025 Patient Outreach [facility] [address] [place] [address] Kim Solomon DO Transition Of Care (Tcm) (HDF unscheduled unable to LVM ) from Last 3 Months Immunizations Immunization Administration [...] 07/11/1983 Zoster Vaccines (1 of 2) 07/11/2015 Hepatitis B Vaccines (2 of 3 - 19+ 3-dose series) 05/13/2024 04/15/2024 COVID-19 Vaccine (3 - 2024-2 6 season) 2024 04/12/2022, 09/10/2020 Influenza Vaccine (#1) 2024 04/22/2016 DTaP/Tdap/Td Vaccines [...] this topic Meningococcal Vaccine Aged Out No kristopehr staci eligible based on patient's age to complete this topic RSV under 20 months Aged Out No longe r eligible based on patient's age to complete this topic Rotavirus Vaccines Aged Out No longer eligible based on patient's age to complete this topic Insurance [facility] < 65 [place] [id number] Care Teams Time Recorder Relationship Specialty Start Date End Date Kim Solomon DO [address] [place] [address] PCP - General Family Medicine 10/31/24
--- OUTSIDE RECORDS SUMMARY | 2025-03-21 02:02 | XMS_ITS | Clinical Summary ---
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 Name Role Phone Ref, Hasnopcp Primary Care Provider Unavailabl e Allergies Active Allergy Reactions Criticality Noted Date Comments Codeine Anaphylaxis High 12/06/2024 Morphine Anaphylaxis High 12/06/2024 Social History Tobacco Use Types Packs/Day Years Used Date Smoking Tobacco: Never Assessed Sex and Gender Information Value Date Recorded Sex Assigned at Male 12/06/2024 6:21 AM EDT Legal Sex Male 4:04 PM EDT Gender Identity Not on file Sexual Orientation Not on file Last Filed Vital Signs Vital Sign Reading Time Taken Comments Blood Pressure 167/90 12/08/2024 8:06 AM EDT Pulse 92 12/08/2024 8:06 AM EDT Temperature 36.7 C (98 F) 12/08/2024 8:06 AM EDT Respiratory Rate 14 12/08/2024 8:06 AM EDT Oxygen Saturation 98% 12/08/2024 8:06 AM EDT Inhaled Oxygen Concentration - - Weight - - Height - - Body Mass Index - - Plan of Treatment Health Maintenance Due Date Last Done Comments Cologuard 1965 Colon Cancer Screening 1965 Colonoscopy 1965 FOBT / Fit Test 1965 HIV Screening 1965 Sigmoidoscopy 1965 Hepatitis B Vaccines (1 of 3 - 19+ 3-dose series) 1984 Zoster Vaccines (1 of 2) 07/11/2015 Alcohol/Substance Use Screening 04/17/2024 Depression Screening and Follow-Up 04/17/2024 Social Drivers of Health Annual Screening 04/17/2024 Influenza Vaccine (#1) 2024 04/22/2016 COVID-19 Vaccine ( season) 2024, 09/10/2020 DTaP,Tdap,and Td Vaccines (3 - Td or Tdap) 06/13/2030 06/13/2020, 03/11/2016 Pneumococcal Vaccine: 50+ Years Completed , 04/22/2016 Hepatitis C Screening Completed 11/21/2024 Insurance [facility] Care Teams Large Engine Assembler Relationship Specialty Start Date End Date Ref, Hassammie DO NOT EDIT THIS RECORD VIA PROVIDER ON THE FLY PCP - General Solid Waste Collection Worker 12/06/24
--- OUTSIDE RECORDS SUMMARY | 2025-03-21 02:02 | XMS_ITS | Clinical Summary ---
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 Active QUEtiapine (SEROquel) 400 MG tablet Take 400 mg by mouth nightly. Active OMEprazole (PriLOSEC) 20 MG capsule Take 20 mg by mouth every morning before breakfast. Active Active Problems Problem Noted Date Diagnosed Date Bacteremia 11/21/2024 Assessment & Plan (11/26/2024 5:02 PM EDT): ID following, appreciate recommendations Blood culture from 11/20: MSSA. Blood culture from 11/21: MSSA. Blood culture from 11/22 and 11/24 NGTD. Continue IV cefazolin 2 g every 8 hours. PICC line order placed. Patient need to continue cefazolin 2 g IV every 8 hours for 4 weeks p.o. 12/20/2024 followed by Keflex 1 g p.o. twice a day for 2 weeks more. Obtain every Monday CBC, CMP, ESR, CRP and fax to [phone]. TTE on 11/24: LV severely dilated, severe concentric hypertrophy, LVEF 55%. RV SF normal. Severe biatrial enlargement. No echocardiographic evidence of endocarditis. HCV viral load in process. HIV 1/2-nonreactive. Monitor fever curve. Addiction medicine following, input appreciated. Patient has severe opioid use disorder. Continue methadone 140 Mg daily. UDS positive for cocaine, fentanyl, methadone. BP trending up. Continue clonidine taper. Increase clonidine back to 10 Mg daily. PICC line placement ordered>> however, pending finding placement it is not pursued currently. PICC line plan to be placed once facility is confirmed. Assessment & Plan (11/25/2024 5:29 PM EDT): ID following, appreciate recommendations Blood culture from 11/20: MSSA. Blood culture from 11/21: MSSA. Blood culture from 11/22 and 11/24 NGTD. Continue IV cefazolin 2 g every 8 hours. PICC line order placed. Patient need to continue cefazolin 2 g IV every 8 hours for 4 weeks p.o. 12/20/2024 followed by Keflex 1 g p.o. twice a day for 2 weeks more. Obtain every Monday CBC, CMP, ESR, CRP and fax to [phone]. TTE on 11/24: LV severely dilated, severe concentric hypertrophy, LVEF 55%. RV SF normal. Severe biatrial enlargement. No echocardiographic evidence of endocarditis. HCV viral load in process. HIV 1/2-nonreactive. Monitor fever curve. Addiction medicine following, input appreciated. Patient has severe opioid use disorder. Continue methadone 140 Mg daily. UDS positive for cocaine, fentanyl, methadone. BP trending up. Continue clonidine taper. Increase clonidine back to 10 Mg daily. Assessment & Plan (11/24/2024 3:50 PM EDT): ID following, appreciate recommendations Blood culture from 11/20: MSSA. Blood culture from 11/21: MSSA. Blood culture from 11/22 NGTD. Blood cultures sent on 11/24. Continue IV cefazolin 2 g every 8 hours. Follow-up blood culture results. He will need repeat blood culture every 48 hours until documented clearance. TTE on 11/24: LV severely dilated, severe concentric hypertrophy, LVEF 55%. RV SF normal. Severe biatrial enlargement. No echocardiographic evidence of endocarditis. HCV viral load in process. HIV 1/2-nonreactive. Monitor fever curve. Addiction medicine following, input appreciated. Patient has severe opioid use disorder. Continue methadone 140 Mg daily. UDS positive for cocaine, fentanyl, methadone. Bp not better controlled with clonidine taper. Will decrease amlodipine back to 5 Mg daily. Assessment & Plan (11/23/2024 4:13 PM EDT): ID following, appreciate recommendations Blood culture from 11/20: MSSA. Blood culture from 11/21: MSSA. Blood culture from 11/22 pending. Continue IV cefazolin 2 g every 8 hours. Follow-up blood culture results. He will need repeat blood culture every 48 hours until documented clearance. TTE pending. HCV viral load in process. HIV 1/2-nonreactive. Monitor fever curve. Addiction medicine following, input appreciated. Patient has severe opioid use disorder. Continue methadone 140 Mg daily. UDS positive for cocaine, fentanyl, methadone. Bp controlled with amlodipine 5 Mg daily. BP high-started on clonidine taper along with increased amlodipine 10 Mg daily. COWS started. Assessment & Plan (11/22/2024 4:49 PM EDT): ID following, appreciate recommendations Blood culture from 11/20: MSSA. Blood culture from 11/21: Aerobic bottle positive. Blood culture from 11/22 pending. Continue IV cefazolin 2 g every 8 hours. Follow-up blood culture results. He will need repeat blood culture every 48 hours until documented clearance. TTE pending. HCV viral load in process. Monitor fever curve. Addiction medicine following, input appreciated. Patient has severe opioid use disorder. Continue methadone 140 Mg daily. UDS positive for cocaine, fentanyl, methadone. Bp controlled with amlodipine 5 Mg daily. Assessment & Plan (11/21/2024 6:01 PM EDT): - Infectious disease following. - Patient continue on IV vancomycin. Ceftriaxone discontinued. Started on cefazolin IV. - Follow repeat blood cultures - Per infectious disease MRI was nonconclusive. Patient continues to have severe back pain concern for epidural abscess given that his blood culture came positive. - Patient noted to be bradycardic, echocardiogram ordered. Monitor EKGs daily. - Addiction medicine input appreciated. Patient with severe opioid use disorder. Patient to continue on methadone 140 mg daily. - Symptomatic and supportive care Osteomyelitis 11/20/2024 Fever 11/20/2024 Assessment & Plan (11/26/2024 5:02 PM EDT): ID following, appreciate recommendations Blood culture from 11/20: MSSA. Blood culture from 11/21: MSSA. Blood culture from 11/22 and 11/24 NGTD. Continue IV cefazolin 2 g every 8 hours. PICC line order placed. Patient need to continue cefazolin 2 g IV every 8 hours for 4 weeks p.o. 12/20/2024 followed by Keflex 1 g p.o. twice a day for 2 weeks more. Obtain every Monday CBC, CMP, ESR, CRP and fax to [phone]. TTE on 11/24: LV severely dilated, severe concentric hypertrophy, LVEF 55%. RV SF normal. Severe biatrial enlargement. No echocardiographic evidence of endocarditis. HCV viral load in process. HIV 1/2-nonreactive. Monitor fever curve. Addiction medicine following, input appreciated. Patient has severe opioid use disorder. Continue methadone 140 Mg daily. UDS positive for cocaine, fentanyl, methadone. BP trending up. Continue clonidine taper. Increase clonidine back to 10 Mg daily. PICC line placement ordered>> however, pending finding placement it is not pursued currently. PICC line plan to be placed once facility is confirmed. Assessment & Plan (11/25/2024 5:29 PM EDT): ID following, appreciate recommendations Blood culture from 11/20: MSSA. Blood culture from 11/21: MSSA. Blood culture from 11/22 and 11/24 NGTD. Continue IV cefazolin 2 g every 8 hours. PICC line order placed. Patient need to continue cefazolin 2 g IV every 8 hours for 4 weeks p.o. 12/20/2024 followed by Keflex 1 g p.o. twice a day for 2 weeks more. Obtain every Monday CBC, CMP, ESR, CRP and fax to [phone]. TTE on 11/24: LV severely dilated, severe concentric hypertrophy, LVEF 55%. RV SF normal. Severe biatrial enlargement. No echocardiographic evidence of endocarditis. HCV viral load in process. HIV 1/2-nonreactive. Monitor fever curve. Addiction medicine following, input appreciated. Patient has severe opioid use disorder. Continue methadone 140 Mg daily. UDS positive for cocaine, fentanyl, methadone. BP trending up. Continue clonidine taper. Increase clonidine back to 10 Mg daily. Assessment & Plan (11/24/2024 3:50 PM EDT): ID following, appreciate recommendations Blood culture from 11/20: MSSA. Blood culture from 11/21: MSSA. Blood culture from 11/22 NGTD. Blood cultures sent on 11/24. Continue IV cefazolin 2 g every 8 hours. Follow-up blood culture results. He will need repeat blood culture every 48 hours until documented clearance. TTE on 11/24: LV severely dilated, severe concentric hypertrophy, LVEF 55%. RV SF normal. Severe biatrial enlargement. No echocardiographic evidence of endocarditis. HCV viral load in process. HIV 1/2-nonreactive. Monitor fever curve. Addiction medicine following, input appreciated. Patient has severe opioid use disorder. Continue methadone 140 Mg daily. UDS positive for cocaine, fentanyl, methadone. Bp not better controlled with clonidine taper. Will decrease amlodipine back to 5 Mg daily. Assessment & Plan (11/23/2024 4:13 PM EDT): ID following, appreciate recommendations Blood culture from 11/20: MSSA. Blood culture from 11/21: MSSA. Blood culture from 11/22 pending. Continue IV cefazolin 2 g every 8 hours. Follow-up blood culture results. He will need repeat blood culture every 48 hours until documented clearance. TTE pending. HCV viral load in process. HIV 1/2-nonreactive. Monitor fever curve. Addiction medicine following, input appreciated. Patient has severe opioid use disorder. Continue methadone 140 Mg daily. UDS positive for cocaine, fentanyl, methadone. Bp controlled with amlodipine 5 Mg daily. BP high-started on clonidine taper along with increased amlodipine 10 Mg daily. COWS started. Assessment & Plan (11/22/2024 4:49 PM EDT): ID following, appreciate recommendations Blood culture from 11/20: MSSA. Blood culture from 11/21: Aerobic bottle positive. Blood culture from 11/22 pending. Continue IV cefazolin 2 g every 8 hours. Follow-up blood culture results. He will need repeat blood culture every 48 hours until documented clearance. TTE pending. HCV viral load in process. Monitor fever curve. Addiction medicine following, input appreciated. Patient has severe opioid use disorder. Continue methadone 140 Mg daily. UDS positive for cocaine, fentanyl, methadone. Bp controlled with amlodipine 5 Mg daily. Assessment & Plan (11/21/2024 6:01 PM EDT): - Infectious disease following. - Patient continue on IV vancomycin. Ceftriaxone discontinued. Started on cefazolin IV. - Follow repeat blood cultures - Per infectious disease MRI was nonconclusive. Patient continues to have severe back pain concern for epidural abscess given that his blood culture came positive. - Patient noted to be bradycardic, echocardiogram ordered. Monitor EKGs daily. - Addiction medicine input appreciated. Patient with severe opioid use disorder. Patient to continue on methadone 140 mg daily. - Symptomatic and supportive care Assessment & Plan (11/20/2024 3:20 PM EDT): Possible epidural abscess Tmax 102.5, leukocytosis WBC 13.4 ESR 50, CRP 8.2 CT thoracic spine: Acute/subacute 60% anterior wedge vertebral compression fracture T10 MRI from OSH: Small epidural abscess/osteomyelitis T8-T11 .Also questionable septic facets/osteomyelitis at C5-6 and C6-7 Injection Rocephin and vancomycin given at OSH Blood cultures sent, follow IR consulted for possible bone marrow/biopsy. As per IR, imaging not consistent with T8-T11 osteomyelitis. IR does not recommend biopsy at this time ID consulted for antibiotic guidance, appreciate recs Patient started on IV vancomycin and IV Rocephin 2 g daily Repeat MRI of the cervical/thoracic/lumbar spine ordered as per ID recommendation Orthopedics consulted, appreciate recs activity as tolerated, no HOB/spine precautions/bracing required multimodal pain management Plan noted to trend ESR/CRP every 48 hours No role for acute orthopedic intervention at this time. Monitor fever curve, CBC Low back pain 11/20/2024 Assessment & Plan (11/26/2024 5:02 PM EDT): ID following, appreciate recommendations Blood culture from 11/20: MSSA. Blood culture from 11/21: MSSA. Blood culture from 11/22 and 11/24 NGTD. Continue IV cefazolin 2 g every 8 hours. PICC line order placed. Patient need to continue cefazolin 2 g IV every 8 hours for 4 weeks p.o. 12/20/2024 followed by Keflex 1 g p.o. twice a day for 2 weeks more. Obtain every Monday CBC, CMP, ESR, CRP and fax to [phone]. TTE on 11/24: LV severely dilated, severe concentric hypertrophy, LVEF 55%. RV SF normal. Severe biatrial enlargement. No echocardiographic evidence of endocarditis. HCV viral load in process. HIV 1/2-nonreactive. Monitor fever curve. Addiction medicine following, input appreciated. Patient has severe opioid use disorder. Continue methadone 140 Mg daily. UDS positive for cocaine, fentanyl, methadone. BP trending up. Continue clonidine taper. Increase clonidine back to 10 Mg daily. PICC line placement ordered>> however, pending finding placement it is not pursued currently. PICC line plan to be placed once facility is confirmed. Assessment & Plan (11/25/2024 5:29 PM EDT): ID following, appreciate recommendations Blood culture from 11/20: MSSA. Blood culture from 11/21: MSSA. Blood culture from 11/22 and 11/24 NGTD. Continue IV cefazolin 2 g every 8 hours. PICC line order placed. Patient need to continue cefazolin 2 g IV every 8 hours for 4 weeks p.o. 12/20/2024 followed by Keflex 1 g p.o. twice a day for 2 weeks more. Obtain every Monday CBC, CMP, ESR, CRP and fax to [phone]. TTE on 11/24: LV severely dilated, severe concentric hypertrophy, LVEF 55%. RV SF normal. Severe biatrial enlargement. No echocardiographic evidence of endocarditis. HCV viral load in process. HIV 1/2-nonreactive. Monitor fever curve. Addiction medicine following, input appreciated. Patient has severe opioid use disorder. Continue methadone 140 Mg daily. UDS positive for cocaine, fentanyl, methadone. BP trending up. Continue clonidine taper. Increase clonidine back to 10 Mg daily. Assessment & Plan (11/24/2024 3:50 PM EDT): ID following, appreciate recommendations Blood culture from 11/20: MSSA. Blood culture from 11/21: MSSA. Blood culture from 11/22 NGTD. Blood cultures sent on 11/24. Continue IV cefazolin 2 g every 8 hours. Follow-up blood culture results. He will need repeat blood culture every 48 hours until documented clearance. TTE on 11/24: LV severely dilated, severe concentric hypertrophy, LVEF 55%. RV SF normal. Severe biatrial enlargement. No echocardiographic evidence of endocarditis. HCV viral load in process. HIV 1/2-nonreactive. Monitor fever curve. Addiction medicine following, input appreciated. Patient has severe opioid use disorder. Continue methadone 140 Mg daily. UDS positive for cocaine, fentanyl, methadone. Bp not better controlled with clonidine taper. Will decrease amlodipine back to 5 Mg daily. Assessment & Plan (11/23/2024 4:13 PM EDT): ID following, appreciate recommendations Blood culture from 11/20: MSSA. Blood culture from 11/21: MSSA. Blood culture from 11/22 pending. Continue IV cefazolin 2 g every 8 hours. Follow-up blood culture results. He will need repeat blood culture every 48 hours until documented clearance. TTE pending. HCV viral load in process. HIV 1/2-nonreactive. Monitor fever curve. Addiction medicine following, input appreciated. Patient has severe opioid use disorder. Continue methadone 140 Mg daily. UDS positive for cocaine, fentanyl, methadone. Bp controlled with amlodipine 5 Mg daily. BP high-started on clonidine taper along with increased amlodipine 10 Mg daily. COWS started. Assessment & Plan (11/22/2024 4:49 PM EDT): ID following, appreciate recommendations Blood culture from 11/20: MSSA. Blood culture from 11/21: Aerobic bottle positive. Blood culture from 11/22 pending. Continue IV cefazolin 2 g every 8 hours. Follow-up blood culture results. He will need repeat blood culture every 48 hours until documented clearance. TTE pending. HCV viral load in process. Monitor fever curve. Addiction medicine following, input appreciated. Patient has severe opioid use disorder. Continue methadone 140 Mg daily. UDS positive for cocaine, fentanyl, methadone. Bp controlled with amlodipine 5 Mg daily. Assessment & Plan (11/21/2024 6:01 PM EDT): - Infectious disease following. - Patient continue on IV vancomycin. Ceftriaxone discontinued. Started on cefazolin IV. - Follow repeat blood cultures - Per infectious disease MRI was nonconclusive. Patient continues to have severe back pain concern for epidural abscess given that his blood culture came positive. - Patient noted to be bradycardic, echocardiogram ordered. Monitor EKGs daily. - Addiction medicine input appreciated. Patient with severe opioid use disorder. Patient to continue on methadone 140 mg daily. - Symptomatic and supportive care Assessment & Plan (11/20/2024 3:20 PM EDT): Possible epidural abscess Tmax 102.5, leukocytosis WBC 13.4 ESR 50, CRP 8.2 CT thoracic spine: Acute/subacute 60% anterior wedge vertebral compression fracture T10 MRI from OSH: Small epidural abscess/osteomyelitis T8-T11 .Also questionable septic facets/osteomyelitis at C5-6 and C6-7 Injection Rocephin and vancomycin given at OSH Blood cultures sent, follow IR consulted for possible bone marrow/biopsy. As per IR, imaging not consistent with T8-T11 osteomyelitis. IR does not recommend biopsy at this time ID consulted for antibiotic guidance, appreciate recs Patient started on IV vancomycin and IV Rocephin 2 g daily Repeat MRI of the cervical/thoracic/lumbar spine ordered as per ID recommendation Orthopedics consulted, appreciate recs activity as tolerated, no HOB/spine precautions/bracing required multimodal pain management Plan noted to trend ESR/CRP every 48 hours No role for acute orthopedic intervention at this time. Monitor fever curve, CBC Osteomyelitis 11/20/2024 Assessment & Plan (11/26/2024 5:02 PM EDT): ID following, appreciate recommendations Blood culture from 11/20: MSSA. Blood culture from 11/21: MSSA. Blood culture from 11/22 and 11/24 NGTD. Continue IV cefazolin 2 g every 8 hours. PICC line order placed. Patient need to continue cefazolin 2 g IV every 8 hours for 4 weeks p.o. 12/20/2024 followed by Keflex 1 g p.o. twice a day for 2 weeks more. Obtain every Monday CBC, CMP, ESR, CRP and fax to [phone]. TTE on 11/24: LV severely dilated, severe concentric hypertrophy, LVEF 55%. RV SF normal. Severe biatrial enlargement. No echocardiographic evidence of endocarditis. HCV viral load in process. HIV 1/2-nonreactive. Monitor fever curve. Addiction medicine following, input appreciated. Patient has severe opioid use disorder. Continue methadone 140 Mg daily. UDS positive for cocaine, fentanyl, methadone. BP trending up. Continue clonidine taper. Increase clonidine back to 10 Mg daily. PICC line placement ordered>> however, pending finding placement it is not pursued currently. PICC line plan to be placed once facility is confirmed. Assessment & Plan (11/25/2024 5:29 PM EDT): ID following, appreciate recommendations Blood culture from 11/20: MSSA. Blood culture from 11/21: MSSA. Blood culture from 11/22 and 11/24 NGTD. Continue IV cefazolin 2 g every 8 hours. PICC line order placed. Patient need to continue cefazolin 2 g IV every 8 hours for 4 weeks p.o. 12/20/2024 followed by Keflex 1 g p.o. twice a day for 2 weeks more. Obtain every Monday CBC, CMP, ESR, CRP and fax to [phone]. TTE on 11/24: LV severely dilated, severe concentric hypertrophy, LVEF 55%. RV SF normal. Severe biatrial enlargement. No echocardiographic evidence of endocarditis. HCV viral load in process. HIV 1/2-nonreactive. Monitor fever curve. Addiction medicine following, input appreciated. Patient has severe opioid use disorder. Continue methadone 140 Mg daily. UDS positive for cocaine, fentanyl, methadone. BP trending up. Continue clonidine taper. Increase clonidine back to 10 Mg daily. Assessment & Plan (11/24/2024 3:50 PM EDT): ID following, appreciate recommendations Blood culture from 11/20: MSSA. Blood culture from 11/21: MSSA. Blood culture from 11/22 NGTD. Blood cultures sent on 11/24. Continue IV cefazolin 2 g every 8 hours. Follow-up blood culture results. He will need repeat blood culture every 48 hours until documented clearance. TTE on 11/24: LV severely dilated, severe concentric hypertrophy, LVEF 55%. RV SF normal. Severe biatrial enlargement. No echocardiographic evidence of endocarditis. HCV viral load in process. HIV 1/2-nonreactive. Monitor fever curve. Addiction medicine following, input appreciated. Patient has severe opioid use disorder. Continue methadone 140 Mg daily. UDS positive for cocaine, fentanyl, methadone. Bp not better controlled with clonidine taper. Will decrease amlodipine back to 5 Mg daily. Assessment & Plan (11/23/2024 4:13 PM EDT): ID following, appreciate recommendations Blood culture from 11/20: MSSA. Blood culture from 11/21: MSSA. Blood culture from 11/22 pending. Continue IV cefazolin 2 g every 8 hours. Follow-up blood culture results. He will need repeat blood culture every 48 hours until documented clearance. TTE pending. HCV viral load in process. HIV 1/2-nonreactive. Monitor fever curve. Addiction medicine following, input appreciated. Patient has severe opioid use disorder. Continue methadone 140 Mg daily. UDS positive for cocaine, fentanyl, methadone. Bp controlled with amlodipine 5 Mg daily. BP high-started on clonidine taper along with increased amlodipine 10 Mg daily. COWS started. Assessment & Plan (11/22/2024 4:49 PM EDT): ID following, appreciate recommendations Blood culture from 11/20: MSSA. Blood culture from 11/21: Aerobic bottle positive. Blood culture from 11/22 pending. Continue IV cefazolin 2 g every 8 hours. Follow-up blood culture results. He will need repeat blood culture every 48 hours until documented clearance. TTE pending. HCV viral load in process. Monitor fever curve. Addiction medicine following, input appreciated. Patient has severe opioid use disorder. Continue methadone 140 Mg daily. UDS positive for cocaine, fentanyl, methadone. Bp controlled with amlodipine 5 Mg daily. Assessment & Plan (11/21/2024 6:01 PM EDT): - Infectious disease following. - Patient continue on IV vancomycin. Ceftriaxone discontinued. Started on cefazolin IV. - Follow repeat blood cultures - Per infectious disease MRI was nonconclusive. Patient continues to have severe back pain concern for epidural abscess given that his blood culture came positive. - Patient noted to be bradycardic, echocardiogram ordered. Monitor EKGs daily. - Addiction medicine input appreciated. Patient with severe opioid use disorder. Patient to continue on methadone 140 mg daily. - Symptomatic and supportive care Assessment & Plan (11/20/2024 3:20 PM EDT): Possible epidural abscess Tmax 102.5, leukocytosis WBC 13.4 ESR 50, CRP 8.2 CT thoracic spine: Acute/subacute 60% anterior wedge vertebral compression fracture T10 MRI from OSH: Small epidural abscess/osteomyelitis T8-T11 .Also questionable septic facets/osteomyelitis at C5-6 and C6-7 Injection Rocephin and vancomycin given at OSH Blood cultures sent, follow IR consulted for possible bone marrow/biopsy. As per IR, imaging not consistent with T8-T11 osteomyelitis. IR does not recommend biopsy at this time ID consulted for antibiotic guidance, appreciate recs Patient started on IV vancomycin and IV Rocephin 2 g daily Repeat MRI of the cervical/thoracic/lumbar spine ordered as per ID recommendation Orthopedics consulted, appreciate recs activity as tolerated, no HOB/spine precautions/bracing required multimodal pain management Plan noted to trend ESR/CRP every 48 hours No role for acute orthopedic intervention at this time. Monitor fever curve, CBC Vertebral compression fracture 11/20/2024 Assessment & Plan (11/26/2024 5:02 PM EDT): ID following, appreciate recommendations Blood culture from 11/20: MSSA. Blood culture from 11/21: MSSA. Blood culture from 11/22 and 11/24 NGTD. Continue IV cefazolin 2 g every 8 hours. PICC line order placed. Patient need to continue cefazolin 2 g IV every 8 hours for 4 weeks p.o. 12/20/2024 followed by Keflex 1 g p.o. twice a day for 2 weeks more. Obtain every Monday CBC, CMP, ESR, CRP and fax to [phone]. TTE on 11/24: LV severely dilated, severe concentric hypertrophy, LVEF 55%. RV SF normal. Severe biatrial enlargement. No echocardiographic evidence of endocarditis. HCV viral load in process. HIV 1/2-nonreactive. Monitor fever curve. Addiction medicine following, input appreciated. Patient has severe opioid use disorder. Continue methadone 140 Mg daily. UDS positive for cocaine, fentanyl, methadone. BP trending up. Continue clonidine taper. Increase clonidine back to 10 Mg daily. PICC line placement ordered>> however, pending finding placement it is not pursued currently. PICC line plan to be placed once facility is confirmed. Assessment & Plan (11/25/2024 5:29 PM EDT): ID following, appreciate recommendations Blood culture from 11/20: MSSA. Blood culture from 11/21: MSSA. Blood culture from 11/22 and 11/24 NGTD. Continue IV cefazolin 2 g every 8 hours. PICC line order placed. Patient need to continue cefazolin 2 g IV every 8 hours for 4 weeks p.o. 12/20/2024 followed by Keflex 1 g p.o. twice a day for 2 weeks more. Obtain every Monday CBC, CMP, ESR, CRP and fax to [phone]. TTE on 11/24: LV severely dilated, severe concentric hypertrophy, LVEF 55%. RV SF normal. Severe biatrial enlargement. No echocardiographic evidence of endocarditis. HCV viral load in process. HIV 1/2-nonreactive. Monitor fever curve. Addiction medicine following, input appreciated. Patient has severe opioid use disorder. Continue methadone 140 Mg daily. UDS positive for cocaine, fentanyl, methadone. BP trending up. Continue clonidine taper. Increase clonidine back to 10 Mg daily. Assessment & Plan (11/24/2024 3:50 PM EDT): ID following, appreciate recommendations Blood culture from 11/20: MSSA. Blood culture from 11/21: MSSA. Blood culture from 11/22 NGTD. Blood cultures sent on 11/24. Continue IV cefazolin 2 g every 8 hours. Follow-up blood culture results. He will need repeat blood culture every 48 hours until documented clearance. TTE on 11/24: LV severely dilated, severe concentric hypertrophy, LVEF 55%. RV SF normal. Severe biatrial enlargement. No echocardiographic evidence of endocarditis. HCV viral load in process. HIV 1/2-nonreactive. Monitor fever curve. Addiction medicine following, input appreciated. Patient has severe opioid use disorder. Continue methadone 140 Mg daily. UDS positive for cocaine, fentanyl, methadone. Bp not better controlled with clonidine taper. Will decrease amlodipine back to 5 Mg daily. Assessment & Plan (11/23/2024 4:13 PM EDT): ID following, appreciate recommendations Blood culture from 11/20: MSSA. Blood culture from 11/21: MSSA. Blood culture from 11/22 pending. Continue IV cefazolin 2 g every 8 hours. Follow-up blood culture results. He will need repeat blood culture every 48 hours until documented clearance. TTE pending. HCV viral load in process. HIV 1/2-nonreactive. Monitor fever curve. Addiction medicine following, input appreciated. Patient has severe opioid use disorder. Continue methadone 140 Mg daily. UDS positive for cocaine, fentanyl, methadone. Bp controlled with amlodipine 5 Mg daily. BP high-started on clonidine taper along with increased amlodipine 10 Mg daily. COWS started. Assessment & Plan (11/22/2024 4:49 PM EDT): ID following, appreciate recommendations Blood culture from 11/20: MSSA. Blood culture from 11/21: Aerobic bottle positive. Blood culture from 11/22 pending. Continue IV cefazolin 2 g every 8 hours. Follow-up blood culture results. He will need repeat blood culture every 48 hours until documented clearance. TTE pending. HCV viral load in process. Monitor fever curve. Addiction medicine following, input appreciated. Patient has severe opioid use disorder. Continue methadone 140 Mg daily. UDS positive for cocaine, fentanyl, methadone. Bp controlled with amlodipine 5 Mg daily. Assessment & Plan (11/21/2024 6:01 PM EDT): - Infectious disease following. - Patient continue on IV vancomycin. Ceftriaxone discontinued. Started on cefazolin IV. - Follow repeat blood cultures - Per infectious disease MRI was nonconclusive. Patient continues to have severe back pain concern for epidural abscess given that his blood culture came positive. - Patient noted to be bradycardic, echocardiogram ordered. Monitor EKGs daily. - Addiction medicine input appreciated. Patient with severe opioid use disorder. Patient to continue on methadone 140 mg daily. - Symptomatic and supportive care Assessment & Plan (11/20/2024 3:20 PM EDT): Possible epidural abscess Tmax 102.5, leukocytosis WBC 13.4 ESR 50, CRP 8.2 CT thoracic spine: Acute/subacute 60% anterior wedge vertebral compression fracture T10 MRI from OSH: Small epidural abscess/osteomyelitis T8-T11 .Also questionable septic facets/osteomyelitis at C5-6 and C6-7 Injection Rocephin and vancomycin given at OSH Blood cultures sent, follow IR consulted for possible bone marrow/biopsy. As per IR, imaging not consistent with T8-T11 osteomyelitis. IR does not recommend biopsy at this time ID consulted for antibiotic guidance, appreciate recs Patient started on IV vancomycin and IV Rocephin 2 g daily Repeat MRI of the cervical/thoracic/lumbar spine ordered as per ID recommendation Orthopedics consulted, appreciate recs activity as tolerated, no HOB/spine precautions/bracing required multimodal pain management Plan noted to trend ESR/CRP every 48 hours No role for acute orthopedic intervention at this time. Monitor fever curve, CBC HTN (hypertension) 11/20/2024 Assessment & Plan (11/26/2024 5:02 PM EDT): ID following, appreciate recommendations Blood culture from 11/20: MSSA. Blood culture from 11/21: MSSA. Blood culture from 11/22 and 11/24 NGTD. Continue IV cefazolin 2 g every 8 hours. PICC line order placed. Patient need to continue cefazolin 2 g IV every 8 hours for 4 weeks p.o. 12/20/2024 followed by Keflex 1 g p.o. twice a day for 2 weeks more. Obtain every Monday CBC, CMP, ESR, CRP and fax to [phone]. TTE on 11/24: LV severely dilated, severe concentric hypertrophy, LVEF 55%. RV SF normal. Severe biatrial enlargement. No echocardiographic evidence of endocarditis. HCV viral load in process. HIV 1/2-nonreactive. Monitor fever curve. Addiction medicine following, input appreciated. Patient has severe opioid use disorder. Continue methadone 140 Mg daily. UDS positive for cocaine, fentanyl, methadone. BP trending up. Continue clonidine taper. Increase clonidine back to 10 Mg daily. PICC line placement ordered>> however, pending finding placement it is not pursued currently. PICC line plan to be placed once facility is confirmed. Assessment & Plan (11/25/2024 5:29 PM EDT): ID following, appreciate recommendations Blood culture from 11/20: MSSA. Blood culture from 11/21: MSSA. Blood culture from 11/22 and 11/24 NGTD. Continue IV cefazolin 2 g every 8 hours. PICC line order placed. Patient need to continue cefazolin 2 g IV every 8 hours for 4 weeks p.o. 12/20/2024 followed by Keflex 1 g p.o. twice a day for 2 weeks more. Obtain every Monday CBC, CMP, ESR, CRP and fax to [phone]. TTE on 11/24: LV severely dilated, severe concentric hypertrophy, LVEF 55%. RV SF normal. Severe biatrial enlargement. No echocardiographic evidence of endocarditis. HCV viral load in process. HIV 1/2-nonreactive. Monitor fever curve. Addiction medicine following, input appreciated. Patient has severe opioid use disorder. Continue methadone 140 Mg daily. UDS positive for cocaine, fentanyl, methadone. BP trending up. Continue clonidine taper. Increase clonidine back to 10 Mg daily. Assessment & Plan (11/24/2024 3:50 PM EDT): ID following, appreciate recommendations Blood culture from 11/20: MSSA. Blood culture from 11/21: MSSA. Blood culture from 11/22 NGTD. Blood cultures sent on 11/24. Continue IV cefazolin 2 g every 8 hours. Follow-up blood culture results. He will need repeat blood culture every 48 hours until documented clearance. TTE on 11/24: LV severely dilated, severe concentric hypertrophy, LVEF 55%. RV SF normal. Severe biatrial enlargement. No echocardiographic evidence of endocarditis. HCV viral load in process. HIV 1/2-nonreactive. Monitor fever curve. Addiction medicine following, input appreciated. Patient has severe opioid use disorder. Continue methadone 140 Mg daily. UDS positive for cocaine, fentanyl, methadone. Bp not better controlled with clonidine taper. Will decrease amlodipine back to 5 Mg daily. Assessment & Plan (11/23/2024 4:13 PM EDT): ID following, appreciate recommendations Blood culture from 11/20: MSSA. Blood culture from 11/21: MSSA. Blood culture from 11/22 pending. Continue IV cefazolin 2 g every 8 hours. Follow-up blood culture results. He will need repeat blood culture every 48 hours until documented clearance. TTE pending. HCV viral load in process. HIV 1/2-nonreactive. Monitor fever curve. Addiction medicine following, input appreciated. Patient has severe opioid use disorder. Continue methadone 140 Mg daily. UDS positive for cocaine, fentanyl, methadone. Bp controlled with amlodipine 5 Mg daily. BP high-started on clonidine taper along with increased amlodipine 10 Mg daily. COWS started. Assessment & Plan (11/22/2024 4:49 PM EDT): ID following, appreciate recommendations Blood culture from 11/20: MSSA. Blood culture from 11/21: Aerobic bottle positive. Blood culture from 11/22 pending. Continue IV cefazolin 2 g every 8 hours. Follow-up blood culture results. He will need repeat blood culture every 48 hours until documented clearance. TTE pending. HCV viral load in process. Monitor fever curve. Addiction medicine following, input appreciated. Patient has severe opioid use disorder. Continue methadone 140 Mg daily. UDS positive for cocaine, fentanyl, methadone. Bp controlled with amlodipine 5 Mg daily. Assessment & Plan (11/21/2024 6:01 PM EDT): - Infectious disease following. - Patient continue on IV vancomycin. Ceftriaxone discontinued. Started on cefazolin IV. - Follow repeat blood cultures - Per infectious disease MRI was nonconclusive. Patient continues to have severe back pain concern for epidural abscess given that his blood culture came positive. - Patient noted to be bradycardic, echocardiogram ordered. Monitor EKGs daily. - Addiction medicine input appreciated. Patient with severe opioid use disorder. Patient to continue on methadone 140 mg daily. - Symptomatic and supportive care Assessment & Plan (11/20/2024 11:35 AM EDT): On amlodipine at home, noncompliant Resume amlodipine Hydralazine as needed Monitor BP Opioid use disorder 11/20/2024 Assessment & Plan (11/26/2024 5:02 PM EDT): ID following, appreciate recommendations Blood culture from 11/20: MSSA. Blood culture from 11/21: MSSA. Blood culture from 11/22 and 11/24 NGTD. Continue IV cefazolin 2 g every 8 hours. PICC line order placed. Patient need to continue cefazolin 2 g IV every 8 hours for 4 weeks p.o. 12/20/2024 followed by Keflex 1 g p.o. twice a day for 2 weeks more. Obtain every Monday CBC, CMP, ESR, CRP and fax to [phone]. TTE on 11/24: LV severely dilated, severe concentric hypertrophy, LVEF 55%. RV SF normal. Severe biatrial enlargement. No echocardiographic evidence of endocarditis. HCV viral load in process. HIV 1/2-nonreactive. Monitor fever curve. Addiction medicine following, input appreciated. Patient has severe opioid use disorder. Continue methadone 140 Mg daily. UDS positive for cocaine, fentanyl, methadone. BP trending up. Continue clonidine taper. Increase clonidine back to 10 Mg daily. PICC line placement ordered>> however, pending finding placement it is not pursued currently. PICC line plan to be placed once facility is confirmed. Assessment & Plan (11/25/2024 5:29 PM EDT): ID following, appreciate recommendations Blood culture from 11/20: MSSA. Blood culture from 11/21: MSSA. Blood culture from 11/22 and 11/24 NGTD. Continue IV cefazolin 2 g every 8 hours. PICC line order placed. Patient need to continue cefazolin 2 g IV every 8 hours for 4 weeks p.o. 12/20/2024 followed by Keflex 1 g p.o. twice a day for 2 weeks more. Obtain every Monday CBC, CMP, ESR, CRP and fax to [phone]. TTE on 11/24: LV severely dilated, severe concentric hypertrophy, LVEF 55%. RV SF normal. Severe biatrial enlargement. No echocardiographic evidence of endocarditis. HCV viral load in process. HIV 1/2-nonreactive. Monitor fever curve. Addiction medicine following, input appreciated. Patient has severe opioid use disorder. Continue methadone 140 Mg daily. UDS positive for cocaine, fentanyl, methadone. BP trending up. Continue clonidine taper. Increase clonidine back to 10 Mg daily. Assessment & Plan (11/24/2024 3:50 PM EDT): ID following, appreciate recommendations Blood culture from 11/20: MSSA. Blood culture from 11/21: MSSA. Blood culture from 11/22 NGTD. Blood cultures sent on 11/24. Continue IV cefazolin 2 g every 8 hours. Follow-up blood culture results. He will need repeat blood culture every 48 hours until documented clearance. TTE on 11/24: LV severely dilated, severe concentric hypertrophy, LVEF 55%. RV SF normal. Severe biatrial enlargement. No echocardiographic evidence of endocarditis. HCV viral load in process. HIV 1/2-nonreactive. Monitor fever curve. Addiction medicine following, input appreciated. Patient has severe opioid use disorder. Continue methadone 140 Mg daily. UDS positive for cocaine, fentanyl, methadone. Bp not better controlled with clonidine taper. Will decrease amlodipine back to 5 Mg daily. Assessment & Plan (11/23/2024 4:13 PM EDT): ID following, appreciate recommendations Blood culture from 11/20: MSSA. Blood culture from 11/21: MSSA. Blood culture from 11/22 pending. Continue IV cefazolin 2 g every 8 hours. Follow-up blood culture results. He will need repeat blood culture every 48 hours until documented clearance. TTE pending. HCV viral load in process. HIV 1/2-nonreactive. Monitor fever curve. Addiction medicine following, input appreciated. Patient has severe opioid use disorder. Continue methadone 140 Mg daily. UDS positive for cocaine, fentanyl, methadone. Bp controlled with amlodipine 5 Mg daily. BP high-started on clonidine taper along with increased amlodipine 10 Mg daily. COWS started. Assessment & Plan (11/22/2024 4:49 PM EDT): ID following, appreciate recommendations Blood culture from 11/20: MSSA. Blood culture from 11/21: Aerobic bottle positive. Blood culture from 11/22 pending. Continue IV cefazolin 2 g every 8 hours. Follow-up blood culture results. He will need repeat blood culture every 48 hours until documented clearance. TTE pending. HCV viral load in process. Monitor fever curve. Addiction medicine following, input appreciated. Patient has severe opioid use disorder. Continue methadone 140 Mg daily. UDS positive for cocaine, fentanyl, methadone. Bp controlled with amlodipine 5 Mg daily. Assessment & Plan (11/21/2024 6:01 PM EDT): - Infectious disease following. - Patient continue on IV vancomycin. Ceftriaxone discontinued. Started on cefazolin IV. - Follow repeat blood cultures - Per infectious disease MRI was nonconclusive. Patient continues to have severe back pain concern for epidural abscess given that his blood culture came positive. - Patient noted to be bradycardic, echocardiogram ordered. Monitor EKGs daily. - Addiction medicine input appreciated. Patient with severe opioid use disorder. Patient to continue on methadone 140 mg daily. - Symptomatic and supportive care Assessment & Plan (11/20/2024 3:20 PM EDT): Cocaine use disorder Smokes crack cocaine On methadone 140 mg daily Confirmed dose from [place], [place]. Continue methadone Addiction medicine team consulted as per ID recommendation Follow Social History Tobacco Use Types Packs/Day Years Used Date Smoking Tobacco: Every Day Smokeless Tobacco: Never Alcohol Use Standard Drinks/Week Comments No 0 (1 standard drink = 0.6 oz pur e alcohol) [facility] Utilities Answer Date Recorded In the past 12 months has e [employer], gas, oil, or water [employer] threatened to shut off services in your home? Patient declined 11/22/2024 AUDIT-C Answer Date Recorded Q1: How often do you have a drink containing alcohol? Never 11/21/2024 Q2: How many drinks containi ng alcohol do you have on a typical day when you are drinking? Patient does not drink Q3: How often do you have si x or more drinks on one occasion? Never 11/21/2024 Overall Financial Resource Strain (CARDIA) Answe r Date Recorded How hard is it for you to pa y for the very basics like food, housing, medical care, and heating? Hard 11/21/2024 Hunger Vital Sign Answer Date Recorded Within the past 12 months, y ou worried that your food would run out before you got the money to buy more. Patient declined 08 /11/2024 Within the past 12 months, t he food you bought just didn't last and you didn't have money to get more. Patient declined 11/2024 PRAPARE - Transportation Answer Date Re corded In the past 12 months, has l ack of transportation kept you from medical appointments or from getting medications? Patient declined 11/22/2024 In the past 12 months, has l ack of transportation kept you from meetings, work, or from getting things needed for daily living? Patient declined 11/22/2024 Housing Stability Vital Sign Answer Morris e Recorded In the last 12 months, was t here a time when you were not able to pay the mortgage or rent on time? Patient declined 11/23/19 25 In the past 12 months, how m any times have you moved where you were living? 0 11/22/2024 At any time in the past 12 m [facility], were you homeless or living in a retirement (including now)? Patient declined 11/22/2024 Sex and Gender Information Value Date Recorded Sex Assigned at Male 11/20/2024 12:18 AM EDT Legal Sex Male 12:31 PM EDT Gender Identity Male 11/20/2024 12:18 AM EDT Sexual Orientation Heterosexual (straight) 11/20 12:18 AM EDT Last Filed Vital Signs Vital Sign Reading Time Taken Comments Blood Pressure 172/95 11/27/2024 9:18 AM EDT Pulse 51 11/27/2024 4:08 AM EDT Temperature 35.8 C (96.4 F) 11/27/2024 4:01 AM EDT Respiratory Rate 19 11/27/2024 4:01 AM EDT Oxygen Saturation 99% 11/27/2024 4:01 AM EDT Inhaled Oxygen Concentration - - Weight 68.2 kg (150 lb 5.7 oz) 11/21/2024 9:20 A M EDT Height 167.6 cm (5' 6 ) 11/21/2024 9:20 AM EDT Body Mass Index 24.27 11/21/2024 9:20 AM EDT Plan of Treatment Health Maintenance Due Date Last Done Comments DTaP/Tdap/Td Vaccines (1 - Tdap) 1984 Hepatitis B Vaccines (1 of 3 - 19+ 3-dose series) 06/16 Colonoscopy 2010 Pneumococcal Vaccines 50+ (1 of 1 - PCV) 07/11/2015 RSV Vaccine 50 years and old er and Patients (1 - Risk 50-74 years 1-dose series) 07/11/2015 Zoster (Shingles) Vaccine (1 of 2) 07/11/2015 Influenza Vaccine 11/15/2024 04/22/2016 COVID-19 Vaccine (2 - season) 2024 HIV Screening Completed 11/21/2024 Hepatitis C Virus Screening Completed 11/21/2024 Procedures Procedure Name Priority Date/Time Associated Diagnosis Comments HIV 1/2 AG/AB CMIA REFLEX TO CONFIRMATION STAT 11/21/2024 10:00 AM EDT HEPATITIS C VIRAL LOAD, QUANTITATIVE STAT 11/21/2024 10:00 AM EDT from Last 3 Months or Most Recently Relevant to Health Maintenance Results * (ABNORMAL) Hepatitis C Viral Load, Quantitative (11/21/2024 10:00 AM EDT) HCV RNA (IU/mL) 477,858(H) <10 IU/mL 2:11 PM EDT [facility] HCV RNA (log10) 5.68(H) <1.00 log10 IU/mL 11/27/2024 2:11 PM EDT [facility] Interpretation Detected 11/27/2024 2:11 PM EDT [facility] Comment:Performed by FDA rajan roved [employer] [facility]. Linear range is 10 to 100,000,000 IU/mL. HCV Genotyping is not recommended for viral loads below 300 IU/mL. Blood Blood specimen / Unknown 11/21/2024 10:00 AM EDT 11/21/2024 10:36 AM EDT us Killian Mckoy MD LAB BLOOD ORDERABLES Final Resul t [facility] [address] [place] [address], * HIV 1/2 Ag/Ab CMIA Reflex to Confirmation (11/21/2024 10:00 AM EDT) HIV 1/2 Ag/Ab CMIA Nonreactive Nonreactive 11/22/2024 9:46 AM EDT [facility] Comment: Results show no evidence of infection by HIV 1/2. If clinically indicated, repeat CMIA or test by nucleic acid amplification. HIV 1/2 Antigen/Antibody CMIA reflex to confirmation AND HIV-1 RNA viral load recommended in patients who are taking or have recently taken PrEP. 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
--- OUTSIDE RECORDS SUMMARY | 2025-03-21 02:02 | XMS_ITS ---
Author Name [facility] Organization Unknown Results Test Name/Text Value Interpretation Date Range Source Magnesium SerPl-mCnc 2.0 mg/dL 11/24/2024 1.6 - 2. 7 [facility] Anion Gap Bld-sCnc 11.0 11/24/2024 7 - 17 [facility] Chloride SerPl-sCnc 96.0 mmol/L Below low normal 11/24/2024 98 - 107 H[facility]CT CO2 SerPl-sCnc 24.0 mmol/L 11/24/2024 22 - 33 HH CCT Calcium SerPl-mCnc 9.1 mg/dL 11/24/2024 8.7 - 10.5 [facility] Glucose SerPl-mCnc 143.0 mg/dL Above high normal 11/24/2024 65 - 99 H[facility]CT BUN/Creat SerPl 27.0 Ratio Above high normal 11/24/2024 10 - 25 [facility] Potassium SerPl-sCnc 4.2 mmol/L 11/24/2024 3.4 - 5 .3 H[facility]CT Creat SerPl-mCnc 0.6 mg/dL 11/24/2024 0.5 - 1.3 HH [facility] Sodium SerPl-sCnc 131.0 mmol/L Below low normal 11/24/2024 1 36 - 145 H[facility]CT GFR/BSA.pred SerPlBld YCS-IQE-JfDHbn >90.0 11/24/2024 59 - HHCCT BUN SerPl-mCnc 16.0 mg/dL 11/24/2024 8 - [address] ESR Bld Qn 57.0 MM/HR Above high normal 11/22/2024 - 20 H[facility]CT Magnesium SerPl-mCnc 1.9 mg/dL 11/22/2024 1.6 - 2. 7 H[facility]CT BUN/Creat SerPl 33.0 Ratio Above high normal 11/22/2024 10 - 25 H[facility]CT Glucose SerPl-mCnc 96.0 mg/dL 11/22/2024 65 - 99 H[facility]CT Sodium SerPl-sCnc 136.0 mmol/L 11/22/2024 136 - 14 5 HHCCT AST SerPl-cCnc 16.0 U/L 11/22/2024 10 - 55 [facility] T Albumin/Glob SerPl 0.9 Ratio Below low normal 11/22/2024 1 - 3 H[facility]CT Calcium SerPl-mCnc 8.6 mg/dL Below low normal 11/22/2024 8.7 - 10.5 HHCCT CO2 SerPl-sCnc 24.0 mmol/L 11/22/2024 22 - 33 HH CCT Creat SerPl-mCnc 0.6 mg/dL 11/22/2024 0.5 - 1.3 HH CCT ALT SerPl-cCnc 16.0 U/L 11/22/2024 10 - 55 [facility] T Albumin SerPl-mCnc 3.3 g/dL Below low normal 11/22/2024 3.5 - 5 H[facility]CT Potassium SerPl-sCnc 3.7 mmol/L 11/22/2024 3.4 - 5 .3 HHCCT Bilirub SerPl-mCnc 0.3 mg/dL 11/22/2024 0.2 - 1 HHCCT GFR/BSA.pred SerPlBld QGH-MAB-SpJTal >90.0 11/22/2024 59 - HHCCT Anion Gap Bld-sCnc 12.0 11/22/2024 7 - 17 HHCCT BUN SerPl-mCnc 20.0 mg/dL 11/22/2024 8 - [address] Globulin Ser Calc-mCnc 3.5 g/dL 11/22/2024 1.5 - 3.9 HHCCT Chloride SerPl-sCnc 100.0 mmol/L 11/22/2024 98 - 1 07 HHCCT Prot SerPl-mCnc 6.8 g/dL 11/22/2024 6.3 - 8.[address] ALP SerPl-cCnc 93.0 U/L 11/22/2024 45 - 128 [facility] T CRP SerPl-mCnc 6.02 mg/dL Above high normal 11/22/2024 0 - 0 .49 HHCCT Platelet num Bld Auto 167.0 Thou/uL 11/22/2024 150 - 450 HHCCT Eosinophil num Bld Auto 0.1 Thou/uL 11/22/2024 0 - 0.7 HHCCT Neutrophils/leuk NFr Bld Auto 71.2 % 11/22/2024 HHCCT Monocytes num Bld Auto 0.62 Thou/uL 11/22/2024 0.2 - 1.5 HHCCT Imm Granulocytes/leuk NFr Bld Auto 0.7 % 11/22/2024 HHCCT Hgb Bld-mCnc 12.3 g/dL Below low normal 11/22/2024 13 - 17.7 HHCCT MCHC RBC Auto-mCnc 33.2 g/dL 11/22/2024 30 - 36 HHCCT Basophils/leuk NFr Bld Auto 0.4 % 11/22/2024 HHCCT Lymphocytes/leuk NFr Bld Auto 17.2 % 11/22/2024 HHCCT Hct VFr Bld Auto 37.1 % Below low normal 11/22/2024 39 - 54 HHCCT MCH RBC Qn Auto 27.8 pg 11/22/2024 27 - [address] Eosinophil/leuk NFr Bld Auto 1.5 % 11/22/2024 HHCCT RDW RBC Auto-Rto 13.1 % 11/22/2024 11.5 - 14.5 HHCCT MCV RBC Auto 84.0 fL 11/22/2024 80 - 100 HHCCT Lymphocytes num Bld Auto 1.18 Thou/uL Below low normal 11/22/2024 1.5 - 4.5 HHCCT WBC num Bld Auto 6.9 Thou/uL 11/22/2024 4 - 11 HHCCT Neutrophils num Bld Auto 4.9 Thou/uL 11/22/2024 2 - 7.5 HHCCT Basophils num Bld Auto 0.03 Thou/uL 11/22/2024 0 - 0.2 HHCCT PMV Bld Auto 10.1 fL 11/22/2024 7.5 - 12.5 HHCCT Monocytes/leuk NFr Bld Auto 9.0 % 11/22/2024 HHCCT Imm Granulocytes num Bld Auto 0.05 Thou/uL 11/22/2024 0 - 0.1 HHCCT RBC num Bld Auto 4.42 Mil/uL Below low normal 11/22/2024 4.5 - 6.2 HHCCT BZE Ur Ql Positive Abnormal 11/21/2024 - [facility] Oxycodone Ur Ql Scn Negative 11/21/2024 - CCT PCP Ur Ql Scn>25 ng/mL Negative 11/21/2024 - CCT fentaNYL+Norfentanyl Ur Ql Scn Positive Abnormal 11/21/2024 - [facility] Benzodiaz Ur Ql Scn>200 ng/mL Negative 11/21/2024 - CCT Amphetamines Ur Ql Negative 11/21/2024 - [facility] Buprenorphine Ur Ql Negative 11/21/2024 - CCT Barbiturates Ur Ql Scn>200 ng/mL Negative 11/21/2024 - [facility] Opiates Ur Ql Scn>300 ng/mL Negative 11/21/2024 - [facility] Methadone Ur Ql Scn>300 ng/mL Positive Abnormal 11/21/2024 - [facility] HCV RNA SerPl MARY+probe-Log IU 5.68 log10 IU/mL Above high normal 11/27/2024 - 1 HH CCT HCV RNA SerPl MARY+probe-aCnc 101576.0 IU/mL Above high normal 11/27/2024 - 10 CCT HCV RNA SerPl Ql MARY+probe Detected 11/27/2024 HHCCT HIV 1+2 Ab+HIV1 p24 Ag Ser EIA-aCnc Nonreactive 11/22/2024 - CCT Calcium SerPl-mCnc 8.8 mg/dL 11/21/2024 8.7 - 10.5 HHCCT Potassium SerPl-sCnc 3.8 mmol/L 11/21/2024 3.4 - 5 .3 HHCCT Chloride SerPl-sCnc 98.0 mmol/L 11/21/2024 98 - 10 7 HHCCT Creat SerPl-mCnc 0.8 mg/dL 11/21/2024 0.5 - 1.3 HH CCT BUN SerPl-mCnc 26.0 mg/dL Above high normal 11/21/2024 8 - 2 1 HHCCT Anion Gap Bld-sCnc 12.0 11/21/2024 7 - 17 HHCCT CO2 SerPl-sCnc 23.0 mmol/L 11/21/2024 22 - 33 HH CCT Glucose SerPl-mCnc 105.0 mg/dL Above high normal 11/21/2024 65 - 99 HHCCT GFR/BSA.pred SerPlBld GDI-YES-WmYLna >90.0 11/21/2024 59 - HHCCT Sodium SerPl-sCnc 133.0 mmol/L Below low normal 11/21/2024 1 36 - 145 HHCCT BUN/Creat SerPl 33.0 Ratio Above high normal 11/21/2024 10 - 25 HHCCT Platelet num Bld Auto 190.0 Thou/uL 11/21/2024 150 - 450 HHCCT WBC num Bld Auto 11.4 Thou/uL Above high normal 11/21/2024 4 - 11 HHCCT MCV RBC Auto 85.0 fL 11/21/2024 80 - 100 HHCCT RDW RBC Auto-Rto 13.2 % 11/21/2024 11.5 - 14.5 HHCCT Hct VFr Bld Auto 39.7 % 11/21/2024 39 - 54 HH CCT Neutrophils/leuk NFr Bld Auto 76.2 % 11/21/2024 HHCCT Neutrophils num Bld Auto 8.72 Thou/uL Above high normal 11/21/2024 2 - 7.5 HHCCT Eosinophil num Bld Auto 0.03 Thou/uL 11/21/2024 0 - 0.7 HHCCT MCHC RBC Auto-mCnc 33.2 g/dL 11/21/2024 30 - 36 HHCCT Basophils num Bld Auto 0.03 Thou/uL 11/21/2024 0 - 0.2 HHCCT Eosinophil/leuk NFr Bld Auto 0.3 % 11/21/2024 HHCCT Hgb Bld-mCnc 13.2 g/dL 11/21/2024 13 - 17.7 HHCCT Lymphocytes num Bld Auto 1.63 Thou/uL 11/21/2024 1.5 - 4.5 HHCCT RBC num Bld Auto 4.69 Mil/uL 11/21/2024 4.5 - 6.2 HHCCT Monocytes/leuk NFr Bld Auto 8.5 % 11/21/2024 HHCCT MCH RBC Qn Auto 28.1 pg 11/21/2024 27 - [address] Basophils/leuk NFr Bld Auto 0.3 % 11/21/2024 HHCCT Monocytes num Bld Auto 0.97 Thou/uL 11/21/2024 0.2 - 1.5 HHCCT PMV Bld Auto 10.7 fL 11/21/2024 7.5 - 12.5 HHCCT Lymphocytes/leuk NFr Bld Auto 14.3 % 11/21/2024 HHCCT Imm Granulocytes num Bld Auto 0.05 Thou/uL 11/21/2024 0 - 0.1 HHCCT Imm Granulocytes/leuk NFr Bld Auto 0.4 % 11/21/2024 HHCCT Vancomycin SerPl-mCnc <4.0 mg/L 11/20/2024 HHCCT Time of last dose Information not given 11/20/2024 HHCCT Squamous num/area UrnS HPF 0.0 per hpf 11/20/2024 HHCCT RBC num/area UrnS HPF 1.0 per hpf 11/20/2024 0 - 4 HHCCT WBC num/area UrnS HPF 0.0 per hpf 11/20/2024 0 - 4 HHCCT Glucose Ur Strip-mCnc Negative 11/20/2024 - [facility] Prot Ur Strip-mCnc Trace Abnormal 11/20/2024 - CCT Nitrite Ur Ql Strip Negative 11/20/2024 - HHCCT Sp Gr Ur Strip >1.029 11/20/2024 1.005 - 1.03 HHCCT Hgb Ur Ql Strip Negative 11/20/2024 - [facility] CT Leukocyte esterase Ur Ql Strip Negative 11/20/2024 - CCT pH Ur Strip 6.0 11/20/2024 5 - 8 HHCCT Ketones Ur Strip-mCnc Negative 11/20/2024 - HHCCT Clarity Ur Clear 11/20/2024 HHCCT Bilirub Ur Strip-mCnc Negative 11/20/2024 - HHCCT Color Ur Yellow 11/20/2024 HHCCT CRP SerPl-mCnc 8.2 mg/dL Above high normal 11/20/2024 0 - 0. 49 HHCCT ESR Bld Qn 50.0 MM/HR Above high normal 11/20/2024 - 20 HHCCT Lactate SerPl-sCnc 0.9 mmol/L 11/20/2024 0.5 - 1.9 HHCCT Albumin SerPl-mCnc 4.1 g/dL 11/20/2024 3.5 - 5 HHCCT Prot SerPl-mCnc 7.7 g/dL 11/20/2024 6.3 - 8.[address] ALP SerPl-cCnc 115.0 U/L 11/20/2024 45 - 128 [facility]CC T Albumin/Glob SerPl 1.1 Ratio 11/20/2024 1 - 3 HHCCT BUN SerPl-mCnc 13.0 mg/dL 11/20/2024 8 - [address] Anion Gap Bld-sCnc 14.0 11/20/2024 7 - 17 HHCCT Bilirub SerPl-mCnc 1.1 mg/dL Above high normal 11/20/2024 0. 2 - 1 HHCCT Creat SerPl-mCnc 0.7 mg/dL 11/20/2024 0.5 - 1.3 HH CCT Calcium SerPl-mCnc 9.0 mg/dL 11/20/2024 8.7 - 10.5 HHCCT BUN/Creat SerPl 19.0 Ratio 11/20/2024 10 - 25 HH CCT Chloride SerPl-sCnc 96.0 mmol/L Below low normal 11/20/2024 98 - 107 HHCCT Potassium SerPl-sCnc 3.7 mmol/L 11/20/2024 3.4 - 5 .3 HHCCT Sodium SerPl-sCnc 132.0 mmol/L Below low normal 11/20/2024 1 36 - 145 HHCCT ALT SerPl-cCnc 17.0 U/L 11/20/2024 10 - 55 [facility] T Globulin Ser Calc-mCnc 3.6 g/dL 11/20/2024 1.5 - 3.9 HHCCT AST SerPl-cCnc 22.0 U/L 11/20/2024 10 - 55 [facility] T GFR/BSA.pred SerPlBld SDP-QHW-GgYGcb >90.0 11/20/2024 59 - HHCCT CO2 SerPl-sCnc 22.0 mmol/L 11/20/2024 22 - 33 HH CCT Glucose SerPl-mCnc 108.0 mg/dL Above high normal 11/20/2024 65 - 99 HHCCT Monocytes/leuk NFr Bld Auto 6.0 % 11/20/2024 HHCCT Monocytes num Bld Auto 0.8 Thou/uL 11/20/2024 0.2 - 1.5 HHCCT Lymphocytes/leuk NFr Bld Auto 10.0 % 11/20/2024 HHCCT Eosinophil/leuk NFr Bld Auto 0.0 % 11/20/2024 HHCCT Hct VFr Bld Auto 40.5 % 11/20/2024 39 - 54 HH CCT RDW RBC Auto-Rto 13.2 % 11/20/2024 11.5 - 14.5 HHCCT Basophils/leuk NFr Bld Auto 0.2 % 11/20/2024 HHCCT Hgb Bld-mCnc 13.4 g/dL 11/20/2024 13 - 17.7 HHCCT Imm Granulocytes num Bld Auto 0.07 Thou/uL 11/20/2024 0 - 0.1 HHCCT MCHC RBC Auto-mCnc 33.1 g/dL 11/20/2024 30 - 36 HHCCT Lymphocytes num Bld Auto 1.34 Thou/uL Below low normal 11/20/2024 1.5 - 4.5 HHCCT Neutrophils/leuk NFr Bld Auto 83.3 % 11/20/2024 HHCCT Imm Granulocytes/leuk NFr Bld Auto 0.5 % 11/20/2024 HHCCT Eosinophil num Bld Auto 0.0 Thou/uL 11/20/2024 0 - 0.7 HHCCT MCV RBC Auto 85.0 fL 11/20/2024 80 - 100 HHCCT Neutrophils num Bld Auto 11.15 Thou/uL Above high normal 11/20/2024 2 - 7.5 HHCCT Platelet num Bld Auto 147.0 Thou/uL Below low normal 11/20/2024 150 - 450 HHCCT WBC num Bld Auto 13.4 Thou/uL Above high normal 11/20/2024 4 - 11 HHCCT RBC num Bld Auto 4.79 Mil/uL 11/20/2024 4.5 - 6.2 HHCCT PMV Bld Auto 10.3 fL 11/20/2024 7.5 - 12.5 HHCCT Basophils num Bld Auto 0.03 Thou/uL 11/20/2024 0 - 0.2 HHCCT MCH RBC Qn Auto 28.0 pg 11/20/2024 27 - [address] [facility] [address] Encounters Encounter Type Encounter Reason Primary Diagnosis Location Date Inpatient Osteomyelitis of vertebra, thoracic region Osteomyelitis of vertebra, thoracic region [employer] 11/20/2024 [facility] 11/19/2024 [facility] 11/19[facility] [facility] [facility] 11/19/2024 Care Team Organization Name Specialty Phone Email Start Date End [facility] [employer] 11/21/2024 12/19/2024 [employer] 11/20/2024
[2025-03-21 06:14] VITALS: BP 205/114
--- NOTE | 2025-03-21 06:22 | PC.NURSE ---
patient BP checked for discharge. patient BP elevated. patient is supposed to take amlodipine at home. meds were ordered for patient. when RN went to give patient meds patient stated I don't need those . patient given DC paperwork and brought to waiting room with security.
== END 2025-03-21 06:25 | disposition left against medical advice (07) ==
PROVIDERS: Emergency Provider Emergency Medicine
DX: F11.10 Opioid abuse, uncomplicated (principal); F14.10 Cocaine abuse, uncomplicated; I10 Essential (primary) hypertension; Z79.899 Other long term (current) drug therapy
CPT/HCPCS: 99282

== ENCOUNTER 2025-03-27 10:53 | Emergency (ER) | payer OTHER, SELFPAY ==
--- NOTE | ~2025-03-27 | US_ITS ---
EXAMINATION: US LOWER EXTREMITY VEINS LIMITED RIGHT HISTORY: swelling and pain COMPARISON: There are no prior studies available for comparison. TECHNIQUE: Duplex and color Doppler sonographic examination of the deep venous system of the right lower extremity was performed. FINDINGS: The common femoral, superficial femoral, and popliteal veins are patent demonstrating normal compressibility, spontaneous flow, and augmentation. There is a normal color and spectral Doppler waveform appearance of the visualized deep venous system above the knee. The posterior tibial and peroneal veins are patent. US/US venous duplex LE RT IMPRESSION: No evidence of acute DVT in the right lower extremity. Electronically signed by: Manolo Walden MD 03/27/2025 12:13 PM [facility]
--- NOTE | ~2025-03-27 | CT_ITS ---
EXAMINATION: CT LUMBAR SPINE WITH CONTRAST CLINICAL INFORMATION: IVDU, low back pain and SI joint pain. Prior MRI showed findings of infection in the lumbar spine on 11/19/2024. COMPARISON: No prior CT. Correlation made with MR lumbar 11/19/2024. TECHNIQUE: Spiral CT imaging of the lumbar spine performed in axial plane after the administration of 85 cc Omnipaque 350 contrast. Multiplanar reformatted images were constructed from the axial data set. This CT examination was performed using dose optimization techniques as appropriate, variously including the following: *Automated exposure control *Adjustment of mA and/or kV according to patient size (this includes techniques or standardized protocols for targeted exams where dose is matched to indication/reason for exam; i.e. extremities or head) *Use of iterative reconstruction technique FINDINGS: Compared with the recent MR examination, there are new erosive endplate changes at L4-5, highly concerning. There is also loss of the disc space, which has developed in a rapid manner. Although the presence of disc vacuum phenomenon is present at L4-5, this does not exclude discitis. In addition, there is ventral epidural thickening and enhancement present, extending into both foraminal zones, with mild paravertebral fat stranding as well. In addition, there are sclerotic and irregular and mildly erosive endplate changes developing at L5-S1 as well, also somewhat suspicious in appearance. Mildly irregular left facet joint changes at L5-S1 are present, similar to the recent MRI, indeterminate. There is no definite organized peripherally enhancing fluid collection in the epidural region although there is ventral epidural thickening and enhancement spanning the mid L4 region to the mid S1 region. There are degenerative changes in both SI joints without evidence of infectious arthropathy. Prominent Schmorl's nodes in the inferior endplates of L1, L2, and to a lesser degree L3 are stable from the prior MRI examination. The imaged retroperitoneal and intraperitoneal structures are grossly unremarkable. There is mild to moderate atheromatous disease of the aorta and iliac arteries without aneurysm. The imaged kidneys appear normal. Imaged bowel structures are unremarkable. CT/CT lumbar spine w IV con IMPRESSION: 1. Findings highly suspicious for discitis/osteomyelitis at L4-5. There are erosive/permeative changes of the endplates, new from the recent MRI, with surrounding paravertebral fat stranding, and apparent ventral epidural thickening/enhancement. 2. Rapidly developing sclerotic and irregular endplate changes at L5-S1 is also somewhat concerning for infection at this level as well. 3. There is no discrete formed peripherally enhancing abscess present, although there is dorsal epidural thickening and mild enhancement spanning the mid L4 to the mid S1 level. 4. Above findings would be much better evaluated with MRI, if felt to alter clinical management. Electronically signed by: Israel Toribio MD 03/27/2025 03:12 PM [facility]
[2025-03-27 11:00] VITALS: BP 148/95; PULSE 76; O2SAT 100
[2025-03-27 11:05] VITALS: BP 165/89; PULSE 72; RESP 15; TEMP 36.9; O2SAT 96; BMI 27.5
--- NOTE | 2025-03-27 11:34 | ED_ITS ---
HPI - General Adult General Chief complaint: Skin/Abscess/Foreign Body Stated complaint: BACK/FLANK PAIN FROM LEGS X2D,NO INJURY PER EMS Time Seen by Provider: 03/27/25 11:02 Source: patient and EMS Mode of arrival: EMS Limitations: no limitations History of Present Illness ED Provider: HPI narrative: 59-year-old male presenting with multiple complaints, he is complaining of bilateral flank pain lower back pain, swelling to the left dorsal hand at the site of IV drug injection, and right lower extremity swelling, was at [facility] according to the patient 2 days ago, he states that he was discharged on doxycycline he is not sure whether they ended up doing an ultrasound of the right lower extremity, but and he was complaining of back pain and did report to them that he has had history of infectious etiology in his back but nothing was managed according to the patient. No fevers or chills, he has swelling to the left dorsum of the hand at the site of IV drug use, he states he has not used drugs for 1 year and that recently he injected himself with 1 bag of heroin because when he missed his methadone dose he was given 30 mg instead of 150 mg. Today he was on methadone clinic in you received his dose at 10:35. No SI or HI, in triage also reported request for rehab. Related Data Home Medications ?Medication ?Instructions ?Recorded ?Confirmed methadone 10 mg/mL oral 140 mg PO DAILY 12/01/24 concentrate (Methadone Intensol) Previous Rx's ?Medication ?Instructions ?Recorded amlodipine 5 mg tablet 5 mg PO DAILY #30 tabs 12/05 cefazolin 2 gram/50 mL in dextrose 50 ml IV Q8H 6 week s #90 ea 12/05/24 (iso-osmotic) intravenous piggyback ipratropium 0.5 mg-albuterol 3 mg 3 ml inhalation Q4H PRN Shortness 12/05/24 (2.5 mg base)/3 mL nebulization Of Breath/Wheezing #90 mL soln omeprazole 20 mg capsule,delayed 20 mg PO BID@0630,163 0 #60 caps 12/05/24 release oxycodone 15 mg tablet 15 mg PO Q4H PRN Pain, 12/05 Moderate(Pain Scale 4-6) #30 tabs sennosides 8.6 mg tablet (Senna 17.2 mg (2 x 8.6 mg) P O BEDTIME 12/05/24 Lax) #30 tabs Allergies Allergy/AdvReac Type Severity Reaction Status Date / Time morphine Allergy Intermediate Headache Verified 03/27/25 11:12 codeine (Codeine) Allergy Mild HIVES, Verified 03/27/25 11:12 VOMITING Review of Systems 2 Constitutional: Constitutional: Reports as per [facility] Past Medical History Medical History Edentulous IVDU (intravenous drug user) Tobacco dependence Homeless Tenosynovitis of finger Cellulitis of hand, left Hepatitis C Opioid use disorder High blood pressure Hyperlipidemia Heroin addiction Substance abuse Colitis Anxiety Surgical History H/O oral surgery Family History Family History (Updated 12/02/24 @ 15:52 by Nadira Amor MD) Other Hepatitis C Social History Social History Household Members: None Household Members Other:: homeless Housing: Homeless Do you presently have visiting nurse or other home services: No Alcohol intake: current Alcohol intake frequency: 3 or more drinks per day Comment: pt refusing bed alarm Patient Tobacco Use Status: Never used Tobacco Tobacco use type: Cigarette e-Cigarette/Vaping Use: Currently Using Second Hand Smoke Exposure: Yes Substance Use Type: Crack/Cocaine Advance Directives: Yes Advance Directives on File: Yes Advance Directives Date on File: 12/06/24 service: No Current occupational status: unemployed Physical Exam ED Exam Exam: ?General: ?Chronically ill-appearing ?PERRLA, EOMI, MMM, Neck: Supple, no LAD ?CV: RRR, no obvious murmurs appreciated ?Resp: ?No wheezing rales rhonchi no stridor moving air well Abd: ?Bowel sounds are present, no tenderness no rebound no rigidity MSK: FROM, strength 5/5 all extremities, no sensory almost ran deficits bilateral lower extremities, he has paraspinal tenderness I did not elicit midline tenderness, there was no bruising or rashes to the area, no CVA tenderness Skin: Warm swollen right lower extremity distal pulses intact, no knee effusion, and slight purulence and edema of the dorsum of the left hand ?Neuro: ?Alert and oriented x3, moving upper and lower extremities symmetrically, no obvious facial asymmetry noted, cranial nerves 2-12 intact Vital Signs: Vital Signs - 24 hr 03/27/25 11:05 Temperature 98.4 F Pulse Rate 72 Respiratory Rate 15 Blood Pressure 165/89 H Pulse Oximetry 96 Oxygen Delivery Method Room Air BMI result Body Mass Index 27.5 Medications Administered Discontinued Medications Generic Name Dose Route Start Last Admin Trade Name Kulwant PRN Reason Stop Dose Admin Acetaminophen 1,000 mg in 100 mls @ 400 mls/hr 03/27/25 11:40 03/27/25 13:24 Ofirmev IV 03/27/25 11:54 Infused ONCE ONE Infusion Ceftriaxone Sodium 1 gm/ 50 mls @ 100 mls/hr 03/27/25 14:00 03/27/25 14:32 Sodium Chloride IV 03/27/25 14:29 100 mls/hr ONCE ONE Administration Iohexol 100 ml 03/27/25 14:09 03/27/25 14:09 Iohexol 350 Mg/Ml 100 Ml Infus..Btl IV 03/27/25 14:10 85 ml ONCE ONE Administration Ketorolac Tromethamine 15 mg 03/27/25 11:40 03/27/25 13:09 Ketorolac Tromethamine 15 Mg/Ml Vial IVPUSH 03/27/25 11:41 15 mg ONCE ONE Administration Procedures Procedure Narrative Procedure Narrative: Peripheral IV access Difficult IV access I visualized a vein on patient left arm. Prep with alcohol swab, a 20 gauge needle was introduce into vein. Flash back appreciated. Flushes and draw well. No complications Medical Decision Making Medical Decision Making [facility] Narrative: 11:46 AM 03/27/2025 (Dr. Ernesto Hughes): Due to IV drug use, history of infectious issues in the back that was managed in November of 2024 he is a high- risk patient, we will obtain septic workup, he does have likely cellulitis of the right lower extremity we will obtain ultrasound to make sure there was no underlying DVT it is warm and swollen, his neurologic exam without any evidence that he has spinal epidural abscess, he has had diskitis osteomyelitis and SI infection in the past in November of this year, will start with CT lumbar spine and IV contrast, he has no urinary symptoms no respiratory symptoms no ENT symptoms and otherwise abdominal exam is benign 1:55 PM 03/27/2025 (Dr. Ernesto Hughes): Patient ambulating in the ER, discussed with him that ultrasound of the extremity is negative for DVT he does have leukocytosis, he does have left shift, ESR 43 CRP 8.6 lactic not elevated, but patient is not meeting septic criteria there was no organ dysfunction, but as he has obvious cellulitis of his right leg and left hand will order IV antibiotics 3:30 PM 03/27/2025 (Dr. Ernesto Hughes): I discussed with the patient's CT findings in the fact that I am not able to admit him here but he needs to go to [facility] for admission as there is high suspicion that he has diskitis osteomyelitis out L4-L5, patient initially told me he is not interested in going back to [facility] and he just wanted me to transfer to rehab right away, I told him I can not do that and he has to be admitted to the hospital then he told me that he wants to step outside and smoke a cigarette I told him that I will provide him with a nicotine patch but he is not able to leave the hospital with IV in place and if he leaves he will have to check back in again, patient told me that he is not interested in staying any way, I discussed with him that this can lead to neurological compromise and also he can , he is not interested in staying for further transferred, refused to sign AMA form, this will be documented by RN as well who pulled his IV. This is mo alternative treatment for oral antibiotics in the his case unfortunately, I did provide alternative for leaving ER to smoke a cigarette, I did offer pain control, I am not able to augment his wishes to not go to [facility] or no other tertiary facility. Patient is clinically sober, has no significant distracting injury, and they appear to have intact judgement, insight and reason. In my clinical opinion they have medical decision making capacity. Signs and symptoms discussed with patient. They express understanding of signs/symptoms as explained to them and they repeated it back to me. 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 Alternatives to treatment plan discussed and offered. Patient encouraged to return should they change their mind. Close followup strongly encouraged in case they choose not to return. The patient wants leave Against Medical Advise at this time Differential Diagnosis Differential Diagnoses: The differential diagnosis associated with the presentation includes (Diskitis, osteomyelitis, cellulitis, abscess, spinal epidural abscess) Admission/Observation Consideration of admission/observation: Escalation of care including admission/observation considered Lab Data MDM Lab Attestation statement: I reviewed the patient's lab results. 03/27/25 12:32 03/27/25 12:32 Labs: Lab Results 03/27/25 03/27/25 Range/Units 12:32 12:56 WBC 14.1 H (4.8-10.8) X10*3/uL RBC 4.30 L (4.60-5.80) X10*6/uL Hgb 12.2 L (14.0-18.0) g/dl Hct 36.1 L (42.0-52.0) % MCV 84.0 (80.0-98.0) fL MCH 28.4 (27.0-33.0) pg MCHC 33.8 (31.0-36.0) g/dl RDW 13.3 (11.0-16.0) % Plt Count 202 D (160-400) X10*3/uL MPV 9.7 (9.4-12.4) fL Immature Gran % (Auto) 1.9 H (0.0-0.4) % Neut % (Auto) 81.2 H (45-73) % Lymph % (Auto) 10.8 L (20-40) % Freestone % (Auto) 5.5 (2-11) % Eos % (Auto) 0.4 (0-4) % Baso % (Auto) 0.2 (0-2) % Lymph # (Auto) 1.5 (1.2-4.9) X10*3/uL Freestone # (Auto) 0.8 (0.1-1.2) X10*3/uL Eos # (Auto) 0.1 (0.0-0.4) X10*3/uL Baso # (Auto) 0.0 (0.0-0.2) X10*3/uL Abs Immat Gran (auto) 0.27 H (0.00-0.03) X10*3/uL Absolute Neuts (auto) 11.4 H (2.0-8.3) x10*3/uL Absolute Nucleated RBC 0.000 (0.0-0.012) X10*3/uL Nucleated RBC % (auto) 0.0 (0.0-0.2) /100WBC ESR 43 H (1-20) MM/HR Sodium 135 (135-145) mmol/L Potassium 3.6 D (3.3-5.1) mmol/L Chloride 104 (96-108) mmol/L Carbon Dioxide 23 (22-29) mmol/L Anion Gap 12 (12-20) BUN 13 (9-16) mg/dL Creatinine 0.71 (0.5-1.4) mg/dL Estim Creat Clear Calc 109.5 Estimated GFR > 60 Random Glucose 119 H (60-115) mg/dL Lactic Acid 1.5 (0.5-2.0) mmol/L Calcium 8.7 D (8.4-10.2) mg/dL Total Bilirubin 0.7 (0.0-1.0) mg/dL AST 24 (5-37) U/L ALT 15 (0-40) U/L Alkaline Phosphatase 90 (39-117) U/L C-Reactive Protein 8.62 H (< or = 0.50) mg/dL Total Protein 6.7 (6.5-8.0) g/dL Albumin 3.7 (3.5-5.0) g/dL Influenza Type A (PCR) NEGATIVE (Negative) Influenza Type B (PCR) NEGATIVE (Negative) RSV RNA Qual (PCR) NEGATIVE (Negative) SARS-CoV-2 RNA (RT-PCR) NEGATIVE (Negative) Radiology Impression Discussion of test interpretation with radiology: I have reviewed the radiologist's reading. Radiologist Impression: CT/CT lumbar spine w IV con IMPRESSION: 1. Findings highly suspicious for discitis/osteomyelitis at L4-5. There are erosive/permeative changes of the endplates, new from the recent MRI, with surrounding paravertebral fat stranding, and apparent ventral epidural thickening/enhancement. 2. Rapidly developing sclerotic and irregular endplate changes at L5-S1 is also somewhat concerning for infection at this level as well. 3. There is no discrete formed peripherally enhancing abscess present, although there is dorsal epidural thickening and mild enhancement spanning the mid L4 to the mid S1 level. 4. Above findings would be much better evaluated with MRI, if felt to alter clinical management. US/ venous duplex LE RT IMPRESSION: No evidence of acute DVT in the right lower extremity. Independent Historian Clinical information obtained from an independent historian. History obtained from or confirmed by: EMS Social Determinants Patient?s care significantly limited by Social Determinants of Health including: Inadequate housing, Alcoholism and drug addiction in family, Problems related to primary support group and Other Social Determinant of Health (Opiate use disorder) Critical Care Time Critical Care Time Critical Care Time: Yes Total Critical Care Time: 35 Attestation: Time is exclusive of separately billable procedures. Time includes: direct patient care, patient reassessment, coordination of patient care, interpretation of data (laboratory data, pulse oximetry, arterial blood gases and chest xrays), review of patient's medical records, medical consultation and documentation of patient care. Procedures excluded from critical care time: central intravenous line placement and electrocardiography. Discharge Plan Discharge Clinical Impression: IVDU (intravenous drug user), Cellulitis of leg, right, Cellulitis of left hand, Discitis of lumbosacral region Patient Disposition: Left Against Medical Advice Prescriptions: No Action methadone [Methadone Intensol] 10 mg/mL Concentrate 140 mg PO DAILY cefazolin in dextrose (iso-os) 2 gram/50 mL Piggyback 50 ml IV Q8H 42 Days Qty: 90 0RF sennosides [Senna Lax] 8.6 mg Tablet 17.2 mg PO BEDTIME Qty: 30 0RF ipratropium-albuterol 0.5 mg-3 mg(2.5 mg base)/3 mL Solution For Nebulization 3 ml inhalation Q4H PRN (Reason: Shortness Of Breath/Wheezing) Qty: 90 0RF amlodipine 5 mg Tablet 5 mg PO DAILY Qty: 30 0RF Protocol: Hold for SBP< HOLD for SBP < : 90 oxycodone 15 mg Tablet 15 mg PO Q4H PRN (Reason: Pain, Moderate(Pain Scale 4-6)) Qty: 30 0RF Rx Instructions: Partial Fill upon patient request. omeprazole 20 mg Capsule,Delayed Release(Dr/Ec) 20 mg PO BID@0630,1630 Qty: 60 0RF Print Language: Yoruba
--- NOTE | 2025-03-27 12:01 | PC.NURSE ---
Patient is away for ultrasound. Will attempt labs & IV access upon return. Dr. Hughes aware.
--- NOTE | 2025-03-27 12:37 | PC.NURSE ---
IV access established to left forearm by Dr. Brown (20g IV). Labs drawn and sent for analysis. Results pending. Providing urine specimen. Care ongoing by this RN.
[2025-03-27 12:39] LABS: MANUAL DIFF FLAG NO
[2025-03-27 12:40] LABS: Hematocrit 36.1 % (42.0-52.0); Hemoglobin 12.2 g/dl (14.0-18.0); Imm Gran Abs Auto 0.27 X10*3/uL (0.00-0.03); Imm Gran Pct Auto 1.9 % (0.0-0.4); Lymphocytes Absolute Auto 1.5 X10*3/uL (1.2-4.9); Mean Corpuscular HGB Conc 33.8 g/dl (31.0-36.0); Mean Corpuscular Hemoglobin 28.4 pg (27.0-33.0); Mean Corpuscular Volume 84.0 fL (80.0-98.0); NRBC Abs Auto 0.000 X10*3/uL (0.0-0.012); NRBC Pct Auto 0.0 /100WBC (0.0-0.2); Platelet Count 202 X10*3/uL (160-400); Red Blood Count 4.30 X10*6/uL (4.60-5.80); White Blood Count 14.1 X10*3/uL (4.8-10.8)
[2025-03-27 13:17] LABS: Alanine Aminotransferase 15 U/L (0-40); Albumin Level 3.7 g/dL (3.5-5.0); Alkaline Phosphatase 90 U/L (39-117); Anion Gap 12 (12-20); Aspartate Amino Transferase 24 U/L (5-37); Blood Urea Nitrogen 13 mg/dL (9-16); Calcium 8.7 mg/dL (8.4-10.2); Carbon Dioxide 23 mmol/L (22-29); Chloride 104 mmol/L (96-108); Creatinine Clr Calc Pharmacy 109.5; Estimated Glomerular Filt Rate > 60; Potassium 3.6 mmol/L (3.3-5.1); Sodium 135 mmol/L (135-145); Total Protein 6.7 g/dL (6.5-8.0)
[2025-03-27] MEDS: iohexoL 350 MG/ML 100 ML INFUS..BTL IV (14:09)
[2025-03-27 14:15] LABS: Resp Syncy Virus RNA Qual PCR NEGATIVE (Negative); SARS COV2 PCR INHOUSE NEGATIVE (Negative)
--- NOTE | 2025-03-27 15:02 | PC.NURSE ---
Ceftriaxone 1gm infusion completed at 15:02 on 03/27/2025. Medication infused for 30 minutes as ordered by provider.
[2025-03-27 15:50] VITALS: BP 165/89; PULSE 72; RESP 15; TEMP 36.9; O2SAT 96
--- OUTSIDE RECORDS SUMMARY | 2025-03-27 18:14 | XMS_ITS | Clinical Summary ---
Author Organization [facility] Address [address] [place] [address] Care Team Providers Care Repairer Recreational Vehicle Name Role Phone Ref, Hasnopcp Primary Care [...] 04/22/2016 Hepatitis C Screening Completed 11/21/2024 Insurance [facility] Care Teams Repairer Recreational Vehicle Relationship Specialty Start Date End Date Ref, Hassammie DO NOT EDIT THIS RECORD VIA PROVIDER ON THE FLY PCP - General Procurement Specialist 12/06/24
--- OUTSIDE RECORDS SUMMARY | 2025-03-27 18:14 | XMS_ITS | Clinical Summary ---
Author Organization [facility] [employer] Address [address] [place] [address] Care Team Providers Care Tax Services Professional Name Role Phone Kim Solomon DO Primary Care Provider Allergies No known active allergies Medications amLODIPine (Norvasc) 5 MG tablet TAKE 1 TABLET (5 MG) BY MOUTH ONCE PER DAY. 90 tablet 11/25/2024 Active Active Problems Problem Noted Date Diagnosed Date Opioid dependence with current use (CMS/[facility]) IVDU (intravenous drug user) 10/31/2024 HTN (hypertension) 10/31/2024 Encounters Date Type Department Care Team Description 02/24/2025 Patient Outreach [facility] MED & PEDS [address], [place] [id number] Kim Solomon DO 01/03/2025 Patient Outreach [facility] MEDICINE [address] [place] [address] Kim Solomon DO Transition Of Care (Tcm) [...] to complete this topic Insurance [facility] < 65 [address] [id number] Care Teams Tax Services Professional Relationship Specialty Start Date End Date Kim Solomon DO [address] [place] [address] PCP - General Family Medicine 10/31/24
--- OUTSIDE RECORDS SUMMARY | 2025-03-27 18:14 | XMS_ITS | Clinical Summary ---
Author Organization [facility] Address [address] [place] [address] Care Team Providers Care Process Control Engineer Name Role Phone Unknown Primary Care Provider [...] CBC, CMP, ESR, CRP and fax to [phone]. TTE on 11/24: LV severely dilated, severe [...] CBC, CMP, ESR, CRP and fax to [phone]. TTE on 11/24: LV severely dilated, severe [...] CBC, CMP, ESR, CRP and fax to [phone]. TTE on 11/24: LV severely dilated, severe [...] CBC, CMP, ESR, CRP and fax to [phone]. TTE on 11/24: LV severely dilated, severe [...] CBC, CMP, ESR, CRP and fax to [phone]. TTE on 11/24: LV severely dilated, severe [...] CBC, CMP, ESR, CRP and fax to [phone]. TTE on 11/24: LV severely dilated, severe [...] CBC, CMP, ESR, CRP and fax to [phone]. TTE on 11/24: LV severely dilated, severe [...] CBC, CMP, ESR, CRP and fax to [phone]. TTE on 11/24: LV severely dilated, severe [...] CBC, CMP, ESR, CRP and fax to [phone]. TTE on 11/24: LV severely dilated, severe [...] CBC, CMP, ESR, CRP and fax to [phone]. TTE on 11/24: LV severely dilated, severe [...] CBC, CMP, ESR, CRP and fax to [phone]. TTE on 11/24: LV severely dilated, severe [...] CBC, CMP, ESR, CRP and fax to [phone]. TTE on 11/24: LV severely dilated, severe [...] CBC, CMP, ESR, CRP and fax to [phone]. TTE on 11/24: LV severely dilated, severe [...] CBC, CMP, ESR, CRP and fax to [phone]. TTE on 11/24: LV severely dilated, severe [...] methadone 140 mg daily Confirmed dose from [place], [place]. Continue methadone Addiction medicine team consulted as per ID recommendation Follow Social History Tobacco Use Types Packs/Day Years Used Date Smoking Tobacco: Every Day Smokeless Tobacco: Never Alcohol Use Standard Drinks/Week Comments No 0 (1 standard drink = 0.6 oz pur e alcohol) [facility] Utilities Answer Date Recorded In the past 12 months has e [employer], gas, oil, or water [employer] threatened to shut off services in your [...] any time in the [facility], were you homeless or living in a half-way (including now)? Patient declined 11/22/2024 Sex and [...] (IU/mL) 477,858(H) <10 IU/mL 2:11 PM EDT [facility] HCV RNA (log10) 5.68(H) <1.00 log10 IU/mL 11/27/2024 2:11 PM EDT [facility] Interpretation Detected 11/27/2024 2:11 PM EDT [facility] Comment:Performed by FDA rajan roved [employer]pt[employer] TMA. Linear range is 10 to 100,000,000 IU/mL. HCV Genotyping is not recommended for viral loads below 300 IU/mL. Blood Blood specimen / Unknown 11/21/2024 10:00 AM EDT 11/21/2024 10:36 AM EDT us Killian Mckoy MD LAB BLOOD ORDERABLES Final Resul t [facility] [address] [place] [address], * HIV 1/2 Ag/Ab CMIA Reflex to Confirmation (11/21/2024 10:00 AM EDT) HIV 1/2 Ag/Ab CMIA Nonreactive Nonreactive 11/22/2024 9:46 AM EDT [facility] Comment: Results show no evidence [...] MD LAB BLOOD ORDERABLES Final Resul t [facility] [address] [place] [address] from Last 3 Months or Most Recently Relevant to Health Maintenance Insurance [facility] Advance Directives * Full Code (Latest Code Status on File) Date Activated Date Inactivated Comments 11/20/2024 6:04 AM Care Teams Process Control Engineer Relationship Specialty Start Date End Date Unknown Unknow Provider Address PCP - General 07/31/16
== END 2025-03-27 15:50 | disposition left against medical advice (07) ==
PROVIDERS: Emergency Provider Emergency Medicine
DX: L03.115 Cellulitis of right lower limb (principal); L03.114 Cellulitis of left upper limb; R60.0 Localized edema; M54.50 Low back pain, unspecified; Z03.818 Encounter for observation for suspected exposure to other biological agents ruled out; Z79.899 Other long term (current) drug therapy
CPT/HCPCS: 36415; 72132; 80053; 83605; 85025; 85652; 86140; 87040; 87147; 87205; 87637; 93971; 96374; 96375; 99284; 99285; J0131; J0696; J1885; Q9967

== ENCOUNTER → 2025-03-27 11:37 | Outpatient (BNV) | payer OTHER, SELFPAY | PROVIDERS: Emergency Provider Emergency Medicine; Visit Provider Radiology Diagnostic Radiology | DX: M54.50 Low back pain, unspecified (principal); R22.41 Localized swelling, mass and lump, right lower limb; M79.661 Pain in right lower leg | CPT/HCPCS: 72132; 93971 ==

== ENCOUNTER 2025-03-28 08:05 | Emergency (ER) | payer OTHER, SELFPAY ==
--- NOTE | 2025-03-28 08:29 | ED_ITS ---
HPI - General Adult General Chief complaint: Back Pain/Injury Stated complaint: BACK PAIN Time Seen by Provider: 03/28/25 08:19 Source: patient and EMS Mode of arrival: EMS Limitations: no limitations History of Present Illness ED Provider: YAYA Groves HPI narrative: Chief Complaint: ?My back and flanks still hurt.? History of Present Illness: The patient is a 59-year-old homeless male with a history of intravenous drug use, hepatitis C, and a recent diagnosis of methicillin-sensitive Staphylococcus aureus (MSSA) epidural abscess/discitis (L4?L5) confirmed yesterday. He presents today with persistent bilateral flank pain, low back pain, and swelling of the left dorsal hand at an IV injection site. He was evaluated in this ED yesterday, left AMA while a transfer to [facility] was pending. The patient reports that three days ago he was at [facility], where he was discharged on doxycycline for an infection . Reports lower back pain and overall feeling unwell. He states today he is open to transfer. Related Data Home Medications ?Medication ?Instructions ?Recorded ?Confirmed methadone 10 mg/mL oral 140 mg PO DAILY 12/01/24 concentrate (Methadone Intensol) Previous Rx's ?Medication ?Instructions ?Recorded amlodipine 5 mg tablet 5 mg PO DAILY #30 tabs 12/05 cefazolin 2 gram/50 mL in dextrose 50 ml IV Q8H 6 week s #90 ea 12/05/24 (iso-osmotic) intravenous piggyback ipratropium 0.5 mg-albuterol 3 mg 3 ml inhalation Q4H PRN Shortness 12/05/24 (2.5 mg base)/3 mL nebulization Of Breath/Wheezing #90 mL soln omeprazole 20 mg capsule,delayed 20 mg PO BID@0630,163 0 #60 caps 12/05/24 release oxycodone 15 mg tablet 15 mg PO Q4H PRN Pain, 12/05 Moderate(Pain Scale 4-6) #30 tabs sennosides 8.6 mg tablet (Senna 17.2 mg (2 x 8.6 mg) P O BEDTIME 12/05/24 Lax) #30 tabs Allergies Allergy/AdvReac Type Severity Reaction Status Date / Time morphine Allergy Intermediate Headache Verified 03/28/25 08:33 codeine (Codeine) Allergy Mild HIVES, Verified 03/28/25 08:33 VOMITING Review of Systems 2 Review of Systems: Review of Systems: * Constitutional: Positive for pain. No fever or chills mentioned. * Musculoskeletal: Positive for low back pain and bilateral flank pain. * Skin/Extremities: Swelling of the left dorsal hand at IV site. * Neurologic: No weakness, numbness, or bowel/bladder changes reported. * All other systems: Not discussed. Yes all other systems are reviewed and are negative PMFSH Past Medical History Attestation statement: The following information was validated with the patient. Source: old records reviewed and nursing notes reviewed Medical History Edentulous IVDU (intravenous drug user) Tobacco dependence Homeless Tenosynovitis of finger Cellulitis of hand, left Hepatitis C Opioid use disorder High blood pressure Hyperlipidemia Heroin addiction Substance abuse Colitis Anxiety Surgical History H/O oral surgery Family History Family History (Updated 12/02/24 @ 15:52 by Nadira Amor MD) Other Hepatitis C Social History Social History Household Members: None Household Members Other:: homeless Housing: Homeless Do you presently have visiting nurse or other home services: No Alcohol intake: current Alcohol intake frequency: 3 or more drinks per day Comment: pt refusing bed alarm Patient Tobacco Use Status: Never used Tobacco Tobacco use type: Cigarette e-Cigarette/Vaping Use: Currently Using Second Hand Smoke Exposure: Yes Substance Use Type: Crack/Cocaine Advance Directives: Yes Advance Directives on File: Yes Advance Directives Date on File: 12/06/24 Do you have a plan to hurt others: No Plan service: No Current occupational status: unemployed Physical Exam ED Exam Exam: Physical Exam: * General: Homeless male, uncomfortable but in no acute distress, alert and oriented ?4. Appears sick * Cardiovascular: Regular rate and rhythm. * Respiratory: Lungs clear to auscultation bilaterally. * Abdomen: Soft, non-tender, distended. * Musculoskeletal/Back: Paraspinous lumbar tenderness in the lumbosacral region with midline pain. * Neurologic: Cranial nerves II?XII intact. * Extremities/Skin: Swelling of left dorsal hand at IV drug injection site. Vital Signs: Vital Signs - 24 hr 03/28/25 08:30 Temperature 98.5 F Pulse Rate 59 Respiratory Rate 16 Blood Pressure 190/102 H Pulse Oximetry 96 Oxygen Delivery Method Room Air BMI result Body Mass Index 25.8 vss Course Reevaluation(s) Reevaluation #1: I did reach out to the transfer line at [facility] and he was accepted at [facility] ED - Dr. Thurston Time: 08:53 Reevaluation #2: Repeat labs with improving leukocytosis yesterday 14.1 today 10.3. No left shift. Chemistry no acute findings needing intervention. CRP 8.49 yesterday it was 8.6 to again lower than yesterday. Yesterday he had a flu, COVID, RSV test done all of which were negative. No need to repeat today. Time: 09:00 Reevaluation #3: Plan is transfer patient agreeable to this plan Time: 09:24 Medications Administered Discontinued Medications Generic Name Dose Route Start Last Admin Trade Name Freq PRN Reason Stop Dose Admin Piperacillin Sod/Tazobactam 50 mls @ 100 mls/hr 03/28/25 08:44 03/28/25 09:17 Sod 3.375 gm/ Sodium Chloride IV 03/28/25 09:13 100 mls/hr ONCE ONE Administration Ketorolac Tromethamine 30 mg 03/28/25 08:46 03/28/25 09:06 Ketorolac Tromethamine 15 Mg/Ml Vial IVPUSH 03/28/25 08:47 30 mg ONCE ONE Administration Medical Decision Making Medical Decision Making [facility] Narrative: 0845 59-year-old male with IV drug use presenting with persistent low back/flank pain and known MSSA L4?L5 discitis/osteomyelitis with ventral epidural involvement. Problem #1: L4?L5 discitis/osteomyelitis with ventral epidural abscess Assessment: Confirmed infectious process with leukocytosis and imaging findings; persistent symptoms today. Requires intravenous antibiotics and neurosurgical care unavailable at this facility. Plan: * Start empiric IV vancomycin plus piperacillin-tazobactam (Zosyn). * Repeat CBC, ESR, CRP, lactate; obtain two sets of blood cultures. * Arrange transfer to tertiary center with neurosurgery/spine intervention capabilities (e.g., [facility]) if patient agreeable. Problem #2: Intravenous drug use ? active Assessment: Ongoing IV drug use with left dorsal hand swelling, potential source of infection. Imaging CT showed L4?L5 discitis/osteomyelitis with erosive endplate changes, paravertebral phlegmon, ventral epidural thickening/enhancement, and rapidly developing sclerotic/irregular endplate changes at L5?S1. Yesterday?s labs showed leukocytosis 14.1 K/?L with left shift; BMP was unremarkable and lactate 1.1 mmol/L. He has not been medication compliant. Today he reports the same symptoms and requests further evaluation. Laboratory data relevant for visit: Yesterday: WBC 14.1 K/?L with left shift; lactate 1.1 mmol/L; chemistries otherwise unremarkable. Plan for today: repeat CBC, ESR, CRP, lactate, and obtain blood cultures (results pending). Imaging data relevant for visit: CT lumbar spine (yesterday) ? erosive endplate changes at L4?L5 consistent with discitis/osteomyelitis; paravertebral phlegmon; ventral epidural thickening/enhancement; rapidly developing sclerotic/irregular endplate changes at L5?S1. [address] [place] [address] closed for transfers due to capacity Differential Diagnosis Differential Diagnoses: The differential diagnosis associated with the presentation includes Admission/Observation Consideration of admission/observation: Escalation of care including admission/observation considered (Needed ) Consult Healthcare Provider Management of the patient was discussed with: Butt Sawyer ([facility] Transfer line-) Lab Data [facility] Lab Attestation statement: I reviewed the patient's lab results. 03/28/25 08:35 03/28/25 08:35 Labs: Lab Results 03/28/25 Range/Units 08:35 WBC 10.3 (4.8-10.8) X10*3/uL RBC 4.32 L (4.60-5.80) X10*6/uL Hgb 12.2 L (14.0-18.0) g/dl Hct 36.3 L (42.0-52.0) % MCV 84.0 (80.0-98.0) fL MCH 28.2 (27.0-33.0) pg MCHC 33.6 (31.0-36.0) g/dl RDW 13.2 (11.0-16.0) % Plt Count 196 (160-400) X10*3/uL MPV 9.6 (9.4-12.4) fL Immature Gran % (Auto) 0.8 H (0.0-0.4) % Neut % (Auto) 79.7 H (45-73) % Lymph % (Auto) 11.5 L (20-40) % [place] % (Auto) 6.9 (2-11) % Eos % (Auto) 0.8 (0-4) % Baso % (Auto) 0.3 (0-2) % Lymph # (Auto) 1.2 (1.2-4.9) X10*3/uL [place] # (Auto) 0.7 (0.1-1.2) X10*3/uL Eos # (Auto) 0.1 (0.0-0.4) X10*3/uL Baso # (Auto) 0.0 (0.0-0.2) X10*3/uL Abs Immat Gran (auto) 0.08 H (0.00-0.03) X10*3/uL Absolute Neuts (auto) 8.2 (2.0-8.3) x10*3/uL Absolute Nucleated RBC 0.000 (0.0-0.012) X10*3/uL Nucleated RBC % (auto) 0.0 (0.0-0.2) /100WBC ESR 44 H (1-20) MM/HR Sodium 136 (135-145) mmol/L Potassium 3.5 (3.3-5.1) mmol/L Chloride 103 (96-108) mmol/L Carbon Dioxide 25 (22-29) mmol/L Anion Gap 12 (12-20) BUN 13 (9-16) mg/dL Creatinine 0.65 (0.5-1.4) mg/dL Estim Creat Clear Calc 110.4 Estimated GFR > 60 Random Glucose 109 (60-115) mg/dL Calcium 8.8 (8.4-10.2) mg/dL Total Bilirubin 0.6 (0.0-1.0) mg/dL AST 19 (5-37) U/L ALT 12 (0-40) U/L Alkaline Phosphatase 92 (39-117) U/L C-Reactive Protein 8.49 H (< or = 0.50) mg/dL Total Protein 6.8 (6.5-8.0) g/dL Albumin 3.8 (3.5-5.0) g/dL Critical Care Time Critical Care Time Critical Care Time: Yes Total Critical Care Time: 45 Attestation: I attest to this time spent taking care of the patient, obtaining history, physical, reviewing labs, imaging, treatment of patients condition +/- specialist/hospitalist consult +/- procedure Discharge Plan Discharge Clinical Impression: IVDU (intravenous drug user), Discitis, Acute osteomyelitis of lumbar spine Patient Disposition: General Acute Hospital Transfer Details: [facility] ED Dr. Thurston Additional Instructions: You will be transferred to [facility] Emergency Department for further evaluation and treatment. Prescriptions: No Action methadone [Methadone Intensol] 10 mg/mL Concentrate 140 mg PO DAILY cefazolin in dextrose (iso-os) 2 gram/50 mL Piggyback 50 ml IV Q8H 42 Days Qty: 90 0RF sennosides [Senna Lax] 8.6 mg Tablet 17.2 mg PO BEDTIME Qty: 30 0RF ipratropium-albuterol 0.5 mg-3 mg(2.5 mg base)/3 mL Solution For Nebulization 3 ml inhalation Q4H PRN (Reason: Shortness Of Breath/Wheezing) Qty: 90 0RF amlodipine 5 mg Tablet 5 mg PO DAILY Qty: 30 0RF Protocol: Hold for SBP< HOLD for SBP < : 90 oxycodone 15 mg Tablet 15 mg PO Q4H PRN (Reason: Pain, Moderate(Pain Scale 4-6)) Qty: 30 0RF Rx Instructions: Partial Fill upon patient request. omeprazole 20 mg Capsule,Delayed Release(Dr/Ec) 20 mg PO BID@0630,1630 Qty: 60 0RF Referrals: René Fields MD [Primary Care Provider, Medical] - 1 week Print Language: Tunisian
[2025-03-28 08:30] VITALS: BP 168/100; BP 190/102; PULSE 59; PULSE 98; RESP 16; TEMP 36.9; O2SAT 95; O2SAT 96; BMI 25.8
[2025-03-28 08:39] LABS: MANUAL DIFF FLAG NO
[2025-03-28 08:48] LABS: Hematocrit 36.3 % (42.0-52.0); Hemoglobin 12.2 g/dl (14.0-18.0); Imm Gran Abs Auto 0.08 X10*3/uL (0.00-0.03); Imm Gran Pct Auto 0.8 % (0.0-0.4); Lymphocytes Absolute Auto 1.2 X10*3/uL (1.2-4.9); Mean Corpuscular HGB Conc 33.6 g/dl (31.0-36.0); Mean Corpuscular Hemoglobin 28.2 pg (27.0-33.0); Mean Corpuscular Volume 84.0 fL (80.0-98.0); NRBC Abs Auto 0.000 X10*3/uL (0.0-0.012); NRBC Pct Auto 0.0 /100WBC (0.0-0.2); Platelet Count 196 X10*3/uL (160-400); Red Blood Count 4.32 X10*6/uL (4.60-5.80); White Blood Count 10.3 X10*3/uL (4.8-10.8)
[2025-03-28 08:54] LABS: Alanine Aminotransferase 12 U/L (0-40); Albumin Level 3.8 g/dL (3.5-5.0); Alkaline Phosphatase 92 U/L (39-117); Anion Gap 12 (12-20); Aspartate Amino Transferase 19 U/L (5-37); Blood Urea Nitrogen 13 mg/dL (9-16); Calcium 8.8 mg/dL (8.4-10.2); Carbon Dioxide 25 mmol/L (22-29); Chloride 103 mmol/L (96-108); Creatinine Clr Calc Pharmacy 110.4; Estimated Glomerular Filt Rate > 60; Potassium 3.5 mmol/L (3.3-5.1); Sodium 136 mmol/L (135-145); Total Protein 6.8 g/dL (6.5-8.0)
[2025-03-28] MEDS: vancomycin HCL 1,000 MG, vancomycin HCL 750 MG in 0.9 % Sodium Chloride 500 ML 267.5 MG IV (09:42)
--- NOTE | 2025-03-28 09:44 | PC.NURSE ---
Pt came to ED yesterday but left AMA bc he did not want to be transferred to [place]. Plan was to transfer to [place] for spinal abscess/infection. Bld cultures were drawn and pt was started on IVabx. EMS at bedside for transport
[2025-03-28 09:45] VITALS: BP 180/95; PULSE 65; RESP 16; TEMP 36.9; O2SAT 96
== END 2025-03-28 09:51 | disposition short-term general hospital (02) ==
PROVIDERS: Physician Assistant; Emergency Provider Emergency Medicine; PCP Internal Medicine
DX: M46.46 Discitis, unspecified, lumbar region (principal); M46.26 Osteomyelitis of vertebra, lumbar region; F19.10 Other psychoactive substance abuse, uncomplicated; A49.02 Methicillin resistant Staphylococcus aureus infection, unspecified site; R78.81 Bacteremia; F11.20 Opioid dependence, uncomplicated; Z59.00 Homelessness unspecified; Z53.29 Procedure and treatment not carried out because of patient's decision for other reasons
CPT/HCPCS: 36415; 80053; 83605; 85025; 85652; 86140; 87040; 87077; 87147; 87186; 87205; 96365; 96366; 96367; 96375; 99285; J1885; J2270; J2543; J3374

== ENCOUNTER 2025-04-08 20:24 | Outpatient (BNV) | payer OTHER, SELFPAY | END 2025-04-11 07:00 | PROVIDERS: Admitting Provider Hospitalist; Visit Provider Internal Medicine Cardiovascular Disease | DX: R78.81 Bacteremia (principal) | CPT/HCPCS: 93306 ==

== ENCOUNTER → 2025-04-08 20:24 | Outpatient (BNV) | payer OTHER, SELFPAY | PROVIDERS: Admitting Provider Hospitalist; Visit Provider Nurse Practitioner Family | DX: R78.81 Bacteremia (principal); B95.62 Methicillin resistant Staphylococcus aureus infection as the cause of diseases classified elsewhere | CPT/HCPCS: 99223; 99233; 99499 ==

== ENCOUNTER → 2025-04-08 20:24 | Outpatient (BNV) | payer OTHER, SELFPAY | PROVIDERS: Admitting Provider Hospitalist; Visit Provider Internal Medicine | DX: B19.20 Unspecified viral hepatitis C without hepatic coma (principal); R78.81 Bacteremia; B95.62 Methicillin resistant Staphylococcus aureus infection as the cause of diseases classified elsewhere; F19.90 Other psychoactive substance use, unspecified, uncomplicated; G06.2 Extradural and subdural abscess, unspecified | CPT/HCPCS: 99222 ==

== ENCOUNTER → 2025-04-08 20:24 | Outpatient (BNV) | payer OTHER, SELFPAY | PROVIDERS: Admitting Provider Hospitalist; Visit Provider Nurse Practitioner Psychiatric/Mental Health | DX: F11.90 Opioid use, unspecified, uncomplicated (principal) | CPT/HCPCS: 99221 ==

== ENCOUNTER → 2025-04-08 20:24 | Outpatient (BNV) | payer OTHER, SELFPAY | PROVIDERS: Admitting Provider Hospitalist; Visit Provider Physician Assistant Surgical | DX: F19.90 Other psychoactive substance use, unspecified, uncomplicated (principal); S81.801A Unspecified open wound, right lower leg, initial encounter | CPT/HCPCS: 99222; 99232 ==